=== PATIENT | male | born 1965 | race Caucasian/White ===

== ENCOUNTER 2017-02-14 10:23 | Emergency (ER) | payer BC ==
[2017-02-14 10:30] VITALS: BP 150/84
--- NOTE | 2017-02-14 11:03 | RAD ---
HISTORY: Left knee pain, trauma COMPARISONS: None VIEWS: 4, Frontal, lateral, axial, and oblique views of the left knee FINDINGS: BONE DENSITY: Normal. BONES: There is no displaced fracture. JOINTS: There is no arthropathy. There is a moderate suprapatellar joint effusion. There is no lipohemarthrosis. ALIGNMENT: There is no dislocation. SOFT TISSUES: Unremarkable. OTHER FINDINGS: None. IMPRESSION: NO ACUTE OSSEOUS INJURY. JOINT EFFUSION. IF SYMPTOMS PERSIST, RECOMMEND REPEAT IMAGING.
--- NOTE | 2017-02-14 11:29 | UC ---
Lower Extremity/Ankle HPI - HPI Summary HPI Summary: Patient presents to the with left knee pain s/p fall last evening. He feels the knee laterally twisted out as he fell. He fell directly onto the right knee while twisting the left, but denies injury or pain in the right knee. Thorough physical exam was performed, focusing on knee special tests. Pain on palpation over lateral aspect and superior aspect of knee with mild amount of effusion. Due to patient pain around injury, physical exam was limited. Valgus and varus force without pain. No posterior sag sign, -posterior drawer test, - anterior drawer test. Quadriceps active test negative. Mcmurrys test not performed d/t patients instability. Some laxity in the joint noted. No temperature change or pallor noted bilaterally. No ecchymosis noted over knee. No lesion or disruption of skin is seen. Unable to bear weight currently, although felt he could bear weight last evening. He has been taking ibuprofen at home with minimum relief. Pulses intact bilaterally. Cap refill <2 sec. - History of Current Complaint Chief Complaint: UCLowerExtremity Stated Complaint: KNEE INJURY Time Seen by Provider: 02/14/17 10:33 Hx Obtained From: Patient Onset/Duration: Sudden Onset Severity Initially: Mild Severity Currently: Mild Pain Intensity: 5 Pain Scale Used: 0-10 Numeric Aggravating Factor(s): Standing, Ambulation Alleviating Factor(s): Rest, Elevation Able to Bear Weight: No - Risk Factors Gout Risk Factors: Age Over 40, Male DVT Risk Factors: Negative Septic Arthritis Risk Factor: Negative - Allergies/Home Medications Allergies/Adverse Reactions: Allergies Allergy/AdvReac Type Severity Reaction Status Date / Time No Known Allergies Allergy Verified 02/14/17 10:30 PMH/Surg Hx/FS Hx/Imm Hx Previously Healthy: Yes - Surgical History Surgical History: Yes Surgery Procedure, Year, and Place: 2001 SUSPENSION MICROLARY[place]OSCOPY[place] [facility] [place] [facility] [place]/2006 RIGHT KNEE ARTHROSCOPY, REPAIR TORN MENISCUS, [place] [facility] [place] [facility] [place] [facility] [place] RIGHT GROIN [place]EURYSM [place]PAIR, [place] - Family History Known Family History: Positive: Other - cancer - Social History Occupation: Employed Full-time Lives: With Family Alcohol Use: Weekly Alcohol Amount: 6-8 BEERS 2-3X/WEEK Substance Use Type: None, Marijuana Smoking Status (MU): Current Every Day Smoker Type: Cigarettes Amount Used/How Often: 1ppd Length of Time of Smoking/Using Tobacco: 30 YEARS Have You Smoked in the Last Year: Yes - Immunization History Immunizations Comment: no flu shot Review of Systems Constitutional: Negative Skin: Negative ENT: Negative Respiratory: Negative Cardiovascular: Negative Motor: Decreased ROM Musculoskeletal: Arthralgia - left knee pain Neurological: Negative Psychological: Negative Is Patient Immunocompromised?: No All Other Systems Reviewed And Are Negative: Yes Physical Exam Triage Information Reviewed: Yes Appearance: Well-Appearing, Well-Nourished Vital Signs: Initial Vital Signs Temp 98.4 F 02/14/17 10:26 Pulse 88 02/14/17 10:26 Resp 18 02/14/17 10:26 BP 150/84 02/14/17 10:26 Pulse Ox 97 02/14/17 10:26 Vital Signs Reviewed: Yes Eye Exam: Normal Eyes: Positive: Conjunctiva Clear Neck exam: Normal Neck: Positive: Supple, No Lymphadenopathy Respiratory Exam: Normal Respiratory: Positive: Chest non-tender, Lungs clear Cardiovascular Exam: Normal Cardiovascular: Positive: RRR Musculoskeletal: Positive: ROM Limited @ - valgus and varus force with limitations d/t pain, Edema @ - medial knee Neurological Exam: Normal Neurological: Positive: Muscle Tone Normal Psychological: Positive: Normal Response To Family, Age Appropriate Behavior Skin Exam: Normal Lower Extremity Course/Dx - Course Course Of Treatment: Patient sent to imaging. Xray negative for fracture or other acute findings. Soft tissue swelling noted over the knee. Knee immobizer give to allow for immobilization for this period of time. Patient arrives with crutches. Patient given orthopedic follow up in 5-7 days. Encouraged Ibuprofen 600mg three times daily with meals for pain. Return precautions given. Educated patient regarding knee injuries and healing time and the possibility of further evaluation and imaging as orthopedist sees fit. D/t laxity of the joint, this is likely a ligamentous tear. This was explained to patient and should remain non-weight bearing until follow up with ortho. - Differential Dx/Diagnosis Differential Diagnosis/HQI/PQRI: Fracture (Closed), Sprain, Strain, Other - ligamentous tear, ACL, PCL, MCL Provider Diagnoses: Knee pain Discharge - Discharge Plan Condition: Stable Disposition: HOME Patient Education Materials: Swollen Knee Joint (ED), Knee Immobilizer (ED) Referrals: Matthew Bean MD [Medical Doctor] - Milton LAU,John Hernandes [Primary Care Provider] - Additional Instructions: Ibuprofen 600mg three times daily with meals for pain. Follow up with orthopedic physician in 5-7 days. If numbness, tingling, decreased sensation, increased pain, temperature changes or pallor noted in toes, come back to ER immediately. Protect the area. This may involve the need for immobilization or crutches for a period of time. Rest the involved area, but not too long. You may need to be off your injury for some time to allow for healing, however excessive immobilization of joints can lead to stiffness and delay healing time. Early mobilization is encouraged if it is pain-free. Ice. Not directly on the skin. Cover with a towel. Apply ice no more than 30 minutes at a time Elevate: Try to elevate the injured area above the heart whenever possible.
== END 2017-02-14 12:17 | disposition home or self-care (01) ==
LOC: UCEAST 10:23
DX: M25.562 Pain in left knee (principal); F17.210 Nicotine dependence, cigarettes, uncomplicated; W19.XXXA Unspecified fall, initial encounter
CPT/HCPCS: 99212; G0463

== ENCOUNTER 2017-06-06 11:41 | Emergency (ER) | payer BC ==
[2017-06-06] MEDS ORDERED: Morphine INJ* 4 MG/ML 1 ML CARPUJECT IV ONE (13:26)
[2017-06-06] MEDS ORDERED: Ondansetron INJ* 2 MG/ML VIAL IV ONE (13:26)
[2017-06-06] MEDS ORDERED: Ketorolac INJ* 30 MG/ML 1 ML VIAL IV PUSH ONE (13:26)
[2017-06-06] MEDS ORDERED: predniSONE TAB* 20 MG PO ONE (13:26)
[2017-06-06 14:09] LABS: ABS Basophils 0.1 10^3/ul (0-0.2); ABS Eosinophils 0.1 10^3/ul (0-0.6); ABS Lymphocytes 3.2 10^3/ul (1.0-4.8); ABS Monocytes 0.7 10^3/ul (0-0.8); ABS Neutrophils 6.1 10^3/ul (1.5-7.7); ABS Nucleated RBC 0 10^3/ul; Eosinophil % 0.7 % (0-6); Hematocrit 45 % (42-52); Lymphocyte % 31.5 % (25-47); Mean Corpuscular HGB Conc 36 g/dl (31-36); Mean Corpuscular Hemoglobin 33 pg (27-31); Mean Corpuscular Volume 93 fL (80-94); Mean Platelet Volume 8 um3 (7.4-10.4); Nucleated Red Blood Cells % 0; Platelet Count 319 10^3/ul (150-450); Red Blood Count 4.85 10^6/ul (4.0-5.4); Red Cell Distribution Width 13 % (10.5-15); White Blood Count 10.3 10^3/ul (3.5-10.8)
[2017-06-06 14:18] LABS: EGFR Non-African American 91.7 (>60)
[2017-06-06] MEDS ORDERED: Iohexol 350* (CONTRAST) 500 ML MDV IV ONE (14:25)
--- NOTE | 2017-06-06 15:14 | RAD ---
STUDY: CT angiography of the chest, abdomen and pelvis. INDICATION: Chest pain and groin aneurysm COMPARISON: CT abdomen pelvis dated September 29, 2009 TECHNIQUE: Multidetector CT angiography of the chest, abdomen and pelvis were obtained from the lung apices to the ischial tuberosities after the intravenous injection of 100 mL Omnipaque 350. Reformats were created in the coronal and sagittal planes. 3-D vascular imaging was created from the source images and reviewed as well. ANGIOGRAPHIC FINDINGS: There are no filling defects of the central or lobar pulmonary arteries to indicate centrilobular pulmonary embolism. The thoracic and abdominal aorta is normal in size and morphology. There is no aortic dissection or pathologic aneurysmal dilatation. The branch arteries at the arch of the aorta are adequately patent and appear to be patent in their proximal portions. The major branch arteries from the abdominal aorta including the celiac trunk, superior mesenteric artery, bilateral renal arteries and inferior mesenteric artery are adequately patent. There is mild mixed attenuation atherosclerosis at the infrarenal abdominal aorta extending into the patent bilateral common iliac arteries. In-line flow is seen as far as the bilateral external iliac arteries. The right common femoral artery exhibits mild aneurysmal dilatation measuring 1.2 cm in diameter. There is patent in-line flow into the proximal most portions of the femoral profundus and superficial femoral artery although there is relative high-grade stenosis of the right superficial femoral artery at its proximal most portion measuring 5 mm in diameter (axial image 261). On the left there is coarse calcification that appears to cause high-grade stenosis at the left common femoral artery but in-line flow appears to be maintained into the proximal most portions of the superficial femoral artery and femoral profundus. NON ANGIOGRAPHIC FINDINGS: Chest: The lungs exhibit diffuse centrilobular emphysematous changes. There are no focal masses or suspicious pulmonary nodules. There is no mediastinal or hilar lymphadenopathy. The heart is grossly normal in appearance. Abdomen & Pelvis: The liver, spleen, pancreas and adrenal glands are grossly normal in appearance. The gallbladder is normal. The kidneys are normal in appearance without focal mass, calcification or signs of hydronephrosis. The renal cortices enhance promptly and symmetrically on arterial phase imaging. The small and large bowel are not distended. The appendix is normal in appearance with gas partially filling the lumen measuring 5 mm in diameter (image 204). There is no gross retroperitoneal or mesenteric lymphadenopathy. The pelvic viscera is normal in appearance. Multilevel degenerative changes of the thoracic and lumbar spine includes mild loss of intervertebral disc height as well as anterior marginal osteophyte formation at the lower thoracic spine. IMPRESSION: 1. No CT evidence of acute aortic disease including dissection or pathologic aneurysmal dilatation. 2. No centrilobular pulmonary embolism. 3. There is mild aneurysmal dilatation at the right common femoral artery with wall thickening consistent with prior surgical intervention. 4. There is relative high-grade stenosis at the proximal most portion of the right superficial femoral artery. Please correlate to any signs or symptoms of right lower extremity arterial insufficiency. 5. Coarse atherosclerotic calcification appears to cause high-grade stenosis at the left common femoral artery. 6. Additional chronic and degenerative changes described in the body of the report.
[2017-06-06] MEDS ORDERED: HYDROcodone/ACETAMIN 5-325 MG* 1 TAB PO ONE (15:33)
[2017-06-06 15:44] VITALS: BP 135/98
--- NOTE | 2017-06-09 16:04 | ED ---
Jenniffer Piña Gabriel scribed for Cole Castro MD on 06/06/17 at 1330 . HPI Chest Pain - HPI Summary HPI Summary: This patient is a 51 year old M presenting to [facility] with a chief complaint of CP since 05/30/17. The patient rates the constant pain /10 in severity, he states that it radiates in to his neck, down his left side, into his left arm, and into his legs and he describes the pain as icy. Patient reports numbness in LE (began months ago). Patient was referred to a civil design specialist in [place] by his PCP. He went for 2 visits and felt like he was getting nowhere and was wasting his time so he did not continue to see the doctor. - History of Current Complaint Chief Complaint: EDChestPainROMI Time Seen by Provider: 06/06/17 13:02 Hx Obtained From: Patient Onset/Duration: Started Weeks Ago - 1 Timing: Constant Initial Severity: Severe Current Severity: Severe Pain Intensity: 8 Pain Scale Used: 0-10 Numeric Chest Pain Location: Left Anterior, Left Lateral Chest Pain Radiates: Yes Chest Pain Radiates To:: Arm, Jaw, Neck, Other - LE Character: Other: - "icy" Aggravating Factor(s): Nothing Alleviating Factor(s): Nothing Associated Signs and Symptoms: Positive: Chest Pain - Allergy/Home Medications Allergies/Adverse Reactions: Allergies Allergy/AdvReac Type Severity Reaction Status Date / Time Acetaminophen [From Percocet] Allergy Itching Verified 06/06/17 13:48 Codeine Allergy Itching Verified 06/06/17 13:48 Hydrocodone Allergy Itching Verified 06/06/17 13:48 Oxycodone [From Percocet] Allergy Itching Verified 06/06/17 13:48 Home Medications: Home Medications Atorvastatin* [Lipitor*] 80 mg PO DAILY 06/06/17 [History Confirmed 06/06/17] Lisinopril TAB* [Prinivil TAB*] 10 mg PO DAILY 06/06/17 [History Confirmed 06/06] PMH/Surg Hx/FS Hx/Imm Hx Endocrine/Hematology History: Denies: Hx Diabetes, Hx Thyroid Disease Cardiovascular History: Reports: Hx Hypertension - CONTROL WITH MEDS, Other Cardiovascular Problems/Disorders - HX OF ANEURYSM IN RIGHT GROIN AREA, - REPAIRED WITH SURGERY 2013 Respiratory History: Denies: Hx Asthma, Hx Chronic Obstructive Pulmonary Disease (COPD) GI History: Denies: Hx Ulcer Musculoskeletal History: Reports: Hx Arthritis, Hx Tendonitis - RIGHT ELBOW, Other Musculoskeletal History - BILATERAL CARPAL TUNNEL SYNDROME Sensory History: Denies: Hx Contacts or Glasses, Hx Hearing Aid Opthamlomology History: Denies: Hx Contacts or Glasses Neurological History: Reports: Hx Migraine - OCCASIONAL - Surgical History Surgery Procedure, Year, and Place: 2001 SUSPENSION MICROLARYNGOSCOPY, RIGID [place]GD , [facility] [place]. 2004 ARTHROSCOPIC SURGERY LEFT KNEE, [facility] [place]. 05/29/2006 RIGHT KNEE ARTHROSCOPY, REPAIR TORN MENISCUS, ACL DEBRIDEMENT, [facility] [place]. 06/08/2006 RIGHT KNEE ARTHROSCOPY, [facility] [place]. LEFT ELBOW SURGERY, [facility] [place]. 2013 RIGHT GROIN ANEURYSM REPAIR, [place] Hx Anesthesia Reactions: No Infectious Disease History: No Infectious Disease History: Reports: Hx of Known/Suspected MRSA Denies: Hx Clostridium Difficile, Hx Hepatitis, Hx Human Immunodeficiency Virus (HIV), Hx Shingles, Hx Tuberculosis, Hx Known/Suspected VRE, Hx Known/ Suspected VRSA, History Other Infectious Disease, Traveled Outside the in Last 30 Days - Family History Known Family History: Positive: Hypertension, Diabetes, Other - cancer Negative: Cardiac Disease, Renal Disease, Respiratory Disease, Seizure Disorder, Blood Disorder - Social History Occupation: Employed Full-time Lives: With Family Alcohol Use: Weekly Alcohol Amount: 6-8 BEERS 2-3X/WEEK Substance Use Type: Reports: None, Marijuana Smoking Status (MU): Current Every Day Smoker Type: Cigarettes Amount Used/How Often: 1ppd Length of Time of Smoking/Using Tobacco: 30 YEARS Have You Smoked in the Last Year: Yes Review of Systems Negative: Fever, Chills Negative: Erythema Negative: Sore Throat Positive: Chest Pain Negative: Shortness Of Breath, Cough Negative: Abdominal Pain, Vomiting, Nausea Negative: dysuria, hematuria Positive: Other - LE numbness and weakness . Negative: Myalgia, Edema Negative: Rash Neurological: Negative - dizziness , Other - nerve pain the left side of his body into LE All Other Systems Reviewed And Are Negative: Yes Physical Exam - Summary Physical Exam Summary: Constitutional: Well-developed, Well-nourished, Alert. (-) Distressed Skin: Warm, Dry HENT: Normocephalic; Atraumatic Eyes: Conjunctiva normal Neck: Musculoskeletal ROM normal neck. (-) JVD, (-) Stridor, (-) Tracheal deviation Cardio: Rhythm regular, rate normal, Heart sounds normal; Intact distal pulses; The pedal pulses are 2+ and symmetric. Radial pulses are 2+ and symmetric. (-) Murmur Pulmonary/Chest wall: Effort normal. 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 Lymph: (-) Cervical adenopathy Neuro: Alert, Oriented x3 Psych: Mood and affect Normal Triage Information Reviewed: Yes Vital Signs On Initial Exam: Initial Vitals Temp Pulse Resp BP Pulse Ox 98.3 F 86 18 164/97 97 06/06/17 13:18 06/06/17 13:18 06/06/17 13:18 06/06/17 13:18 06/06/17 13:18 Vital Signs Reviewed: Yes - Ronald Coma Scale Coma Scale Total: 15 Diagnostics - Vital Signs Vital Signs Temp Pulse Resp BP Pulse Ox 06/06/17 13:19 20 06/06/17 13:18 98.3 F 86 18 164/97 97 - Laboratory Result Diagrams: 06/06/17 13:43 06/06/17 13:43 Lab Statement: Any lab studies that have been ordered have been reviewed, and results considered in the medical decision making process. - CT CTA Chest/ABD/Pelvis CT Interpretation Completed By: Radiologist - 1. No CT evidence of acute aortic disease including dissection or pathologic aneurysmal dilatation. 2. No centrilobular pulmonary embolism. 3. There is mild aneurysmal dilatation at the right common femoral artery with wall thickening consistent with prior surgical intervention. 4. There is relative high-grade stenosis at the proximal most portion of the right superficial femoral artery. Please correlate to any signs or symptoms of right lower extremity arterial insufficiency. 5. Coarse atherosclerotic calcification appears to cause high-grade stenosis at the left common femoral artery. 6. Additional chronic and degenerative changes described in the body of the report. ED physician has reviewed this radiology report. - EKG 11:53 Cardiac Rate: NL EKG Rhythm: Sinus Rhythm - at 94 BPM EKG Interpretation: No STEMI Chest Pain Course/Dx - Course Assessment/Plan: This patient is a 51 year old M presenting to [facility] with a chief complaint of CP since 05/30/17. The patient rates the constant pain /10 in severity, he states that it radiates in to his neck, down his left side, into his left arm, and into his legs and he describes the pain as icy. Patient reports numbness in LE (began months ago). Patient was referred to a civil design specialist in [place] by his PCP. He went for 2 visits and felt like he was getting nowhere and wasting his time so he did not continue to see the doctor. An EKG reveals NSR. CTA chest/ABD/Pelvis reveals, per radiologist, 1. No CT evidence of acute aortic disease including dissection or pathologic aneurysmal. dilatation. 2. No centrilobular pulmonary embolism. 3. There is mild aneurysmal dilatation at the right common femoral artery with wall. thickening consistent with prior surgical intervention. 4. There is relative high-grade stenosis at the proximal most portion of the right. superficial femoral artery. Please correlate to any signs or symptoms of right lower. extremity arterial insufficiency. 5. Coarse atherosclerotic calcification appears to cause high-grade stenosis at the left. common femoral artery. 6. Additional chronic and degenerative changes described in the body of the report. The CTA showed no aneurysms, signs symptoms consistent with chronic pain and cervical radiculopathy. Despite his listed allergy he states he can tolerate [place] well. Test results with no significant abnormalities. In the ED course the patient was given morphine, Zofran, toradol, and [place]. Patient will be discharged with prescription for [place], Lidoderm, Naproxen, and prednisone and follow with physician referral in 2 days. The patient is agreeable with this plan. - Diagnoses Provider Diagnoses: Chronic back pain, Cervical radiculopathy Discharge - Discharge Plan Condition: Stable Disposition: HOME Prescriptions: HYDROcodone/ACETAMIN 5-325 MG* [[place] 5-325 TAB*] 1 - 2 tab PO Q6H PRN #20 tab MDD 8 PRN Reason: Pain - Severe Lidocaine PATCH 5%* [Lidoderm 5% Patch*] 1 patch TRANSDERM DAILY #20 patch Naproxen TAB* [Naprosyn 250 mg TAB*] 500 mg PO Q8H PRN #30 tab PRN Reason: Pain - Moderate To Severe predniSONE TAB* [Deltasone TAB*] 40 mg PO DAILY #8 tab Patient Education Materials: Hydrocodone/Acetaminophen (By mouth), Naproxen ( By mouth), Prednisone (By mouth), Lidocaine (On the skin), Chronic Back Pain (ED ) Referrals: [facility] [place] [facility]YSICIAN REFERRAL [Outside] - 2 Days John Pepper [Primary Care Provider] - Additional Instructions: RETURN TO THE EMERGENCY DEPARTMENT FOR CHANGING OR WORSENING SYMPTOMS. The documentation as recorded by the Jenniffer valladares Gabriel accurately reflects the service I personally performed and the decisions made by , Cole Castro MD.
== END 2017-06-06 16:05 | disposition home or self-care (01) ==
LOC: ED 11:41
DX: M54.9 Dorsalgia, unspecified (principal); M54.12 Radiculopathy, cervical region; R07.9 Chest pain, unspecified; F17.210 Nicotine dependence, cigarettes, uncomplicated; Z86.79 Personal history of other diseases of the circulatory system
CPT/HCPCS: 36415; 71275; 74174; 80053; 83605; 84484; 85025; 93005; 99283; J1885; J2270; J2405; J7512; Q9967

== ENCOUNTER 2017-06-20 12:36 | Emergency (ER) | payer BC ==
[2017-06-20] MEDS ORDERED: Ibuprofen TAB* 600 MG PO ONE (13:41)
[2017-06-20] MEDS ORDERED: HYDROcodone/ACETAMIN 5-325 MG* 1 TAB PO ONE (13:45)
[2017-06-20] MEDS ORDERED: HYDROcodone/ACETAMIN 5-325 MG* 1 TAB ONE (13:46)
--- NOTE | 2017-06-20 14:09 | RAD ---
INDICATION: Trauma, neck pain. COMPARISON: Correlation is made with a prior study from May 24, 2004. TECHNIQUE: Contiguous axial sections were obtained from the skull base through the T1 vertebra. Images were reconstructed in the sagittal and coronal planes. FINDINGS: There is straightening of the cervical spine with loss of the normal cervical lordosis. No prevertebral soft tissue swelling or fracture is seen. At the C5-C6 level there is mild posterior uncinate process spurring. No spinal canal narrowing is present. There is mild bilateral neural foraminal narrowing. At the C6-C7 level there is mild posterior uncinate process spurring. No spinal canal or neural foraminal narrowing is seen. The lung apices appear clear with bilateral emphysematous change. IMPRESSION: STRAIGHTENING OF THE CERVICAL SPINE, NO EVIDENCE FOR FRACTURE OR SUBLUXATION.
--- NOTE | 2017-06-20 14:10 | RAD ---
INDICATION: Left shoulder injury. TECHNIQUE: 4 views of the left shoulder were obtained. FINDINGS: The bones are in normal alignment. No fracture is seen. There is mild osteoarthritic change in the acromioclavicular joint. IMPRESSION: NO EVIDENCE OF FRACTURE.
[2017-06-20] MEDS ORDERED: Ketorolac INJ* 30 MG/ML 1 ML VIAL IV PUSH ONE (14:25)
[2017-06-20] MEDS ORDERED: Ketorolac INJ* 60 MG/2 ML VIAL ONE (15:05)
[2017-06-20] MEDS ORDERED: Ketorolac INJ* 60 MG/2 ML VIAL IM ONE (15:07)
[2017-06-20 15:27] VITALS: BP 142/89
--- NOTE | 2017-06-21 17:54 | ED ---
Jef Piña Angela, scribed for Arash Murray MD on 06/20/17 at 1357 . Upper Extremity Pain - HPI Summary HPI Summary: This pt is a 51 y/o male presenting [place] [facility] c/o worsening left shoulder pain and neck pain s/p fall last night. Pt reports he was in the shower when he slipped and fell last night. Denies head strike or LOC. He describes his pain as having a bag of ice on his neck. Pt states that he was in the ED 2 weeks ago on 06/06/17 for the same neck pain radiating down left shoulder and numbness. Pt had a CT chest/abdomen/pelvis done that resulted negative. He was told he had a pinched nerve. - History of Current Complaint Chief Complaint: EDExtremityUpper Stated Complaint: FALL, NECK AND SHOULDER INJURY Time Seen by Provider: 06/20/17 13:43 Hx Obtained From: Patient Mechanism Of Injury: Fall From Height Of: Onset/Duration: Started Weeks Ago, Still Present, Worse Since - last night Timing: Lasting Weeks Severity Currently: Moderate Pain Location: Shoulder - left, Other: - neck Aggravating Factor(s): Movement Alleviating Factor(s): Rest Associated Signs & Symptoms: Positive: Neck Pain, Other - left shoulder pain - Allergies/Home Medications Allergies/Adverse Reactions: Allergies Allergy/AdvReac Type Severity Reaction Status Date / Time MS Oxycodone [From Percocet] Allergy Itching Verified 06/06/17 13:48 PMH/Surg Hx/FS Hx/Imm Hx Endocrine/Hematology History: Denies: Hx Diabetes, Hx Thyroid Disease Cardiovascular History: Reports: Hx Hypertension - CONTROL WITH MEDS, Other Cardiovascular Problems/Disorders - HX OF ANEURYSM IN RIGHT GROIN AREA, - REPAIRED WITH SURGERY 2013 Respiratory History: Denies: Hx Asthma, Hx Chronic Obstructive Pulmonary Disease (COPD) GI History: Denies: Hx Ulcer Musculoskeletal History: Reports: Hx Arthritis, Hx Tendonitis - RIGHT ELBOW, Other Musculoskeletal History - BILATERAL CARPAL TUNNEL SYNDROME Sensory History: Denies: Hx Contacts or Glasses, Hx Hearing Aid Opthamlomology History: Denies: Hx Contacts or Glasses Neurological History: Reports: Hx Migraine - OCCASIONAL - Surgical History Surgery Procedure, Year, and Place: 2001 SUSPENSION MICROLARYNGOSCOPY, [place] , [facility] 2005 ARTHROSCOPIC SURGERY LEFT KNEE, [facility]. 05/29/2006 RIGHT KNEE ARTHROSCOPY, REPAIR TORN MENISCUS, ACL DEBRIDEMENT, [facility]. 06/08/2006 RIGHT KNEE [place]ROSCOPY, [facility] LEFT ELBOW SURGERY, [facility] 2013 RIGHT GROIN ANEURYSM REPAIR, [place] Hx Anesthesia Reactions: No Infectious Disease History: No Infectious Disease History: Reports: Hx of Known/Suspected MRSA Denies: Hx Clostridium Difficile, Hx Hepatitis, Hx Human Immunodeficiency Virus (HIV), Hx Shingles, Hx Tuberculosis, Hx Known/Suspected VRE, Hx Known/ Suspected VRSA, History Other Infectious Disease, Traveled Outside the [place] in Last 30 Days - Family History Known Family History: Positive: Hypertension, Diabetes, Other - cancer Negative: Cardiac Disease, Renal Disease, Respiratory Disease, Seizure Disorder, Blood Disorder - Social History Alcohol Use: Weekly Alcohol Amount: 6-8 BEERS 2-3X/WEEK Substance Use Type: Reports: None, Marijuana Smoking Status (MU): Heavy Every Day Tobacco Smoker Type: Cigarettes Amount Used/How Often: 1ppd Length of Time of Smoking/Using Tobacco: 30 YEARS Have You Smoked in the Last Year: Yes Review of Systems Negative: Fever, Chills Eyes: Negative ENT: Negative Cardiovascular: Negative Respiratory: Negative Musculoskeletal: Other - left shoulder pain Positive: Numbness All Other Systems Reviewed And Are Negative: Yes Physical Exam - Summary Physical Exam Summary: VITAL SIGNS: Reviewed. GENERAL: Patient is a well-developed and nourished male who is lying comfortable in the stretcher. Patient is not in any acute respiratory distress. HEAD AND FACE: No signs of trauma. No ecchymosis, hematomas or skull depressions. No sinus tenderness. EYES: PERRLA, EOMI x 2, No injected conjunctiva, no nystagmus. EARS: Hearing grossly intact. Ear canals and tympanic membranes are within normal limits. MOUTH: Oropharynx within normal limits. NECK: Supple, trachea is midline, no adenopathy, no JVD, no carotid bruit, no c- spine tenderness, neck with full ROM. CHEST: Symmetric, no tenderness at palpation LUNGS: Clear to auscultation bilaterally. No wheezing or crackles. CVS: Regular rate and rhythm, S1 and S2 present, no murmurs or gallops appreciated. ABDOMEN: Soft, non-tender. No signs of distention. No rebound no guarding, and no masses palpated. Bowel sounds are normal. EXTREMITIES: no edema, no cyanosis or clubbing. LUE: no ecchymosis, no deformity , and no hematomas. Pt has good pulses and good capillary refill. Pt has decreased ROM secondary to pain. Pt did not want me to do any passive movements. There is positive musculoskeletal tenderness on the sternocleidomastoid. Positive trapezius muscle tenderness on the left. NEURO: Alert and oriented x 3. No acute neurological deficits. Speech is normal and follows commands. SKIN: Dry and warm Triage Information Reviewed: Yes Vital Signs On Initial Exam: Initial Vitals Temp Pulse Resp BP Pulse Ox 97.8 F 95 20 149/90 97 06/20/17 12:56 06/20/17 12:56 06/20/17 12:56 06/20/17 12:56 06/20/17 12:56 Vital Signs Reviewed: Yes Diagnostics - Vital Signs Vital Signs Temp Pulse Resp BP Pulse Ox 06/20/17 12:56 97.8 F 95 20 149/90 97 - Laboratory Lab Statement: Any lab studies that have been ordered have been reviewed, and results considered in the medical decision making process. - Radiology Left shoulder XR Xray Interpretation: No Acute Changes - IMPRESSION: No evidence of fracture. Dr. Murray has reviewed this radiology report. Radiology Interpretation Completed By: Radiologist - CT Cervical spine CT CT Interpretation: Positive (See Comments) - IMPRESSION: Straightening of the cervical spine, no evidence for fracture or subluxation. Dr. Murray has reviewed this radiology report. CT Interpretation Completed By: Radiologist Re-Evaluation - Re-Evaluation First Eval Re-Evaluation Time: 14:38 Comment: I discussed XR and CT results with the pt. Course/Dx - Course Course Of Treatment: This pt is a 51 y/o male presenting to [facility] c/o worsening left shoulder pain and neck pain s/p fall last night. Pt reports he was in the shower when he slipped and fell last night. Denies head strike or LOC. He describes his pain as having a bag of ice on his neck. Pt states that he was in the ED 2 weeks ago on 06/06/17 for the same neck pain radiating down left shoulder and numbness. Pt had a CT chest/abdomen/pelvis done that resulted negative. He was told he had a pinched nerve. Left shoulder XR shows no evidence of fracture. Cervical spine CT shows Straightening of the cervical spine, no evidence for fracture or subluxation. In the ED course the pt was given Toradol for the pain and his symptoms improved. The pt was placed in shoulder immobilizer. At this point the pt will be discharged home with follow up from orthopedics since he continues to have pain. Pt is hemodynamically stable, alert and oriented x3. - Diagnoses Differential Diagnosis/HQI/PQRI: Positive: Bursitis, Contusion, Fracture (Closed ), Strain, Sprain Provider Diagnoses: Left shoulder pain, Neck pain Discharge - Discharge Plan Condition: Stable Disposition: HOME Prescriptions: Methylprednisolone [Medrol Dosepak 4 MG*] 0 mg PO .SEE MINDY INSTRUCTION #1 mindy traMADol TAB* [Ultram*] 50 mg PO Q6HR PRN #12 tab MDD 4 PRN Reason: Pain Patient Education Materials: Shoulder Pain (ED), Neck Pain (ED) Referrals: John Pepper [Primary Care Provider] - 3 Days Arie Durham MD [Medical Doctor] - 3 Days Additional Instructions: Please follow up Dr. Durham, orthopedist. RETURN TO THE ED FOR ANY WORSENING SYMPTOMS. The documentation as recorded by the Jef valladares Angela accurately reflects the service I personally performed and the decisions made by , Arash Murray MD.
== END 2017-06-20 15:25 | disposition home or self-care (01) ==
LOC: ED 12:36
DX: M25.512 Pain in left shoulder (principal); M54.2 Cervicalgia; Z86.79 Personal history of other diseases of the circulatory system; F17.210 Nicotine dependence, cigarettes, uncomplicated
CPT/HCPCS: 72125; 96372; 96374; 99282; J1885

== ENCOUNTER 2018-10-09 16:44 | Inpatient (IN) | payer BC ==
--- OUTSIDE RECORDS SUMMARY | 2018-10-09 17:11 | XMS REPORT | Continuity of Care Document ---
:1965 External Reference #:[id number] Author Name Palomo Roque M.D. Address [address] [place] [address] Care Team Providers Name Role Phone Palomo Roque M.D. Care Team Information [employer] Unavailable Payers Date Identification Numbers Payment Provider Subscriber Policy Number: [id number] [employer] Angelica Mason PayID: [id number] [address] [address] [place] [address] Advance Directives Description No Information Available Problems Active Problems Provider Date Essential hypertension Palomo Roque M.D. Onset: 07/19/2018 Pure hypercholesterolemia Palomo Roque M.D. Onset: 07/19/2018 Family History Date Family Member(s) Observation Comments General Hypertension General Diabetes Father due to Lung Cancer () Mother due to Alzheimer's Disease () Children 1 First Son due to Auto Accident () First Daughter 27 Second Daughter Scot's Siblings 2 First Brother 56 First Brother No Current Problems First Sister Hypertension First Sister 59 First Sister Diabetes Social History Type Date Description Comments Sex Unknown Lives With Spouse Lives With Daughter Work Status Full-Time Employment ETOH Use Consumes 3-4 beers per week Tobacco Use Start: Unknown Heavy tobacco smoker (more than 10 cigarettes/day) Recreational Drug Use Denies Drug Use Smoking Status Reviewed: 09/24/18 Heavy tobacco smoker (more than 10 cigarettes/day) Allergies, Adverse Reactions, Alerts Description No Known Drug Allergies Medications Active Medications SIG Qnty Indications Ordering Date Provider Cyclobenzaprine HCL 1 tab by mouth 90tabs M51.37 Palomo Roque, 2018 10mg three times a M.D. Tablets day as needed for muscle spasms M54.17 Miralax 1-2 caps by mouth 952gm Palomo RoqueDanna, 09/24/2018 3350NF Powder every day M.D. Hydrocodone-Acetaminoph 1/2-1 tab by mouth 90tabs M51.37 Palomo RoqueDanna, 07/19/2018 en three times a day M.D. 10-325mg Tablets as needed Albuterol Sulfate HFA J44.9 Unknown 108(90Base) mcg/Act Aerosol Lisinopril I10 Unknown 10mg Tablets R73.01 Mirtazapine 1 1/2 tab by mouth 135tabs F41.9 Palomo RoqueDanna, 45mg Tablets every night M.D. G47.00 Atorvastatin Calcium 80mg Tablets E78.2 Unknown History Medications Prednisone 3 tab by mouth 18tabs M51.37 Palomo RoqueDanna, 07/19/2018 - 20mg daily 3 days, M.D. 07/26/2018 Tablets then 2 tab daily x 3 d , then 1 tab daily 3d Immunizations Description No Information Available Vital Signs Date Vital Result Comment 09/25/2018 10:03am BP Systolic 146 mmHg BP Diastolic 80 mmHg Height 69 inches 5'9" Weight 209.00 lb BMI (Body Mass Index) 30.9 kg/m2 Heart Rate 91 /min Respiratory Rate 20 /min 09/06/2018 8:31am BP Systolic 138 mmHg BP Diastolic 78 mmHg Height 69 inches 5'9" Weight 212.00 lb BMI (Body Mass Index) 31.3 kg/m2 Heart Rate 75 /min Respiratory Rate 16 /min 08/07/2018 8:33am BP Systolic 150 mmHg BP Diastolic 74 mmHg Height 69 inches 5'9" Weight 211.00 lb BMI (Body Mass Index) 31.2 kg/m2 Heart Rate 88 /min Respiratory Rate 16 /min 07/19/2018 3:47pm BP Systolic 138 mmHg BP Diastolic 82 mmHg Height 69 inches 5'9" Weight 210.00 lb BMI (Body Mass Index) 31.0 kg/m2 Heart Rate 82 /min Respiratory Rate 18 /min Results Test Date Facility Test Result H/L Range Note CBC With Diff 08/07/2018 [facility] WBC 10.6 10*3/uL (4.1-11.0) [facility] (607)- - RBC 5.02 10*6/uL (4.60-6.10) HGB 16.4 g/dL (13.5-18.0) HCT 47.1 % (41.0-53.0) MCV 93.9 fL (80.0-95.0) MCH 32.6 pg High (27.0-32.0) MCHC 34.7 g/dL (32.0-36.0) RDW 14.3 % (10.5-14.5) PLT 299 10*3/uL (150-450) MPV 8.7 fL (7.1-10.7) Neut % 64.1 % (35.0-75.0) Lymph % 26.3 % (16.0-52.0) [place] % 6.8 % (0.0-8.0) Eos % 1.8 % (0.0-5.0) Baso % 1.0 % (0.0-4.0) Neut # 6.8 10*3/uL (1.8-7.7) Lymph # 2.8 10*3/uL (1.2-4.8) [place] # 0.7 10*3/uL (0.0-0.8) Eos # 0.2 10*3/uL (0.0-0.5) Baso # 0.1 10*3/uL (0.0-0.2) CMP 08/07/2018 [facility] Sodium 140 mmol/L (136-145) [facility] (607)- - Potassium 4.4 mmol/L (3.6-5.2) Chloride 108 mmol/L (100-108) Co2 26 mmol/L (22-31) Anion Gap 6 mmol/L Low (7-16) Urea Nitrogen 8 mg/dL (7-24) Creatinine 0.85 mg/dL (0.80-1.30) BUN/Creat Ratio 9.4 RATIO Low (10.0-20.0) Glucose 95 mg/dL (70-99) Calcium 8.7 mg/dL (8.4-10.2) Total Protein 7.2 g/dL (6.4-8.2) Albumin 3.9 g/dL (3.5-4.6) Globulin 3.3 g/dL (2.7-4.3) Alb/Glob Ratio 1.2 RATIO Alkaline Phosphatase 140 U/L High (45-117) Bilirubin,Total 0.3 mg/dL (0.0-1.0) Ast (Sgot) 29 U/L (11-39) Alt (SGPT) 43 U/L (12-78) GFR >60 ml/min/1.73m2 (>59) GFR ( Amer) >60 ml/min/1.73m2 (>59) GFR Interpretation <SEE NOTE> 1 Lipid 08/07/2018 [facility] Cholesterol @ 158 mg/dL (0-200) [address] [employer] [facility] (607)- - Triglyceride @ 324 mg/dL High (30-200) HDL Cholesterol @ 29 mg/dL Low (>40) 2 Chol/HDL Ratio 5.4 RATIO 3 LDL Chol (Calc) UNABLE TO CALCUL <SEE NOTE> mg/dL (<130) 4 Laboratory 08/07/2018 [facility] TSH,Ultrasensitive @ 0.913 (0.360- 4.170) test finding [address] [employer] [facility] mIU/L (607)- - Hemoglobin A1c 08/07/2018 [facility] Hemoglobin A1c @ 5.8 % (4.0-6.0) 5 [address] [facility] (607)- - Est Average Glucose 120 mg/dL Laboratory test 08/07/2018 [facility] 25 Hydroxy Vit 25 ng/mL Low (31- 100) 6 finding [address] [employer] [facility] D @ (607)- - Folate @ >20.0 ng/mL High (3.1-17.5) Vitamin B12 @ 390 pg/mL (193-986) Direct LDL @ 92 mg/dL (<130) 7 1 NORMAL KIDNEY FUNCTION OR MILD DISEASE - GFR >OR=60 CHRONIC KIDNEY DISEASE - GFR 15 - 59 RENAL FAILURE - GFR <15 Est. GFR calculation based on the MDRD study equation, which assumes a steady state for creatinine. Est. GFR should not be used for medication dosing. 2 PER NCEP ATP III GUIDELINES: RESULTS LOWER THAN 40 MG/DL ARE SUGGESTIVE OF INCREASED RISK FOR CORONARY ARTERY DISEASE. RESULTS > OR=TO 60 MG/DL ARE CONSIDERED A NEGATIVE RISK FACTOR. 3 INTERPRETATION OF CHOL-HDL RATIO CHD RISK FEMALE MALE VERY HIGH >8.3 >14.3 HIGH 5.6- 8.3 6.7- 14.3 AVERAGE 3.7- 5.6 4.0- 6.7 BELOW AVERAGE 2.5- 3.7 2.7- 4.0 PROTECTED <2.5 <2.7 4 UNABLE TO CALCULATE VALID LDL DUE TO INTERFERENCE FROM ELEVATED TRIGLYCERIDES (GREATER THAN 300 MG/DL). SEE RESULT FOR DIRECT LDL. 5 Performed using [employer] immunoassay. Care must be taken when interpreting HbA1c results in patients with a hemoglobin variant or decreased erythrocyte lifespan. Values 5.7 - 6.4% suggest prediabetes. Values >=6.5% are diagnostic for diabetes. REFERENCE: DIABETES CARE 2018: 41(S13-S27). 6 A REVIEW OF THE LITERATURE SUGGESTS THE FOLLOWING RANGES FOR THE CLASSIFICATION OF 25-OH VITAMIN D STATUS: VITAMIN D STATUS 25-OH VITAMIN D DEFICIENCY <20 NG/ML INSUFFICIENCY 20-30 NG/ML SUFFICIENCY 31 - 100 NG/ML TOXICITY > 100 NG/ML A PEDIATRIC REFERENCE RANGE HAS NOT BEEN ESTABLISHED USING THIS METHOD. 7 PER NCEP ATP III GUIDELINES: OPTIMAL < 100 NEAR OPTIMAL 100 - 129 BORDERLINE HIGH 130 - 159 HIGH 160 - 189 VERY HIGH > 189 Procedures Date Code Description Status 09/14/2018 03561984 Colonoscopy Completed 07/19/2018 68449 Visual Screening Test Completed 07/19/2018 13362 EKG Completed 07/19/2018 41491 Audiometry, [place], Screening Completed Encounters Type Date Location Provider Dx Diagnosis Office Visit 09/06/2018 [facility] Palomo Roque, I10 Essential ( primary) 8:30a M.D. hypertension E78.2 Mixed hyperlipidemia R73.01 Impaired fasting glucose M75.112 Incomplete rotatr-cuff tear/ruptr of l shoulder, not trauma M25.562 Pain in left knee M15.9 Polyosteoarthritis, unspecified R91.1 Solitary pulmonary nodule H53.30 Unspecified disorder of binocular vision E55.9 Vitamin D deficiency, unspecified G47.00 Insomnia, unspecified I72.4 Aneurysm of artery of lower extremity J44.9 Chronic obstructive pulmonary disease, unspecified F17.210 Nicotine dependence, cigarettes, uncomplicated F10.10 Alcohol abuse, uncomplicated H90.6 Mixed conductive and sensorineural hearing loss, 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, lumbosacral region M54.17 Radiculopathy, lumbosacral region Office Visit 08/07/2018 8:45a [facility] Palomo Roque I10 Essential ( primary) Ara Gregory hypertension E78.2 Mixed hyperlipidemia R73.01 Impaired fasting glucose M75.112 Incomplete rotatr-cuff tear/ruptr of l shoulder, not trauma M25.562 Pain in left knee M15.9 Polyosteoarthritis, unspecified R91.1 Solitary pulmonary nodule H53.30 Unspecified disorder of binocular vision E55.9 Vitamin D deficiency, unspecified G47.00 Insomnia, unspecified I72.4 Aneurysm of artery of lower extremity J44.9 Chronic obstructive pulmonary disease, unspecified F17.210 Nicotine dependence, cigarettes, uncomplicated F10.10 Alcohol abuse, uncomplicated H90.6 Mixed conductive and sensorineural hearing loss, 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, lumbosacral region M54.17 Radiculopathy, lumbosacral region Office Visit 07/19/2018 3:45p [facility] Palomo Roque Z00.01 Encounter for Ara Gregory general adult medical exam w abnormal findings I10 Essential (primary) hypertension E78.2 Mixed hyperlipidemia R73.01 Impaired fasting glucose M75.112 Incomplete rotatr-cuff tear/ruptr of l shoulder, not trauma M25.562 Pain in left knee M54.5 Low back pain M15.9 Polyosteoarthritis, unspecified R91.1 Solitary pulmonary nodule H53.30 Unspecified disorder of binocular vision E55.9 Vitamin D deficiency, unspecified G47.00 Insomnia, unspecified I72.4 Aneurysm of artery of lower extremity J44.9 Chronic obstructive pulmonary disease, unspecified F17.210 Nicotine dependence, cigarettes, uncomplicated F10.10 Alcohol abuse, uncomplicated H90.6 Mixed conductive and sensorineural hearing loss, bilateral Plan of Treatment 09/25/2018 - Palomo Roque M.D.I10 Essential (primary) hypertensionComments: CHECK BP TIW ( PRN)DIET AND FLUID COUNSELING LOW SODIUM DIETWT LOSSF/U LABE78.2 Mixed hyperlipidemiaComments:DIET REVIEWED CONTINUE DIETWT LOSSF/U LAB FBWR73.01 Impaired fasting glucoseComments:F/U HGAICFS QAC AN HS PRNLOW GLUCOSE DIETM75.112 Incomplete rotator cuff tear or rupture of left shoulder, noComments :EXERCISE/HEAT/MESSAGE TYLENOL OR MOTRIN PRNAVOID HEAVY LIFTING ELEVATE PRN DUR IINGHBAQ35.562 Pain in left kneeComments:EXERCISE/HEAT /MESSAGEAVOID HEAVY LIFTING WT LOSSTYLENOL OR MOTRIN PRN DUR AMIYOWCI65.9 Polyosteoarthritis, unspecifiedComments:EXERCISE/HEAT/MESSAGETYLENOL OR MOTRIN PRNAVOID HEAVY LIFTINGWT LOSSR91.1 Solitary pulmonary noduleComments:CXR 08/01/18 WNLH53.30 Unspecified disorder of binocular visionComments:USE GLASSES/CONTACTSF/U WITH [id number] Vitamin D deficiency, unspecifiedComments:INCREASE EXPOSURE TO SUNREVIEW OF DIETG47.00 Insomnia, unspecifiedComments:COUNCELLING AND REASSURANCE RELAXATION TECHNIQUESSTRESSORS IN LIFE AVOID ALL ENERGY/HIGH CAFFEINE VUUVUBP56.4 Aneurysm of artery of lower egmyheiolB31.9 Chronic obstructive pulmonary disease, unspecifiedComments:INCREASE PO FLUIDRESTSMOKING CESSATION COUNCELLING NEB OR MDI AND /OR YHLZRAN72.210 Nicotine dependence, cigarettes, uncomplicatedComments:SMOKING CESSATION CPIMBGUCPSPZ02.10 Alcohol abuse, uncomplicatedComments:ETOH ABSTINENCECOUNCELLING AND DWRQLSAHWCCD84.6 Mixed conductive and sensorineural hearing loss, bilateralComments:OBSERVE F/U WITH ENT PRN SMOKING DKJJPXAHSN19.37 Other intervertebral disc degeneration, lumbosacral regionNew Medication:Cyclobenzaprine HCL 10 mg - 1 tab by mouth three times a day as needed for muscle spasmsComments:EXERCISE/HEAT / MESSAGEAVOID HEAVY LIFTING WT LOSSTYLENOL OR MOTRIN PRN DUR VSENSOGH83.17 Radiculopathy, lumbosacral regionNew Medication:Cyclobenzaprine HCL 10 mg - 1 tab by mouth three times a day as needed for muscle spasmsComments:EXERCISE/ HEAT /MESSAGE AVOID HEAVY LIFTING WT LOSS TYLENOL OR MOTRIN PRN DUR APGRNBBM26.30 Diverticulosis of large intestine without perforation or abscess without bleedingComments:TYLENOL OR MOTRIN PRN INCREASE PO FLUID LAXATIVE PRN
--- NOTE | 2018-10-09 17:43 | ED ---
GI/ HPI - HPI Summary HPI Summary: This patient is a 52 year old male presenting to [facility] with a chief complaint of sodium level concerns. The patient states he was taking hydrocodone for back injury, became constipated, took miralax and had a coloscopy, had Na+ 120, and was admitted to [place] for low sodium, signed out AMA for a back appt, pt didn 't get seen at appt because he was late, was upset and went to lunch, and states he then started to feel "weird", describing it as a sort of lightheadedness and nausea. He came in today to get Na+ levels checks, states he is feeling better than earlier today. The patient is still experiencing back pain at 3/10 severity, and patient was anxious yesterday. - History of Current Complaint Chief Complaint: EDGeneral Time Seen by Provider: 10/09/18 17:29 Stated Complaint: SODIUM LEVEL LOW, CANT GO TO BATHROOM PER PT Pain Intensity: 3 - Allergy/Home Medications Allergies/Adverse Reactions: Allergies Allergy/AdvReac Type Severity Reaction Status Date / Time No Known Allergies Allergy Verified 10/09/18 17:02 Home Medications: Home Medications Albuterol HFA INHALER* [Ventolin HFA Inhaler*] 2 puff INH QID PRN 10/09/18 [ History Confirmed 10/09/18] Cyclobenzaprine TAB* [Flexeril 10 MG TAB*] 10 mg PO TID PRN 10/09/18 [History Confirmed 10/09/18] Hydrocodone/Acetamin 10/325(NF [[place] 10/325 (NF)] 0.5 - 1 tab PO TID PRN [History Confirmed 10/09/18] Mirtazapine 67.5 mg PO QPM 10/09/18 [History Confirmed 10/09/18] PMH/Surg Hx/FS Hx/Imm Hx Endocrine/Hematology History: Denies: Hx Diabetes, Hx Thyroid Disease Cardiovascular History: Reports: Hx Hypertension - CONTROL WITH MEDS, Other Cardiovascular Problems/Disorders - HX OF ANEURYSM IN RIGHT GROIN AREA, - REPAIRED WITH SURGERY 2013 Respiratory History: Denies: Hx Asthma, Hx Chronic Obstructive Pulmonary Disease (COPD) GI History: Denies: Hx Ulcer Musculoskeletal History: Reports: Hx Arthritis, Hx Tendonitis - RIGHT ELBOW, Other Musculoskeletal History - BILATERAL CARPAL TUNNEL SYNDROME Denies: Hx Osteoporosis Sensory History: Denies: Hx Contacts or Glasses, Hx Hearing Aid Opthamlomology History: Denies: Hx Contacts or Glasses Neurological History: Reports: Hx Migraine - OCCASIONAL - Surgical History Surgery Procedure, Year, and Place: 2002 SUSPENSION [place]CROLARY[place]OSCOPY[place] [facility] [place]THROSCOPIC SURG[place] LEFT KNEE, [facility]. 05/29/2006 RIGHT KNEE ARTHROSCOPY, REPAIR TORN MENISCUS, [place] [facility] [place]. 06/08/2006 [place] [facility] [place] [facility] [place] RIGHT GROIN ANEURYSM REPAIR, [place] Hx Anesthesia Reactions: No Infectious Disease History: No Infectious Disease History: Reports: Hx of Known/Suspected MRSA Denies: Hx Clostridium Difficile, Hx Hepatitis, Hx Human Immunodeficiency Virus (HIV), Hx Shingles, Hx Tuberculosis, Hx Known/Suspected VRE, Hx Known/ Suspected VRSA, History Other Infectious Disease, Traveled Outside the [place] in Last 30 Days - Family History Known Family History: Positive: Hypertension, Diabetes, Other - cancer Negative: Cardiac Disease, Renal Disease, Respiratory Disease, Seizure Disorder, Blood Disorder - Social History Alcohol Use: Weekly Alcohol Amount: 6-8 BEERS 2-3X/WEEK Substance Use Type: Reports: None, Marijuana Smoking Status (MU): Heavy Every Day Tobacco Smoker Type: Cigarettes Amount Used/How Often: 1ppd Length of Time of Smoking/Using Tobacco: 30 YEARS Have You Smoked in the Last Year: Yes Review of Systems Positive: Nausea, Other - Constipation Positive: see HPI - Potential Sodium issue, feeling "funny' Positive: Other - Back pain Neurological: Other - Lightheadedness Positive: Anxious All Other Systems Reviewed And Are Negative: Yes Physical Exam - Summary Physical Exam Summary: Appearance: The patient is well-nourished in no acute distress and in no acute pain. Skin: The skin is warm and dry and skin color reflects adequate perfusion. HEENT: The head is normocephalic and atraumatic. The pupils are equal and reactive. The conjunctivae are clear and without drainage. Nares are patent and without drainage. Mouth reveals moist mucous membranes and the throat is without erythema and exudate. The external ears are intact. The ear canals are patent and without drainage. The tympanic membranes are intact. Neck: The neck is supple with full range of motion and non-tender. There are no carotid bruits. There is no neck vein distension. Respiratory: Chest is non-tender. Lungs are clear to auscultation and breath sounds are symmetrical and equal. Cardiovascular: Heart is regular rate and rhythm. There is no murmur or rub auscultated. There is no peripheral edema and pulses are symmetrical and equal. Abdomen: The abdomen is soft and non-tender. There are normal bowel sounds heard in all four quadrants and there is no organomegaly palpated. Musculoskeletal: There is no back tenderness noted. Extremities are non-tender with full range of motion. There is good capillary refill. There is no peripheral edema or calf tenderness elicited. Neurological: Patient is alert and oriented to person, place and time. The patient has symmetrical motor strength in all four extremities. Cranial nerves are grossly intact. Deep tendon reflexes are symmetrical and equal in all four extremities. Psychiatric: The patient has an appropriate affect and does not exhibit any anxiety or depression. Triage Information Reviewed: Yes Vital Signs On Initial Exam: Initial Vitals Temp Pulse Resp BP Pulse Ox 98.1 F 84 18 166/97 99 10/09/18 16:56 10/09/18 16:56 10/09/18 16:56 10/09/18 16:56 10/09/18 16:56 Vital Signs Reviewed: Yes Diagnostics - Vital Signs Vital Signs Temp Pulse Resp BP Pulse Ox 10/09/18 16:56 98.1 F 84 18 166/97 99 - Laboratory Result Diagrams: 10/09/18 18:06 10/09/18 18:06 Lab Statement: Any lab studies that have been ordered have been reviewed, and results considered in the medical decision making process. GIGU Course/Dx - Course Course Of Treatment: Mr. Mason has a long history of back problems which she has basically ignored. He has finally made an appointment with a specialist in [place] for today. A few days ago and is feeling constipated and was using a lot of MiraLAX and somehow ended up in the emergency department and [place] where he was noted to be hyponatremic and admitted to the hospital. He signed himself out of the hospital today because he did not want to miss the appointment he has waited 6 months for. He reports that he was 20 minutes late for the appointment today and they would not see him. He went to have a bite to eat with family and was very upset and didn't feel well. He attributes this likely to blood pressure because he was so upset. He comes in now because he feels he was treated poorly when he wanted to sign out and [place] and is concerned about his hyponatremia. He was nontoxic in appearance with stable vital signs here. Labs were obtained and he was noted to be hyponatremic at 120. I spoke with the hospitalist to consult for admission. He was given normal saline in the ED department 1 L. - Diagnoses Provider Diagnoses: Hyponatremia Discharge - Sign-Out/Discharge Documenting (check all that apply): Patient Departure - Admission - Discharge Plan Condition: Stable Disposition: ADMITTED TO [facility] Referrals: Palomo Roque MD [Primary Care Provider] - - Billing Disposition and Condition Condition: STABLE Disposition: Admitted to [facility] - Attestation Statements Document Initiated by Anthony: Yes Documenting Scribe: Rylan Oh Provider For Whom Anthony is Documenting (Include Credential): Billy Jackson MD Scribe Attestation: Rylan Piña, scribed for Billy Jackson MD on 10/09/18 at 2113. Scribe Documentation Reviewed: Yes Provider Attestation: The documentation as recorded by the Rylan valladares accurately reflects the service I personally performed and the decisions made by Billy carrizales MD Status of Scribe Document: Viewed
[2018-10-09 18:13] LABS: ABS Basophils 0.1 10^3/ul (0-0.2); ABS Eosinophils 0.1 10^3/ul (0-0.6); ABS Lymphocytes 2.2 10^3/ul (1.0-4.8); ABS Monocytes 0.9 10^3/ul (0-0.8); ABS Neutrophils 6.9 10^3/ul (1.5-7.7); Eosinophil % 1.1 %; Hematocrit 39 % (42-52); Hemoglobin 13.9 g/dL (14.0-18.0); Lymphocyte % 21.3 %; Mean Corpuscular HGB Conc 35 g/dL (31-36); Mean Corpuscular Hemoglobin 32 pg (27-31); Mean Corpuscular Volume 90 fL (80-94); Mean Platelet Volume 6.6 fL (7.4-10.4); Platelet Count 414 10^3/uL (150-450); Red Blood Count 4.38 10^6 /uL (4.18-5.48); Red Cell Distribution Width 13 % (10.5-15); White Blood Count 10.1 10^3/uL (3.5-10.8)
[2018-10-09 18:36] LABS: Albumin 4.2 g/dL (3.2-5.2); Albumin/Globulin Ratio 1.8 (1-3); BUN/Creatinine Ratio 11.7 (8-20); EGFR African American 171.9 (>60); Globulin 2.4 g/dL (2-4); Potassium 4.4 mmol/L (3.5-5.0); Total Bilirubin 0.3 mg/dL (0.2-1.0); Total Protein 6.6 g/dL (6.4-8.9)
[2018-10-09] MEDS ORDERED: NS 0.9% 1000 ML** 1,000 ML IV ONE (18:42)
[2018-10-09] MEDS ORDERED: Aspirin TAB* 325 MG PO ONE (18:55)
[2018-10-09] MEDS ORDERED: Lisinopril TAB* 10 MG PO ONE (18:56)
[2018-10-09 19:47] LABS: TSH (Thyroid Stimulating Horm) 2.97 mcIU/mL (0.34-5.60)
[2018-10-09] MEDS ORDERED: Hydrocodone/Acetamin 10/325 1 TAB PO PRN (20:27)
[2018-10-09] MEDS ORDERED: Magnesium Hydroxide LIQ* 30 ML UDC PO PRN (20:28)
[2018-10-09] MEDS ORDERED: Polyethylene Glycol 3350* 17 GM PACKET PO PRN (20:28)
[2018-10-09] MEDS ORDERED: NS 0.9% 1000 ML** 1,000 ML IV SCH (20:30)
[2018-10-09] MEDS ORDERED: Ondansetron INJ* 2 MG/ML VIAL ONE (20:35)
[2018-10-09] MEDS ORDERED: Nicotine* 4MG (FRUIT FLAVOR) GUM PO PRN (20:36)
[2018-10-09] MEDS: Ondansetron INJ* 2 MG/ML VIAL IV PRN (20:40)
[2018-10-09] MEDS: oxyCODONE/Acetamin 5/325 MG* TAB PO PRN (22:23)
--- NOTE | 2018-10-09 22:41 | HP ---
CC: Dr. Roque * HISTORY AND PHYSICAL: DATE OF ADMISSION: 10/09/18 TIME OF EVALUATION: 1999. PRIMARY CARE PHYSICIAN: Dr. Roque. CHIEF COMPLAINT: Low sodium. HISTORY OF PRESENT ILLNESS: This is a 52-year-old male with a past medical history of worsening chronic low back pain who states last week, he is not able to give me the specific date, he had a screening colonoscopy where he was found to have a benign polyp. He has been having worsening low back pain and he has been waiting for 6 months to see the spine surgeon through [place], originally from [place] when he was started on narcotics and developed constipation. His GI doctor who he just had a colonoscopy with recommended MiraLAX, so he had been taking that twice a day for the past 3 to 4 days. He was concerned that he was nauseated and felt bloated and was not able to have a bowel movement. He went to [place] ER last week as well and they admitted him after they found he had a low sodium of around 120. He states he had to leave against medical advice because he needed to get to the back pain appointment with a specialist, he has been waiting for 6 months. He missed the appointment because he arrived too late and came to our emergency room for further evaluation of the low sodium and further workup. The patient states he still feels bloated and nauseated. He has had a lack of appetite for the past week, has not had a bowel movement since the 10/07/18. He is passing gas. He has been nauseated and has a small amount of emesis when he tries to take the MiraLAX. He states he drinks about 1 glass of water. He has not been eating or drinking very much. No fevers, no other changes in his medications other than the MiraLAX and the narcotics. He states he has not been drinking alcohol as much in the past 3 weeks. He is planning to quit smoking on his birthday in a few days and also has noticed some wheezing, but no shortness of breath or chest pain. Otherwise, review of systems is negative. In the emergency room, the patient had labs. He was given a liter of fluid and referred to the hospitalist service for further evaluation. PAST MEDICAL HISTORY: 1. Hypertension. 2. Acute on chronic low back pain, right-sided sciatica. 3. Degenerative disk disease. 4. Scoliosis. 5. Hyperlipidemia. 6. History of urinary incontinence, chronic. MEDICATIONS: 1. Aspirin 325 mg p.o. daily. 2. Albuterol inhaler 2 puffs 4 times a day as needed. 3. Lipitor 80 mg daily. 4. Mirtazapine 67.5 mg p.o. daily. 5. Lisinopril 10 mg daily. 6. Cyclobenzaprine 10 mg t.i.d. as needed. 7. [place] 10/325 1 tab t.i.d. as needed. ALLERGIES: No known drug allergies. FAMILY HISTORY: Mother from dementia. Father from lung cancer in his 50s. SOCIAL HISTORY: The patient lives at home with his and daughter. 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 His is his healthcare proxy. He smokes 1 pack per day for at least 30 years. He does drink alcohol. Prior to 3 weeks ago he was drinking every other day from anywhere from 3 to 6 drinks, but over the last 3 weeks since he has not been feeling well with his back pain, he has cut down dramatically. He does smoke marijuana monthly. Code status, full code. REVIEW OF SYSTEMS: A 14-point review of systems as mentioned in the HPI, otherwise negative. PHYSICAL EXAMINATION GENERAL: In no acute distress. Does have some discomfort in his right sciatic region and sitting up on the edge of the bed. VITAL SIGNS: Temp is 98.1, pulse rate 77, respiratory rate is 17, oxygen saturation 98% on room air, blood pressure 140/89. HEENT: Head: Normocephalic. Pupils are equal and reactive, anicteric. Oropharynx: Mucous membranes are moist. NECK: Supple. No lymphadenopathy. RESPIRATORY: Faint bilateral expiratory wheeze. Diminished breath sounds. No increased work of breathing. CARDIAC: Regular rate and rhythm. Soft systolic murmur heard throughout. ABDOMEN: Hypoactive bowel sounds, some mild distention, mildly firm, nontender. EXTREMITIES: No clubbing, cyanosis, or edema; +1 DPs. MUSCULOSKELETAL: Pain in the piriformis right sciatic region, limited range of motion. NEUROLOGICAL: Alert and oriented x3. No gross focal neurologic deficits. LABORATORY DATA: White count 10, hemoglobin 13.9, hematocrit 39, platelets 414 ,000. Sodium 120, potassium 4.4, chloride 92, bicarb 23, BUN 7, creatinine 0.6. ASSESSMENT AND PLAN: This is a 52-year-old male with past medical history of constipation and worsening back pain who presents to the emergency room after leaving [place] against medical advice for his low sodium, found to have a sodium of 120. 1. Hyponatremia. Assessment: I suspect this is hypoosmolar, hypovolemia from decreased p.o.; however, could also be SIADH. It is possible he did take too much MiraLAX, but I do not suspect taking MiraLAX twice a day for a few days contributed to his hyponatremia. Plan: We will continue to work, check a serum osmolality, urine sodium and urine osmolality. We will also check a TSH. Continue him on fluids for now, get an abdominal film and a chest x-ray to make sure there is no underlying lung pathology that could be contributing to this as well as abdominal film to rule out any significant constipation. We will follow up on his labs, repeat a BMP at midnight and fluid restrict him if there are additional findings for concern of SIADH. Chronic medical problems include: 1. Chronic low back pain. The patient will be continued on his [place] and Flexeril and is to be followed up with his spine surgeon. 2. Constipation. As mentioned, we will check an abdominal film, but in the setting of his narcotics, I would continue him on MiraLAX, milk of mag as needed and start him on scheduled Colace. 3. Hypertension. Continue him on his lisinopril. 4. Hyperlipidemia. Continue his atorvastatin. 5. Asthma. Continue him on his albuterol inhaler and follow up on his chest x - ray. No indication for steroids at this time or further additional management. 6. FEN: Regular diet with IV fluids. 7. DVT prophylaxis. The patient scores moderate risk. We will encourage ambulation. 8. Code status. Full code. PATIENT TIME: Greater than 40 minutes were spent doing the history and physical , more than half the time was in direct patient contact. [id number]/[facility] #: [id number] HENNY
[2018-10-09 22:44] LABS: Urine Appearance Clear; Urine Bilirubin Negative (Negative); Urine Blood Negative (Negative); Urine Color Yellow; Urine Glucose Negative (Negative); Urine Ketones Negative (Negative); Urine Nitrite Negative (Negative); Urine Protein Negative (Negative); Urine Specific Gravity 1.014 (1.010-1.030); Urine Urobilinogen Negative (Negative)
[2018-10-09] MEDS ORDERED: Mirtazapine TAB* 15 MG PO SCH (23:30)
[2018-10-10] MEDS ORDERED: Mirtazapine TAB* 15 MG PO SCH ×2 (00:05→21:00)
--- NOTE | 2018-10-10 00:06 | PN ---
Progress Note - Progress Note Date of Service: 10/10/18 Note: Patient urine and serum osmolarity, more consistent with SIADH. Could be due to his mirtazapine. Recommend gradual taper of mirtazapine - will start with 45 mg QD and fluid restriction.
[2018-10-10] MEDS: Cyclobenzaprine TAB* 10 MG PO PRN ×3 (00:15→20:14)
[2018-10-10] MEDS: Albuterol HFA INHALER* 8 gm MDI INH PRN ×2 (00:24→23:24)
[2018-10-10 00:34] LABS: BUN/Creatinine Ratio 9.7 (8-20); Calcium 9.2 mg/dL (8.6-10.3); EGFR African American 165.5 (>60); EGFR Non-African American 136.8 (>60)
[2018-10-10 05:30] LABS: BUN/Creatinine Ratio 10.3 (8-20); EGFR African American 148.8 (>60); EGFR Non-African American 122.9 (>60); Potassium 3.9 mmol/L (3.5-5.0)
[2018-10-10] MEDS ORDERED: Nicotine Patch Removal NOTE FOLLOW UP SCH (06:00)
[2018-10-10] MEDS: oxyCODONE/Acetamin 5/325 MG* TAB PO PRN ×3 (07:26→22:26)
[2018-10-10] MEDS: Nicotine PATCH 21 MG/24 HR* PATCH TRANSDERM SCH (07:44)
[2018-10-10] MEDS: Aspirin TAB* 325 MG PO SCH (07:44)
[2018-10-10] MEDS: Docusate CAP* 100 MG PO SCH (07:44)
[2018-10-10] MEDS: Atorvastatin* 80 MG TAB PO SCH (07:44)
[2018-10-10] MEDS: Ondansetron INJ* 2 MG/ML VIAL IV PRN ×2 (07:44→12:12)
[2018-10-10] MEDS: Lisinopril TAB* 10 MG PO SCH (07:44)
--- NOTE | 2018-10-10 10:30 | PN ---
Subjective Date of Service: 10/10/18 Interval History: Chronic pain in back x 1 month worse over last month Concerned he is receiving "opposite" therapy as [facility] delivered Came to [facility] after AMA from [facility] because he lives here Objective Active Medications: Albuterol (Ventolin Hfa Inhaler*) 2 puff INH QID PRN PRN Reason: SOB/WHEEZING Last Admin: 10/10/18 00:24 Dose: 2 puff Aspirin (Aspirin Tab*) 325 mg PO QAM [facility] Last Admin: 10/10/18 07:44 Dose: 325 mg Atorvastatin Calcium (Lipitor*) 80 mg PO DAILY [facility] Last Admin: 10/10/18 07:44 Dose: 80 mg Cyclobenzaprine HCl (Flexeril Tab*) 10 mg PO TID PRN PRN Reason: SPASMS - MUSCLE Last Admin: 10/10/18 10:07 Dose: 10 mg Docusate Sodium (Colace Cap*) 100 mg PO DAILY [facility] Last Admin: 10/10/18 07:44 Dose: 100 mg Lisinopril (Prinivil Tab*) 10 mg PO DAILY [facility] Last Admin: 10/10/18 07:44 Dose: 10 mg Magnesium Hydroxide (Milk Of Magnesia Liq*) 30 ml PO Q6H PRN PRN Reason: CONSTIPATION Mirtazapine (Remeron Tab*) 45 mg PO QPM [facility] Last Admin: 10/10/18 00:21 Dose: 45 mg Nicotine (Nicotine Patch 21 Mg/24 Hr*) 1 patch TRANSDERM DAILY@0800 [facility] Last Admin: 10/10/18 07:44 Dose: 1 patch Nicotine Polacrilex (Nicotine Gum*) 4 mg PO Q2H PRN PRN Reason: CRAVING Last Admin: 10/10/18 07:44 Dose: 4 mg Ondansetron HCl (Zofran Inj*) 4 mg IV Q4H PRN PRN Reason: NAUSEA/VOMITING Last Admin: 10/10/18 07:44 Dose: 4 mg Oxycodone/Acetaminophen (Percocet 5/325 Tab*) 2 tab PO Q6H PRN PRN Reason: PAIN Last Admin: 10/10/18 07:26 Dose: 2 tab Pharmacy Profile Note (Nicotine Patch Removal Note*) 1 note PATCH OFF 2100 [facility] Polyethylene Glycol/Electrolytes (Miralax*) 17 gm PO DAILY PRN PRN Reason: CONSTIPATION Vital Signs - 8 hr 10/10/18 10/10/18 10/10/18 03:47 07:26 10:07 Temperature 97.5 F Pulse Rate 77 Respiratory 16 16 16 Rate Blood Pressure 122/79 (mmHg) O2 Sat by Pulse 97 Oximetry Oxygen Devices in Use Now: None Appearance: NAD Eyes: No Scleral Icterus, PERRLA Ears/Nose/Mouth/Throat: NL Teeth, Lips, Gums, Clear Oropharnyx Neck: NL Appearance and Movements; NL JVP Respiratory: Symmetrical Chest Expansion and Respiratory Effort, Clear to Auscultation Cardiovascular: NL Sounds; No Murmurs; No JVD, RRR Abdominal: NL Sounds; No Tenderness; No Distention, No Hepatosplenomegaly Lymphatic: No Cervical Adenopathy Extremities: No Edema Skin: No Rash or Ulcers Neurological: Alert and Oriented x 3 Result Diagrams: 10/09/18 18:06 10/10/18 04:39 Microbiology and Other Data: Microbiology 10/09/18 22:42 Nasal Screen MRSA (PCR) - Final Nasal Mrsa Not Detected Assess/Plan/Problems-Billing Assessment: 52 yo M h/o tobacco use, HTN, cLB pain p/w hyponatremia after AMA from [place] - Patient Problems (1) Hyponatremia Comment: Obtain records from [facility] Agrre patient is euvolemic High urine osm and improvement evidence of SIADH Fluid restrict to 800cc/day and repeat BMP tomorrow Mirtazapine as possible cause as well as constipation, pain and possible findings on XRAY (2) Constipation Comment: Milk of mag and miralax (3) Hypertension Comment: lisinopril (4) Chronic pain Comment: percocet PRN flexaril (5) Abnormal chest xray Comment: infiltrate vs mass? check CT chest to further eval (6) DVT prophylaxis Comment: lovenox
[2018-10-10] MEDS: Enoxaparin(*) 40 MG/0.4 ML SYR SUBCUT SCH (12:19)
[2018-10-10] MEDS ORDERED: Nicotine Patch Removal NOTE PATCH OFF SCH (21:00)
[2018-10-11] MEDS: Cyclobenzaprine TAB* 10 MG PO PRN ×2 (05:01→11:18)
[2018-10-11] MEDS: oxyCODONE/Acetamin 5/325 MG* TAB PO PRN ×3 (05:02→11:17)
[2018-10-11 05:12] LABS: Potassium 4.4 mmol/L (3.5-5.0)
[2018-10-11 05:17] LABS: BUN/Creatinine Ratio 11.6 (8-20); EGFR African American 146.3 (>60); EGFR Non-African American 120.9 (>60)
[2018-10-11] MEDS: Lisinopril TAB* 10 MG PO SCH (08:31)
[2018-10-11] MEDS: Nicotine PATCH 21 MG/24 HR* PATCH TRANSDERM SCH (08:31)
[2018-10-11] MEDS: Aspirin TAB* 325 MG PO SCH (08:31)
[2018-10-11] MEDS: Docusate CAP* 100 MG PO SCH (08:31)
[2018-10-11] MEDS: Atorvastatin* 80 MG TAB PO SCH (08:31)
[2018-10-11] MEDS ORDERED: Pneumococcal *Vac Polyvalent 0.5 ML VIAL IM ONE (09:00)
[2018-10-11] MEDS: Enoxaparin(*) 40 MG/0.4 ML SYR SUBCUT SCH (11:18)
[2018-10-11 11:32] VITALS: BP 133/66
--- NOTE | 2018-10-11 20:31 | DS ---
CC: Dr. Palomo Roque * DISCHARGE SUMMARY: DATE OF ADMISSION: 10/09/18 DATE OF DISCHARGE: 10/11/18 PRIMARY CARE PROVIDER: Dr. Palomo Roque. ATTENDING PHYSICIAN: Dr. Rylan Mane * (dictated by Danette Clinton NP). PRIMARY DIAGNOSES: 1. 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 2. Constipation. 3. Abnormal chest CT. SECONDARY DIAGNOSES: 1. Hypertension. 2. Chronic low back pain. STUDIES WHILE IN THE HOSPITAL: 1. Abdomen x-ray on 10/09/18 reads as no free air or obstruction is noted. 2. Chest x-ray on 10/09/18 reads as prominent left jeremy. This may represent infiltrate, although underlying mass is not excluded. Clinical correlation is suggested. 3. Chest CT on 10/10/18 reads as there is a moderate degree of mediastinal adenopathy including right paratracheal, precarinal and subcarinal lymph nodes. Additional left hilar mass or adenopathy is noted. Differential diagnosis includes sarcoidosis versus left hilar primary lung mass. In the periphery of the left lower lobe just adjacent to the fissure, there is suggestion of a small nodular infiltrate measuring up to 1 cm. HISTORY OF PRESENT ILLNESS AND HOSPITAL COURSE: Mr. Mason is a 52-year-old male with past medical history of hypertension and chronic low back pain, who presented to the emergency room on 10/09/18 after being found to have a low sodium. Please see the history and physical by Dr. Paulson for a complete summary of the events leading up to this hospitalization. In short, the patient visited the [place] last week due to nausea and bloating and at that time was found to have a sodium of 120. He was admitted to the hospital there, though ultimately left against medical advice as he had an appointment with a pain specialist that he did not want to miss. Thereafter, he presented to our emergency room. He continued to report nausea and bloating as well as a poor appetite. In the emergency room, the patient was noted to have hyponatremia with a sodium of 120. He had imaging as noted above. Because of the concern for hyponatremia, he was admitted by the hospitalist service. The etiology of hyponatremia was unknown on admission. At that point, he was continued on IV fluids. He ultimately was noted to have a low serum osmolality of 254 and a urine osmolality of 562 as well as a urine sodium of 157. 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 IV fluids were stopped and the patient was placed on a fluid restriction. His mirtazapine dosing was decreased from 67.5 to 45 mg. He was placed on a fluid restriction of 800 mL per day and there was gradual improvement in his sodium. As of today, his sodium is 126. The patient denies any further nausea or bloating, but does continue to endorse poor appetite. He was noted to have some constipation while here in the hospital, which is likely secondary to chronic opioid use and he was started on a bowel regimen. The patient did have an abnormal chest CT, the results are noted above. I did discuss these results with the patient and did indicate to him that due to his smoking history and the fact that he is a current smoker, there was a concern for lung cancer. He does report wanting to quit smoking. He does express concern over the decrease in his mirtazapine dosing as he states he needs this to sleep. He has been on this for a number of years and has not ever tried any other medication such as melatonin. As of today, the patient reports feeling well. On exam, he has no focal neurological deficits and he denies any subjective neurological deficits. His heart has a regular rate and rhythm without murmurs, rubs, or gallops. Lung sounds are clear to auscultation without rhonchi, wheezes, or rales. There is no edema. Physical exam is otherwise benign. Mr. Mason is stable for discharge today. Vitals are as follows: Temp 98.0, heart rate 87, respiratory rate 20, oxygen saturation 97% on room air, blood pressure 133/66. DISCHARGE MEDICATIONS: New medications: 1. Docusate 100 mg p.o. daily. 2. Melatonin 3 mg p.o. at bedtime. 3. Nicotine gum 4 mg p.o. q.2 hours p.r.n. cravings. 4. MiraLAX 17 g p.o. daily p.r.n. constipation. Changed medication: Mirtazapine 45 mg p.o. daily (previously was 67.5 mg daily) . Continued medications: 1. Albuterol MDI 2 puffs q.i.d. p.r.n. shortness of breath, wheezing. 2. Aspirin 325 mg p.o. daily. 3. Atorvastatin 80 mg p.o. daily. 4. Cyclobenzaprine 10 mg p.o. t.i.d. p.r.n. muscle spasms. 5. Hydrocodone/acetaminophen 10/325 mg 0.5 to 1 tab p.o. t.i.d. p.r.n. pain. 6. Lisinopril 10 mg p.o. daily. DISCHARGE PLAN: Mr. Mason will be discharged home. Activity will be as tolerated. Diet will be regular as tolerated. The patient should continue an 800 mL per day fluid restriction at this point until otherwise instructed by his doctor. Medications are noted above. I have advised him that he should a bowel regimen due to his chronic narcotic use. I did send a prescription for nicotine gum as he reported that this helped with cravings while here in the hospital and he does have a desire to quit. Additionally, her mirtazapine dosing has been decreased. There is a high likelihood that this medication is the cause of SIADH and so it is recommended that the patient be slowly weaned off this medication. I also spoke with him about insomnia and have advised him that he should try some melatonin to help with sleep because he has never tried melatonin before and he is agreeable to this. He can continue his other usual medications as noted above and I have not made any further changes. The patient will need to have a repeat BMP on 10/13/18 to recheck his sodium. Results of that will go to his PCP. The patient will need to follow up with his PCP next week to ensure that his hyponatremia is improving and to follow up on medication changes. Again, I did speak with the patient about the results of his abnormal chest CT, though his PCP should review these results with him as well and make any further treatment recommendations at that point. The patient has been instructed to return to the emergency room or nearest hospital for any worsening of symptoms, shortness of breath, lightheadedness, dizziness, chest discomfort, high fever, chills, night sweats, loss of consciousness, or any other worrisome signs or symptoms. DISCHARGE CONDITION: Stable. DISCHARGE DISPOSITION: Home. This is a summarized report of a complex medical history and hospital stay. For further details, please see the entire medical record. TIME SPENT: Approximately 60 minutes was spent on this discharge. DANETTE CLINTON, JAVA ANALYST [id number]/[facility] #: [id number] [facility] CENTERMike
[2018-10-11] MEDS ORDERED: Melatonin 3 MG TAB PO SCH (21:00)
== END 2018-10-11 13:00 | disposition home or self-care (01) | DRG 424 ==
LOC: ED 16:44 → SSU 20:30 → OBSVTOIN 10-10 14:00 → MED 10-11 07:52
PROVIDERS: ADMIT Internal Medicine; ATTEND Internal Medicine
DX: E22.2 Syndrome of inappropriate secretion of antidiuretic hormone (principal); K59.00 Constipation, unspecified; I10 Essential (primary) hypertension; G89.29 Other chronic pain; R59.0 Localized enlarged lymph nodes; T43.025A Adverse effect of tetracyclic antidepressants, initial encounter; T40.2X5A Adverse effect of other opioids, initial encounter; J45.909 Unspecified asthma, uncomplicated; F17.210 Nicotine dependence, cigarettes, uncomplicated; R91.8 Other nonspecific abnormal finding of lung field; M19.91 Primary osteoarthritis, unspecified site; M54.31 Sciatica, right side; E78.5 Hyperlipidemia, unspecified; R32 Unspecified urinary incontinence; Z80.1 Family history of malignant neoplasm of trachea, bronchus and lung; Z81.8 Family history of other mental and behavioral disorders; Y92.9 Unspecified place or not applicable; Z79.82 Long term (current) use of aspirin; Z86.14 Personal history of Methicillin resistant Staphylococcus aureus infection; Z82.49 Family history of ischemic heart disease and other diseases of the circulatory system; Z83.3 Family history of diabetes mellitus; Z72.89 Other problems related to lifestyle
CPT/HCPCS: 36415; 71046; 71250; 74018; 80048; 80053; 81003; 83930; 83935; 84300; 84443; 85025; 87641; 90732; 99284; A9270-GY; J1650; J2405

== ENCOUNTER 2018-10-19 10:03 | Emergency (ER) | payer BC ==
[2018-10-19] MEDS ORDERED: NS 0.9% 1000 ML** 1,000 ML IV ONE (10:17)
--- OUTSIDE RECORDS SUMMARY | 2018-10-19 10:30 | XMS REPORT | Continuity of Care Document ---
:1965 External Reference #:[id number] Author Name Palomo Roque M.D. Address [address] [facility] [address] [place] [address] Care Team Providers Name Role Phone Palomo Roque M.D. Care Team Information [employer] Nurse Unavailable Payers Date Identification Numbers Payment Provider Subscriber Policy Number: [id number] [employer] Angelica Mason PayID: [id number] [address] [address] [place] [address] Problems Active Problems Provider Date Essential hypertension [...] Use Denies Drug Use Smoking Status Reviewed: 10/12/18 Heavy tobacco smoker (more than 10 cigarettes/day) Allergies, Adverse Reactions, Alerts Description No Known Drug Allergies Medications Active Medications SIG Qnty Indications Ordering Provider Date Mirtazapine 1/2 tab by 45tabs F41.9 Palomo Roque, 2018 45mg Tablets mouth every M.D. night G47.00 Amoxicillin 2 by mouth twice 40tabs J20.9 JudeKelyvictor hugo Gregory, 2018 500mg Tablets a day M.D. Cyclobenzaprine HCL 1 tab by mouth 90tabs M51.37 JudeKelyvictor hugo Gregory, 2018 10mg Tablets three times a day M.D. as needed for muscle spasms M54.17 Miralax 1-2 caps by mouth 952gm JudeValeriashawna Gregory, 09/24/2018 3350NF Powder every day M.D. Hydrocodone-Acetaminoph 1/2-1 tab by mouth 90tabs M51.37 JudeKelyvictor hugo Gregory, 07/19/2018 en three times a day M.D. 10-325mg Tablets as needed Albuterol Sulfate HFA J44.9 Unknown 108(90Base) mcg/Act Aerosol Lisinopril 1 by mouth every 90tabs I10 Unknown 10mg Tablets day R73.01 Atorvastatin Calcium 1 by mouth every day 90tabs E78.2 Unknown 80mg Tablets History Medications Prednisone 3 tab by mouth 18tabs M51.37 JudeValeriashawna 07/19/2018 - 20mg Tablets daily 3 days, M., M.D. 07/26/2018 then 2 tab daily x 3 d , then 1 tab daily 3d Mirtazapine 1 1/2 tab by 135tabs F41.9 Jude Valeriashawna - 45mg mouth every M., M.D. 2018 Tablets night G47.00 Vital Signs Date Vital Result Comment 2018 2:31pm BP Systolic 140 mmHg BP Diastolic 70 mmHg Height 69 inches 5'9" Weight 203.00 lb BMI (Body Mass Index) 30.0 kg/m2 Heart Rate 74 /min Respiratory Rate 16 /min 09/25/2018 10:03am BP Systolic 146 mmHg BP [...] Facility Test Result H/L Range Note CBC Auto Diff 10/09/2018 [facility] White Blood 10.1 10^3/uL N 3.5- 10.8 Count Red Blood Count 4.38 10^6/uL N 4.18-5.48 Hemoglobin 13.9 g/dL Low 14.0-18.0 Hematocrit 39 % Low 42-52 Mean Corpuscular Volume 90 fL N 80-94 Mean Corpuscular Hemoglobin 32 pg High 27-31 Mean Corpuscular HGB Conc 35 g/dL N 31-36 Red Cell Distribution Width 13 % N 10.5-15 Platelet Count 414 10^3/uL N 150-450 Mean Platelet Volume 6.6 fL Low 7.4-10.4 Abs Neutrophils 6.9 10^3/uL N 1.5-7.7 Abs Lymphocytes 2.2 10^3/uL N 1.0-4.8 Abs Monocytes 0.9 10^3/uL High 0-0.8 Abs Eosinophils 0.1 10^3/uL N 0-0.6 Abs Basophils 0.1 10^3/uL N 0-0.2 Abs Nucleated RBC 0.0 10^3/uL Granulocyte % 67.7 % Lymphocyte % 21.3 % Monocyte % 9.0 % Eosinophil % 1.1 % Basophil % 0.9 % Nucleated Red Blood Cells % 0.0 Comp Metabolic Panel 10/09/2018 [facility] Sodium 120 mmol/L Low 135- 145 Potassium 4.4 mmol/L N 3.5-5.0 Chloride 92 mmol/L Low 101-111 Co2 Carbon Dioxide 23 mmol/L N 22-32 Anion Gap 5 mmol/L N 2-11 Glucose 96 mg/dL N 70-100 Blood Urea Nitrogen 7 mg/dL N 6-24 Creatinine 0.60 mg/dL Low 0.67-1.17 BUN/Creatinine Ratio 11.7 N 8-20 Calcium 9.0 mg/dL N 8.6-10.3 Total Protein 6.6 g/dL N 6.4-8.9 Albumin 4.2 g/dL N 3.2-5.2 Globulin 2.4 g/dL N 2-4 Albumin/Globulin Ratio 1.8 N 1-3 Total Bilirubin 0.30 mg/dL N 0.2-1.0 Alkaline Phosphatase 116 U/L High 34-104 Alt 20 U/L N 7-52 Ast 15 U/L N 13-39 Egfr Non- 142.0 >60 Egfr 171.9 >60 1 Laboratory test 10/09/2018 [facility] TSH (Thyroid 2.97 mcIU/mL N 0.34-5.60 finding Stim Horm) Osmolality Serum 254 mOsm/kg Low 275-295 CBS W/Automated Diff 10/09/2018 [place] White Blood Count 7.2 K/uL N 3.4 -10.5 2 Red Blood Count 4.23 M/uL N 4.20-5.80 Hemoglobin 13.6 gm/dL N 12.8-17.0 Hematocrit 36.8 % Low 38.0-48.0 Mean Cell Volume 87.0 fl N 80.0-96.0 Mean Corpuscular HGB 32.2 pg N 27.0-33.0 Mean Corpuscular HGB Conc 37.0 g/dL High 31.7-36.0 Platelet Count 429 K/uL High 155-360 Red Cell Distri Width SD 37.9 fl N 36-51 Red Cell Distri Width %CV 11.9 % N 11.6-15.8 Mean Platelet Volume 9.0 fl N 6.6-10.6 Neut% 47.5 % N 33.0-73.0 Lymph % 36.3 % N 20.0-42.0 [place] % 12.4 % High 0.0-10.0 Eo% 2.2 % N 0.0-6.6 Bas% 1.0 % N 0.0-1.1 Immature Grans 0.6 % N 0.0-5.0 NRBC % 0.0 /100WBC < 10/ 100 WBC Neut# 3.42 K/uL N 1.8-7.0 Lymph # 2.61 K/uL N 1.0-4.0 [place] # 0.89 K/uL High 0.0-0.8 Eos # 0.16 K/uL N 0.0-0.5 Baso # 0.07 K/uL N 0.0-0.1 Immature Grans Absolute 0.04 K/uL NRBC # 0.00 K/uL Basic Metabolic Panel 10/09/2018 [place] Glucose 88 mg/dL N 74-106 BUN 9 mg/dL N 7-18 Creatinine 0.7 mg/dL N 0.6-1.3 Glom Filtration Rate, Estimate >60 mL/min >60 If >60 mL/min >60 3 BUN/Creat 12.8 ratio Sodium 121 mmol/L Low 136-145 Potassium 4.1 mmol/L N 3.5-5.1 Chloride 91 mmol/L Low 98-107 Carbon Dioxide 21 mmol/L N 21-32 Anion Gap 9 mEq/L N 8-16 Calcium 8.4 mg/dL Low 8.5-10.1 Basic Metabolic Panel 10/09/2018 [place] Glucose 140 mg/dL High 74-106 BUN 9 mg/dL N 7-18 Creatinine 0.7 mg/dL N 0.6-1.3 Glom Filtration Rate, Estimate >60 mL/min >60 If >60 mL/min >60 4 BUN/Creat 12.8 ratio Sodium 123 mmol/L Low 136-145 Potassium 3.7 mmol/L N 3.5-5.1 Chloride 90 mmol/L Low 98-107 Carbon Dioxide 22 mmol/L N 21-32 Anion Gap 11 mEq/L N 8-16 Calcium 7.8 mg/dL Low 8.5-10.1 Laboratory test 10/08/2018 [place] Osmolality,Serum 250 mOsm/kg Low 275- 295 5 finding Aot Request 10/08/2018 [place] Aot Request Test(s) added 6 Tests to be added: urine osmolality <SEE NOTE> 7 Ua RFX Micro & Culture II 10/08/2018 [place] Urine Color YELLOW Yellow Urine Clarity CLEAR Clear Urine Glucose - Dipstick NEGATIVE mg/dL Negative Urine Bilirubin - Dipstick NEGATIVE Negative Urine Ketone NEGATIVE mg/dL Negative Urine Specific [place] 1.025 N 1.010-1.030 Urine Blood TRACE Negative Urine PH 6.0 Low 6.5-7.5 Urine Protein - Dipstick TRACE mg/dL Negative Urine Urobilinogen - Dipstick 0.2 E.U./dL N 0.2-1.0 Urine Nitrite - Dipstick NEGATIVE Negative Urine Leuk Esterase NEGATIVE Negative Source: URINE, CLEAN CAT <SEE NOTE> 8 Aot Request 10/08/2018 [place] Aot Request Test(s) added 9 Tests to be added: magnesium Aot Request 10/08/2018 [place] Aot Request Already done 10 Tests to be added: serum osmolality 11 CBS W/Automated Diff 10/08/2018 [place] White Blood Count 7.9 K/uL N 3.4 -10.5 Red Blood Count 4.56 M/uL N 4.20-5.80 Hemoglobin 14.7 gm/dL N 12.8-17.0 Hematocrit 39.5 % N 38.0-48.0 Mean Cell Volume 86.6 fl N 80.0-96.0 Mean Corpuscular HGB 32.2 pg N 27.0-33.0 Mean Corpuscular HGB Conc 37.2 g/dL High 31.7-36.0 Platelet Count 429 K/uL High 155-360 Red Cell Distri Width SD 38.1 fl N 36-51 Red Cell Distri Width %CV 11.9 % N 11.6-15.8 Mean Platelet Volume 8.6 fl N 6.6-10.6 Neut% 60.3 % N 33.0-73.0 Lymph % 27.3 % N 20.0-42.0 [place] % 10.5 % High 0.0-10.0 Eo% 0.8 % N 0.0-6.6 Bas% 0.6 % N 0.0-1.1 Immature Grans 0.5 % N 0.0-5.0 NRBC % 0.0 /100WBC < 10/ 100 WBC Neut# 4.77 K/uL N 1.8-7.0 Lymph # 2.16 K/uL N 1.0-4.0 [place] # 0.83 K/uL High 0.0-0.8 Eos # 0.06 K/uL N 0.0-0.5 Baso # 0.05 K/uL N 0.0-0.1 Immature Grans Absolute 0.04 K/uL NRBC # 0.00 K/uL CBC With Diff 08/07/2018 [facility] WBC 10.6 10*3/uL (4.1-11.0) Genna HAMPTON (607)- - RBC 5.02 10*6/uL (4.60-6.10) HGB 16.4 g/dL (13.5-18.0) HCT 47.1 % (41.0-53.0) MCV 93.9 fL (80.0-95.0) MCH 32.6 pg High (27.0-32.0) MCHC 34.7 g/dL (32.0-36.0) RDW 14.3 % (10.5-14.5) PLT 299 10*3/uL (150-450) MPV 8.7 fL (7.1-10.7) Neut % 64.1 % (35.0-75.0) Lymph % 26.3 % (16.0-52.0) [place] % 6.8 % (0.0-8.0) Eos % 1.8 % (0.0-5.0) Baso % 1.0 % (0.0-4.0) Neut # 6.8 10*3/uL (1.8-7.7) Lymph # 2.8 10*3/uL (1.2-4.8) [place] # 0.7 10*3/uL (0.0-0.8) Eos # 0.2 10*3/uL (0.0-0.5) Baso # 0.1 10*3/uL (0.0-0.2) CMP 08/07/2018 [facility] Sodium 140 mmol/L (136-145) Genna HAMPTON (607)- [...] >60 ml/min/1.73m2 (>59) GFR Interpretation <SEE NOTE> 12 Lipid 08/07/2018 [facility] Cholesterol @ 158 mg/dL (0-200) [address] [place] BERTA (607)- - Triglyceride @ 324 mg/dL High (30-200) HDL Cholesterol @ 29 mg/dL Low (>40) 13 Chol/HDL Ratio 5.4 RATIO 14 LDL Chol (Calc) UNABLE TO CALCUL <SEE NOTE> mg/dL (<130) 15 Laboratory 08/07/2018 [facility] TSH,Ultrasensitive @ 0.913 (0.360- 4.170) test finding [address] [place] BERTA mIU/L (607)- - Hemoglobin 08/07/2018 [facility] Hemoglobin A1c @ 5.8 % (4.0-6.0) 16 A1c [address] [place] BERTA (607)- - Est Average Glucose 120 mg/dL Laboratory test 08/07/2018 [facility] [place] 25 Hydroxy Vit 25 ng/mL Low (31- 100) 17 finding [address] [place] BERTA D @ (607)- - Folate @ >20.0 ng/mL High (3.1-17.5) Vitamin B12 @ 390 pg/mL (193-986) Direct LDL @ 92 mg/dL (<130) 18 1 Because ethnic data is not always readily available, this report includes an eGFR for both -Americans and non- Americans. The National Kidney Disease Education Program (NKDEP) does not endorse the use of the MDRD equation for patients that are not between the ages of 18 and 70, are , have extremes of body size, muscle mass, or nutritional status, or are non- or non-. According to the National Kidney Foundation, irrespective of diagnosis, the stage of the disease is based on the level of kidney function: Stage Description GFR(mL/min/1.73 m(2)) 1 Kidney damage with normal or decreased GFR 90 2 Kidney damage with mild decrease in GFR 60-89 3 Moderate decrease in GFR 30-59 4 Severe decrease in GFR 15-29 5 Kidney failure <15 (or dialysis) 2 SEVERE HYPONATREMIA 3 Note: Persistent reduction for 3 months or more in an eGFR <60 mL/min/1.73 m2 defines CKD. Patients with eGFR values >/=60 mL/min/1.73 m2 may also have CKD if evidence of persistent proteinuria is present. The original MDRD equation for estimated GFR is not valid for patients less than 18 years of age. Additional information may be found at www.kdoqi.org. 4 Note: Persistent reduction for 3 months or more in an eGFR <60 mL/min/1.73 m2 defines CKD. Patients with eGFR values >/=60 mL/min/1.73 m2 may also have CKD if evidence of persistent proteinuria is present. The original MDRD equation for estimated GFR is not valid for patients less than 18 years of age. Additional information may be found at www.kdoqi.org. 5 HAD COLONOSCOPY,SICK,PAIN,CANT GO TO BATHROOM 6 Tests: urine osmolality and sodium, serum osmolality Instructions: 7 urine osmolality and sodium, serum osmolality 8 URINE, CLEAN CATCH 9 Tests: magnesium Instructions: 10 Tests: serum osmolality Instructions: 11 serum osmolality 12 NORMAL KIDNEY FUNCTION OR MILD DISEASE - GFR >OR=60 CHRONIC KIDNEY DISEASE - GFR 15 - 59 RENAL FAILURE - GFR <15 Est. GFR calculation based on the MDRD study equation, which assumes a steady state for creatinine. Est. GFR should not be used for medication dosing. 13 PER NCEP ATP III GUIDELINES: RESULTS LOWER THAN 40 MG/DL ARE SUGGESTIVE OF INCREASED RISK FOR CORONARY ARTERY DISEASE. RESULTS > OR=TO 60 MG/DL ARE CONSIDERED A NEGATIVE RISK FACTOR. 14 INTERPRETATION OF CHOL-HDL RATIO CHD RISK FEMALE MALE VERY HIGH >8.3 >14.3 HIGH 5.6- 8.3 6.7- 14.3 AVERAGE 3.7- 5.6 4.0- 6.7 BELOW AVERAGE 2.5- 3.7 2.7- 4.0 PROTECTED <2.5 <2.7 15 UNABLE TO CALCULATE VALID LDL DUE TO INTERFERENCE FROM ELEVATED TRIGLYCERIDES (GREATER THAN 300 MG/DL). SEE RESULT FOR DIRECT LDL. 16 Performed using Siemens SueEasy immunoassay. Care must be taken when interpreting HbA1c results in patients with a hemoglobin variant or decreased erythrocyte lifespan. Values 5.7 - 6.4% suggest prediabetes. Values >=6.5% are diagnostic for diabetes. REFERENCE: DIABETES CARE 2018: 41([id number]). 17 A REVIEW OF THE LITERATURE SUGGESTS THE FOLLOWING RANGES FOR THE CLASSIFICATION OF 25-OH VITAMIN D STATUS: VITAMIN D STATUS 25-OH VITAMIN D DEFICIENCY <20 NG/ML INSUFFICIENCY 20-30 NG/ML SUFFICIENCY 31 - 100 NG/ML TOXICITY > 100 NG/ML A PEDIATRIC REFERENCE RANGE HAS NOT BEEN ESTABLISHED USING THIS METHOD. 18 PER NCEP ATP III GUIDELINES: OPTIMAL < 100 NEAR OPTIMAL 100 - 129 BORDERLINE HIGH 130 - 159 HIGH 160 - 189 VERY HIGH > 189 Procedures Date Code Description Status 2018 49539 Spirometry Completed 09/14/2018 20644069 Colonoscopy Completed 07/19/2018 92847 Visual Screening Test Completed 07/19/2018 77606 EKG Completed 07/19/2018 16790 Audiometry, [place], Screening Completed Encounters Type Date Location Provider Dx Diagnosis Office Visit 2018 Palomo Warner, I10 Essential (primary) 2:30p M.D. hypertension E78.2 Mixed hyperlipidemia R73.01 Impaired [...] degeneration, lumbosacral region M54.17 Radiculopathy, lumbosacral region K57.30 Dvrtclos of lg int w/o perforation or abscess w/o bleeding E87.1 Hypo-osmolality and hyponatremia J20.9 Acute bronchitis, unspecified R06.02 Shortness of breath R05 Cough Office Visit 09/25/2018 10:00a [place] [facility] Palomo Roque I10 Essential ( primary) [...] degeneration, lumbosacral region M54.17 Radiculopathy, lumbosacral region K57.30 Dvrtclos of lg int w/o perforation or abscess w/o bleeding Office Visit 09/06/2018 8:30a [place] [facility] JudePalomo vazquez I10 Essential ( primary) Ara Gregory hypertension [...] Radiculopathy, lumbosacral region Office Visit 08/07/2018 8:45a [place] [facility] Palomo Roque I10 Essential ( primary) [...] Radiculopathy, lumbosacral region Office Visit 07/19/2018 3:45p [place] [facility] Paloom Roque Z00.01 Encounter for Ara Gregory general [...] sensorineural hearing loss, bilateral Plan of Treatment Future Appointment(s):10/30/2018 9:00 am - Palomo Roque M.D. at [place] Tehffm9610/25/2018 9:00 am - Palomo Roque M.D. at [facility]2018 - Palomo Roque M.D.I10 Essential (primary) hypertensionComments:CHECK BP TIW ( PRN)DIET AND FLUID COUNSELING LOW SODIUM DIETWT LOSSF/U LABE78.2 Mixed hyperlipidemiaComments:DIET REVIEWED CONTINUE DIETWT LOSSF/U LAB FBWR73.01 Impaired fasting glucoseComments:F/U HGAICFS QAC AN HS PRNLOW GLUCOSE DIETM75.112 Incomplete rotator cuff tear or rupture of left shoulder, noComments :EXERCISE/HEAT/MESSAGE TYLENOL OR MOTRIN PRNAVOID HEAVY LIFTING ELEVATE PRN DUR KBOUPMFF29.562 Pain in left kneeComments:EXERCISE/HEAT /MESSAGEAVOID HEAVY LIFTING WT LOSSTYLENOL OR MOTRIN PRN DUR BTEJSXKL57.9 Polyosteoarthritis, unspecifiedComments:EXERCISE/HEAT/MESSAGETYLENOL OR MOTRIN PRNAVOID HEAVY LIFTINGWT LOSSR91.1 Solitary pulmonary noduleComments:WILL REFER TO ONCOLOGYReferral:No Doctor QsixjazdP55.30 Unspecified disorder of binocular visionComments:USE GLASSES/CONTACTSF/U WITH BSBHUREZNOZDGR87.9 Vitamin D deficiency, unspecifiedComments:INCREASE EXPOSURE TO SUNREVIEW OF DIETG47.00 Insomnia, unspecifiedNew Medication:Mirtazapine 45 mg - 1/2 tab by mouth every nightComments:COUNCELLING AND REASSURANCE RELAXATION TECHNIQUESSTRESSORS IN LIFE AVOID ALL ENERGY/HIGH CAFFEINE VWJPFVR58.4 Aneurysm of artery of lower ilaoylcwrH14.9 Chronic obstructive pulmonary disease, unspecifiedComments: INCREASE PO FLUIDRESTSMOKING CESSATION COUNCELLING NEB OR MDI AND /OR QONQJOR10.210 Nicotine dependence, cigarettes, uncomplicatedComments:SMOKING CESSATION WADJELJEKIKW01.10 Alcohol abuse, uncomplicatedComments:ETOH ABSTINENCECOUNCELLING AND UPEMNILTKIBH54.6 Mixed conductive and sensorineural hearing loss, bilateralComments:OBSERVE F/U WITH ENT PRN SMOKING BTLCBUPCRI71.37 Other intervertebral disc degeneration, lumbosacral regionComments:EXERCISE/HEAT /MESSAGEAVOID HEAVY LIFTING WT LOSSTYLENOL OR MOTRIN PRN DUR CHECKEDReferral:Salma Doan, Pain/Clinic/CTRM54.17 Radiculopathy , lumbosacral regionComments:EXERCISE/HEAT /MESSAGE AVOID HEAVY LIFTING WT LOSS TYLENOL OR MOTRIN PRN DUR KZRDLMLI11.30 Diverticulosis of large intestine without perforation or absComments:TYLENOL OR MOTRIN PRN INCREASE PO FLUID LAXATIVE PRNE87.1 Hypo-osmolality and hyponatremiaComments:CONTINUE WITH RXF/U LAB FLUID RESTRICTION WILL TAPER OFF REMERONFollow up:2 weeks.J20.9 Acute bronchitis, unspecifiedNew Medication:Amoxicillin 500 mg - 2 by mouth twice a dayComments:INCREASE PO FLUIDRESTSMOKING CESSATION LIILWADYLZYU14.02 Shortness of breathComments:INCREASE PO FLUIDRESTSMOKING [id number] CoughComments: INCREASE CLEAR LIQUIDSSTEAMGARGLE WARM SALT H2O TID ROBITUSSIN DM PRN SMOKING CESSATION COUNCELLING
[2018-10-19 11:01] LABS: ABS Basophils 0.1 10^3/ul (0-0.2); ABS Eosinophils 0.1 10^3/ul (0-0.6); ABS Lymphocytes 2.5 10^3/ul (1.0-4.8); ABS Monocytes 0.8 10^3/ul (0-0.8); ABS Neutrophils 7.7 10^3/ul (1.5-7.7); Eosinophil % 0.9 %; Hematocrit 43 % (42-52); Hemoglobin 14.6 g/dL (14.0-18.0); Lymphocyte % 22.7 %; Mean Corpuscular HGB Conc 34 g/dL (31-36); Mean Corpuscular Hemoglobin 31 pg (27-31); Mean Corpuscular Volume 90 fL (80-94); Mean Platelet Volume 6.6 fL (7.4-10.4); Platelet Count 514 10^3/uL (150-450); Red Blood Count 4.74 10^6 /uL (4.18-5.48); Red Cell Distribution Width 13 % (10.5-15); White Blood Count 11.2 10^3/uL (3.5-10.8)
--- NOTE | 2018-10-19 11:02 | ED ---
GI/ HPI - HPI Summary HPI Summary: This patient is a 53 year old M presenting to ED with a chief complaint of extreme nausea since 1600 yesterday. Patient was admitted for hyponatremia last week and states he feels the same now. Patient was discharged from hospital days ago. He has not been drinking sufficient water since. The patient rates the pain 0/10 in severity. Symptoms aggravated by nothing. Symptoms alleviated by nothing. Patient reports lightheadedness. Patient denies CP, vomiting, falling over. Patient is able to walk but feels weak. PMHx of HTN but no renal issues. FHx of dementia and lung cancer. Patient smokes 1PPD for the past 30 years, has not drank alcohol for a month and a half but is a previous drinker, and smokes marijuana. - History of Current Complaint Chief Complaint: EDNauseaVomitDiarrh Time Seen by Provider: 10/19/18 10:36 Stated Complaint: SHORT OR BREATH Hx Obtained From: Patient Onset/Duration: Started Days Ago - Yesterday 1600, Still Present Timing: Constant Current Severity: None Pain Intensity: 0 Associated Signs and Symptoms: Positive: Weakness, Nausea, Lightheadedness. Negative: Vomiting Aggravating Factor(s): Nothing Alleviating Factor(s): Nothing - Additional Pertinent History Primary Care Physician: [id number] - Allergy/Home Medications Allergies/Adverse Reactions: Allergies Allergy/AdvReac Type Severity Reaction Status Date / Time No Known Allergies Allergy Verified 10/19/18 10:06 PMH/Surg Hx/FS Hx/Imm Hx Endocrine/Hematology History: Denies: Hx Anticoagulant Therapy, Hx Blood Transfusions, Hx Diabetes, Hx Thyroid Disease, Hx Anemia Cardiovascular History: Reports: Hx Aneurysm - right groin, surgical repair 2013 , Hx Hypercholesterolemia, Hx Hypertension - CONTROL WITH MEDS, Hx Peripheral Vascular Disease - Clogged artery LLE, Other Cardiovascular Problems/Disorders - HX OF ANEURYSM IN RIGHT GROIN AREA, - REPAIRED WITH SURGERY 2013 Denies: Hx Congenital Heart Disease, Hx Congestive Heart Failure, Hx Deep Vein Thrombosis, Hx Embolism, Hx Rheumatic Fever Respiratory History: Reports: Hx Seasonal Allergies Denies: Hx Asthma, Hx Chronic Obstructive Pulmonary Disease (COPD), Hx Sleep Apnea GI History: Reports: Hx Diverticulosis - Per Pt seen on colonoscopy Denies: Hx Gall Bladder Disease, Hx Gastroesophageal Reflux Disease, Hx Gastrointestinal Bleed, Hx Hiatal Hernia, Hx Irritable Bowel, Hx Obstructive Bowel, Hx Ulcer History: Denies: Hx Benign Prostatic Hyperplasia, Hx Dialysis, Hx Kidney Infection, Hx Kidney Stones Musculoskeletal History: Reports: Hx Arthritis, Hx Back Problems, Hx Tendonitis - RIGHT ELBOW, Other Musculoskeletal History - BILATERAL CARPAL TUNNEL SYNDROME , surgically repaired Denies: Hx Fibromyalgia, Hx Gout, Hx Orthopedic Injury, Hx Osteoporosis Sensory History: Reports: Hx Contacts or Glasses - glasses for reading Denies: Hx Hearing Aid Opthamlomology History: Reports: Hx Contacts or Glasses - glasses for reading Neurological History: Reports: Hx Migraine - OCCASIONAL, Other Neuro Impairments /Disorders - Radiating back pain and numbness/tingling to bilateral thighs Psychiatric History: Reports: Hx Substance Abuse Denies: Hx Post Traumatic Stress Disorder - Surgical History Surgery Procedure, Year, and Place: 2001 SUSPENSION MICROLARYNGOSCOPY, RIGID EGD , [facility] [place]. 2004 ARTHROSCOPIC SURGERY LEFT KNEE, [facility] [place]. 05/29/2006 RIGHT KNEE ARTHROSCOPY, REPAIR TORN MENISCUS, ACL DEBRIDEMENT, [facility] [place]. 06/08/2006 RIGHT KNEE ARTHROSCOPY, [facility] [place]. LEFT ELBOW SURGERY, [facility] [place]. 2013 RIGHT GROIN ANEURYSM REPAIR, [place] Hx Anesthesia Reactions: No Infectious Disease History: No Infectious Disease History: Reports: Hx of Known/Suspected MRSA Denies: Hx Clostridium Difficile, Hx Hepatitis, Hx Human Immunodeficiency Virus (HIV), Hx Shingles, Hx Tuberculosis, Hx Known/Suspected VRE, Hx Known/ Suspected VRSA, History Other Infectious Disease, Traveled Outside the in Last 30 Days - Family History Known Family History: Positive: Hypertension, Diabetes, Other - cancer Negative: Cardiac Disease, Renal Disease, Respiratory Disease, Seizure Disorder, Blood Disorder - Social History Alcohol Use: Weekly Alcohol Amount: 6-8 beers, 2-3 x/week Hx Substance Use: Yes Substance Use Type: Reports: Marijuana Hx Tobacco Use: Yes Smoking Status (MU): Heavy Every Day Tobacco Smoker Type: Cigarettes Amount Used/How Often: 1ppd Length of Time of Smoking/Using Tobacco: 30 YEARS Have You Smoked in the Last Year: Yes Review of Systems Negative: Chest Pain Positive: Nausea. Negative: Vomiting Neurological: Other - Lightheadedness Positive: Weakness All Other Systems Reviewed And Are Negative: Yes Physical Exam - Summary Physical Exam Summary: Appearance: well appearing, no pain distress Skin: warm, dry, reflects adequate perfusion Head/face:normal Eyes:EOMI, CARIDAD ENT: mucous membranes moist Neck: supple, non-tender Respiratory: occasional wheezing Cardiovascular:mild tachycardia Abdomen: non-tender, soft Bowel Sounds:present Musculoskeletal:normal, strength/ROM intact Neuro:normal, sensory motor intact, A&Ox3 Triage Information Reviewed: Yes Vital Signs On Initial Exam: Initial Vitals Temp Pulse Resp BP Pulse Ox 99.0 F 100 16 164/92 99 10/19/18 10:04 10/19/18 10:04 10/19/18 10:04 10/19/18 10:04 10/19/18 10:04 Vital Signs Reviewed: Yes Diagnostics - Vital Signs Vital Signs Temp Pulse Resp BP Pulse Ox 10/19/18 10:04 99.0 F 100 16 164/92 99 - Laboratory Result Diagrams: 10/19/18 10:35 10/19/18 10:36 Lab Statement: Any lab studies that have been ordered have been reviewed, and results considered in the medical decision making process. - Radiology CXR Radiology Interpretation Completed By: Radiologist Summary of Radiographic Findings: STABLE LEFT HILAR MASS. Dr. Singh has reviewed this radiology report. - EKG 1026 Cardiac Rate: NL - 96 BPM EKG Rhythm: Sinus Rhythm ST Segment: Normal Summary of EKG Findings: Normal EKG. NSR: 96. Normal [place]. Normal Interval. Normal ST Re-Evaluation - Re-Evaluation First Eval Re-Evaluation Time: 11:48 Comment: Informed patient of results of blood work, sodium has improved. Patient has not made an appointment with a bending roll operator. Advised patient to quit smoking and see bending roll operator. GIGU Course/Dx - Course Course Of Treatment: Patient with anxiety relating to recent CT scan of the chest which showed mediastinal adenopathy requiring outpatient workup for sarcoid/cancer. His hyponatremia has improved now with sodium 131. He was treated here with improvement and will follow up closely with the bending roll operator. He is discharged in good condition. - Diagnoses Differential Diagnoses - Male: Other - Paraneoplastic syndrome, medication reaction, COPD exacerbation, hyponatremia Provider Diagnoses: Malaise and fatigue, COPD (chronic obstructive pulmonary disease), Tobacco abuse Discharge - Sign-Out/Discharge Documenting (check all that apply): Patient Departure - Discharge Patient Received Moderate/Deep Sedation with Procedure: No - Discharge Plan Condition: Improved Disposition: HOME Prescriptions: Albuterol HFA INHALER* [Ventolin HFA Inhaler*] 2 puff INH Q6H PRN #1 mdi PRN Reason: Sob/Wheezing Ondansetron ODT TAB* [Zofran 4 MG Odt TAB*] 4 mg PO Q8H PRN #12 tab.odt PRN Reason: Nausea predniSONE TAB* [Deltasone TAB*] 50 mg PO DAILY #5 tab Patient Education Materials: COPD (Chronic Obstructive Pulmonary Disease) (ED) Referrals: Palomo Roque MD [Primary Care Provider] - Nikki Jenkins MD [Medical Doctor] - Additional Instructions: Call the bending roll operator today to schedule prompt follow-up. Your doctor should be able to assist with this. Call today to schedule follow-up with your doctor. Return if worse, new symptoms or other concerns. Stop smoking or at the very least cut back. - Billing Disposition and Condition Condition: IMPROVED Disposition: Home - Attestation Statements Document Initiated by Anthony: Yes Documenting Scribe: Rolly Pisano Provider For Whom Anthony is Documenting (Include Credential): Naseem Singh MD Scribe Attestation: Rolly Piña, scribed for Naseem Singh MD on 10/19/18 at 1834. Scribe Documentation Reviewed: Yes Provider Attestation: The documentation as recorded by the Rolly valladares accurately reflects the service I personally performed and the decisions made by Naseem carrizales MD Status of Scribe Document: Viewed
[2018-10-19 11:26] LABS: Anion Gap 8 mmol/L (2-11); BUN/Creatinine Ratio 10.4 (8-20); Blood Urea Nitrogen 8 mg/dL (6-24); CO2 Carbon Dioxide 22 mmol/L (22-32); Calcium 9.8 mg/dL (8.6-10.3); Chloride 101 mmol/L (101-111); EGFR African American 128.4 (>60); EGFR Non-African American 106.1 (>60); Glucose 99 mg/dL (70-100); Potassium 4.3 mmol/L (3.5-5.0); Sodium 131 mmol/L (135-145)
[2018-10-19 11:27] LABS: Alcohol < 10 mg/dL (<10)
[2018-10-19] MEDS ORDERED: Ondansetron INJ* 2 MG/ML VIAL IV ONE (11:55)
[2018-10-19 12:47] VITALS: BP 158/84
== END 2018-10-19 12:30 | disposition home or self-care (01) ==
LOC: ED 10:03
DX: R53.83 Other fatigue (principal); J44.9 Chronic obstructive pulmonary disease, unspecified; R53.1 Weakness; F17.210 Nicotine dependence, cigarettes, uncomplicated; R11.0 Nausea; R42 Dizziness and giddiness; I10 Essential (primary) hypertension; I73.9 Peripheral vascular disease, unspecified; Z86.14 Personal history of Methicillin resistant Staphylococcus aureus infection
CPT/HCPCS: 36415; 71046; 80048; 80320; 82977; 85025; 93005; 96361; 96374; 99283; G0480; J2405

== ENCOUNTER 2018-12-14 15:30 | Inpatient (IN) | payer BC ==
[2018-12-14] MEDS ORDERED: Ondansetron INJ* 2 MG/ML VIAL IV PRN (16:03)
--- OUTSIDE RECORDS SUMMARY | 2018-12-14 16:28 | XMS REPORT | Continuity of Care Document ---
:1965 External Reference #:[id number] Author Name Palomo Roque M.D. Address [address] [facility] [address] [place] [address] Care Team Providers Name Role Phone Palomo Roque M.D. 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5mg/3ML) 0.083% for cough/sob Nebulizer Nebulizer use as directed 1units J44.9 Palomo Roque, 11/20/2018 Device M.D. Nebulizer use with nebulizer 2units J44.9 Palomo Roque, 11/20/2018 Kit/Tubing/Mouthpiece every 4 hours as M.D. needed Kit Levofloxacin 1 by mouth every 14tabs J20.9 Palomo Roque, 11/20/2018 750mg day M.D. Tablets Trazodone HCL 1/2-1 tab by mouth 90tabs F41.9 Palomo Roque, 10/25/2018 100mg every night M.D. Tablets G47.00 Nicotine Transdermal 1 patch every day 30units Palomo Roque, 2018 System Step 2 M.D. 14mg/24HR Patches 24HR Cyclobenzaprine HCL 1 tab by mouth 90tabs M51.37 Palomo Roque, 2018 10mg Tablets three times a day M.D. as needed for muscle spasms M54.17 Miralax 1-2 caps by mouth 952gm Palomo Roque, 09/24/2018 3350NF Powder every day M.D. Hydrocodone-Acetaminoph 1/2-1 tab by mouth 90tabs M51.37 Palomo Roque, 07/19/2018 en three times a day M.D. 10-325mg Tablets as needed Albuterol Sulfate HFA J44.9 Unknown 108(90Base) mcg/Act Aerosol Lisinopril 1 by mouth every 90tabs I10 Unknown 10mg Tablets day R73.01 Atorvastatin Calcium Take 1 Tablet By 90tabs E78.2 Palomo Roque, 80mg Mouth Daily In The M.D. Tablets Evening History Medications Azithromycin 1 by mouth 7tabs J20.9 Palomo Roque, 10/25/2018 - 500mg every day M.D. 10/31/2018 Tablets Mirtazapine 1/2 tab by 45tabs F41.9 Palomo Roque., 2018 - 45mg Tablets mouth every M.D. 10/25/2018 night G47.00 Amoxicillin 2 by mouth 40tabs J20.9 [facility] 2018 - 500mg twice a day M., M.D. 10/19/2018 Tablets Prednisone 3 tab by mouth 18tabs M51.37 [facility] 07/19/2018 - 20mg Tablets daily 3 days, M., M.D. 07/26/2018 then 2 tab daily x 3 d , then 1 tab daily 3d Mirtazapine 1 05/23 tab by 135tabs F41.9 [facility] - 45mg mouth every M., M.D. 2018 Tablets night G47.00 Vital Signs Date Vital Result Comment 11/20/2018 9:00am BP Systolic 116 mmHg BP Diastolic 64 mmHg Height 69 inches 5'9" Weight 201.00 lb BMI (Body Mass Index) 29.7 kg/m2 Heart Rate 86 /min Respiratory Rate 16 /min 10/25/2018 8:59am BP Systolic 126 mmHg BP Diastolic 80 mmHg Height 69 inches 5'9" Weight 201.00 lb BMI (Body Mass Index) 29.7 kg/m2 Heart Rate 82 /min Respiratory Rate 20 /min 2018 2:31pm BP Systolic 140 mmHg BP [...] Date Facility Test Result H/L Range Note BMP W/ Calc Osmo 10/25/2018 [facility] Sodium 130 mmol/L Low (136-145) [address] [facility] [facility] (607)- - Potassium 4.6 mmol/L (3.6-5.2) Chloride 97 mmol/L Low (100-108) Co2 26 mmol/L (22-31) Anion Gap 7 mmol/L (7-16) Urea Nitrogen 7 mg/dL (7-24) Creatinine 0.63 mg/dL Low (0.80-1.30) BUN/Creat Ratio 11.1 RATIO (10.0-20.0) Glucose 93 mg/dL (70-99) Calcium 9.0 mg/dL (8.4-10.2) GFR >60 ml/min/1.73m2 (>59) GFR ( Amer) >60 ml/min/1.73m2 (>59) GFR Interpretation <SEE NOTE> 1 Calculated Osmo 259 mosm/kg Low (280-300) Laboratory test finding 10/19/2018 [facility] GGTP 190 U/L High 9- 64.0 Alcohol < 10 mg/dL N <10 Basic Metabolic Panel 10/19/2018 [facility] Sodium 131 mmol/L Low 135 -145 Potassium 4.3 mmol/L N 3.5-5.0 Chloride 101 mmol/L N 101-111 Co2 Carbon Dioxide 22 mmol/L N 22-32 Anion Gap 8 mmol/L N 2-11 Glucose 99 mg/dL N 70-100 Blood Urea Nitrogen 8 mg/dL N 6-24 Creatinine 0.77 mg/dL N 0.67-1.17 BUN/Creatinine Ratio 10.4 N 8-20 Calcium 9.8 mg/dL N 8.6-10.3 Egfr Non- 106.1 >60 Egfr 128.4 >60 2 CBC Auto Diff 10/19/2018 [facility] White Blood 11.2 10^3/uL High 3.5 -10.8 Count Red Blood Count 4.74 10^6/uL N 4.18-5.48 Hemoglobin 14.6 g/dL N 14.0-18.0 Hematocrit 43 % N 42-52 Mean Corpuscular Volume 90 fL N 80-94 Mean Corpuscular Hemoglobin 31 pg N 27-31 Mean Corpuscular HGB Conc 34 g/dL N 31-36 Red Cell Distribution Width 13 % N 10.5-15 Platelet Count 514 10^3/uL High 150-450 Mean Platelet Volume 6.6 fL Low 7.4-10.4 Abs Neutrophils 7.7 10^3/uL N 1.5-7.7 Abs Lymphocytes 2.5 10^3/uL N 1.0-4.8 Abs Monocytes 0.8 10^3/uL N 0-0.8 Abs Eosinophils 0.1 10^3/uL N 0-0.6 Abs Basophils 0.1 10^3/uL N 0-0.2 Abs Nucleated RBC 0.0 10^3/uL Granulocyte % 68.5 % Lymphocyte % 22.7 % Monocyte % 7.1 % Eosinophil % 0.9 % Basophil % 0.8 % Nucleated Red Blood Cells % 0.0 Basic Metabolic Panel 10/13/2018 [facility] Sodium 130 mmol/L Low 135 -145 Potassium 4.8 mmol/L N 3.5-5.0 Chloride 95 mmol/L Low 101-111 Co2 Carbon Dioxide 29 mmol/L N 22-32 Anion Gap 6 mmol/L N 2-11 Glucose 103 mg/dL High 70-100 Blood Urea Nitrogen 10 mg/dL N 6-24 Creatinine 0.77 mg/dL N 0.67-1.17 BUN/Creatinine Ratio 13.0 N 8-20 Calcium 10.0 mg/dL N 8.6-10.3 Egfr Non- 106.1 >60 Egfr 128.4 >60 3 BMP W/ Calc Osmo 2018 [facility] Sodium 128 mmol/L Low (136-145) [address] (607)- - Potassium 4.6 mmol/L (3.6-5.2) Chloride 93 mmol/L Low (100-108) Co2 28 mmol/L (22-31) Anion Gap 7 mmol/L (7-16) Urea Nitrogen 8 mg/dL (7-24) Creatinine 0.68 mg/dL Low (0.80-1.30) BUN/Creat Ratio 11.8 RATIO (10.0-20.0) Glucose 121 mg/dL High (70-99) Calcium 9.5 mg/dL (8.4-10.2) GFR >60 ml/min/1.73m2 (>59) GFR ( Amer) >60 ml/min/1.73m2 (>59) GFR Interpretation <SEE NOTE> 4 Calculated Osmo 257 mosm/kg Low (280-300) CBC Auto Diff 10/09/2018 [facility] White Blood Count 10.1 10^3/uL N 3.5-10.8 Red Blood Count 4.38 10^6/uL N 4.18-5.48 [...] Cells % 0.0 Comp Metabolic Panel 10/09/2018 [facility] Sodium 120 mmol/L Low 135- 145 Potassium [...] Egfr Non- 142.0 >60 Egfr 171.9 >60 5 Laboratory test 10/09/2018 [facility] TSH (Thyroid 2.97 mcIU/mL N 0.34-5.60 finding Stim Horm) Osmolality Serum 254 mOsm/kg Low 275-295 CBS W/Automated Diff 10/09/2018 [place] White Blood Count 7.2 K/uL N 3.4 -10.5 6 Red Blood Count 4.23 M/uL N 4.20-5.80 [...] 33.0-73.0 Lymph % 36.3 % N 20.0-42.0 [place] % 12.4 % High 0.0-10.0 Eo% 2.2 % N 0.0-6.6 Bas% 1.0 % N 0.0-1.1 Immature Grans 0.6 % N 0.0-5.0 NRBC % 0.0 /100WBC < 10/ 100 WBC Neut# 3.42 K/uL N 1.8-7.0 Lymph # 2.61 K/uL N 1.0-4.0 [place] # 0.89 K/uL High 0.0-0.8 Eos # 0.16 K/uL N 0.0-0.5 Baso # 0.07 K/uL N 0.0-0.1 Immature Grans Absolute 0.04 K/uL NRBC # 0.00 K/uL Basic Metabolic Panel 10/09/2018 [place] Glucose 88 mg/dL N 74-106 BUN 9 mg/dL N 7-18 Creatinine 0.7 mg/dL N 0.6-1.3 Glom Filtration Rate, Estimate >60 mL/min >60 If >60 mL/min >60 7 BUN/Creat 12.8 ratio Sodium 121 mmol/L Low 136-145 Potassium 4.1 mmol/L N 3.5-5.1 Chloride 91 mmol/L Low 98-107 Carbon Dioxide 21 mmol/L N 21-32 Anion Gap 9 mEq/L N 8-16 Calcium 8.4 mg/dL Low 8.5-10.1 Basic Metabolic Panel 10/09/2018 [place] Glucose 140 mg/dL High 74-106 BUN 9 mg/dL N 7-18 Creatinine 0.7 mg/dL N 0.6-1.3 Glom Filtration Rate, Estimate >60 mL/min >60 If >60 mL/min >60 8 BUN/Creat 12.8 ratio Sodium 123 mmol/L Low 136-145 Potassium 3.7 mmol/L N 3.5-5.1 Chloride 90 mmol/L Low 98-107 Carbon Dioxide 22 mmol/L N 21-32 Anion Gap 11 mEq/L N 8-16 Calcium 7.8 mg/dL Low 8.5-10.1 Laboratory test 10/08/2018 [place] Osmolality,Serum 250 mOsm/kg Low 275- 295 9 finding Aot Request 10/08/2018 [place] Aot Request Test(s) added 10 Tests to be added: urine osmolality <SEE NOTE> 11 Ua RFX Micro & Culture II 10/08/2018 [place] Urine Color YELLOW Yellow Urine Clarity CLEAR Clear Urine Glucose - Dipstick NEGATIVE mg/dL Negative Urine Bilirubin - Dipstick NEGATIVE Negative Urine Ketone NEGATIVE mg/dL Negative Urine Specific [place] 1.025 N 1.010-1.030 Urine Blood TRACE Negative Urine PH 6.0 Low 6.5-7.5 Urine Protein - Dipstick TRACE mg/dL Negative Urine Urobilinogen - Dipstick 0.2 E.U./dL N 0.2-1.0 Urine Nitrite - Dipstick NEGATIVE Negative Urine Leuk Esterase NEGATIVE Negative Source: URINE, CLEAN CAT <SEE NOTE> 12 Aot Request 10/08/2018 [place] Aot Request Test(s) added 13 Tests to be added: magnesium Aot Request 10/08/2018 [place] Aot Request Already done 14 Tests to be added: serum osmolality 15 CBS W/Automated Diff 10/08/2018 [place] White Blood Count 7.9 K/uL N 3.4 [...] 33.0-73.0 Lymph % 27.3 % N 20.0-42.0 [place] % 10.5 % High 0.0-10.0 Eo% 0.8 % N 0.0-6.6 Bas% 0.6 % N 0.0-1.1 Immature Grans 0.5 % N 0.0-5.0 NRBC % 0.0 /100WBC < 10/ 100 WBC Neut# 4.77 K/uL N 1.8-7.0 Lymph # 2.16 K/uL N 1.0-4.0 [place] # 0.83 K/uL High 0.0-0.8 Eos # 0.06 K/uL N 0.0-0.5 Baso # 0.05 K/uL N 0.0-0.1 Immature Grans Absolute 0.04 K/uL NRBC # 0.00 K/uL CBC With Diff 08/07/2018 [facility] WBC 10.6 10*3/uL (4.1-11.0) [address] (607)- - RBC 5.02 10*6/uL (4.60-6.10) HGB 16.4 g/dL (13.5-18.0) HCT 47.1 % (41.0-53.0) MCV 93.9 fL (80.0-95.0) MCH 32.6 pg High (27.0-32.0) MCHC 34.7 g/dL (32.0-36.0) RDW 14.3 % (10.5-14.5) PLT 299 10*3/uL (150-450) MPV 8.7 fL (7.1-10.7) Neut % 64.1 % (35.0-75.0) Lymph % 26.3 % (16.0-52.0) [place] % 6.8 % (0.0-8.0) Eos % 1.8 % (0.0-5.0) Baso % 1.0 % (0.0-4.0) Neut # 6.8 10*3/uL (1.8-7.7) Lymph # 2.8 10*3/uL (1.2-4.8) [place] # 0.7 10*3/uL (0.0-0.8) Eos # 0.2 10*3/uL (0.0-0.5) Baso # 0.1 10*3/uL (0.0-0.2) CMP 08/07/2018 [facility] Sodium 140 mmol/L (136-145) [address] (607)- - Potassium 4.4 mmol/L (3.6-5.2) Chloride [...] >60 ml/min/1.73m2 (>59) GFR Interpretation <SEE NOTE> 16 Lipid 08/07/2018 [facility] Cholesterol @ 158 mg/dL (0-200) [address] [facility] (607)- - Triglyceride @ 324 mg/dL High (30-200) HDL Cholesterol @ 29 mg/dL Low (>40) 17 Chol/HDL Ratio 5.4 RATIO 18 LDL Chol (Calc) UNABLE TO CALCUL <SEE NOTE> mg/dL (<130) 19 Laboratory 08/07/2018 [facility] TSH,Ultrasensitive @ 0.913 (0.360- 4.170) test finding [address] [facility] mIU/L (607)- - Hemoglobin 08/07/2018 [facility] Hemoglobin A1c @ 5.8 % (4.0-6.0) 20 A1c [address] [facility] (607)- - Est Average Glucose 120 mg/dL Laboratory test 08/07/2018 [facility] 25 Hydroxy Vit 25 ng/mL Low (31- 100) 21 finding [address] [facility] [address] [facility] D @ (607)- - Folate @ >20.0 ng/mL High (3.1-17.5) Vitamin B12 @ 390 pg/mL (193-986) Direct LDL @ 92 mg/dL (<130) 22 1 NORMAL KIDNEY FUNCTION OR MILD DISEASE - GFR >OR=60 CHRONIC KIDNEY DISEASE - GFR 15 - 59 RENAL FAILURE - GFR <15 Est. GFR calculation based on the MDRD study equation, which assumes a steady state for creatinine. Est. GFR should not be used for medication dosing. 2 Because ethnic data is not always readily [...] 15-29 5 Kidney failure <15 (or dialysis) 3 Because ethnic data is not always readily [...] 15-29 5 Kidney failure <15 (or dialysis) 4 NORMAL KIDNEY FUNCTION OR MILD DISEASE - GFR >OR=60 CHRONIC KIDNEY DISEASE - GFR 15 - 59 RENAL FAILURE - GFR <15 Est. GFR calculation based on the MDRD study equation, which assumes a steady state for creatinine. Est. GFR should not be used for medication dosing. 5 Because ethnic data is not always readily [...] 15-29 5 Kidney failure <15 (or dialysis) 6 SEVERE HYPONATREMIA 7 Note: Persistent reduction for 3 months or more in an eGFR <60 mL/min/1.73 m2 defines CKD. Patients with eGFR values >/=60 mL/min/1.73 m2 may also have CKD if evidence of persistent proteinuria is present. The original MDRD equation for estimated GFR is not valid for patients less than 18 years of age. Additional information may be found at www.kdoqi.org. 8 Note: Persistent reduction for 3 months or more in an eGFR <60 mL/min/1.73 m2 defines CKD. Patients with eGFR values >/=60 mL/min/1.73 m2 may also have CKD if evidence of persistent proteinuria is present. The original MDRD equation for estimated GFR is not valid for patients less than 18 years of age. Additional information may be found at www.[email or web address]. 9 HAD COLONOSCOPY,SICK,PAIN,CANT GO TO BATHROOM 10 Tests: urine osmolality and sodium, serum osmolality Instructions: 11 urine osmolality and sodium, serum osmolality 12 URINE, CLEAN CATCH 13 Tests: magnesium Instructions: 14 Tests: serum osmolality Instructions: 15 serum osmolality 16 NORMAL KIDNEY FUNCTION OR MILD DISEASE - GFR >OR=60 CHRONIC KIDNEY DISEASE - GFR 15 - 59 RENAL FAILURE - GFR <15 Est. GFR calculation based on the MDRD study equation, which assumes a steady state for creatinine. Est. GFR should not be used for medication dosing. 17 PER NCEP ATP III GUIDELINES: RESULTS LOWER THAN 40 MG/DL ARE SUGGESTIVE OF INCREASED RISK FOR CORONARY ARTERY DISEASE. RESULTS > OR=TO 60 MG/DL ARE CONSIDERED A NEGATIVE RISK FACTOR. 18 INTERPRETATION OF CHOL-HDL RATIO CHD RISK FEMALE MALE VERY HIGH >8.3 >14.3 HIGH 5.6- 8.3 6.7- 14.3 AVERAGE 3.7- 5.6 4.0- 6.7 BELOW AVERAGE 2.5- 3.7 2.7- 4.0 PROTECTED <2.5 <2.7 19 UNABLE TO CALCULATE VALID LDL DUE TO INTERFERENCE FROM ELEVATED TRIGLYCERIDES (GREATER THAN 300 MG/DL). SEE RESULT FOR DIRECT LDL. 20 Performed using [employer] immunoassay. Care must be taken when interpreting HbA1c results in patients with a hemoglobin variant or decreased erythrocyte lifespan. Values 5.7 - 6.4% suggest prediabetes. Values >=6.5% are diagnostic for diabetes. REFERENCE: DIABETES CARE 2018: 41(S13-S27). 21 A REVIEW OF THE LITERATURE SUGGESTS THE FOLLOWING RANGES FOR THE CLASSIFICATION OF 25-OH VITAMIN D STATUS: VITAMIN D STATUS 25-OH VITAMIN D DEFICIENCY <20 NG/ML INSUFFICIENCY 20-30 NG/ML SUFFICIENCY 31 - 100 NG/ML TOXICITY > 100 NG/ML A PEDIATRIC REFERENCE RANGE HAS NOT BEEN ESTABLISHED USING THIS METHOD. 22 PER NCEP ATP III GUIDELINES: OPTIMAL < 100 NEAR OPTIMAL 100 - 129 BORDERLINE HIGH 130 - 159 HIGH 160 - 189 VERY HIGH > 189 Procedures Date Code Description Status 11/20/2018 31119 Spirometry Completed 10/25/2018 36636 Spirometry Completed 10/25/2018 95248 EKG Completed 10/25/2018 79833 Tympanometry Completed 2018 72276 Spirometry Completed 09/14/2018 17416402 Colonoscopy Completed 07/19/2018 36343 Visual Screening Test Completed 07/19/2018 10587 EKG Completed 07/19/2018 84488 Audiometry, Bekesy, Screening Completed Encounters Type Date Location Provider Dx Diagnosis Office Visit 11/20/2018 [facility] Palomo Roque I10 Essential ( primary) 9:00a M.DDanna hypertension E78.2 Mixed hyperlipidemia R73.01 Impaired fasting [...] abscess w/o bleeding E87.1 Hypo-osmolality and hyponatremia M54.2 Cervicalgia R07.89 Other chest pain C34.92 Malignant neoplasm of unsp part of left 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 J20.9 Acute bronchitis, unspecified R06.02 Shortness of breath R05 Cough H92.03 Otalgia, bilateral J01.40 Acute pansinusitis, unspecified Office Visit 10/25/2018 9:00a [facility] Palomo Roque I10 Essential ( primary) Ara [...] unspecified R06.02 Shortness of breath R05 Cough R07.9 Chest pain, unspecified H92.03 Otalgia, bilateral M54.2 Cervicalgia Office Visit 2018 2:30p [place] Palomo Roque, I10 Essential ( primary) M.Salma hypertension E78.2 Mixed hyperlipidemia R73.01 Impaired fasting [...] breath R05 Cough Office Visit 09/25/2018 10:00a [facility] Palomo Roque I10 Essential ( primary) [...] abscess w/o bleeding Office Visit 09/06/2018 8:30a [facility]victor hugo I10 Essential ( primary) Ara Gregory hypertension [...] Radiculopathy, lumbosacral region Office Visit 08/07/2018 8:45a [facility] Ara Gregory hypertension [...] Radiculopathy, lumbosacral region Office Visit 07/19/2018 3:45p [facility] Palomo Roque Z00.01 Encounter for Ara [...] hearing loss, bilateral Plan of Treatment Future Appointment(s):12/25/2018 9:00 am - Palomo Roque M.D. at [facility]11/20/2018 - Palomo Roque M.D.I10 Essential (primary) hypertensionComments:CHECK BP TIW ( PRN)DIET AND FLUID COUNSELING LOW SODIUM DIETWT LOSSF/U LABE78.2 Mixed hyperlipidemiaComments:DIET REVIEWED CONTINUE DIETWT LOSSF/U LAB FBWR73.01 Impaired fasting glucoseComments:F/U HGAICFS QAC AN HS PRNLOW GLUCOSE DIETM75.112 Incomplete rotator cuff tear or rupture of left shoulder, noComments:EXERCISE/HEAT/MESSAGE TYLENOL OR MOTRIN PRNAVOID HEAVY LIFTING ELEVATE PRN DUR OOKPGSWW98.562 Pain in left kneeComments:EXERCISE /HEAT /MESSAGEAVOID HEAVY LIFTING WT LOSSTYLENOL OR MOTRIN PRN DUR BSBHKNZP77.9 Polyosteoarthritis, unspecifiedComments:EXERCISE/HEAT/MESSAGETYLENOL OR MOTRIN PRNAVOID HEAVY LIFTINGWT LOSSR91.1 Solitary pulmonary nufuqjX97.30 Unspecified disorder of binocular visionComments:USE GLASSES/CONTACTSF/U WITH IZHZZCDEFWMXBB87.9 Vitamin D deficiency, unspecifiedComments:INCREASE EXPOSURE TO SUNREVIEW OF DIETG47.00 Insomnia, unspecifiedComments:COUNCELLING AND REASSURANCE RELAXATION TECHNIQUESSTRESSORS IN LIFE AVOID ALL ENERGY/HIGH CAFFEINE XVLPRMQ38.4 Aneurysm of artery of lower cdxhyxvmqJ02.9 Chronic obstructive pulmonary disease, unspecifiedNew Medication:Albuterol Sulfate (2.5 mg/3ML) 0.083% - use with nebulizer q4 hours as needed for cough/sobNebulizer - use as directedNebulizer Kit/Tubing/Mouthpiece - use with nebulizer every 4 hours as neededComments:INCREASE PO FLUIDRESTSMOKING CESSATION COUNCELLING NEB OR MDI AND /OR JNRYYUB52.210 Nicotine dependence, cigarettes, uncomplicatedComments:SMOKING CESSATION RMAERHFLDYAK96.10 Alcohol abuse, uncomplicatedComments:ETOH ABSTINENCECOUNCELLING AND ESMOVLKOHAUA01.6 Mixed conductive and sensorineural hearing loss, bilateralComments:OBSERVE F/U WITH ENT PRN SMOKING XBMAEYJZYP92.37 Other intervertebral disc degeneration, lumbosacral regionComments:EXERCISE/HEAT /MESSAGEAVOID HEAVY LIFTING WT LOSSTYLENOL OR MOTRIN PRN DUR BKNOWKUI55.17 Radiculopathy, lumbosacral regionComments:EXERCISE/HEAT /MESSAGE AVOID HEAVY LIFTING WT LOSS TYLENOL OR MOTRIN PRN DUR OTHVTMMV62.30 Diverticulosis of large intestine without perforation or absComments:TYLENOL OR MOTRIN PRN INCREASE PO FLUID LAXATIVE PRNE87.1 Hypo-osmolality and hyponatremiaComments:CONTINUE WITH RXF/U LAB FLUID RESTRICTION WILL TAPER OFF LNIAROMI34.2 CervicalgiaComments:EXERCISE/HEAT / MESSAGEAVOID HEAVY LIFTING WT LOSSTYLENOL OR MOTRIN PRN DUR FLCDRNRA60.89 Other chest painComments:TYLENOL OR MOTRIN PRN EXERCISE/HEAT/MESSAGECOUNCELLING AND VIWZAFAYZEPD47.92 Malignant neoplasm of unspecified part of left bronchus or lComments:F/U WITH TKDTEAUHE60.2 Syndrome of inappropriate secretion of antidiuretic hormoneComments:F/U WITH DLGJONTET66.9 Acute bronchitis, unspecifiedNew Medication:Levofloxacin 750 mg - 1 by mouth every dayComments: INCREASE PO FLUIDRESTSMOKING CESSATION QWLNCDICSIPG22.02 Shortness of breathComments:INCREASE PO FLUIDRESTSMOKING [id number] CoughComments:INCREASE CLEAR LIQUIDSSTEAMGARGLE WARM SALT H2O TID ROBITUSSIN DM PRN SMOKING CESSATION SHJHWJDIDICX92.03 Otalgia, bilateralComments:INCREASE PO FLUIDTYLENOL OR MOTRIN PRNANTIHISTAMINE PRNRESTSMOKING CESSATION LMIVULTFAIZT87.40 Acute pansinusitis, unspecifiedComments:INCREASE PO FLUIDTYLENOL OR MOTRIN PRN ANTIHISTAMINE PRNSMOKING CESSATION COUNCELLING
[2018-12-14] MEDS ORDERED: fentaNYL PATCH 12 MCG/HR TRANSDERM SCH (17:00)
[2018-12-14 17:21] LABS: BUN/Creatinine Ratio 19.3 (8-20); Calcium 8.5 mg/dL (8.6-10.3); EGFR African American 181.6 (>60); EGFR Non-African American 150.1 (>60); Potassium 4.4 mmol/L (3.5-5.0)
[2018-12-14] MEDS: Prochlorperazine TAB* 10 MG PO SCH ×2 (17:48→22:41)
[2018-12-14] MEDS: Enoxaparin(*) 40 MG/0.4 ML SYR SUBCUT SCH (17:52)
[2018-12-14] MEDS: Hydrocodone/Acetamin 10/325 1 TAB PO PRN ×2 (17:53→22:41)
[2018-12-14] MEDS ORDERED: Sodium Chloride 3% HYPERTONIC* 500 ML IV ONE (17:56)
[2018-12-14] MEDS: Albuterol HFA INHALER* 8 gm MDI INH PRN (20:08)
[2018-12-14] MEDS ORDERED: Nicotine PATCH 14 MG/24 HR* PATCH TRANSDERM SCH ×2 (23:00→23:15)
[2018-12-14] MEDS ORDERED: traZODone TAB* 100 MG PO SCH (23:00)
[2018-12-14 23:03] LABS: Calcium 8.1 mg/dL (8.6-10.3); EGFR African American 211.3 (>60); EGFR Non-African American 174.6 (>60)
[2018-12-15] MEDS: Hydrocodone/Acetamin 10/325 1 TAB PO PRN ×6 (02:45→23:32)
[2018-12-15] MEDS: Albuterol HFA INHALER* 8 gm MDI INH PRN ×3 (02:55→19:47)
[2018-12-15 02:56] LABS: EGFR African American 211.3 (>60); EGFR Non-African American 174.6 (>60)
[2018-12-15] MEDS: Prochlorperazine TAB* 10 MG PO SCH ×4 (04:56→23:32)
[2018-12-15 07:03] LABS: ABS Eosinophils 0.1 10^3/ul (0-0.6); ABS Lymphocytes 2.8 10^3/ul (1.0-4.8); ABS Monocytes 0.1 10^3/ul (0-0.8); Eosinophil % 0.9 %; Hematocrit 34 % (42-52); Hemoglobin 12.4 g/dL (14.0-18.0); Lymphocyte % 40.1 %; Mean Corpuscular HGB Conc 37 g/dL (31-36); Mean Corpuscular Hemoglobin 31 pg (27-31); Mean Corpuscular Volume 85 fL (80-94); Mean Platelet Volume 6.9 fL (7.4-10.4); Nucleated Red Blood Cells % 0.1; Platelet Count 372 10^3/uL (150-450); Red Blood Count 3.97 10^6 /uL (4.18-5.48); Red Cell Distribution Width 14 % (10-15); White Blood Count 6.9 10^3/uL (3.5-10.8)
[2018-12-15 07:19] LABS: Albumin 3.6 g/dL (3.2-5.2); Albumin/Globulin Ratio 1.6 (1-3); BUN/Creatinine Ratio 19.2 (8-20); Calcium 8.2 mg/dL (8.6-10.3); EGFR African American 201.9 (>60); EGFR Non-African American 166.9 (>60); Globulin 2.3 g/dL (2-4); Potassium 4.3 mmol/L (3.5-5.0); Total Bilirubin 0.4 mg/dL (0.2-1.0); Total Protein 5.9 g/dL (6.4-8.9)
[2018-12-15] MEDS: Sodium Chloride 3% HYPERTONIC* 500 ML IV ONE ×2 (08:24→19:42)
[2018-12-15] MEDS: Docusate CAP* 100 MG PO SCH (08:46)
[2018-12-15] MEDS: Aspirin TAB* 325 MG PO SCH (08:46)
[2018-12-15] MEDS: Nicotine PATCH 14 MG/24 HR* PATCH TRANSDERM SCH (08:47)
[2018-12-15] MEDS ORDERED: Glycerin ADULT SUPP PR PRN (10:01)
[2018-12-15] MEDS: Cetirizine* 10 MG TAB PO SCH (10:42)
[2018-12-15 15:24] LABS: BUN/Creatinine Ratio 18.8 (8-20); Calcium 8.3 mg/dL (8.6-10.3); EGFR African American 158.9 (>60); EGFR Non-African American 131.3 (>60); Potassium 4.2 mmol/L (3.5-5.0)
[2018-12-15] MEDS: Enoxaparin(*) 40 MG/0.4 ML SYR SUBCUT SCH (17:35)
[2018-12-15] MEDS ORDERED: Nicotine Patch Removal NOTE PATCH OFF SCH (21:00)
[2018-12-15] MEDS ORDERED: traZODone TAB* 50 MG TAB PO SCH (21:00)
[2018-12-15] MEDS ORDERED: fentaNYL Patch Check Q Shift 1 NOTE FOLLOW UP SCH (22:00)
[2018-12-15 22:09] LABS: BUN/Creatinine Ratio 21.1 (8-20); Calcium 8.4 mg/dL (8.6-10.3); EGFR African American 181.6 (>60); EGFR Non-African American 150.1 (>60); Potassium 4.4 mmol/L (3.5-5.0)
[2018-12-16] MEDS: Albuterol HFA INHALER* 8 gm MDI INH PRN ×2 (03:42→08:49)
[2018-12-16] MEDS: Hydrocodone/Acetamin 10/325 1 TAB PO PRN ×3 (03:42→13:05)
[2018-12-16] MEDS: Prochlorperazine TAB* 10 MG PO SCH ×2 (05:11→11:43)
[2018-12-16 06:50] LABS: BUN/Creatinine Ratio 16.7 (8-20); Calcium 8.9 mg/dL (8.6-10.3); EGFR African American 138.7 (>60); EGFR Non-African American 114.6 (>60); Potassium 4.1 mmol/L (3.5-5.0)
[2018-12-16] MEDS: Nicotine PATCH 14 MG/24 HR* PATCH TRANSDERM SCH (08:44)
[2018-12-16] MEDS: Docusate CAP* 100 MG PO SCH (08:51)
[2018-12-16] MEDS: Cetirizine* 10 MG TAB PO SCH (08:52)
[2018-12-16] MEDS: Aspirin TAB* 325 MG PO SCH (08:52)
[2018-12-16 14:38] VITALS: BP 123/76
== END 2018-12-16 15:30 | disposition home or self-care (01) | DRG 424 ==
LOC: ICU 16:24
PROVIDERS: ADMIT Internal Medicine Hematology & Oncology; ATTEND Internal Medicine Hematology & Oncology
DX: E22.2 Syndrome of inappropriate secretion of antidiuretic hormone (principal); C34.90 Malignant neoplasm of unspecified part of unspecified bronchus or lung; C79.51 Secondary malignant neoplasm of bone; J44.9 Chronic obstructive pulmonary disease, unspecified; G89.3 Neoplasm related pain (acute) (chronic); M89.8X0 Other specified disorders of bone, multiple sites; J30.9 Allergic rhinitis, unspecified; E78.5 Hyperlipidemia, unspecified; I10 Essential (primary) hypertension; G47.00 Insomnia, unspecified; Z79.82 Long term (current) use of aspirin; Z79.891 Long term (current) use of opiate analgesic; Z79.899 Other long term (current) drug therapy; Z79.1 Long term (current) use of non-steroidal anti-inflammatories (NSAID); Z87.891 Personal history of nicotine dependence
CPT/HCPCS: 36415; 80048; 80053; 85025; 94640; A9270-GY; J1650; Q0164

== ENCOUNTER 2018-12-23 15:08 | Emergency (ER) | payer BC ==
--- NOTE | 2018-12-23 16:02 | ED ---
Abdominal Pain/Male - HPI Summary HPI Summary: Pt is a 53 y/o M presenting to the ED with a chief complaint of nausea onset this afternoon at 1500. He reports anxiety, feeling out of it, scared, and very nauseous. This is related to his recent diagnosis of lung CA, and he thinks it could be related to the chemotherapy or the medication he is taking. He currently goes through chemotherapy q3wks, and he goes back next week for his next treatment. He has a port, and has not had surgery yet. NKDA. - History of Current Complaint Chief Complaint: EDGeneral Stated Complaint: "NOT FEELING WELL PER PT" Time Seen by Provider: 12/23/18 15:50 Hx Obtained From: Patient Onset/Duration: Sudden Onset, Lasting Hours, Still Present Timing: Constant, Lasting Hours Severity Initially: Mild Severity Currently: None Pain Intensity: 0 Pain Scale Used: 0-10 Numeric Location: Diffuse Radiates: No Aggravating Factor(s): Nothing Alleviating Factor(s): Nothing Associated Signs And Symptoms: Positive: Nausea - Allergies/Home Medications Allergies/Adverse Reactions: Allergies Allergy/AdvReac Type Severity Reaction Status Date / Time No Known Allergies Allergy Verified 12/05/18 12:06 PMH/Surg Hx/FS Hx/Imm Hx Previously Healthy: Yes Endocrine/Hematology History: Denies: Hx Anticoagulant Therapy, Hx Blood Transfusions, Hx Diabetes, Hx Thyroid Disease, Hx Anemia Cardiovascular History: Reports: Hx Aneurysm - repaired with graft, Hx Hypercholesterolemia, Hx Hypertension - meds, Hx Peripheral Vascular Disease - Clogged artery LLE, Other Cardiovascular Problems/Disorders - clogged artery right groin, Denies: Hx Congenital Heart Disease, Hx Congestive Heart Failure, Hx Deep Vein Thrombosis, Hx Embolism, Hx Rheumatic Fever Respiratory History: Reports: Hx Chronic Obstructive Pulmonary Disease (COPD), Hx Lung Cancer, Hx Seasonal Allergies Denies: Hx Asthma, Hx Sleep Apnea GI History: Reports: Hx Diverticulosis - Per Pt seen on colonoscopy Denies: Hx Gall Bladder Disease, Hx Gastroesophageal Reflux Disease, Hx Gastrointestinal Bleed, Hx Hiatal Hernia, Hx Irritable Bowel, Hx Obstructive Bowel, Hx Ulcer History: Denies: Hx Benign Prostatic Hyperplasia, Hx Dialysis, Hx Kidney Infection, Hx Kidney Stones Musculoskeletal History: Reports: Hx Arthritis, Hx Back Problems, Hx Tendonitis - RIGHT ELBOW, Other Musculoskeletal History - BILATERAL CARPAL TUNNEL SYNDROME , surgically repaired Denies: Hx Fibromyalgia, Hx Gout, Hx Orthopedic Injury, Hx Osteoporosis Sensory History: Reports: 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 2004 ARTHROSCOPIC SURGERY LEFT KNEE, [facility] [place]. 05/29/2006 RIGHT KNEE ARTHROSCOPY, REPAIR TORN MENISCUS, ACL DEBRIDEMENT, [facility] [place]. 06/08/2006 RIGHT KNEE ARTHROSCOPY, [facility] [place]. LEFT ELBOW SURGERY, [facility] [place]. 2013 RIGHT GROIN ANEURYSM REPAIR, [place] Hx Anesthesia Reactions: No Infectious Disease History: No Infectious Disease History: Reports: Hx of Known/Suspected MRSA Denies: Hx Clostridium Difficile, Hx Hepatitis, Hx Human Immunodeficiency Virus (HIV), Hx Shingles, Hx Tuberculosis, Hx Known/Suspected VRE, Hx Known/ Suspected VRSA, History Other Infectious Disease, Traveled Outside the in Last 30 Days - Family History Known Family History: Positive: Hypertension, Diabetes, Other - cancer Negative: Cardiac Disease, Renal Disease, Respiratory Disease, Seizure Disorder, Blood Disorder - Social History Alcohol Use: None Alcohol Amount: 6-8 beers, 2-3 x/week Hx Substance Use: Yes Substance Use Type: Reports: None Hx Tobacco Use: Yes Smoking Status (MU): Current Some Day Smoker Type: Cigarettes Amount Used/How Often: 1ppd Length of Time of Smoking/Using Tobacco: 30 YEARS Have You Smoked in the Last Year: Yes Review of Systems Positive: Nausea Positive: Anxious All Other Systems Reviewed And Are Negative: Yes Physical Exam - Summary Physical Exam Summary: Appearance: The patient is well-nourished in no acute distress and in no acute pain. Skin: The skin is warm and dry and skin color reflects adequate perfusion. HEENT: The head is normocephalic and atraumatic. The pupils are equal and reactive. The conjunctivae are clear and without drainage. Nares are patent and without drainage. Mouth reveals moist mucous membranes and the throat is without erythema and exudate. The external ears are intact. The ear canals are patent and without drainage. The tympanic membranes are intact. Neck: The neck is supple with full range of motion and non-tender. There are no carotid bruits. There is no neck vein distension. Respiratory: Chest is non-tender. Lungs are clear to auscultation and breath sounds are symmetrical and equal. Cardiovascular: Heart is regular rate and rhythm. There is no murmur or rub auscultated. There is no peripheral edema and pulses are symmetrical and equal. Abdomen: The abdomen is soft and non-tender. There are normal bowel sounds heard in all four quadrants and there is no organomegaly palpated. Musculoskeletal: There is no back tenderness noted. Extremities are non-tender with full range of motion. There is good capillary refill. There is no peripheral edema or calf tenderness elicited. Neurological: Patient is alert and oriented to person, place and time. The patient has symmetrical motor strength in all four extremities. Cranial nerves are grossly intact. Deep tendon reflexes are symmetrical and equal in all four extremities. Psychiatric: The patient is emotionally labile. Triage Information Reviewed: Yes Vital Signs On Initial Exam: Initial Vitals Temp Pulse Resp BP Pulse Ox 99.1 F 111 18 144/83 95 12/23/18 15:15 12/23/18 15:15 12/23/18 15:15 12/23/18 15:15 12/23/18 15:15 Vital Signs Reviewed: Yes Diagnostics - Vital Signs Vital Signs Temp Pulse Resp BP Pulse Ox 12/23/18 15:15 99.1 F 111 18 144/83 95 - Laboratory Result Diagrams: 12/23/18 16:19 12/23/18 16:19 Lab Statement: Any lab studies that have been ordered have been reviewed, and results considered in the medical decision making process. - Radiology CXR Radiology Interpretation Completed By: Radiologist Summary of Radiographic Findings: 1. No new focal airspace opacification. 2. The left perihilar mass appears slightly less conspicuous. 3. The known pulmonary nodules are better characterized by comparison chest CT. ED physician has reviewed this report. Abdominal Pain Male Course/Dx - Course Course Of Treatment: Mr. Mason presented quite upset. He has recently started chemotherapy and radiation for lung cancer. He was nontoxic in appearance with stable vitals and given Ativan as well as Zofran for some nausea here in the emergency department. He felt much improved and reassures me that he has follow-up with Dr. Palomino this week. I recommended that he do that and that I give him a prescription for short course of when necessary Ativan. - Diagnoses Provider Diagnoses: Anxiety Discharge - Sign-Out/Discharge Documenting (check all that apply): Patient Departure Patient Received Moderate/Deep Sedation with Procedure: No - Discharge Plan Condition: Stable Disposition: HOME Prescriptions: LORazepam TAB(*) [Ativan TAB(*)] 1 mg PO Q6H PRN #20 tab MDD 4 PRN Reason: Pain Patient Education Materials: Anxiety (ED) Referrals: Palomo Roque MD [Primary Care Provider] - Additional Instructions: Please follow up with Dr. Palomino this week. Return to the emergency department with any new or worsening symptoms. - Billing Disposition and Condition Condition: STABLE Disposition: Home - Attestation Statements Document Initiated by Joseibe: Yes Documenting Scribe: Elham Serrano Provider For Whom Anthony is Documenting (Include Credential): Billy Jackson MD. Scribe Attestation: I, Elham Serrano, scribed for Billy Jackson MD. on 12/23/18 at 1837. Scribe Documentation Reviewed: Yes Provider Attestation: The documentation as recorded by the [email or web address] accurately reflects the service I personally performed and the decisions made by me, Billy Jackson MD. Status of Scribe Document: Viewed
[2018-12-23] MEDS ORDERED: LORazepam TAB(*) 1 MG PO ONE (16:04)
[2018-12-23] MEDS ORDERED: Ondansetron ODT TAB* 4 MG PO ONE (16:04)
[2018-12-23 16:30] LABS: ABS Lymphocytes 0.3 10^3/ul (1.0-4.8); ABS Monocytes 0.1 10^3/ul (0-0.8); ABS Neutrophils 1.6 10^3/ul (1.5-7.7); Eosinophil % 0.1 %; Hematocrit 31 % (42-52); Hemoglobin 10.9 g/dL (14.0-18.0); Lymphocyte % 15.5 %; Mean Corpuscular HGB Conc 35 g/dL (31-36); Mean Corpuscular Hemoglobin 30 pg (27-31); Mean Corpuscular Volume 86 fL (80-94); Nucleated Red Blood Cells % 0.1; Platelet Count 264 10^3/uL (150-450); Red Blood Count 3.59 10^6 /uL (4.18-5.48); Red Cell Distribution Width 14 % (10-15); White Blood Count 2.1 10^3/uL (3.5-10.8)
[2018-12-23 16:43] LABS: Albumin 4.2 g/dL (3.2-5.2); Albumin/Globulin Ratio 1.4 (1-3); BUN/Creatinine Ratio 14.7 (8-20); Calcium 9.2 mg/dL (8.6-10.3); EGFR African American 132.3 (>60); EGFR Non-African American 109.4 (>60); Globulin 2.9 g/dL (2-4); Potassium 4.2 mmol/L (3.5-5.0); Total Bilirubin 0.4 mg/dL (0.2-1.0); Total Protein 7.1 g/dL (6.4-8.9)
--- OUTSIDE RECORDS SUMMARY | 2018-12-23 16:50 | XMS REPORT | Continuity of Care Document ---
:1965 External Reference #:[id number] Author Name Palomo Roque M.D. Address [address] [place] [address] Care Team Providers Name Role Phone Palomo Roque M.D. 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 Onset: 07/19/2018 Pure hypercholesterolemia Palomo Roque M.D. 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 Tablets Prednisone 2 tab by mouth 8tabs J20.9 Palomo Roque, 12/20/2018 20mg Tablets daily 4 days M.D. Albuterol Sulfate use with nebulizer 180ml J44.9 Palomo Roque, 2018 q4 hours as needed M.D. (2.5mg/3ML) 0.083% for cough/sob Nebulizer Nebulizer use as directed 1units J44.9 Palomo Roque, 11/20/2018 Device M.D. Nebulizer use with nebulizer 2units J44.9 Palomo Roque, 11/20/2018 Kit/Tubing/Mouthpiece every 4 hours as M.D. needed Kit Trazodone HCL 1/2-1 tab by mouth 90tabs [...] Roque, 09/24/2018 3350NF Powder every day M.D. Hydrocodone-Acetaminop 1/2-1 tab by mouth 90tabs M51.37 Palomo Roque, 07/19/2018 hen three times a day as M.D. 10-325mg Tablets needed Albuterol Sulfate HFA inhale 1-2 puffs by 17gm J44.9 Palomo Roque, 00 mouth every 4 to 6 M.D. 108(90Base) mcg/Act hours as needed for Aerosol shortness of breath Lisinopril 1 by mouth every day 90tabs I10 Unknown 10mg Tablets R73.01 Atorvastatin Calcium Take 1 Tablet By 90tabs E78.2 [facility], 80mg Mouth Daily In The M.D. Tablets Evening History Medications Levofloxacin 1 by mouth 14tabs J20.9 [facility], 11/20/2018 - 750mg every day M.D. 12/02/2018 Tablets Azithromycin 1 by mouth 7tabs J20.9 [facility] - 500mg every day M.D. 10/31/2018 Tablets Mirtazapine 1/2 tab by 45tabs F41.9 [facility], 2018 - 45mg Tablets mouth every M.D. 10/25/2018 night G47.00 Amoxicillin 2 by mouth 40tabs J20.9 [facility] 2018 - 500mg twice a day M., M.D. 10/19/2018 Tablets Prednisone 3 tab by mouth 18tabs M51.37 [facility] 07/19/2018 - 20mg Tablets daily 3 days, M., M.D. 07/26/2018 then 2 tab daily x 3 d , then 1 tab daily 3d Mirtazapine 1 1/2 tab by 135tabs F41.9 [facility] - 45mg mouth every M., M.D. 2018 Tablets night G47.00 Vital Signs Date Vital Result Comment 12/20/2018 11:14am BP Systolic 132 mmHg BP Diastolic 70 mmHg Height 69 inches 5'9" Weight 181.00 lb BMI (Body Mass Index) 26.7 kg/m2 Heart Rate 85 /min Body Temperature 99.3 F Respiratory Rate 18 /min 11/20/2018 9:00am BP Systolic 116 mmHg BP [...] Date Facility Test Result H/L Range Note Comp Metabolic Panel 12/18/2018 [facility] Sodium 133 mmol/L Low 135- 145 Potassium 4.3 mmol/L Normal 3.5-5.0 Chloride 99 mmol/L Low 101-111 Co2 Carbon Dioxide 26 mmol/L Normal 22-32 Anion Gap 8 mmol/L Normal 2-11 Glucose 121 mg/dL High 70-100 Blood Urea Nitrogen 10 mg/dL Normal 6-24 Creatinine 0.87 mg/dL Normal 0.67-1.17 BUN/Creatinine Ratio 11.5 Normal 8-20 Calcium 9.3 mg/dL Normal 8.6-10.3 Total Protein 6.5 g/dL Normal 6.4-8.9 Albumin 3.9 g/dL Normal 3.2-5.2 Globulin 2.6 g/dL Normal 2-4 Albumin/Globulin Ratio 1.5 Normal 1-3 Total Bilirubin 0.40 mg/dL Normal 0.2-1.0 Alkaline Phosphatase 168 U/L High 34-104 Alt 127 U/L High 7-52 Ast 58 U/L High 13-39 Egfr Non- 92.1 >60 Egfr 111.5 >60 1 Laboratory test 12/18/2018 [facility] Magnesium 1.9 mg/dL Normal 1.9- 2.7 finding CBC Auto Diff 12/18/2018 [facility] White Blood 5.3 10^3/uL Normal 3.5-10.8 Count Red Blood Count 3.50 10^6/uL Low 4.18-5.48 Hemoglobin 10.9 g/dL Low 14.0-18.0 Hematocrit 31 % Low 42-52 Mean Corpuscular Volume 88 fL Normal 80-94 Mean Corpuscular Hemoglobin 31 pg Normal 27-31 Mean Corpuscular HGB Conc 36 g/dL Normal 31-36 Red Cell Distribution Width 14 % Normal 10-15 Platelet Count 347 10^3/uL Normal 150-450 Mean Platelet Volume 6.6 fL Low 7.4-10.4 Abs Neutrophils 3.6 10^3/uL Normal 1.5-7.7 Abs Lymphocytes 1.4 10^3/uL Normal 1.0-4.8 Abs Monocytes 0.1 10^3/uL Normal 0-0.8 Abs Eosinophils 0.1 10^3/uL Normal 0-0.6 Abs Basophils 0.1 10^3/uL Normal 0-0.2 Abs Nucleated RBC 0.0 10^3/uL Granulocyte % 68.4 % Lymphocyte % 26.1 % Monocyte % 2.8 % Eosinophil % 1.2 % Basophil % 1.5 % Nucleated Red Blood Cells % 0.1 CBC Auto Diff 12/14/2018 [facility] White Blood 7.7 10^3/uL Normal 3.5-10.8 Count Red Blood Count 4.11 10^6/uL Low 4.18-5.48 Hemoglobin 12.7 g/dL Low 14.0-18.0 Hematocrit 35 % Low 42-52 Mean Corpuscular Volume 85 fL Normal 80-94 Mean Corpuscular Hemoglobin 31 pg Normal 27-31 Mean Corpuscular HGB Conc 36 g/dL Normal 31-36 Red Cell Distribution Width 13 % Normal 10-15 Platelet Count 419 10^3/uL Normal 150-450 Mean Platelet Volume 6.6 fL Low 7.4-10.4 Abs Neutrophils 5.4 10^3/uL Normal 1.5-7.7 Abs Lymphocytes 1.9 10^3/uL Normal 1.0-4.8 Abs Monocytes 0.2 10^3/uL Normal 0-0.8 Abs Eosinophils 0.1 10^3/uL Normal 0-0.6 Abs Basophils 0.0 10^3/uL Normal 0-0.2 Abs Nucleated RBC 0.0 10^3/uL Granulocyte % 71.0 % Lymphocyte % 25.3 % Monocyte % 2.7 % Eosinophil % 0.8 % Basophil % 0.2 % Nucleated Red Blood Cells % 0.0 Comp Metabolic Panel 12/14/2018 [facility] Potassium 4.0 mmol/L Normal 3.5-5.0 Chloride 84 mmol/L Low 101-111 Co2 Carbon Dioxide 21 mmol/L Low 22-32 Glucose 144 mg/dL High 70-100 Blood Urea Nitrogen 12 mg/dL Normal 6-24 Creatinine 0.58 mg/dL Low 0.67-1.17 BUN/Creatinine Ratio 20.7 High 8-20 Calcium 8.7 mg/dL Normal 8.6-10.3 Total Protein 6.7 g/dL Normal 6.4-8.9 Albumin 4.0 g/dL Normal 3.2-5.2 Globulin 2.7 g/dL Normal 2-4 Albumin/Globulin Ratio 1.5 Normal 1-3 Total Bilirubin 0.50 mg/dL Normal 0.2-1.0 Alkaline Phosphatase 119 U/L High 34-104 Alt 25 U/L Normal 7-52 Ast 18 U/L Normal 13-39 Egfr Non- 147.1 >60 Egfr 178.0 >60 2 Sodium 115 mmol/L Critical low 135-145 3 Anion Gap 10 mmol/L Normal 2-11 Laboratory test 12/14/2018 [facility] Magnesium 1.8 mg/dL Low 1.9- 2.7 finding Platelet Count 12/10/2018 [facility] Platelet Count 400 10^3/uL Normal 150-450 Mean Platelet Volume 6.7 fL Low 7.4-10.4 Inr/Protime 12/10/2018 [facility] Inr 1.19 High 0.82-1.09 4 Laboratory test 12/10/2018 [facility] Partial 38.1 seconds High 26.0- 38.0 finding Thrombo Time PTT CBC Auto Diff 12/05/2018 [facility] White Blood 8.2 10^3/uL Normal 3.5-10.8 Count Red Blood Count 3.99 10^6/uL Low 4.18-5.48 Hemoglobin 12.3 g/dL Low 14.0-18.0 Hematocrit 35 % Low 42-52 Mean Corpuscular Volume 87 fL Normal 80-94 Mean Corpuscular Hemoglobin 31 pg Normal 27-31 Mean Corpuscular HGB Conc 35 g/dL Normal 31-36 Red Cell Distribution Width 14 % Normal 10-15 Platelet Count 419 10^3/uL Normal 150-450 Mean Platelet Volume 7.6 fL Normal 7.4-10.4 Abs Neutrophils 5.6 10^3/uL Normal 1.5-7.7 Abs Lymphocytes 1.8 10^3/uL Normal 1.0-4.8 Abs Monocytes 0.8 10^3/uL Normal 0-0.8 Abs Eosinophils 0.1 10^3/uL Normal 0-0.6 Abs Basophils 0.1 10^3/uL Normal 0-0.2 Abs Nucleated RBC 0.0 10^3/uL Granulocyte % 67.7 % Lymphocyte % 21.4 % Monocyte % 9.5 % Eosinophil % 0.6 % Basophil % 0.8 % Nucleated Red Blood Cells % 0.1 Comp Metabolic Panel 12/05/2018 [facility] Sodium 128 mmol/L Low 135- 145 Potassium 4.2 mmol/L Normal 3.5-5.0 Chloride 95 mmol/L Low 101-111 Co2 Carbon Dioxide 24 mmol/L Normal 22-32 Anion Gap 9 mmol/L Normal 2-11 Calcium 9.3 mg/dL Normal 8.6-10.3 Albumin 4.1 g/dL Normal 3.2-5.2 Total Bilirubin 0.30 mg/dL Normal 0.2-1.0 Glucose 113 mg/dL High 70-100 Blood Urea Nitrogen 9 mg/dL Normal 6-24 Creatinine 0.70 mg/dL Normal 0.67-1.17 BUN/Creatinine Ratio 12.9 Normal 8-20 Total Protein 6.6 g/dL Normal 6.4-8.9 Globulin 2.5 g/dL Normal 2-4 Albumin/Globulin Ratio 1.6 Normal 1-3 Alkaline Phosphatase 139 U/L High 34-104 Alt 13 U/L Normal 7-52 Ast 18 U/L Normal 13-39 Egfr Non- 118.4 >60 Egfr 143.3 >60 5 Laboratory test 12/05/2018 [facility] TSH (Thyroid 0.70 mcIU/mL Normal 0.34-5.60 finding Stim Horm) Basic Metabolic 11/20/2018 [facility] Sodium 129 mmol/L Low (136-145) Panel [facility] (607)- - Potassium 4.7 mmol/L (3.6-5.2) Chloride 95 mmol/L Low (100-108) Co2 26 mmol/L (22-31) Anion Gap 8 mmol/L (7-16) Urea Nitrogen 8 mg/dL (7-24) Creatinine 0.67 mg/dL Low (0.80-1.30) BUN/Creat Ratio 11.9 RATIO (10.0-20.0) Glucose 90 mg/dL (70-99) Calcium 9.5 mg/dL (8.4-10.2) GFR >60 ml/min/1.73m2 (>59) GFR ( Amer) >60 ml/min/1.73m2 (>59) GFR Interpretation <SEE NOTE> 6 BMP W/ Calc Osmo 10/25/2018 [facility] Sodium 130 mmol/L Low (136-145) [facility] [...] >60 ml/min/1.73m2 (>59) GFR Interpretation <SEE NOTE> 7 Calculated Osmo 259 mosm/kg Low (280-300) CBC Auto Diff 10/19/2018 [facility] White Blood 11.2 10^3/uL High 3.5 -10.8 Count Red Blood Count 4.74 10^6/uL Normal 4.18-5.48 Hemoglobin 14.6 g/dL Normal 14.0-18.0 Hematocrit 43 % Normal 42-52 Mean Corpuscular Volume 90 fL Normal 80-94 Mean Corpuscular Hemoglobin 31 pg Normal 27-31 Mean Corpuscular HGB Conc 34 g/dL Normal 31-36 Red Cell Distribution Width 13 % Normal 10.5-15 Platelet Count 514 10^3/uL High 150-450 Mean Platelet Volume 6.6 fL Low 7.4-10.4 Abs Neutrophils 7.7 10^3/uL Normal 1.5-7.7 Abs Lymphocytes 2.5 10^3/uL Normal 1.0-4.8 Abs Monocytes 0.8 10^3/uL Normal 0-0.8 Abs Eosinophils 0.1 10^3/uL Normal 0-0.6 Abs Basophils 0.1 10^3/uL Normal 0-0.2 Abs Nucleated RBC 0.0 10^3/uL Granulocyte % 68.5 % Lymphocyte % 22.7 % Monocyte % 7.1 % Eosinophil % 0.9 % Basophil % 0.8 % Nucleated Red Blood Cells % 0.0 Basic Metabolic Panel 10/19/2018 [facility] Sodium 131 mmol/L Low 135 -145 Potassium 4.3 mmol/L Normal 3.5-5.0 Chloride 101 mmol/L Normal 101-111 Co2 Carbon Dioxide 22 mmol/L Normal 22-32 Anion Gap 8 mmol/L Normal 2-11 Glucose 99 mg/dL Normal 70-100 Blood Urea Nitrogen 8 mg/dL Normal 6-24 Creatinine 0.77 mg/dL Normal 0.67-1.17 BUN/Creatinine Ratio 10.4 Normal 8-20 Calcium 9.8 mg/dL Normal 8.6-10.3 Egfr Non- 106.1 >60 Egfr 128.4 >60 8 Laboratory test finding 10/19/2018 [facility] GGTP 190 U/L High 9- 64.0 Alcohol < 10 mg/dL Normal <10 Basic Metabolic Panel 10/13/2018 [facility] Sodium 130 mmol/L Low 135 -145 Potassium 4.8 mmol/L Normal 3.5-5.0 Chloride 95 mmol/L Low 101-111 Co2 Carbon Dioxide 29 mmol/L Normal 22-32 Anion Gap 6 mmol/L Normal 2-11 Glucose 103 mg/dL High 70-100 Blood Urea Nitrogen 10 mg/dL Normal 6-24 Creatinine 0.77 mg/dL Normal 0.67-1.17 BUN/Creatinine Ratio 13.0 Normal 8-20 Calcium 10.0 mg/dL Normal 8.6-10.3 Egfr Non- 106.1 >60 Egfr 128.4 >60 9 BMP W/ Calc Osmo 2018 [facility] Sodium 128 mmol/L Low (136-145) [facility] [...] >60 ml/min/1.73m2 (>59) GFR Interpretation <SEE NOTE> 10 Calculated Osmo 257 mosm/kg Low (280-300) Basic Metabolic Panel 10/09/2018 [facility] Glucose 140 mg/dL High 74-106 11 BUN 9 mg/dL Normal 7-18 Creatinine 0.7 mg/dL Normal 0.6-1.3 Glom Filtration Rate, Estimate >60 mL/min >60 If >60 mL/min >60 12 BUN/Creat 12.8 ratio Sodium 123 mmol/L Low 136-145 Potassium 3.7 mmol/L Normal 3.5-5.1 Chloride 90 mmol/L Low 98-107 Carbon Dioxide 22 mmol/L Normal 21-32 Anion Gap 11 mEq/L Normal 8-16 Calcium 7.8 mg/dL Low 8.5-10.1 CBC Auto Diff 10/09/2018 [facility] White Blood 10.1 10^3/uL Normal 3.5-10.8 Count Red Blood Count 4.38 10^6/uL Normal 4.18-5.48 Hemoglobin 13.9 g/dL Low 14.0-18.0 Hematocrit 39 % Low 42-52 Mean Corpuscular Volume 90 fL Normal 80-94 Mean Corpuscular Hemoglobin 32 pg High 27-31 Mean Corpuscular HGB Conc 35 g/dL Normal 31-36 Red Cell Distribution Width 13 % Normal 10.5-15 Platelet Count 414 10^3/uL Normal 150-450 Mean Platelet Volume 6.6 fL Low 7.4-10.4 Abs Neutrophils 6.9 10^3/uL Normal 1.5-7.7 Abs Lymphocytes 2.2 10^3/uL Normal 1.0-4.8 Abs Monocytes 0.9 10^3/uL High 0-0.8 Abs Eosinophils 0.1 10^3/uL Normal 0-0.6 Abs Basophils 0.1 10^3/uL Normal 0-0.2 Abs Nucleated RBC 0.0 10^3/uL Granulocyte % 67.7 % Lymphocyte % 21.3 % Monocyte % 9.0 % Eosinophil % 1.1 % Basophil % 0.9 % Nucleated Red Blood Cells % 0.0 Comp Metabolic Panel 10/09/2018 [facility] Sodium 120 mmol/L Low 135- 145 Potassium 4.4 mmol/L Normal 3.5-5.0 Chloride 92 mmol/L Low 101-111 Co2 Carbon Dioxide 23 mmol/L Normal 22-32 Anion Gap 5 mmol/L Normal 2-11 Glucose 96 mg/dL Normal 70-100 Blood Urea Nitrogen 7 mg/dL Normal 6-24 Creatinine 0.60 mg/dL Low 0.67-1.17 BUN/Creatinine Ratio 11.7 Normal 8-20 Calcium 9.0 mg/dL Normal 8.6-10.3 Total Protein 6.6 g/dL Normal 6.4-8.9 Albumin 4.2 g/dL Normal 3.2-5.2 Globulin 2.4 g/dL Normal 2-4 Albumin/Globulin Ratio 1.8 Normal 1-3 Total Bilirubin 0.30 mg/dL Normal 0.2-1.0 Alkaline Phosphatase 116 U/L High 34-104 Alt 20 U/L Normal 7-52 Ast 15 U/L Normal 13-39 Egfr Non- 142.0 >60 Egfr 171.9 >60 13 Laboratory test 10/09/2018 [facility] TSH (Thyroid 2.97 mcIU/mL Normal 0.34-5.60 finding Stim Horm) Osmolality Serum 254 mOsm/kg Low 275-295 CBS W/Automated Diff 10/09/2018 [facility] White Blood Count 7.2 K/uL Normal 3.4-10.5 Red Blood Count 4.23 M/uL Normal 4.20-5.80 Hemoglobin 13.6 gm/dL Normal 12.8-17.0 Hematocrit 36.8 % Low 38.0-48.0 Mean Cell Volume 87.0 fl Normal 80.0-96.0 Mean Corpuscular HGB 32.2 pg Normal 27.0-33.0 Mean Corpuscular HGB Conc 37.0 g/dL High 31.7-36.0 Platelet Count 429 K/uL High 155-360 Red Cell Distri Width SD 37.9 fl Normal 36-51 Red Cell Distri Width %CV 11.9 % Normal 11.6-15.8 Mean Platelet Volume 9.0 fl Normal 6.6-10.6 Neut% 47.5 % Normal 33.0-73.0 Lymph % 36.3 % Normal 20.0-42.0 [place] % 12.4 % High 0.0-10.0 Eo% 2.2 % Normal 0.0-6.6 Bas% 1.0 % Normal 0.0-1.1 Immature Grans 0.6 % Normal 0.0-5.0 NRBC % 0.0 /100WBC < 10/ 100 WBC Neut# 3.42 K/uL Normal 1.8-7.0 Lymph # 2.61 K/uL Normal 1.0-4.0 [place] # 0.89 K/uL High 0.0-0.8 Eos # 0.16 K/uL Normal 0.0-0.5 Baso # 0.07 K/uL Normal 0.0-0.1 Immature Grans Absolute 0.04 K/uL NRBC # 0.00 K/uL Basic Metabolic Panel 10/09/2018 [facility] Glucose 88 mg/dL Normal 74-106 BUN 9 mg/dL Normal 7-18 Creatinine 0.7 mg/dL Normal 0.6-1.3 Glom Filtration Rate, Estimate >60 mL/min >60 If >60 mL/min >60 14 BUN/Creat 12.8 ratio Sodium 121 mmol/L Low 136-145 Potassium 4.1 mmol/L Normal 3.5-5.1 Chloride 91 mmol/L Low 98-107 Carbon Dioxide 21 mmol/L Normal 21-32 Anion Gap 9 mEq/L Normal 8-16 Calcium 8.4 mg/dL Low 8.5-10.1 CBS W/Automated Diff 10/08/2018 [facility] White Blood 7.9 K/uL Normal 3.4- 10.5 15 Count Red Blood Count 4.56 M/uL Normal 4.20-5.80 Hemoglobin 14.7 gm/dL Normal 12.8-17.0 Hematocrit 39.5 % Normal 38.0-48.0 Mean Cell Volume 86.6 fl Normal 80.0-96.0 Mean Corpuscular HGB 32.2 pg Normal 27.0-33.0 Mean Corpuscular HGB Conc 37.2 g/dL High 31.7-36.0 Platelet Count 429 K/uL High 155-360 Red Cell Distri Width SD 38.1 fl Normal 36-51 Red Cell Distri Width %CV 11.9 % Normal 11.6-15.8 Mean Platelet Volume 8.6 fl Normal 6.6-10.6 Neut% 60.3 % Normal 33.0-73.0 Lymph % 27.3 % Normal 20.0-42.0 [place] % 10.5 % High 0.0-10.0 Eo% 0.8 % Normal 0.0-6.6 Bas% 0.6 % Normal 0.0-1.1 Immature Grans 0.5 % Normal 0.0-5.0 NRBC % 0.0 /100WBC < 10/ 100 WBC Neut# 4.77 K/uL Normal 1.8-7.0 Lymph # 2.16 K/uL Normal 1.0-4.0 [place] # 0.83 K/uL High 0.0-0.8 Eos # 0.06 K/uL Normal 0.0-0.5 Baso # 0.05 K/uL Normal 0.0-0.1 Immature Grans Absolute 0.04 K/uL NRBC # 0.00 K/uL Aot Request 10/08/2018 [facility] Aot Request Already done 16 Tests to be added: serum osmolality 17 Aot Request 10/08/2018 [facility] Aot Request Test(s) added 18 Tests to be added: magnesium Ua RFX Micro & Culture II 10/08/2018 [facility] Urine Color YELLOW Yellow Urine Clarity CLEAR Clear Urine Glucose - Dipstick NEGATIVE mg/dL Negative Urine Bilirubin - Dipstick NEGATIVE Negative Urine Ketone NEGATIVE mg/dL Negative Urine Specific [place] 1.025 Normal 1.010-1.030 Urine Blood TRACE Negative Urine PH 6.0 Low 6.5-7.5 Urine Protein - Dipstick TRACE mg/dL Negative Urine Urobilinogen - Dipstick 0.2 E.U./dL Normal 0.2-1.0 Urine Nitrite - Dipstick NEGATIVE Negative Urine Leuk Esterase NEGATIVE Negative Source: URINE, CLEAN CAT <SEE NOTE> 19 Aot Request 10/08/2018 [facility] Aot Request Test(s) added 20 Tests to be added: urine osmolality <SEE NOTE> 21 Laboratory 10/08/2018 [facility] Osmolality,Serum 250 mOsm/kg Low 275-295 test finding Laboratory 08/07/2018 [facility] 25 Hydroxy Vit D @ 25 ng/mL Low (31- 100) 22 test finding [facility] (607)- - Folate @ >20.0 ng/mL High (3.1-17.5) Vitamin B12 @ 390 pg/mL (193-986) Direct LDL @ 92 mg/dL (<130) 23 Hemoglobin A1c 08/07/2018 [facility] Hemoglobin A1c @ 5.8 % (4.0-6.0) 24 [facility] (607)- - Est Average Glucose 120 mg/dL Laboratory 08/07/2018 [facility] TSH,Ultrasensitive @ 0.913 (0.360- 4.170) test finding [facility] mIU/L (607)- - Lipid 08/07/2018 [facility] Cholesterol @ 158 (0-200) [facility] mg/dL (607)- - Triglyceride @ 324 mg/dL High (30-200) HDL Cholesterol @ 29 mg/dL Low (>40) 25 Chol/HDL Ratio 5.4 RATIO 26 LDL Chol (Calc) UNABLE TO CALCUL <SEE NOTE> mg/dL (<130) 27 CMP 08/07/2018 [facility] Sodium 140 mmol/L (136-145) [facility] (607)- - Potassium 4.4 mmol/L (3.6-5.2) Chloride [...] >60 ml/min/1.73m2 (>59) GFR Interpretation <SEE NOTE> 28 CBC With Diff 08/07/2018 [facility] WBC 10.6 10*3/uL (4.1-11.0) [facility] (607)- - RBC 5.02 10*6/uL (4.60-6.10) HGB 16.4 g/dL (13.5-18.0) HCT 47.1 % (41.0-53.0) MCV 93.9 fL (80.0-95.0) MCH 32.6 pg High (27.0-32.0) MCHC 34.7 g/dL (32.0-36.0) RDW 14.3 % (10.5-14.5) PLT 299 10*3/uL (150-450) MPV 8.7 fL (7.1-10.7) Neut % 64.1 % (35.0-75.0) Lymph % 26.3 % (16.0-52.0) [place] % 6.8 % (0.0-8.0) Eos % 1.8 % (0.0-5.0) Baso % 1.0 % (0.0-4.0) Neut # 6.8 10*3/uL (1.8-7.7) Lymph # 2.8 10*3/uL (1.2-4.8) [place] # 0.7 10*3/uL (0.0-0.8) Eos # 0.2 10*3/uL (0.0-0.5) Baso # 0.1 10*3/uL (0.0-0.2) 1 Because ethnic data is not always [...] 5 Kidney failure <15 (or dialysis) 2 Because ethnic data is not always [...] 5 Kidney failure <15 (or dialysis) 3 Critical Result NA:115 Called to TAMIKA at: 13:32:33 by:[id number] Read back by:[email or web address] 4 Standard intensity warfarin therapeutic range: 2.0-3.0 High intensity warfarin therapeutic range: 2.5-3.5 5 Because ethnic data is not always [...] 5 Kidney failure <15 (or dialysis) 6 NORMAL KIDNEY FUNCTION OR MILD DISEASE - GFR >OR=60 CHRONIC KIDNEY DISEASE - GFR 15 - 59 RENAL FAILURE - GFR <15 Est. GFR calculation based on the MDRD study equation, which assumes a steady state for creatinine. Est. GFR should not be used for medication dosing. 7 NORMAL KIDNEY FUNCTION OR MILD DISEASE - GFR >OR=60 CHRONIC KIDNEY DISEASE - GFR 15 - 59 RENAL FAILURE - GFR <15 Est. GFR calculation based on the MDRD study equation, which assumes a steady state for creatinine. Est. GFR should not be used for medication dosing. 8 Because ethnic data is not always readily [...] 15-29 5 Kidney failure <15 (or dialysis) 9 Because ethnic data is not always readily [...] 15-29 5 Kidney failure <15 (or dialysis) 10 NORMAL KIDNEY FUNCTION OR MILD DISEASE - GFR >OR=60 CHRONIC KIDNEY DISEASE - GFR 15 - 59 RENAL FAILURE - GFR <15 Est. GFR calculation based on the MDRD study equation, which assumes a steady state for creatinine. Est. GFR should not be used for medication dosing. 11 SEVERE HYPONATREMIA 12 Note: Persistent reduction for 3 months or more in an eGFR <60 mL/min/1.73 m2 defines CKD. Patients with eGFR values >/=60 mL/min/1.73 m2 may also have CKD if evidence of persistent proteinuria is present. The original MDRD equation for estimated GFR is not valid for patients less than 18 years of age. Additional information may be found at [email or web address]. 13 Because ethnic data is not always readily [...] 15-29 5 Kidney failure <15 (or dialysis) 14 Note: Persistent reduction for 3 months or more in an eGFR <60 mL/min/1.73 m2 defines CKD. Patients with eGFR values >/=60 mL/min/1.73 m2 may also have CKD if evidence of persistent proteinuria is present. The original MDRD equation for estimated GFR is not valid for patients less than 18 years of age. Additional information may be found at [email or web address]. 15 HAD COLONOSCOPY,SICK,PAIN,CANT GO TO BATHROOM 16 Tests: serum osmolality Instructions: 17 serum osmolality 18 Tests: magnesium Instructions: 19 URINE, CLEAN CATCH 20 Tests: urine osmolality and sodium, serum osmolality Instructions: 21 urine osmolality and sodium, serum osmolality 22 A REVIEW OF THE LITERATURE SUGGESTS THE FOLLOWING RANGES FOR THE CLASSIFICATION OF 25-OH VITAMIN D STATUS: VITAMIN D STATUS 25-OH VITAMIN D DEFICIENCY <20 NG/ML INSUFFICIENCY 20-30 NG/ML SUFFICIENCY 31 - 100 NG/ML TOXICITY > 100 NG/ML A PEDIATRIC REFERENCE RANGE HAS NOT BEEN ESTABLISHED USING THIS METHOD. 23 PER NCEP ATP III GUIDELINES: OPTIMAL < 100 NEAR OPTIMAL 100 - 129 BORDERLINE HIGH 130 - 159 HIGH 160 - 189 VERY HIGH > 189 24 Performed using Siemens Ayr immunoassay. Care must be taken when interpreting HbA1c results in patients with a hemoglobin variant or decreased erythrocyte lifespan. Values 5.7 - 6.4% suggest prediabetes. Values >=6.5% are diagnostic for diabetes. REFERENCE: DIABETES CARE 2018: 41(S13-S27). 25 PER NCEP ATP III GUIDELINES: RESULTS LOWER THAN 40 MG/DL ARE SUGGESTIVE OF INCREASED RISK FOR CORONARY ARTERY DISEASE. RESULTS > OR=TO 60 MG/DL ARE CONSIDERED A NEGATIVE RISK FACTOR. 26 INTERPRETATION OF CHOL-HDL RATIO CHD RISK FEMALE MALE VERY HIGH >8.3 >14.3 HIGH 5.6- 8.3 6.7- 14.3 AVERAGE 3.7- 5.6 4.0- 6.7 BELOW AVERAGE 2.5- 3.7 2.7- 4.0 PROTECTED <2.5 <2.7 27 UNABLE TO CALCULATE VALID LDL DUE TO INTERFERENCE FROM ELEVATED TRIGLYCERIDES (GREATER THAN 300 MG/DL). SEE RESULT FOR DIRECT LDL. 28 NORMAL KIDNEY FUNCTION OR MILD DISEASE - GFR >OR=60 CHRONIC KIDNEY DISEASE - GFR 15 - 59 RENAL FAILURE - GFR <15 Est. GFR calculation based on the MDRD study equation, which assumes a steady state for creatinine. Est. GFR should not be used for medication dosing. Procedures Date Code Description Status 11/20/2018 71594 Spirometry Completed 10/25/2018 92851 Spirometry Completed 10/25/2018 98832 EKG Completed 10/25/2018 36579 Tympanometry Completed 2018 11466 Spirometry Completed 09/14/2018 [id number] Colonoscopy Completed 07/19/2018 97476 Visual Screening Test Completed 07/19/2018 89396 EKG Completed 07/19/2018 11425 Audiometry, Bekesy, Screening Completed Encounters Type Date Location Provider Dx Diagnosis Office Visit 12/20/2018 [facility] Palomo Roque, I10 Essential ( primary) 11:30a M.D. hypertension E78.2 Mixed hyperlipidemia R73.01 Impaired [...] bilateral J01.40 Acute pansinusitis, unspecified Office Visit 11/20/2018 9:00a [facility] Palomo Roque I10 Barbara ( primary) Alex Gregory. hypertension E78.2 Mixed hyperlipidemia R73.01 Impaired fasting [...] Acute pansinusitis, unspecified Office Visit 10/25/2018 9:00a [facility] Palomo Roque I10 Essential ( primary) [...] bilateral M54.2 Cervicalgia Office Visit 2018 2:30p [facility] Palomo Roque, I10 Essential ( primary) Ara hypertension E78.2 Mixed hyperlipidemia R73.01 Impaired fasting [...] breath R05 Cough Office Visit 09/25/2018 10:00a [facility] JudePalomo vazquez I10 Essential ( primary) Alex Gregory. hypertension E78.2 Mixed hyperlipidemia R73.01 Impaired fasting [...] abscess w/o bleeding Office Visit 09/06/2018 8:30a [facility] JudePalomo galvez I10 Essential ( primary) Ara Gregory hypertension [...] Radiculopathy, lumbosacral region Office Visit 08/07/2018 8:45a [facility] Palomo Roque I10 Essential ( primary) [...] Radiculopathy, lumbosacral region Office Visit 07/19/2018 3:45p [facility] Palomo Roque Z00.01 Encounter for Ara [...] 9:00 am - Palomo Roque M.D. at [facility] Ptypdm1312/20/2018 - Palomo Roque M.D.I10 Essential (primary) hypertensionComments:CHECK BP TIW ( PRN)DIET AND FLUID COUNSELING LOW SODIUM DIETWT LOSSF/U LABE78.2 Mixed hyperlipidemiaComments:DIET REVIEWED CONTINUE DIETWT LOSSF/U LAB FBWR73.01 Impaired fasting glucoseComments:F/U HGAICFS QAC AN HS PRNLOW GLUCOSE DIETM75.112 Incomplete rotator cuff tear or rupture of left shoulder, noComments:EXERCISE/HEAT/MESSAGE TYLENOL OR MOTRIN PRNAVOID HEAVY LIFTING ELEVATE PRN DUR GFLLFAGV35.562 Pain in left kneeComments:EXERCISE /HEAT /MESSAGEAVOID HEAVY LIFTING WT LOSSTYLENOL OR MOTRIN PRN DUR HHENFQDS04.9 Polyosteoarthritis, unspecifiedComments:EXERCISE/HEAT/MESSAGETYLENOL OR MOTRIN PRNAVOID HEAVY LIFTINGWT LOSSR91.1 Solitary pulmonary zftfbyN80.30 Unspecified disorder of binocular visionComments:USE GLASSES/CONTACTSF/U WITH YFHOXSPZMXOWLO07.9 Vitamin D deficiency, unspecifiedComments:INCREASE EXPOSURE TO SUNREVIEW OF DIETG47.00 Insomnia, unspecifiedComments:COUNCELLING AND REASSURANCE RELAXATION TECHNIQUESSTRESSORS IN LIFE AVOID ALL ENERGY/HIGH CAFFEINE NSNYKWR33.4 Aneurysm of artery of lower tawcnuxfpU66.9 Chronic obstructive pulmonary disease, unspecifiedComments:INCREASE PO FLUIDRESTSMOKING CESSATION COUNCELLING NEB OR MDI AND /OR VXMLDCP68.210 Nicotine dependence, cigarettes, uncomplicatedComments:SMOKING CESSATION JZHROLXIZSJD66.10 Alcohol abuse, uncomplicatedComments:ETOH ABSTINENCECOUNCELLING AND DSJMJIJBBZAM38.6 Mixed conductive and sensorineural hearing loss, bilateralComments:OBSERVE F/U WITH ENT PRN SMOKING YOJBGKUTRH08.37 Other intervertebral disc degeneration, lumbosacral regionComments:EXERCISE/HEAT /MESSAGEAVOID HEAVY LIFTING WT LOSSTYLENOL OR MOTRIN PRN DUR RPULLSWT52.17 Radiculopathy, lumbosacral regionComments:EXERCISE/HEAT /MESSAGE AVOID HEAVY LIFTING WT LOSS TYLENOL OR MOTRIN PRN DUR NVHLMHIX69.30 Diverticulosis of large intestine without perforation or absComments:TYLENOL OR MOTRIN PRN INCREASE PO FLUID LAXATIVE PRNE87.1 Hypo-osmolality and hyponatremiaComments:CONTINUE WITH RXF/U LAB FLUID RESTRICTION WILL TAPER OFF ZTPLXXTX25.2 CervicalgiaComments:EXERCISE/HEAT / MESSAGEAVOID HEAVY LIFTING WT LOSSTYLENOL OR MOTRIN PRN DUR UXRUNNIC30.89 Other chest painComments:TYLENOL OR MOTRIN PRN EXERCISE/HEAT/MESSAGECOUNCELLING AND MDDEYLUHWSGY53.92 Malignant neoplasm of unspecified part of left bronchus or lComments:F/U WITH JXMQFUZLT46.2 Syndrome of inappropriate secretion of antidiuretic hormoneComments:F/U WITH TXNYBTGTK91.9 Acute bronchitis, unspecifiedNew Medication:Levofloxacin 750 mg - 1 by mouth every dayPrednisone 20 mg - 2 tab by mouth daily 4 daysComments:INCREASE PO FLUIDRESTSMOKING CESSATION UBDCQSTZRCVC65.02 Shortness of breathComments:INCREASE PO FLUIDRESTSMOKING DSUJPWHBVK79 CoughComments:INCREASE CLEAR LIQUIDSSTEAMGARGLE WARM SALT H2O TID ROBITUSSIN DM PRN SMOKING CESSATION ABGVOOQIODQS66.03 Otalgia, bilateralComments:YBFXOTEEY28.40 Acute pansinusitis, unspecified
[2018-12-23 18:40] VITALS: BP 117/67
== END 2018-12-23 18:38 | disposition home or self-care (01) ==
LOC: ED 15:08
DX: F41.9 Anxiety disorder, unspecified (principal); C34.90 Malignant neoplasm of unspecified part of unspecified bronchus or lung; E78.00 Pure hypercholesterolemia, unspecified; I10 Essential (primary) hypertension; J44.9 Chronic obstructive pulmonary disease, unspecified; F17.210 Nicotine dependence, cigarettes, uncomplicated; Z79.899 Other long term (current) drug therapy
CPT/HCPCS: 36415; 71045; 80053; 85025; 99283; A9270-GY

== ENCOUNTER 2018-12-23 23:03 | Observation (INO) | payer BC ==
[2018-12-23] MEDS ORDERED: Albuterol 2.5 MG/3 ML NEB.SOL* (0.083%) INH ONE (23:28)
[2018-12-23 23:41] LABS: ABS Monocytes 0.5 10^3/ul (0-0.8); ABS Neutrophils 1.9 10^3/ul (1.5-7.7); Eosinophil % 0.1 %; Hematocrit 31 % (42-52); Hemoglobin 10.8 g/dL (14.0-18.0); Mean Corpuscular HGB Conc 35 g/dL (31-36); Mean Corpuscular Hemoglobin 30 pg (27-31); Mean Corpuscular Volume 87 fL (80-94); Mean Platelet Volume 5.8 fL (7.4-10.4); Platelet Count 247 10^3/uL (150-450); Red Blood Count 3.56 10^6 /uL (4.18-5.48); Red Cell Distribution Width 14 % (10-15); White Blood Count 3.4 10^3/uL (3.5-10.8)
[2018-12-23] MEDS ORDERED: Ondansetron ODT TAB* 4 MG SL ONE (23:55)
[2018-12-23 23:57] LABS: ALT 31 U/L (7-52); AST 14 U/L (13-39); Albumin 4.1 g/dL (3.2-5.2); Albumin/Globulin Ratio 1.5 (1-3); Alkaline Phosphatase 196 U/L (34-104); Anion Gap 9 mmol/L (2-11); BUN/Creatinine Ratio 14.7 (8-20); Blood Urea Nitrogen 11 mg/dL (6-24); CO2 Carbon Dioxide 22 mmol/L (22-32); Chloride 96 mmol/L (101-111); EGFR African American 132.3 (>60); EGFR Non-African American 109.4 (>60); Globulin 2.8 g/dL (2-4); Glucose 104 mg/dL (70-100); Potassium 3.4 mmol/L (3.5-5.0); Sodium 127 mmol/L (135-145); Total Protein 6.9 g/dL (6.4-8.9)
--- NOTE | 2018-12-23 23:57 | ED ---
Psychiatric Complaint - HPI Summary HPI Summary: 53 year old M patient brought to [facility] by police with a chief complaint of suicidal ideation. Patient reports he ate metal- cigarette plug in- without a plan of what it would do as well as paper towel, tissues, and plastic, per triage. Patient reports the metal got stuck but then went down his throat. Patient reports ideation of self-harm was due to feeling like he could not handle things or rationalize. Patient reports his called the police after telling her how he was feeling. Patient denies any other forms of self-harm. Patient takes hydrocodone for his chemotherapy for small cell lung cancer but does not abuse his pills. Patient reports he has not had surgery yet and is not experiencing any trouble with the chemotherapy. Patient denies any other medical history or use of any other pain medication. Patient reports he has been having terrible breathing and wheezing that has gotten worse over the past 2 months for which he takes albuterol for. Symptoms aggravated by nothing. Symptoms alleviated by nothing. - History Of Current Complaint Chief Complaint: EDMentalHealth Time Seen by Provider: 12/23/18 23:20 Hx Obtained From: Patient Onset/Duration: Still Present Aggravating Factor(s): Nothing Alleviating Factor(s): Nothing Has Suicidal: Reports: Thoughts. Denies: With A Plan - Allergies/Home Medications Allergies/Adverse Reactions: Allergies Allergy/AdvReac Type Severity Reaction Status Date / Time No Known Allergies Allergy Verified 12/23/18 23:09 Home Medications: Home Medications Aspirin TAB* [Aspirin 325 MG TAB*] 325 mg PO DAILY 12/25/18 [History Confirmed 12/25/18] PMH/Surg Hx/FS Hx/Imm Hx Endocrine/Hematology History: Denies: Hx Anticoagulant Therapy, Hx Blood Transfusions, Hx Diabetes, Hx Thyroid Disease, Hx Anemia Cardiovascular History: Reports: Hx Aneurysm - repaired with graft, Hx Hypercholesterolemia, Hx Hypertension - meds, Hx Peripheral Vascular Disease - Clogged artery LLE, Other Cardiovascular Problems/Disorders - clogged artery right groin, Denies: Hx Congenital Heart Disease, Hx Congestive Heart Failure, Hx Deep Vein Thrombosis, Hx Embolism, Hx Rheumatic Fever Respiratory History: Reports: Hx Chronic Obstructive Pulmonary Disease (COPD), Hx Lung Cancer, Hx Seasonal Allergies Denies: Hx Asthma, Hx Sleep Apnea GI History: Reports: Hx Diverticulosis - Per Pt seen on colonoscopy Denies: Hx Gall Bladder Disease, Hx Gastroesophageal Reflux Disease, Hx Gastrointestinal Bleed, Hx Hiatal Hernia, Hx Irritable Bowel, Hx Obstructive Bowel, Hx Ulcer History: Denies: Hx Benign Prostatic Hyperplasia, Hx Dialysis, Hx Kidney Infection, Hx Kidney Stones Musculoskeletal History: Reports: Hx Arthritis, Hx Back Problems, Hx Tendonitis - RIGHT ELBOW, Other Musculoskeletal History - BILATERAL CARPAL TUNNEL SYNDROME , surgically repaired Denies: Hx Fibromyalgia, Hx Gout, Hx Orthopedic Injury, Hx Osteoporosis Sensory History: Reports: 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 Denies: Hx Hearing Aid Opthamlomology History: Reports: 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 Neurological History: Reports: Hx Migraine - OCCASIONAL Psychiatric History: Reports: Hx Substance Abuse Denies: Hx Post Traumatic Stress Disorder - Cancer History Cancer Type, Location and Year: small cell lung, diagnosed one month ago Hx Chemotherapy: Yes Hx Radiation Therapy: No - Surgical History Surgery Procedure, Year, and Place: 2001 SUSPENSION MICROLARYNGOSCOPY, RIGID EGD , [facility] [place]. 2004 ARTHROSCOPIC SURGERY LEFT KNEE, [facility] [place]. 05/29/2006 RIGHT KNEE ARTHROSCOPY, REPAIR TORN MENISCUS, ACL DEBRIDEMENT, [facility] [place]. 06/08/2006 RIGHT KNEE ARTHROSCOPY, [facility] [place]. LEFT ELBOW SURGERY, [facility]. 2013 RIGHT GROIN ANEURYSM REPAIR, [place] Hx Anesthesia Reactions: No Infectious Disease History: No Infectious Disease History: Reports: Hx of Known/Suspected MRSA Denies: Hx Clostridium Difficile, Hx Hepatitis, Hx Human Immunodeficiency Virus (HIV), Hx Shingles, Hx Tuberculosis, Hx Known/Suspected VRE, Hx Known/ Suspected VRSA, History Other Infectious Disease, Traveled Outside the [place] in Last 30 Days - Family History Known Family History: Positive: Hypertension, Diabetes, Other - cancer Negative: Cardiac Disease, Renal Disease, Respiratory Disease, Seizure Disorder, Blood Disorder - Social History Alcohol Use: None Alcohol Amount: 6-8 beers, 2-3 x/week Hx Substance Use: Yes Substance Use Type: Reports: None Hx Tobacco Use: Yes Smoking Status (MU): Current Some Day Smoker Type: Cigarettes Amount Used/How Often: 1ppd Length of Time of Smoking/Using Tobacco: 30 YEARS Have You Smoked in the Last Year: Yes Review of Systems Negative: Fever Positive: Other - wheezing Positive: Other - SI All Other Systems Reviewed And Are Negative: Yes Physical Exam - Summary Physical Exam Summary: Appearance: Well-appearing, Well-nourished, lying in bed comfortably Skin: Warm, dry, no obvious rash Eyes: sclera anicteric, no conjunctival pallor ENT: mucous membranes moist, pharynx appears normal Neck: Supple, nontender Respiratory: bilateral expiratory wheezing with good aeration Cardiovascular: Normal S1, S2. No murmurs. Normal distal pulses in tibial and radial bilaterally. Abdomen: Soft, nontender, normal active bowel sounds present Musculoskeletal: Normal, Strength/ROM Intact Neurological: A&Ox3, awake and alert, mentation is normal, speech is fluent and appropriate Psychiatric: affect is normal, does not appear anxious or depressed Triage Information Reviewed: Yes Vital Signs On Initial Exam: Initial Vitals Temp Pulse Resp BP Pulse Ox 99.7 F 113 16 126/84 98 12/23/18 23:07 12/23/18 23:07 12/23/18 23:07 12/23/18 23:07 12/23/18 23:07 Vital Signs Reviewed: Yes Diagnostics - Vital Signs Vital Signs Temp Pulse Resp BP Pulse Ox 12/23/18 23:07 99.7 F 113 16 126/84 98 - Laboratory Lab Results: Lab Results 12/23/18 Range/Units 23:34 WBC 3.4 L (3.5-10.8) 10^3/uL RBC 3.56 L (4.18-5.48) 10^6 /uL Hgb 10.8 L (14.0-18.0) g/dL Hct 31 L (42-52) % MCV 87 (80-94) fL MCH 30 (27-31) pg MCHC 35 (31-36) g/dL RDW 14 (10-15) % Plt Count 247 (150-450) 10^3/uL MPV 5.8 L (7.4-10.4) fL Neut % (Auto) 55.4 % Lymph % (Auto) 29.0 % Mclean % (Auto) 14.8 % Eos % (Auto) 0.1 % Baso % (Auto) 0.7 % Absolute Neuts (auto) 1.9 (1.5-7.7) 10^3/ul Absolute Lymphs (auto) 1.0 (1.0-4.8) 10^3/ul Absolute Monos (auto) 0.5 (0-0.8) 10^3/ul Absolute Eos (auto) 0.0 (0-0.6) 10^3/ul Absolute Basos (auto) 0.0 (0-0.2) 10^3/ul Absolute Nucleated RBC 0.0 10^3/ul Nucleated RBC % 0.0 Result Diagrams: 12/25/18 06:19 12/25/18 06:19 Lab Statement: Any lab studies that have been ordered have been reviewed, and results considered in the medical decision making process. - Radiology Abdomen X-Ray Radiology Interpretation Completed By: ED Physician Summary of Radiographic Findings: Per ED Physician,. Small metallic foreign body on the right side of abdomen measuring 2 cm. Pending official report. Re-Evaluation - Re-Evaluation First Eval Re-Evaluation Time: 23:49 Comment: Physician checked up on patient because patient started vomitting. Course/Dx - Course Course Of Treatment: 53 y/o man in chemo treatment for small cell lung cancer, now depressed and having feelings of self harm. He did swallow paper towels and a small piece of metal, and perhaps some plastic, but these are inconsequential in terms of being truly harmful. When asked what he thought this would accomplish he was fairly vague. Screening labs notable for mild anemia and mild chronic hyponatremia, likely due to his cancer. This does not require any specific treatment at present. It is not clear to me if he is truly suicidal but in any case is medically cleared for mental health evaluation. - Differential Dx/Clinical Impression Provider Diagnosis: Foreign body ingestion, Suicidal ideation Discharge - Sign-Out/Discharge Documenting (check all that apply): Patient Departure Patient Received Moderate/Deep Sedation with Procedure: No - Discharge Plan Condition: Stable Disposition: ADMITTED TO [facility] - Billing Disposition and Condition Condition: STABLE Disposition: Admitted to [facility] - Attestation Statements Document Initiated by Joseibe: Yes Documenting Scribe: Kasia Cash Provider For Whom Anthony is Documenting (Include Credential): Dr. Billy Rowland MD Scribe Attestation: Kasia Piña scribed for Dr. Billy Rowland MD on 12/25/18 at 1814. Scribe Documentation Reviewed: Yes Provider Attestation: The documentation as recorded by the Kasia valladares accurately reflects the service I personally performed and the decisions made by me, Dr. Billy Rowland MD Status of Scribe Document: Viewed
[2018-12-24 00:03] LABS: Acetaminophen < 15 mcg/mL; Alcohol < 10 mg/dL (<10); Salicylate < 2.50 mg/dL (<30)
[2018-12-24 00:19] LABS: TSH (Thyroid Stimulating Horm) 0.41 mcIU/mL (0.34-5.60)
[2018-12-24] MEDS ORDERED: Iohexol 300* (CONTRAST) 10 ML SDV IV ONE (01:45)
[2018-12-24 01:46] LABS: Urine Appearance Clear; Urine Bilirubin Negative (Negative); Urine Blood Negative (Negative); Urine Color Yellow; Urine Glucose Negative (Negative); Urine Ketones Negative (Negative); Urine Nitrite Negative (Negative); Urine Protein Negative (Negative); Urine Specific Gravity 1.023 (1.010-1.030); Urine Urobilinogen Negative (Negative)
[2018-12-24 02:13] LABS: Urine Benzodiazepine Screen None Detected (None Detect); Urine Opiates Screen Presumptive Positive (None Detect)
[2018-12-24] MEDS ORDERED: Potassium Chlor TAB* 20 MEQ TAB.ER PO ONE (03:39)
[2018-12-24] MEDS ORDERED: Ondansetron INJ* 2 MG/ML VIAL IV ONE (03:58)
[2018-12-24] MEDS ORDERED: Lorazepam PYXIS KEY PRN (08:02)
[2018-12-24] MEDS ORDERED: LORazepam INJ* 2 MG/ML 1 ML VIAL IV PUSH ONE (08:02)
[2018-12-24] MEDS ORDERED: Lorazepam PYXIS KEY ONE (08:05)
--- NOTE | 2018-12-24 09:42 | ED ---
Progress - Progress Note Progress Note: At 0830, Taras Ruggiero from mental health services reports that Dr. Salinas, psychiatry, is not comfortable with admitting the patient with hyponatremia and recent ingestion. He would prefer 24 hour medical clearance prior to psychiatric admission. I spoke with Dr. Palomino, oncology, concerning the care of the patient, and he accepts the patient for admission at 0930. His dx is ingested foreign body and suicidality. - Consult/PCP Time Called: 02:08 Re-Evaluation - Re-Evaluation First Eval Re-Evaluation Time: 23:49 Comment: Physician checked up on patient because patient started vomitting. Course/Dx - Course Course Of Treatment: Patient was previously accepted for psychiatric admission, but Dr. Salinas, psycologist, is uncomfortable with admission at this time secondary to recent ingestion and hyponatremia. He prefers 24 hour medical clearance prior to psychiatric admission. Dr. Palomino from oncology accepts the patient for admission. Dx: ingested foreign body, suicidality. At time of admission, foreign bodies are passing through the GI tract as expected. Patient agrees with change in admission. - Diagnoses Provider Diagnoses: Foreign body ingestion, Suicidal ideation - Provider Notifications Discussed Care Of Patient With: Danial Salinas - psychiatry Time Discussed With Above Provider: 08:30 Instructed by Provider To: Other - Dr. Salinas is not comfortable with pyschiatric admission with patient's recent ingestion and hyponatremia. He prefers [address] Palomino, oncology, accepts the patient for admission at 0930. Discharge ED - Sign-Out/Discharge Documenting (check all that apply): Patient Departure - Patient is admitted by Dr. Palomino for medical clearance. Patient Received Moderate/Deep Sedation with Procedure: No - Discharge Plan Condition: Stable Disposition: ADMITTED TO [facility] - Billing Disposition and Condition Condition: STABLE Disposition: Admitted to [facility] - Attestation Statements Document Initiated by Scribe: Yes Documenting Scribe: Lalita Frank Provider For Whom Anthony is Documenting (Include Credential): Dr. Cole Castro MD Scribe Attestation: Lalita Piña scribed for Dr. Cole Castro MD on 01/08/19 at 1417. Scribe Documentation Reviewed: Yes Provider Attestation: The documentation as recorded by the Lalita valladares accurately reflects the service I personally performed and the decisions made by me, Dr. Cole Castro MD Status of Scribe Document: Viewed
[2018-12-24 09:52] LABS: BUN/Creatinine Ratio 12.5 (8-20); Calcium 8.8 mg/dL (8.6-10.3); EGFR African American 138.7 (>60); EGFR Non-African American 114.6 (>60); Potassium 3.9 mmol/L (3.5-5.0)
[2018-12-24] MEDS ORDERED: Lidocaine 2.5%/Prilocain 2.5%* 5 GM TUBE TOPICAL PRN (10:51)
[2018-12-24] MEDS ORDERED: Ondansetron TAB* 4 MG PO PRN (10:51)
[2018-12-24] MEDS ORDERED: LORazepam TAB(*) 1 MG PO PRN (10:51)
[2018-12-24] MEDS ORDERED: fentaNYL PATCH 12 MCG/HR TRANSDERM SCH (11:00)
[2018-12-24] MEDS: Prochlorperazine TAB* 10 MG PO SCH ×3 (11:56→23:23)
[2018-12-24] MEDS: Enoxaparin(*) 40 MG/0.4 ML SYR SUBCUT SCH (11:56)
[2018-12-24] MEDS: Cetirizine* 10 MG TAB PO SCH (11:56)
[2018-12-24] MEDS: Nicotine PATCH 14 MG/24 HR* PATCH TRANSDERM SCH (14:12)
[2018-12-24] MEDS: Hydrocodone/Acetamin 10/325 1 TAB PO PRN (14:12)
[2018-12-24] MEDS: Albuterol HFA INHALER* 8 gm MDI INH PRN (17:32)
[2018-12-24] MEDS: fentaNYL Patch Check Q Shift 1 NOTE FOLLOW UP SCH (19:09)
[2018-12-24] MEDS ORDERED: Atorvastatin* 80 MG TAB PO SCH (21:00)
[2018-12-24] MEDS ORDERED: traZODone TAB* 100 MG PO SCH (21:00)
[2018-12-24] MEDS ORDERED: Nicotine Patch Removal NOTE PATCH OFF SCH (21:00)
[2018-12-24] MEDS ORDERED: Docusate CAP* 100 MG PO SCH (21:00)
[2018-12-25] MEDS: Albuterol HFA INHALER* 8 gm MDI INH PRN ×2 (01:48→08:45)
[2018-12-25] MEDS: Hydrocodone/Acetamin 10/325 1 TAB PO PRN ×3 (01:51→13:05)
--- NOTE | 2018-12-25 02:19 | HP ---
ADMISSION HISTORY AND PHYSICAL: DATE OF ADMISSION: 12/24/18 REASONS FOR ADMISSION: Suicidal gesture. Underlying small cell lung cancer. HISTORY OF PRESENT ILLNESS: Mr. Mason is a 53-year-old male who was recently admitted to [facility] [place] in September 2018. At that time, his sodium was 120. CT scan was performed due to the shortness of breath, which revealed mediastinal adenopathy and left hilar mass. Following correction of the hyponatremia, he was seen in followup at [facility]. 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 MRI scan was negative for metastatic disease. He was seen in our office several days later after having had a PET scan, results of which were available just after the office visit. This revealed multiple hypermetabolic lung nodules along with bone lesions in multiple locations including the spine and pelvis, large right supraclavicular lymph node, which was easily palpable along with mediastinal adenopathy and SUVs of up to 12. Decision was made to treat with chemotherapy. He received a a cycle of carboplatin and etoposide chemotherapy on 12/11/18 through 12/13/18. The following day on 12/14/18, he reported that his chest pain and back pain had improved, but he started feeling dizzy and lightheaded along with significant fatigue. He was brought into the office and found to have a sodium of 115. He was admitted to the hospital and had a hospital stay of 3 days initially in the ICU where he received 3% hypertonic saline along with fluid restriction. Sodium quickly improved with this treatment so that by 12/15/18 he was at 126; later in the day he was able to be discharged to home with a sodium of 127. He was brought back into the office and had a repeat sodium level checked on 12/18/18 when its level was 133. At that point, his fluid restriction was slightly relaxed from 1 L fluid restriction down to 1-1/2 L fluid restriction. He presented back to the emergency room on 12/23/18. He was seen in the afternoon and then released to home. Complaint at that time was of feeling anxiety, mild nausea, and "feeling out of it." Laboratory studies were obtained and did not reveal any significant worsening of hyponatremia or other laboratory findings. No significant changes on physical exam were noted. Vital signs were unremarkable including not febrile and no major changes in blood pressure or pulse. O2 saturations were fine. Chest x- ray was obtained and the perihilar mass was less conspicuous. The patient was felt safe to be sent home and was given Ativan for anxiety and Zofran for nausea in the emergency department. He was given a script to take home of Ativan and asked to follow up in our office. Several hours later, the patient was at home and had some thoughts of suicidal ideation, but did not have a well thought out plan. He ate a metal cigarette plug- in and ingested both metal and plastic. He also ingested a fair amount of paper towel. His became aware of this and called the cable tool operator's department who brought him into the emergency room. He denies that he has ever had feelings of self-harm before and reports that he no longer wishes to hurt himself at this time. Psychiatry had been notified while in the emergency room and feel he needs be medically cleared and stable with his mild hyponatremia before they would accept him on the psychiatry unit. Since ingestion of the above, he has brought back up some mild nausea and some of the paper towel and has been passing some of the other materials from below. He denies having any major shortness of breath; however, he is a little bit wheezy and that generally when he has this symptom, he does take albuterol. PAST MEDICAL HISTORY: Otherwise significant for: 1. Hypercholesterolemia. 2. Hypertension. 3. Peripheral vascular disease, status post aneurysmal graft. 4. Underlying COPD. 5. History of diverticulosis. 6. BPH. 7. Status post repair of bilateral carpal tunnel syndrome. 8. 2001 suspension microlaryngoscopy. 9. Arthroscopic surgery, left knee 2004. 10. Arthroscopic surgery, right knee 2006. 11. Left elbow surgery, 2006. 12. Right groin aneurysmal repair, 2013. MEDICATIONS: 1. Lorazepam 1 mg q.6 hours p.r.n. 2. Zofran 4 mg q.6 hours p.r.n. nausea. 3. Cetirizine 10 mg daily. 4. Fentanyl patch 12 mcg every 3 days. 5. Compazine 10 mg q.6 hours p.r.n. 6. Atorvastatin 80 mg daily. 7. Docusate 100 mg at bedtime. 8. Trazodone 150 mg at bedtime. 9. Dulcolax suppositories daily p.r.n. 10. Hydrocodone with APAP 10/325 one q.4 hours p.r.n. 11. Albuterol 2 puffs q.6 hours p.r.n. ALLERGIES: None. FAMILY HISTORY: No family history of malignancy. SOCIAL HISTORY: The patient lives with his , drinks 6 to 8 beers 2 to 3 times per week and had binge drinking after his original diagnosis of cancer. Cigarette smoker. Alcohol extremely heavy in the past, but none currently. REVIEW OF SYSTEMS: Energy level has actually been slightly better since starting on the chemotherapy and mild nausea after chemo, not a significant vomiting. Feels much better since correction of the hyponatremia in terms of energy level and activity. Mild constipation with hydrocodone, well controlled with bowel medications. Chronic back pain unchanged. Chest pain is significantly better since starting on chemotherapy with presumed improvement in the mediastinal adenopathy. Mild difficulties with sleep improved with trazodone. PHYSICAL EXAMINATION GENERAL: A 53-year-old male in no acute distress. VITAL SIGNS: Stable. Afebrile. O2 saturation on room air within normal limits. HEENT: PERRL. EOMI. No erythema or exudates. No palpable axillary or cervical adenopathy. Right supraclavicular lymph node is significantly decreasing in size, previously having been 3 to 4 cm, and now down to approximately 2 cm. LUNGS: Occasional wheezing. HEART: Regular rate and rhythm, without murmurs, rubs, or gallops. ABDOMEN: Soft, nontender, without masses or organomegaly. EXTREMITIES: No clubbing, cyanosis, or edema. BACK: No CVA or spinal tenderness. NEUROLOGIC EXAM: Without focal deficits. LABORATORY STUDIES: CBC: On day 15 status post cycle 1 of carboplatin and etoposide chemotherapy, white count 3400 with an ANC of 1900, H and H 31/10.8, platelet count 247,000. Chemistry studies: Sodium 129, potassium 3.9, chloride 99, bicarb 23, BUN 9, creatinine 0.72, glucose 103. LFTs with a normal bilirubin at 0.4, AST and ALT are 14 and 31 with a mildly elevated alk phos of 196 likely secondary to bone metastasis. Urine tox screen: Opiates presumptively positive, otherwise negative. IMPRESSION: 1. A 53-year-old male who has had 2 recent episodes of hyponatremia, the first prior to diagnosis and the second within 1 week of his first cycle of chemotherapy for small cell lung cancer. Sodium level has much improved. He is currently on fluid restriction. He has not required use of demeclocycline or salt tablets. He was doing reasonably well following his first cycle of chemotherapy and showing a response already with a decreased right cervical and supraclavicular adenopathy when he presented to the emergency room a day prior to admission with anxiety and mild nausea, given medications in the ER, felt better and sent home with ion Zapata, presenting hours later after a suicidal gesture swallowing a small metal/plastic object and lots of paper towel. He currently has no significant major GI complaints from this, seems to be passing these substances as well. Sodium level is near his baseline. He will be kept him on his usual medications and followed in the hospital over the next 24 hours. Assuming sodium levels stay stable, he has no significant complications from congestion, Psychiatry will follow up with him tomorrow and likely have an admission to the behavioral sciences unit. 2. Small cell lung cancer, status post first cycle of chemotherapy. Counts are adequate, currently in his second week status post first cycle and due for second cycle on day 22. 3. Nicotine addiction. Nicotine patch. 4. Chronic pain, to be maintained on his usual dose of narcotics. 5. History of alcohol abuse, reports not using alcohol recently. 6. DVT prophylaxis. Lovenox 40 mg daily. [id number] #: [id number] [facility]
[2018-12-25] MEDS: Prochlorperazine TAB* 10 MG PO SCH ×2 (05:28→11:08)
[2018-12-25] MEDS: fentaNYL Patch Check Q Shift 1 NOTE FOLLOW UP SCH (06:57)
[2018-12-25 07:05] LABS: ABS Basophils 0.1 10^3/ul (0-0.2); ABS Lymphocytes 1.9 10^3/ul (1.0-4.8); ABS Monocytes 0.3 10^3/ul (0-0.8); ABS Neutrophils 1.1 10^3/ul (1.5-7.7); Eosinophil % 0.4 %; Hematocrit 29 % (42-52); Hemoglobin 10.8 g/dL (14.0-18.0); Lymphocyte % 56.6 %; Mean Corpuscular HGB Conc 37 g/dL (31-36); Mean Corpuscular Hemoglobin 31 pg (27-31); Mean Corpuscular Volume 85 fL (80-94); Mean Platelet Volume 6.2 fL (7.4-10.4); Nucleated Red Blood Cells % 0.1; Platelet Count 239 10^3/uL (150-450); Red Blood Count 3.42 10^6 /uL (4.18-5.48); Red Cell Distribution Width 14 % (10-15); White Blood Count 3.4 10^3/uL (3.5-10.8)
[2018-12-25 07:23] LABS: BUN/Creatinine Ratio 15.5 (8-20); Calcium 8.5 mg/dL (8.6-10.3); EGFR Non-African American 116.5 (>60); Potassium 3.4 mmol/L (3.5-5.0)
[2018-12-25] MEDS: Cetirizine* 10 MG TAB PO SCH (08:01)
[2018-12-25] MEDS: Nicotine PATCH 14 MG/24 HR* PATCH TRANSDERM SCH (08:22)
[2018-12-25] MEDS ORDERED: Bisacodyl SUPP* 10 MG SUPP PR SCH (09:00)
--- NOTE | 2018-12-25 10:32 | PN ---
Progress Note - Progress Note Date of Service: 12/25/18 SOAP: Subjective: [Angelica reports feeling well this morning. No abd pain, n/v. Two BMs this am. He appreciated having someone to talk to. He really doesn't know what happened yesterday, "I just had a nervous breakdown". He feels silly about his actions. He's hoping his sister can spend more time with him at the house. ] Objective: [ Vital Signs: Temp Pulse Resp BP Pulse Ox 98.6 F 72 16 98/47 94 12/25/18 07:15 12/25/18 07:15 12/25/18 08:46 12/25/18 07:15 12/25/18 07:15 Hydrocodone Bitart/Acetaminophen (Jet 10/325 (Nf)) 1 tab PO Q4HR PRN PRN Reason: PAIN Last Admin: 12/25/18 08:46 Dose: 1 tab Albuterol (Ventolin Hfa Inhaler*) 2 puff INH Q6H PRN PRN Reason: SOB/WHEEZING Last Admin: 12/25/18 08:45 Dose: 2 puff Atorvastatin Calcium (Lipitor*) 80 mg PO 2100 [facility] Last Admin: 12/24/18 21:36 Dose: 80 mg Bisacodyl (Dulcolax Supp*) 10 mg CO DAILY [facility] Last Admin: 12/25/18 08:01 Dose: 10 mg Cetirizine HCl (Zyrtec*) 10 mg PO DAILY [facility] Last Admin: 12/25/18 08:01 Dose: 10 mg Docusate Sodium (Colace Cap*) 100 mg PO BEDTIME JONAS Last Admin: 12/24/18 21:35 Dose: 100 mg Enoxaparin Sodium (Lovenox(*)) 40 mg SUBCUT Q24H [facility] Last Admin: 12/24/18 11:56 Dose: 40 mg Fentanyl (Duragesic Patch 12 Mcg/Hr *) 12 mcg TRANSDERM Q72H [facility] Last Admin: 12/24/18 14:10 Dose: 12 mcg Lidocaine/Prilocaine (Emla 5 Gm*) 1 applic TOPICAL DAILY PRN PRN Reason: PAIN Lorazepam (Ativan Tab(*)) 1 mg PO Q6H PRN PRN Reason: PAIN Last Admin: 12/24/18 17:54 Dose: 1 mg Miscellaneous (Ativan Pyxis Carmona) 1 ea N/A .ATIVAN IV CARMONA PRN PRN Reason: PYXIS CARMONA Nicotine (Nicotine Patch 14 Mg/24 Hr*) 1 patch TRANSDERM DAILY [facility] Last Admin: 12/25/18 08:22 Dose: Not Given Ondansetron HCl (Zofran Tab*) 4 mg PO Q6H PRN PRN Reason: NAUSEA Last Admin: 12/25/18 08:46 Dose: 4 mg Pharmacy Profile Note (Nicotine Patch Removal Note*) 1 note PATCH OFF 2100 [facility] Last Admin: 12/24/18 21:38 Dose: 1 note Pharmacy Profile Note (Fentanyl Patch Check Q Shift) 1 note FOLLOW UP 0700, 1900 [facility] Last Admin: 12/25/18 06:57 Dose: 1 note Prochlorperazine (Compazine Tab*) 10 mg PO Q6H [facility] Last Admin: 12/25/18 05:28 Dose: 10 mg Trazodone HCl (Desyrel Tab*) 150 mg PO BEDTIME [facility] Last Admin: 12/24/18 21:36 Dose: 150 mg Laboratory Results - last 24 hr 12/25/18 12/25/18 06:19 06:19 WBC 3.4 L RBC 3.42 L Hgb 10.8 L Hct 29 L MCV 85 MCH 31 MCHC 37 H RDW 14 Plt Count 239 MPV 6.2 L Neut % (Auto) 33.4 Lymph % (Auto) 56.6 [place] % (Auto) 7.9 Eos % (Auto) 0.4 Baso % (Auto) 1.7 Absolute Neuts (auto) 1.1 L Absolute Lymphs (auto) 1.9 Absolute Monos (auto) 0.3 Absolute Eos (auto) 0.0 Absolute Basos (auto) 0.1 Absolute Nucleated RBC 0.0 Nucleated RBC % 0.1 Sodium 129 L Potassium 3.4 L Chloride 97 L Carbon Dioxide 22 Anion Gap 10 BUN 11 Creatinine 0.71 Est GFR ( Amer) 141.0 Est GFR (Non-Af Amer) 116.5 BUN/Creatinine Ratio 15.5 Glucose 170 H Calcium 8.5 L Exam: Gen: Well appearing 53 yo male in NAD HEENT: MMM CV: RRR, no m/r/g Resp: CTA, no w/c/r Abd: soft, nonTTP Ext: no edema Psych: appropriate in conversation, affect is good] Assessment: [53 yo male with metastatic small cell lung cancer complicated by hyponatremia secondary to SIADH who attempted suicide by ingestion yesterday. ] Plan: [1. Suicide attempt - repeat KUB this am shows object is moving through the bowel appropriately without signs of obstruction and he remains asymptomatic - he appears quite appropriate this am and is motivated to continue treatment and get home - awaiting psychiatric evaluation - discussed treatment for depression - he would like to trial wellbutrin due to possible benefit in helping with smoking cessation, this seems appropriate from a medical perspective but would like psychiatry's input as well 2. Metastatic small cell lung CA - cont chemotherapy treatment under the direction of Dr Palomino, s/p C1 carbo/ etoposide/atelozuzmab 3. Hyponatremia secondary to SIADH - stable - cont 1.5L fluid restriction Dispo: possible dc home later today pending psychiatric evaluation, will receive close followup with oncology RESEARCH AIDE for additional counseling support]
[2018-12-25] MEDS: Enoxaparin(*) 40 MG/0.4 ML SYR SUBCUT SCH (11:07)
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
[2018-12-25 11:42] VITALS: BP 108/75
[2018-12-25] MEDS ORDERED: BuPROPion XL* 150 MG TAB.XL PO SCH (13:00)
--- NOTE | 2018-12-26 13:26 | DS ---
CC: Dr. Roque * DISCHARGE SUMMARY: DATE OF ADMISSION: 12/24/18 DATE OF DISCHARGE: 12/25/18 PRIMARY CARE PROVIDER: Dr. Roque. PRIMARY ONCOLOGIST AND ATTENDING PHYSICIAN: Dr. Sundar Palomino.* (DICTATED BY LUIS SHARIF) DISCHARGING PROVIDER: LUIS Sharif CONSULTING PSYCHIATRIST: Dr. Blue. PRIMARY DISCHARGE DIAGNOSES: 1. Suicide attempt by foreign body ingestion. 2. Hyponatremia secondary to syndrome of inappropriate antidiuretic hormone secretion. 3. Metastatic small cell lung cancer. DISCHARGE MEDICATIONS: 1. Aspirin 325 mg p.o. daily. 2. Atorvastatin 80 mg p.o. daily. 3. Fentanyl patch 12 mcg transdermal every 72 hours. 4. Hydrocodone/acetaminophen 5/325 one tablet p.o. q.4 hours as needed for pain. 5. Loratadine 10 mg p.o. daily. 6. Zofran 10 mg p.o. q.6 hours as needed for nausea and vomiting. 7. Compazine 10 mg p.o. q.6 hours as needed for nausea and vomiting. 8. Trazodone 150 mg p.o. at bedtime. 9. Albuterol inhaler 2 puffs inhaled q.6 hours as needed for shortness of breath. 10. Wellbutrin 150 mg p.o. daily. 11. Docusate 100 mg p.o. daily. 12. Lorazepam 1 mg p.o. q.6 hours as needed for anxiety. 13. Nicotine patch 14 mg apply transdermally every 24 hours. HOSPITAL IMAGIN. Abdominal x-ray 12/23/18, shows a radiopaque foreign body overlying the right upper quadrant consistent with foreign body in the antrum of the stomach. 2. CT brain 12/24/18, shows no intracranial abnormality or abnormal enhancement. 3. Abdominal x-ray 12/24/18, shows a nondistended small bowel in the colon, a metallic foreign object measuring 2.9 x 0.5 cm which projects to the left of the midline likely within the small bowel or colon. HOSPITAL COURSE: This is a 53-year-old gentleman with metastatic small cell lung cancer, under the care of Dr. Palomino, recently initiated chemotherapy whose treatment course has been complicated by recurrent hyponatremia; who presented to the emergency department with complaints of generalized malaise earlier in the day on 12/23/18. The labs were unremarkable and he was discharged to home. Shortly after returning home, he experienced what he described as a "mental breakdown" and became quite desperate consuming multiple objects with the intent of harming himself including both metal and plastic objects as well as multiple paper towels. His later found him and brought him to the emergency department for evaluation. Abdominal x-ray was completed which showed a radiopaque object in the stomach, no evidence of obstruction, and he was having no complaints of pain or nausea. Labs showed stable sodium of 127 and otherwise asymptomatic. Psychiatry recommended medical admission due to his mild hyponatremia and oncologic diagnosis and he was subsequently admitted. The patient was subsequently observed to repeat abdominal x-ray to have appropriate movements of the foreign body without obstruction and he remained asymptomatic. He was evaluated by Psychiatry who felt that he was appropriate for discharge to home and did not require admission to [facility]. The patient was remorseful and felt sorry about the episode. He would like additional mental health support. DISPOSITION AND FOLLOWUP PLAN: The patient is being discharged to home in stable medical condition. He will be started on Wellbutrin as listed above and will have close followup with clinical social work therapist through the oncology group , [facility]. We will plan on continuing chemotherapy treatment as scheduled with the next cycle to start 01/01/19. LUIS SHARIF [id number]/[facility] #: [id number] HENNY
== END 2018-12-25 14:59 | disposition home or self-care (01) ==
LOC: ED 23:03 → MEDTELE 12-24 10:46
PROVIDERS: ADMIT Internal Medicine Hematology & Oncology; ATTEND Internal Medicine Hematology & Oncology
DX: T14.91XA Suicide attempt, initial encounter (principal); X83.8XXA Intentional self-harm by other specified means, initial encounter; Y92.9 Unspecified place or not applicable; Z79.82 Long term (current) use of aspirin; J44.9 Chronic obstructive pulmonary disease, unspecified; C34.90 Malignant neoplasm of unspecified part of unspecified bronchus or lung; Z72.0 Tobacco use; E87.1 Hypo-osmolality and hyponatremia; Z79.899 Other long term (current) drug therapy; I10 Essential (primary) hypertension; I73.9 Peripheral vascular disease, unspecified; N40.0 Benign prostatic hyperplasia without lower urinary tract symptoms; K57.90 Diverticulosis of intestine, part unspecified, without perforation or abscess without bleeding
CPT/HCPCS: 36415; 70460; 70470; 74018; 80048; 80053; 80307; 80320; 80329; 81003; 83735; 84443; 85025; 96372; 99217; 99285; A9270-GY; G0378; G0480; J1642; J1650; J2060; J2405; Q0164

== ENCOUNTER 2019-03-31 12:07 | Emergency (ER) | payer BC ==
--- OUTSIDE RECORDS SUMMARY | 2019-03-31 12:24 | XMS REPORT | Continuity of Care Document ---
:1965 External Reference #:[id number] Author Name Palomo Roque M.D. Address [address] [place] [address] Problems Active Problems Provider Date Essential hypertension Palomo Roque M.D. Onset: 07/19/2018 Pure hypercholesterolemia Palomo Roque M.D. 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 (2.5mg/3ML) 0.083% for cough/sob Nebulizer Nebulizer use as directed 1units J44.9 Palomo Roque, 11/20/2018 Device M.D. Nebulizer use with nebulizer 2units J44.9 Palomo Roque, 11/20/2018 Kit/Tubing/Mouthpiec every 4 hours as M.D. e needed Kit Trazodone HCL 1/2-1 tab by mouth 90tabs F41.9 [facility]2018 100mg every night M.D. Tablets G47.00 Cyclobenzaprine HCL 1 tab by mouth 90tabs M51.37 [facility] 2018 10mg Tablets three times a day M.D. as needed for muscle spasms M54.17 Miralax 1-2 caps by mouth 952gm [facility] 09/24/2018 3350NF Powder every day M.D. Hydrocodone-Acetaminoph 1/2-1 tab by mouth 90tabs M51.37 [facility], 07/19/2018 en three times a day as M.D. 10-325mg Tablets needed Atorvastatin Calcium take 1 tablet by 90tabs E78.2 [facility], 80mg mouth daily in the M.D. Tablets evening Albuterol Sulfate HFA inhale 1-2 puffs by 17gm J44.9 [facility], mouth every 4 to 6 M.D. 108(90Base) mcg/Act hours as needed for Aerosol shortness of breath History Medications Alprazolam 1 tab by mouth 2tabs [facility] 12/21/2018 - 0.5mg Tablets before mri and M., M.D. 12/22/2018 may repeat x1 Levofloxacin 1 by mouth 14tabs J20.9 [facility] 12/20/2018 - 750mg every day M., M.D. 12/29/2018 Tablets Prednisone 2 tab by mouth 8tabs J20.9 [facility] - 20mg Tablets daily 4 days M., M.D. 12/23/2018 Levofloxacin 1 by mouth 14tabs J20.9 [facility] 11/20/2018 - 750mg every day M., M.D. 12/02/2018 Tablets Azithromycin 1 by mouth 7tabs J20.9 [facility] 10/25/2018 - 500mg every day M., M.D. 10/31/2018 Tablets Nicotine Transdermal [address] [facility] 10/23/2018 - System Step 2 day MAra Clay 01/23/2019 14mg/24HR Patches 24HR Mirtazapine 1/2 tab by 45tabs F41.9 [facility] 2018 - 45mg Tablets mouth every M., Ara 10/25/2018 night G47.00 Amoxicillin 2 by mouth 40tabs J20.9 [facility], 2018 - 500mg twice a day M.D. 10/19/2018 Tablets Immunizations Description No Information Available Vital Signs Date Vital Result Comment 03/05/2019 3:39pm BP Systolic 122 mmHg BP Diastolic 64 mmHg Height 69 inches 5'9" Weight 187.00 lb BMI (Body Mass Index) 27.6 kg/m2 Heart Rate 68 /min Respiratory Rate 16 /min 12/20/2018 11:14am BP Systolic 132 mmHg BP Diastolic 70 mmHg Height 69 inches 5'9" Weight 181.00 lb BMI (Body Mass Index) 26.7 kg/m2 Heart Rate 85 /min Body Temperature 99.3 F Respiratory Rate 18 /min Results Test Acquired Date Facility Test Result H/L Range Note Comp Metabolic 03/04/2019 [facility] Sodium 138 mmol/L Normal 135- 145 1 Panel Potassium 4.2 mmol/L Normal 3.5-5.0 Chloride 107 mmol/L Normal 101-111 Co2 Carbon Dioxide 25 mmol/L Normal 22-32 Anion Gap 6 mmol/L Normal 2-11 Calcium 9.4 mg/dL Normal 8.6-10.3 Albumin 4.1 g/dL Normal 3.2-5.2 Total Bilirubin 0.20 mg/dL Normal 0.2-1.0 Glucose 117 mg/dL High 70-100 Blood Urea Nitrogen 7 mg/dL Normal 6-24 Creatinine 0.78 mg/dL Normal 0.67-1.17 BUN/Creatinine Ratio 9.0 Normal 8-20 Total Protein 6.3 g/dL Low 6.4-8.9 Globulin 2.2 g/dL Normal 2-4 Albumin/Globulin Ratio 1.9 Normal 1-3 Alkaline Phosphatase 174 U/L High 34-104 Alt 14 U/L Normal 7-52 Ast 12 U/L Low 13-39 Egfr Non- 104.5 >60 Egfr 126.5 >60 2 Laboratory test 03/04/2019 [facility] Magnesium 1.9 mg/dL Normal 1.9- 2.7 3 finding TSH (Thyroid Stim Horm) 1.37 mcIU/mL Normal 0.34-5.60 4 CBC Auto Diff 03/04/2019 [facility] White Blood 4.4 10^3/uL Normal 3.5-10.8 Count Red Blood Count 3.77 10^6/uL Low 4.18-5.48 Hemoglobin 12.6 g/dL Low 14.0-18.0 Hematocrit 36 % Low 42-52 Mean Corpuscular Volume 96 fL High 80-94 Mean Corpuscular Hemoglobin 33 pg High 27-31 Mean Corpuscular HGB Conc 35 g/dL Normal 31-36 Red Cell Distribution Width 20 % High 10-15 Platelet Count 378 10^3/uL Normal 150-450 Mean Platelet Volume 7.8 fL Normal 7.4-10.4 Abs Neutrophils 1.7 10^3/uL Normal 1.5-7.7 Abs Lymphocytes 2.1 10^3/uL Normal 1.0-4.8 Abs Monocytes 0.6 10^3/uL Normal 0-0.8 Abs Eosinophils 0.0 10^3/uL Normal 0-0.6 Abs Basophils 0.0 10^3/uL Normal 0-0.2 Abs Nucleated RBC 0.0 10^3/uL Granulocyte % 37.6 % Lymphocyte % 48.3 % Monocyte % 13.6 % Eosinophil % 0.1 % Basophil % 0.4 % Nucleated Red Blood Cells % 0.0 Laboratory test 03/04/2019 [facility] PSA Screening 0.291 ng/mL Normal 0-4.000 5 finding CBC Auto Diff 02/12/2019 [facility] White Blood 4.7 10^3/uL Normal 3.5-10.8 Count Red Blood Count 3.79 10^6/uL Low 4.18-5.48 Hemoglobin 12.4 g/dL Low 14.0-18.0 Hematocrit 36 % Low 42-52 Mean Corpuscular Volume 95 fL High 80-94 Mean Corpuscular Hemoglobin 33 pg High 27-31 Mean Corpuscular HGB Conc 35 g/dL Normal 31-36 Red Cell Distribution Width 20 % High 10-15 Platelet Count 390 10^3/uL Normal 150-450 Mean Platelet Volume 6.8 fL Low 7.4-10.4 Abs Neutrophils 1.9 10^3/uL Normal 1.5-7.7 Abs Lymphocytes 2.1 10^3/uL Normal 1.0-4.8 Abs Monocytes 0.6 10^3/uL Normal 0-0.8 Abs Eosinophils 0.0 10^3/uL Normal 0-0.6 Abs Basophils 0.0 10^3/uL Normal 0-0.2 Abs Nucleated RBC 0.0 10^3/uL Granulocyte % 41.3 % Lymphocyte % 45.6 % Monocyte % 12.3 % Eosinophil % 0.0 % Basophil % 0.8 % Nucleated Red Blood Cells % 0.1 CBC Auto Diff 02/11/2019 [facility] White Blood 4.2 10^3/uL Normal 3.5-10.8 Count Red Blood Count 3.38 10^6/uL Low 4.18-5.48 Hemoglobin 11.3 g/dL Low 14.0-18.0 Hematocrit 32 % Low 42-52 Mean Corpuscular Volume 94 fL Normal 80-94 Mean Corpuscular Hemoglobin 34 pg High 27-31 Mean Corpuscular HGB Conc 36 g/dL Normal 31-36 Red Cell Distribution Width 19 % High 10-15 Platelet Count 351 10^3/uL Normal 150-450 Mean Platelet Volume 7.1 fL Low 7.4-10.4 Abs Neutrophils 0.9 10^3/uL Critical low 1.5-7.7 6 Abs Lymphocytes 2.7 10^3/uL Normal 1.0-4.8 Abs Monocytes 0.5 10^3/uL Normal 0-0.8 Abs Eosinophils 0.0 10^3/uL Normal 0-0.6 Abs Basophils 0.0 10^3/uL Normal 0-0.2 Abs Nucleated RBC 0.0 10^3/uL Nucleated Red Blood Cells % 0.0 Granulocyte % 22.3 % Lymphocyte % 64.7 % Monocyte % 12.5 % Eosinophil % 0.1 % Basophil % 0.4 % Comp Metabolic Panel 02/11/2019 [facility] Sodium 141 mmol/L Normal 135-145 Potassium 4.2 mmol/L Normal 3.5-5.0 Chloride 108 mmol/L Normal 101-111 Co2 Carbon Dioxide 26 mmol/L Normal 22-32 Anion Gap 7 mmol/L Normal 2-11 Calcium 8.8 mg/dL Normal 8.6-10.3 Albumin 4.0 g/dL Normal 3.2-5.2 Total Bilirubin 0.20 mg/dL Normal 0.2-1.0 Glucose 120 mg/dL High 70-100 Blood Urea Nitrogen 9 mg/dL Normal 6-24 Creatinine 0.77 mg/dL Normal 0.67-1.17 BUN/Creatinine Ratio 11.7 Normal 8-20 Total Protein 5.9 g/dL Low 6.4-8.9 Globulin 1.9 g/dL Low 2-4 Albumin/Globulin Ratio 2.1 Normal 1-3 Alkaline Phosphatase 226 U/L High 34-104 Alt 13 U/L Normal 7-52 Ast 12 U/L Low 13-39 Egfr Non- 106.1 >60 Egfr 128.4 >60 7 Laboratory test 02/11/2019 [facility] Magnesium 1.9 mg/dL Normal 1.9- 2.7 finding Comp Metabolic Panel 01/22/2019 [facility] Sodium 132 mmol/L Low 135- 145 Potassium 4.3 mmol/L Normal 3.5-5.0 Chloride 101 mmol/L Normal 101-111 Co2 Carbon Dioxide 25 mmol/L Normal 22-32 Anion Gap 6 mmol/L Normal 2-11 Glucose 118 mg/dL High 70-100 Blood Urea Nitrogen 5 mg/dL Low 6-24 Creatinine 0.61 mg/dL Low 0.67-1.17 BUN/Creatinine Ratio 8.2 Normal 8-20 Calcium 9.1 mg/dL Normal 8.6-10.3 Total Protein 5.8 g/dL Low 6.4-8.9 Albumin 3.8 g/dL Normal 3.2-5.2 Globulin 2.0 g/dL Normal 2-4 Albumin/Globulin Ratio 1.9 Normal 1-3 Total Bilirubin 0.30 mg/dL Normal 0.2-1.0 Alkaline Phosphatase 271 U/L High 34-104 Alt 11 U/L Normal 7-52 Ast 12 U/L Low 13-39 Egfr Non- 138.8 >60 Egfr 168.0 >60 8 CBC Auto Diff 01/18/2019 [facility] White Blood Count 3.4 10^3/uL Low 3.5-10.8 Red Blood Count 3.52 10^6/uL Low 4.18-5.48 Hemoglobin 11.6 g/dL Low 14.0-18.0 Hematocrit 32 % Low 42-52 Mean Corpuscular Volume 91 fL Normal 80-94 Mean Corpuscular Hemoglobin 33 pg High 27-31 Mean Corpuscular HGB Conc 36 g/dL Normal 31-36 Red Cell Distribution Width 17 % High 10-15 Platelet Count 278 10^3/uL Normal 150-450 Mean Platelet Volume 6.7 fL Low 7.4-10.4 Abs Neutrophils 1.7 10^3/uL Normal 1.5-7.7 Abs Lymphocytes 1.2 10^3/uL Normal 1.0-4.8 Abs Monocytes 0.4 10^3/uL Normal 0-0.8 Abs Eosinophils 0.0 10^3/uL Normal 0-0.6 Abs Basophils 0.0 10^3/uL Normal 0-0.2 Abs Nucleated RBC 0.0 10^3/uL Granulocyte % 51.2 % Lymphocyte % 36.1 % Monocyte % 12.0 % Eosinophil % 0.0 % Basophil % 0.7 % Nucleated Red Blood Cells % 0.1 Comp Metabolic Panel 01/18/2019 [facility] Sodium 133 mmol/L Low 135- 145 Potassium 4.4 mmol/L Normal 3.5-5.0 Chloride 107 mmol/L Normal 101-111 Co2 Carbon Dioxide 25 mmol/L Normal 22-32 Anion Gap 1 mmol/L Low 2-11 Calcium 8.6 mg/dL Normal 8.6-10.3 Albumin 4.0 g/dL Normal 3.2-5.2 Total Bilirubin 0.40 mg/dL Normal 0.2-1.0 Glucose 95 mg/dL Normal 70-100 Blood Urea Nitrogen 6 mg/dL Normal 6-24 Creatinine 0.64 mg/dL Low 0.67-1.17 BUN/Creatinine Ratio 9.4 Normal 8-20 Total Protein 5.9 g/dL Low 6.4-8.9 Globulin 1.9 g/dL Low 2-4 Albumin/Globulin Ratio 2.1 Normal 1-3 Alkaline Phosphatase 279 U/L High 34-104 Alt 13 U/L Normal 7-52 Ast 14 U/L Normal 13-39 Egfr Non- 131.3 >60 Egfr 158.9 >60 9 Laboratory test 01/18/2019 [facility] Magnesium 1.9 mg/dL Normal 1.9- 2.7 finding Basic Metabolic Panel 12/24/2018 [facility] Sodium 129 mmol/L Low 135 -145 Potassium 3.9 mmol/L Normal 3.5-5.0 Chloride 99 mmol/L Low 101-111 Co2 Carbon Dioxide 23 mmol/L Normal 22-32 Anion Gap 7 mmol/L Normal 2-11 Glucose 103 mg/dL High 70-100 Blood Urea Nitrogen 9 mg/dL Normal 6-24 Creatinine 0.72 mg/dL Normal 0.67-1.17 BUN/Creatinine Ratio 12.5 Normal 8-20 Calcium 8.8 mg/dL Normal 8.6-10.3 Egfr Non- 114.6 >60 Egfr 138.7 >60 10 Laboratory test 12/24/2018 [facility] Magnesium 2.0 mg/dL Normal 1.9- 2.7 finding Comp Metabolic Panel 12/23/2018 [facility] Sodium 131 mmol/L Low 135- 145 Potassium 4.2 mmol/L Normal 3.5-5.0 Chloride 99 mmol/L Low 101-111 Co2 Carbon Dioxide 23 mmol/L Normal 22-32 Anion Gap 9 mmol/L Normal 2-11 Glucose 124 mg/dL High 70-100 Blood Urea Nitrogen 11 mg/dL Normal 6-24 Creatinine 0.75 mg/dL Normal 0.67-1.17 BUN/Creatinine Ratio 14.7 Normal 8-20 Calcium 9.2 mg/dL Normal 8.6-10.3 Total Protein 7.1 g/dL Normal 6.4-8.9 Albumin 4.2 g/dL Normal 3.2-5.2 Globulin 2.9 g/dL Normal 2-4 Albumin/Globulin Ratio 1.4 Normal 1-3 Total Bilirubin 0.40 mg/dL Normal 0.2-1.0 Alkaline Phosphatase 202 U/L High 34-104 Alt 34 U/L Normal 7-52 Ast 14 U/L Normal 13-39 Egfr Non- 109.4 >60 Egfr 132.3 >60 11 CBC Auto Diff 12/23/2018 [facility] White Blood Count 2.1 10^3/uL Low 3.5-10.8 Red Blood Count 3.59 10^6/uL Low 4.18-5.48 Hemoglobin 10.9 g/dL Low 14.0-18.0 Hematocrit 31 % Low 42-52 Mean Corpuscular Volume 86 fL Normal 80-94 Mean Corpuscular Hemoglobin 30 pg Normal 27-31 Mean Corpuscular HGB Conc 35 g/dL Normal 31-36 Red Cell Distribution Width 14 % Normal 10-15 Platelet Count 264 10^3/uL Normal 150-450 Mean Platelet Volume 6.0 fL Low 7.4-10.4 Abs Neutrophils 1.6 10^3/uL Normal 1.5-7.7 Abs Lymphocytes 0.3 10^3/uL Low 1.0-4.8 Abs Monocytes 0.1 10^3/uL Normal 0-0.8 Abs Eosinophils 0.0 10^3/uL Normal 0-0.6 Abs Basophils 0.0 10^3/uL Normal 0-0.2 Abs Nucleated RBC 0.0 10^3/uL Granulocyte % 77.4 % Lymphocyte % 15.5 % Monocyte % 6.3 % Eosinophil % 0.1 % Basophil % 0.7 % Nucleated Red Blood Cells % 0.1 Urine Drug 12/23/2018 [facility] Urine Amphetamine None Detected None Detect [facility] Screen [facility] Urine Barbiturates Screen None Detected None Detect Urine Benzodiazepine Screen None Detected None Detect Urine Cannabinoids Screen None Detected None Detect Urine Cocaine Screen None Detected None Detect Urine Opiates Screen Presumptive Posi <SEE NOTE> Abnormal None Detect 12 Urine Phencyclidine Screen None Detected None Detect 13 Urinalysis Profile 12/23/2018 [facility] Urine Color Yellow Urine Appearance Clear Urine Specific [place] 1.023 Normal 1.010-1.030 Urine pH 5.0 Normal 5-9 Urine Urobilinogen Negative Negative Urine Ketones Negative Negative Urine Protein Negative Negative Urine Leukocytes Negative Negative Urine Blood Negative Negative Urine Nitrite Negative Negative Urine Bilirubin Negative Negative Urine Glucose Negative Negative Laboratory test finding 12/23/2018 [facility] Acetaminophen < 15 g/ mL 14 Alcohol < 10 mg/dL Normal <10 Salicylate < 2.50 mg/dL <30 TSH (Thyroid Stim Horm) 0.41 mcIU/mL Normal 0.34-5.60 Comp Metabolic Panel 12/23/2018 [facility] Sodium 127 mmol/L Low 135- 145 Potassium 3.4 mmol/L Low 3.5-5.0 Chloride 96 mmol/L Low 101-111 Co2 Carbon Dioxide 22 mmol/L Normal 22-32 Anion Gap 9 mmol/L Normal 2-11 Glucose 104 mg/dL High 70-100 Blood Urea Nitrogen 11 mg/dL Normal 6-24 Creatinine 0.75 mg/dL Normal 0.67-1.17 BUN/Creatinine Ratio 14.7 Normal 8-20 Calcium 9.0 mg/dL Normal 8.6-10.3 Total Protein 6.9 g/dL Normal 6.4-8.9 Albumin 4.1 g/dL Normal 3.2-5.2 Globulin 2.8 g/dL Normal 2-4 Albumin/Globulin Ratio 1.5 Normal 1-3 Total Bilirubin 0.40 mg/dL Normal 0.2-1.0 Alkaline Phosphatase 196 U/L High 34-104 Alt 31 U/L Normal 7-52 Ast 14 U/L Normal 13-39 Egfr Non- 109.4 >60 Egfr 132.3 >60 15 CBC Auto Diff 12/23/2018 [facility] White Blood Count 3.4 10^3/uL Low 3.5-10.8 Red Blood Count 3.56 10^6/uL Low 4.18-5.48 Hemoglobin 10.8 g/dL Low 14.0-18.0 Hematocrit 31 % Low 42-52 Mean Corpuscular Volume 87 fL Normal 80-94 Mean Corpuscular Hemoglobin 30 pg Normal 27-31 Mean Corpuscular HGB Conc 35 g/dL Normal 31-36 Red Cell Distribution Width 14 % Normal 10-15 Platelet Count 247 10^3/uL Normal 150-450 Mean Platelet Volume 5.8 fL Low 7.4-10.4 Abs Neutrophils 1.9 10^3/uL Normal 1.5-7.7 Abs Lymphocytes 1.0 10^3/uL Normal 1.0-4.8 Abs Monocytes 0.5 10^3/uL Normal 0-0.8 Abs Eosinophils 0.0 10^3/uL Normal 0-0.6 Abs Basophils 0.0 10^3/uL Normal 0-0.2 Abs Nucleated RBC 0.0 10^3/uL Granulocyte % 55.4 % Lymphocyte % 29.0 % Monocyte % 14.8 % Eosinophil % 0.1 % Basophil % 0.7 % Nucleated Red Blood Cells % 0.0 Comp Metabolic Panel 12/18/2018 [facility] Sodium 133 mmol/L Low 135- 145 Potassium [...] Egfr Non- 92.1 >60 Egfr 111.5 >60 16 Laboratory test 12/18/2018 [facility] Magnesium 1.9 mg/dL Normal 1.9- 2.7 finding CBC Auto Diff 12/18/2018 [facility] White Blood 5.3 10^3/uL Normal 3.5-10.8 Count [...] Cells % 0.1 CBC Auto Diff 12/14/2018 [facility] White Blood 7.7 10^3/uL Normal 3.5-10.8 Count [...] Cells % 0.0 Comp Metabolic Panel 12/14/2018 [facility] Potassium 4.0 mmol/L Normal 3.5-5.0 Chloride 84 [...] Egfr Non- 147.1 >60 Egfr 178.0 >60 17 Sodium 115 mmol/L Critical low 135-145 18 Anion Gap 10 mmol/L Normal 2-11 Laboratory test 12/14/2018 [facility] Magnesium 1.8 mg/dL Low 1.9- 2.7 finding Laboratory test 12/10/2018 [facility] Partial 38.1 seconds High 26.0- 38.0 finding Thrombo Time PTT Inr/Protime 12/10/2018 [facility] Inr 1.19 High 0.82-1.09 19 Platelet Count 12/10/2018 [facility] Platelet Count 400 10^3/uL Normal 150-450 Mean Platelet Volume 6.7 fL Low 7.4-10.4 CBC Auto Diff 12/05/2018 [facility] White Blood 8.2 10^3/uL Normal 3.5-10.8 Count [...] Cells % 0.1 Comp Metabolic Panel 12/05/2018 [facility] Sodium 128 mmol/L Low 135- 145 Potassium [...] Egfr Non- 118.4 >60 Egfr 143.3 >60 20 Laboratory test 12/05/2018 [facility] TSH (Thyroid 0.70 mcIU/mL Normal 0.34-5.60 finding Stim Horm) Basic Metabolic 11/20/2018 [facility] Sodium 129 mmol/L Low (136-145) Panel 113 BORIS BERTA (607)- - Potassium 4.7 mmol/L (3.6-5.2) Chloride 95 mmol/L Low (100-108) Co2 26 mmol/L (22-31) Anion Gap 8 mmol/L (7-16) Urea Nitrogen 8 mg/dL (7-24) Creatinine 0.67 mg/dL Low (0.80-1.30) BUN/Creat Ratio 11.9 RATIO (10.0-20.0) Glucose 90 mg/dL (70-99) Calcium 9.5 mg/dL (8.4-10.2) GFR >60 ml/min/1.73m2 (>59) GFR ( Amer) >60 ml/min/1.73m2 (>59) GFR Interpretation <SEE NOTE> 21 BMP W/ Calc Osmo 10/25/2018 [facility] Sodium 130 mmol/L Low (136-145) 113 [employer] [...] >60 ml/min/1.73m2 (>59) GFR Interpretation <SEE NOTE> 22 Calculated Osmo 259 mosm/kg Low (280-300) CBC Auto Diff 10/19/2018 [facility] White Blood 11.2 10^3/uL High 3.5 -10.8 [...] Cells % 0.0 Basic Metabolic Panel 10/19/2018 [facility] Sodium 131 mmol/L Low 135 -145 Potassium 4.3 mmol/L Normal 3.5-5.0 Chloride 101 mmol/L Normal 101-111 Co2 Carbon Dioxide 22 mmol/L Normal 22-32 Anion Gap 8 mmol/L Normal 2-11 Glucose 99 mg/dL Normal 70-100 Blood Urea Nitrogen 8 mg/dL Normal 6-24 Creatinine 0.77 mg/dL Normal 0.67-1.17 BUN/Creatinine Ratio 10.4 Normal 8-20 Calcium 9.8 mg/dL Normal 8.6-10.3 Egfr Non- 106.1 >60 Egfr 128.4 >60 23 Laboratory test finding 10/19/2018 [facility] GGTP 190 U/L High 9- 64.0 Alcohol < 10 mg/dL Normal <10 Basic Metabolic Panel 10/13/2018 [facility] Sodium 130 mmol/L Low 135 -145 Potassium 4.8 mmol/L Normal 3.5-5.0 Chloride 95 mmol/L Low 101-111 Co2 Carbon Dioxide 29 mmol/L Normal 22-32 Anion Gap 6 mmol/L Normal 2-11 Glucose 103 mg/dL High 70-100 Blood Urea Nitrogen 10 mg/dL Normal 6-24 Creatinine 0.77 mg/dL Normal 0.67-1.17 BUN/Creatinine Ratio 13.0 Normal 8-20 Calcium 10.0 mg/dL Normal 8.6-10.3 Egfr Non- 106.1 >60 Egfr 128.4 >60 24 BMP W/ Calc Osmo 2018 [facility] Sodium 128 mmol/L Low (136-145) 113 [place] [...] >60 ml/min/1.73m2 (>59) GFR Interpretation <SEE NOTE> 25 Calculated Osmo 257 mosm/kg Low (280-300) Laboratory test 10/09/2018 [facility] TSH (Thyroid 2.97 mcIU/mL Normal 0.34-5.60 finding Stim Horm) Osmolality Serum 254 mOsm/kg Low 275-295 CBS W/Automated Diff 10/09/2018 [place] White Blood 7.2 K/uL Normal 3.4- 10.5 26 Count Red Blood Count 4.23 M/uL Normal 4.20-5.80 [...] 33.0-73.0 Lymph % 36.3 % Normal 20.0-42.0 [place] % 12.4 % High 0.0-10.0 Eo% 2.2 % Normal 0.0-6.6 Bas% 1.0 % Normal 0.0-1.1 Immature Grans 0.6 % Normal 0.0-5.0 NRBC % 0.0 /100WBC < 10/ 100 WBC Neut# 3.42 K/uL Normal 1.8-7.0 Lymph # 2.61 K/uL Normal 1.0-4.0 [place] # 0.89 K/uL High 0.0-0.8 Eos # 0.16 K/uL Normal 0.0-0.5 Baso # 0.07 K/uL Normal 0.0-0.1 Immature Grans Absolute 0.04 K/uL NRBC # 0.00 K/uL Basic Metabolic Panel 10/09/2018 [facility] Glucose 88 mg/dL Normal 74-106 BUN 9 mg/dL Normal 7-18 Creatinine 0.7 mg/dL Normal 0.6-1.3 Glom Filtration Rate, Estimate >60 mL/min >60 If >60 mL/min >60 27 BUN/Creat 12.8 ratio Sodium 121 mmol/L Low 136-145 Potassium 4.1 mmol/L Normal 3.5-5.1 Chloride 91 mmol/L Low 98-107 Carbon Dioxide 21 mmol/L Normal 21-32 Anion Gap 9 mEq/L Normal 8-16 Calcium 8.4 mg/dL Low 8.5-10.1 Basic Metabolic Panel 10/09/2018 [facility] Glucose 140 mg/dL High 74-106 BUN 9 mg/dL Normal 7-18 Creatinine 0.7 mg/dL Normal 0.6-1.3 Glom Filtration Rate, Estimate >60 mL/min >60 If >60 mL/min >60 28 BUN/Creat 12.8 ratio Sodium 123 mmol/L Low 136-145 Potassium 3.7 mmol/L Normal 3.5-5.1 Chloride 90 mmol/L Low 98-107 Carbon Dioxide 22 mmol/L Normal 21-32 Anion Gap 11 mEq/L Normal 8-16 Calcium 7.8 mg/dL Low 8.5-10.1 Comp Metabolic Panel 10/09/2018 [facility] Sodium 120 mmol/L Low 135- 145 Potassium [...] Egfr Non- 142.0 >60 Egfr 171.9 >60 29 CBC Auto Diff 10/09/2018 [facility] White Blood 10.1 10^3/uL Normal 3.5-10.8 Count [...] % Nucleated Red Blood Cells % 0.0 CBS W/Automated Diff 10/08/2018 [facility] White Blood 7.9 K/uL Normal 3.4- 10.5 30 Count Red Blood Count 4.56 M/uL Normal [...] 33.0-73.0 Lymph % 27.3 % Normal 20.0-42.0 [place] % 10.5 % High 0.0-10.0 Eo% 0.8 % Normal 0.0-6.6 Bas% 0.6 % Normal 0.0-1.1 Immature Grans 0.5 % Normal 0.0-5.0 NRBC % 0.0 /100WBC < 10/ 100 WBC Neut# 4.77 K/uL Normal 1.8-7.0 Lymph # 2.16 K/uL Normal 1.0-4.0 [place] # 0.83 K/uL High 0.0-0.8 Eos # 0.06 K/uL Normal 0.0-0.5 Baso # 0.05 K/uL Normal 0.0-0.1 Immature Grans Absolute 0.04 K/uL NRBC # 0.00 K/uL Aot Request 10/08/2018 [facility] Aot Request Already done 31 Tests to be added: serum osmolality 32 Aot Request 10/08/2018 [facility]ot Request Test(s) added 33 Tests to be added: magnesium Ua RFX Micro & Culture II 10/08/2018 [facility] Urine Color YELLOW Yellow Urine Clarity CLEAR Clear Urine Glucose - Dipstick NEGATIVE mg/dL Negative Urine Bilirubin - Dipstick NEGATIVE Negative Urine Ketone NEGATIVE mg/dL Negative Urine Specific [place] 1.025 Normal 1.010-1.030 Urine Blood TRACE Negative Urine PH 6.0 Low 6.5-7.5 Urine Protein - Dipstick TRACE mg/dL Negative Urine Urobilinogen - Dipstick 0.2 E.U./dL Normal 0.2-1.0 Urine Nitrite - Dipstick NEGATIVE Negative Urine Leuk Esterase NEGATIVE Negative Source: URINE, CLEAN CAT <SEE NOTE> 34 Aot Request 10/08/2018 [facility] Aot Request Test(s) added 35 Tests to be added: urine osmolality <SEE NOTE> 36 Laboratory test 10/08/2018 [facility] Osmolality,Serum 250 mOsm/kg Low 275- 295 finding 1 [id number] 2 Because ethnic data is not always [...] 5 Kidney failure <15 (or dialysis) 3 [id number] 4 [id number] 5 Serum levels of PSA measured using the [employer] DXI Hybritech immunoassay should not be interpreted as absolute evidence of the presence or absence of disease. The PSA value should be used in conjunction with other pertinent clinical diagnostic procedures. A PSA value in the range of 0.1 to 0.6 ng/ml is indeterminate if being used as an indicator of recurrent or residual disease. The values obtained with different assay methods or kits cannot be used interchangeably. [address] Roque by [id number] at 1931 on 02/11/19. Results read back accurately. 7 Because ethnic data is not always readily [...] 15-29 5 Kidney failure <15 (or dialysis) 8 Because ethnic data is not always [...] 5 Kidney failure <15 (or dialysis) 10 Because ethnic data is not always readily [...] 15-29 5 Kidney failure <15 (or dialysis) 11 Because ethnic data is not always readily [...] 15-29 5 Kidney failure <15 (or dialysis) 12 Presumptive Positive Presumptive positive results are unconfirmed. 13 The urine specimen was tested at the listed cutoffs: Drug class test level (ng/mL) Amphetamines 500 Barbiturates 200 Benzodiazepine metabolites 200 Cocaine metabolites 150 Cannabinoids 50 Opiates 300 Pcp 25 Specimen was received without chain of custody. Results should be used for medical purposes only. 14 Therapeutic concentration: <50 ug/mL Toxic concentration: >120 ug/mL 15 Because ethnic data is not always readily [...] 15-29 5 Kidney failure <15 (or dialysis) 16 Because ethnic data is not always readily [...] 15-29 5 Kidney failure <15 (or dialysis) 17 Because ethnic data is not always readily [...] 15-29 5 Kidney failure <15 (or dialysis) 18 Critical Result NA:115 Called to TAMIKA at: 13:32:33 by:[email or web address] Read back by:[email or web address] 19 Standard intensity warfarin therapeutic range: 2.0-3.0 High intensity warfarin therapeutic range: 2.5-3.5 20 Because ethnic data is not always readily [...] 15-29 5 Kidney failure <15 (or dialysis) 21 NORMAL KIDNEY FUNCTION OR MILD DISEASE - GFR >OR= 60 CHRONIC KIDNEY DISEASE - GFR 15 - 59 RENAL FAILURE - GFR <15 Est. GFR calculation based on the MDRD study equation, which assumes a steady state for creatinine. Est. GFR should not be used for medication dosing. 22 NORMAL KIDNEY FUNCTION OR MILD DISEASE - GFR >OR= 60 CHRONIC KIDNEY DISEASE - GFR 15 - 59 RENAL FAILURE - GFR <15 Est. GFR calculation based on the MDRD study equation, which assumes a steady state for creatinine. Est. GFR should not be used for medication dosing. 23 Because ethnic data is not always readily [...] 15-29 5 Kidney failure <15 (or dialysis) 24 Because ethnic data is not always readily [...] 15-29 5 Kidney failure <15 (or dialysis) 25 NORMAL KIDNEY FUNCTION OR MILD DISEASE - GFR >OR= 60 CHRONIC KIDNEY DISEASE - GFR 15 - 59 RENAL FAILURE - GFR <15 Est. GFR calculation based on the MDRD study equation, which assumes a steady state for creatinine. Est. GFR should not be used for medication dosing. 26 SEVERE HYPONATREMIA 27 Note: Persistent reduction for 3 months or more in an eGFR <60 mL/min/1.73 m2 defines CKD. Patients with eGFR values >/=60 mL/min/1.73 m2 may also have CKD if evidence of persistent proteinuria is present. The original MDRD equation for estimated GFR is not valid for patients less than 18 years of age. Additional information may be found at www.[facility].org. 28 Note: Persistent reduction for 3 months or more in an eGFR <60 mL/min/1.73 m2 defines CKD. Patients with eGFR values >/=60 mL/min/1.73 m2 may also have CKD if evidence of persistent proteinuria is present. The original MDRD equation for estimated GFR is not valid for patients less than 18 years of age. Additional information may be found at www.[email or web address]. 29 Because ethnic data is not always readily [...] 15-29 5 Kidney failure <15 (or dialysis) 30 HAD COLONOSCOPY,SICK,PAIN,CANT GO TO BATHROOM 31 Tests: serum osmolality Instructions: 32 serum osmolality 33 Tests: magnesium Instructions: 34 URINE, CLEAN CATCH 35 Tests: urine osmolality and sodium, serum osmolality Instructions: 36 urine osmolality and sodium, serum osmolality Procedures Date Code Description Status 11/20/2018 16916 Spirometry Completed 10/25/2018 01323 Spirometry Completed 10/25/2018 07490 EKG Completed 10/25/2018 81094 Tympanometry Completed 2018 07288 Spirometry Completed 09/14/2018 [id number] Colonoscopy Completed Medical Devices Description No Information Available Encounters Type Date Location Provider Dx Diagnosis Office Visit 03/05/2019 [facility] Palomo Roque, I10 Essential ( primary) 3:45p M.D. hypertension E78.2 Mixed hyperlipidemia R73.01 Impaired [...] bilateral J01.40 Acute pansinusitis, unspecified Office Visit 12/20/2018 11:30a [place] [facility] Palomo Roque I10 Essential ( primary) [...] Acute pansinusitis, unspecified Office Visit 11/20/2018 9:00a [place] [facility] Palomo Roque I10 Essential ( primary) [...] Acute pansinusitis, unspecified Office Visit 10/25/2018 9:00a [place] [facility] Palomo Roque I10 Essential ( primary) [...] bilateral M54.2 Cervicalgia Office Visit 2018 2:30p [place] [place], I10 Essential ( primary) Ara hypertension E78.2 [...] breath R05 Cough Office Visit 09/25/2018 10:00a [place] [facility] Palomo Roque I10 Essential ( primary) [...] abscess w/o bleeding Office Visit 09/06/2018 8:30a [place] [facility] Palomo Roque I10 Essential ( primary) [...] degeneration, lumbosacral region M54.17 Radiculopathy, lumbosacral region Assessments Date Code Description Provider 03/05/2019 I10 Essential (primary) hypertension Palomo Roque M.D. 03/05/2019 E78.2 Mixed hyperlipidemia Palomo Roque M.D. 03/05/2019 R73.01 Impaired fasting glucose Palomo Roque M.D. 03/05/2019 M75.112 Incomplete rotator cuff tear or rupture of Palomo Roque M.D. left shoulder, not specified as traumatic 03/05/2019 M25.562 Pain in left knee Palomo Roque M.D. 03/05/2019 M15.9 Polyosteoarthritis, unspecified Palomo Roque M.D. 03/05/2019 R91.1 Solitary pulmonary nodule Palomo Roque M.D. 03/05/2019 H53.30 Unspecified disorder of binocular vision Palomo Roque M.D. 03/05/2019 E55.9 Vitamin D deficiency, unspecified Palomo Roque M.D. 03/05/2019 G47.00 Insomnia, unspecified Palomo Roque M.D. 03/05/2019 I72.4 Aneurysm of artery of lower extremity Palomo Roque M.D. 03/05/2019 J44.9 Chronic obstructive pulmonary disease, Palomo Roque M.D. unspecified 03/05/2019 F17.210 Nicotine dependence, cigarettes, Palomo Roque M.D. uncomplicated 03/05/2019 F10.10 Alcohol abuse, uncomplicated Palomo Roque M.D. 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 lumbosacral region 03/05/2019 M54.17 Radiculopathy, lumbosacral region Palomo Roque M.D. 03/05/2019 K57.30 Diverticulosis of large intestine without Palomo Roque M.D. perforation or abscess without bleeding 03/05/2019 E87.1 Hypo-osmolality and hyponatremia Palomo Roque M.D. 03/05/2019 M54.2 Cervicalgia Palomo Roque M.D. 03/05/2019 R07.89 Other chest pain Palomo Roque M.D. 03/05/2019 C34.92 Malignant neoplasm of unspecified part of Palomo Roque M.D. 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 03/05/2019 R06.02 Shortness of breath Palomo Roque M.D. 03/05/2019 R05 Cough Palomo Roque M.D. 03/05/2019 H92.03 Otalgia, bilateral Palomo Roque M.D. 03/05/2019 J01.40 Acute pansinusitis, unspecified Palomo Roque M.D. 02/28/2019 I10 Essential (primary) hypertension Palomo Roque M.D. 02/28/2019 E78.2 Mixed hyperlipidemia Palomo Roque M.D. 02/28/2019 R73.01 Impaired fasting glucose Palomo Roque M.D. 02/28/2019 M75.112 Incomplete rotator cuff tear or rupture of Palomo Roque M.D. left shoulder, not specified as traumatic 02/28/2019 M25.562 Pain in left knee Palomo Roque M.D. 02/28/2019 M15.9 Polyosteoarthritis, unspecified Palomo Roque M.D. 02/28/2019 R91.1 Solitary pulmonary nodule Palomo Roque M.D. 02/28/2019 H53.30 Unspecified disorder of binocular vision Palomo Roque M.D. 02/28/2019 E55.9 Vitamin D deficiency, unspecified Palomo Roque M.D. 02/28/2019 G47.00 Insomnia, unspecified Palomo Roque M.D. 02/28/2019 I72.4 Aneurysm of artery of lower extremity Palomo Roque M.D. 02/28/2019 J44.9 Chronic obstructive pulmonary disease, Palomo Roque M.D. unspecified 02/28/2019 F17.210 Nicotine dependence, cigarettes, Palomo Roque M.D. uncomplicated 02/28/2019 F10.10 Alcohol abuse, uncomplicated Palomo Roque M.D. 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 lumbosacral region 02/28/2019 M54.17 Radiculopathy, lumbosacral region Palomo Roque M.D. 02/28/2019 K57.30 Diverticulosis of large intestine without Palomo Roque M.D. perforation or abscess without bleeding 02/28/2019 E87.1 Hypo-osmolality and hyponatremia Palomo Roque M.D. 02/28/2019 M54.2 Cervicalgia Palomo Roque M.D. 02/28/2019 R07.89 Other chest pain Palomo Roque M.D. 02/28/2019 C34.92 Malignant neoplasm of unspecified part of Palomo Roque M.D. left bronchus or lung 02/28/2019 E22.2 Syndrome of inappropriate secretion of Palomo Roque M.D. antidiuretic hormone 02/28/2019 J20.9 Acute bronchitis, unspecified Palomo Roque M.D. 02/28/2019 R06.02 Shortness of breath Palomo Roque M.D. 02/28/2019 R05 Cough Palomo Roque M.D. 02/28/2019 H92.03 Otalgia, bilateral Palomo Roque M.D. 02/28/2019 J01.40 Acute pansinusitis, unspecified Palomo Roque M.D. 02/26/2019 I10 Essential (primary) hypertension Palomo Roque M.D. 02/26/2019 E78.2 Mixed hyperlipidemia Palomo Roque M.D. 02/26/2019 R73.01 Impaired fasting glucose Palomo Roque M.D. 02/26/2019 M75.112 Incomplete rotator cuff tear or rupture of Palomo Roque M.D. left shoulder, not specified as traumatic 02/26/2019 M25.562 Pain in left knee Palomo Roque M.D. 02/26/2019 M15.9 Polyosteoarthritis, unspecified Palomo Roque M.D. 02/26/2019 R91.1 Solitary pulmonary nodule Palomo Roque M.D. 02/26/2019 H53.30 Unspecified disorder of binocular vision Palomo Roque M.D. 02/26/2019 E55.9 Vitamin D deficiency, unspecified Palomo Roque M.D. 02/26/2019 G47.00 Insomnia, unspecified Palomo Roque M.D. 02/26/2019 I72.4 Aneurysm of artery of lower extremity Palomo Roque M.D. 02/26/2019 J44.9 Chronic obstructive pulmonary disease, Palomo Roque M.D. unspecified 02/26/2019 F17.210 Nicotine dependence, cigarettes, Palomo Roque M.D. uncomplicated 02/26/2019 F10.10 Alcohol abuse, uncomplicated Palomo Roque M.D. 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 lumbosacral region 02/26/2019 M54.17 Radiculopathy, lumbosacral region Palomo Roque M.D. 02/26/2019 K57.30 Diverticulosis of large intestine without Palomo Roque M.D. perforation or abscess without bleeding 02/26/2019 E87.1 Hypo-osmolality and hyponatremia Palomo Roque M.D. 02/26/2019 M54.2 Cervicalgia Palomo Roque M.D. 02/26/2019 R07.89 Other chest pain Palomo Roque M.D. 02/26/2019 C34.92 Malignant neoplasm of unspecified part of Palomo Roque M.D. left bronchus or lung 02/26/2019 E22.2 Syndrome of inappropriate secretion of Palomo Roque M.D. antidiuretic hormone 02/26/2019 J20.9 Acute bronchitis, unspecified Palomo Roque M.D. 02/26/2019 R06.02 Shortness of breath Palomo Roque M.D. 02/26/2019 R05 Cough Palomo Roque M.D. 02/26/2019 H92.03 Otalgia, bilateral Palomo Roque M.D. 02/26/2019 J01.40 Acute pansinusitis, unspecified Palomo Roque M.D. 12/20/2018 I10 Essential (primary) hypertension Palomo Roque M.D. 12/20/2018 E78.2 Mixed hyperlipidemia Palomo Roque M.D. 12/20/2018 R73.01 Impaired fasting glucose Palomo Roque M.D. 12/20/2018 M75.112 Incomplete rotator cuff tear or rupture of Palomo Roque M.D. left shoulder, no 12/20/2018 M25.562 Pain in left knee Palomo Roque M.D. 12/20/2018 M15.9 Polyosteoarthritis, unspecified Palomo Roque M.D. 12/20/2018 R91.1 Solitary pulmonary nodule Palomo Roque M.D. 12/20/2018 H53.30 Unspecified disorder of binocular vision Palomo Roque M.D. 12/20/2018 E55.9 Vitamin D deficiency, unspecified Palomo Roque M.D. 12/20/2018 G47.00 Insomnia, unspecified Palomo Roque M.D. 12/20/2018 I72.4 Aneurysm of artery of lower extremity Palomo Roque M.D. 12/20/2018 J44.9 Chronic obstructive pulmonary disease, Palomo Roque M.D. unspecified 12/20/2018 F17.210 Nicotine dependence, cigarettes, Palomo Roque M.D. uncomplicated 12/20/2018 F10.10 Alcohol abuse, uncomplicated Palomo Roque M.D. 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 lumbosacral region 12/20/2018 M54.17 Radiculopathy, lumbosacral region Palomo Roque M.D. 12/20/2018 K57.30 Diverticulosis of large intestine without Palomo Roque M.D. perforation or abs 12/20/2018 E87.1 Hypo-osmolality and hyponatremia Palomo Roque M.D. 12/20/2018 M54.2 Cervicalgia Palomo Roque M.D. 12/20/2018 R07.89 Other chest pain Palomo Roque M.D. 12/20/2018 C34.92 Malignant neoplasm of unspecified part of Palomo Roque M.D. left bronchus or l 12/20/2018 E22.2 Syndrome of inappropriate secretion of Palomo Roque M.D. antidiuretic hormone 12/20/2018 J20.9 Acute bronchitis, unspecified Palomo Roque M.D. 12/20/2018 R06.02 Shortness of breath Palomo Roque M.D. 12/20/2018 R05 Cough Palomo Roque M.D. 12/20/2018 H92.03 Otalgia, bilateral Palomo Roque M.D. 12/20/2018 J01.40 Acute pansinusitis, unspecified Palomo Roque M.D. 12/13/2018 I10 Essential (primary) hypertension Palomo Roque M.D. 12/13/2018 E78.2 Mixed hyperlipidemia Palomo Roque M.D. 12/13/2018 R73.01 Impaired fasting glucose Palomo Roque M.D. 12/13/2018 M75.112 Incomplete rotator cuff tear or rupture of Palomo Roque M.D. left shoulder, no 12/13/2018 M25.562 Pain in left knee Palomo Roque M.D. 12/13/2018 M15.9 Polyosteoarthritis, unspecified Jude, Ahmad M., M.D. 12/13/2018 R91.1 Solitary pulmonary nodule Palomo Roque M.D. 12/13/2018 H53.30 Unspecified disorder of binocular vision Palomo Roque M.D. 12/13/2018 E55.9 Vitamin D deficiency, unspecified Palomo Roque M.D. 12/13/2018 G47.00 Insomnia, unspecified Palomo Roque M.D. 12/13/2018 I72.4 Aneurysm of artery of lower extremity Palomo Roque M.D. 12/13/2018 J44.9 Chronic obstructive pulmonary disease, Palomo Roque M.D. unspecified 12/13/2018 F17.210 Nicotine dependence, cigarettes, Palomo Roque M.D. uncomplicated 12/13/2018 F10.10 Alcohol abuse, uncomplicated Palomo Roque M.D. 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 lumbosacral region 12/13/2018 M54.17 Radiculopathy, lumbosacral region Palomo Roque M.D. 12/13/2018 K57.30 Diverticulosis of large intestine without Palomo Roque M.D. perforation or abs 12/13/2018 E87.1 Hypo-osmolality and hyponatremia Palomo Roque M.D. 12/13/2018 M54.2 Cervicalgia Palomo Roque M.D. 12/13/2018 R07.89 Other chest pain Palomo Roque M.D. 12/13/2018 C34.92 Malignant neoplasm of unspecified part of Palomo Roque M.D. left bronchus or l 12/13/2018 E22.2 Syndrome of inappropriate secretion of Palomo Roque M.D. antidiuretic hormone 12/13/2018 J20.9 Acute bronchitis, unspecified Palomo Roque M.D. 12/13/2018 R06.02 Shortness of breath Palomo Roque M.D. 12/13/2018 R05 Cough Palomo Roque M.D. 12/13/2018 H92.03 Otalgia, bilateral Palomo Roque M.D. 12/13/2018 J01.40 Acute pansinusitis, unspecified Palomo Roque M.D. 11/20/2018 I10 Essential (primary) hypertension Palomo Roque M.D. 11/20/2018 E78.2 Mixed hyperlipidemia Palomo Roque M.D. 11/20/2018 R73.01 Impaired fasting glucose Palomo Roque M.D. 11/20/2018 M75.112 Incomplete rotator cuff tear or rupture of Palomo Roque M.D. left shoulder, no 11/20/2018 M25.562 Pain in left knee Palomo Roque M.D. 11/20/2018 M15.9 Polyosteoarthritis, unspecified Palomo Roque M.D. 11/20/2018 R91.1 Solitary pulmonary nodule Palomo Roque M.D. 11/20/2018 H53.30 Unspecified disorder of binocular vision Palomo Roque M.D. 11/20/2018 E55.9 Vitamin D deficiency, unspecified Palomo Roque M.D. 11/20/2018 G47.00 Insomnia, unspecified Palomo Roque M.D. 11/20/2018 I72.4 Aneurysm of artery of lower extremity Palomo Roque M.D. 11/20/2018 J44.9 Chronic obstructive pulmonary disease, Palomo Roque M.D. unspecified 11/20/2018 F17.210 Nicotine dependence, cigarettes, Palomo Roque M.D. uncomplicated 11/20/2018 F10.10 Alcohol abuse, uncomplicated Palomo Roque M.D. 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 lumbosacral region 11/20/2018 M54.17 Radiculopathy, lumbosacral region Palomo Roque M.D. 11/20/2018 K57.30 Diverticulosis of large intestine without Palomo Roque M.D. perforation or abs 11/20/2018 E87.1 Hypo-osmolality and hyponatremia Palomo Roque M.D. 11/20/2018 M54.2 Cervicalgia Palomo Roque M.D. 11/20/2018 R07.89 Other chest pain Palomo Roque M.D. 11/20/2018 C34.92 Malignant neoplasm of unspecified part of Palomo Roque M.D. left bronchus or l 11/20/2018 E22.2 Syndrome of inappropriate secretion of Palomo Roque M.D. antidiuretic hormone 11/20/2018 J20.9 Acute bronchitis, unspecified Palomo Roque M.D. 11/20/2018 R06.02 Shortness of breath Palomo Rouqe M.D. 11/20/2018 R05 Cough Palomo Roque M.D. 11/20/2018 H92.03 Otalgia, bilateral Palomo Roque M.D. 11/20/2018 J01.40 Acute pansinusitis, unspecified Palomo Roque M.D. 10/25/2018 I10 Essential (primary) hypertension Palomo Roque M.D. 10/25/2018 E78.2 Mixed hyperlipidemia Palomo Roque M.D. 10/25/2018 R73.01 Impaired fasting glucose Palomo Roque M.D. 10/25/2018 M75.112 Incomplete rotator cuff tear or rupture of Palomo Roque M.D. left shoulder, no 10/25/2018 M25.562 Pain in left knee Palomo Roque M.D. 10/25/2018 M15.9 Polyosteoarthritis, unspecified Palomo Roque M.D. 10/25/2018 R91.1 Solitary pulmonary nodule Palomo Roque M.D. 10/25/2018 H53.30 Unspecified disorder of binocular vision Palomo Roque M.D. 10/25/2018 E55.9 Vitamin D deficiency, unspecified Palomo Roque M.D. 10/25/2018 G47.00 Insomnia, unspecified Palomo Roque M.D. 10/25/2018 I72.4 Aneurysm of artery of lower extremity Palomo Roque M.D. 10/25/2018 J44.9 Chronic obstructive pulmonary disease, Palomo Roque M.D. unspecified 10/25/2018 F17.210 Nicotine dependence, cigarettes, Palomo Roque M.D. uncomplicated 10/25/2018 F10.10 Alcohol abuse, uncomplicated Palomo Roque M.D. 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 lumbosacral region 10/25/2018 M54.17 Radiculopathy, lumbosacral region Palomo Roque M.D. 10/25/2018 K57.30 Diverticulosis of large intestine without Palomo Roque M.D. perforation or abs 10/25/2018 E87.1 Hypo-osmolality and hyponatremia Palomo Roque M.D. 10/25/2018 J20.9 Acute bronchitis, unspecified Palomo Roque M.D. 10/25/2018 R06.02 Shortness of breath Palomo Roque M.D. 10/25/2018 R05 Cough Palomo Roque M.D. 10/25/2018 R07.9 Chest pain, unspecified Palomo Roque M.D. 10/25/2018 H92.03 Otalgia, bilateral Palomo Roque M.D. 10/25/2018 M54.2 Cervicalgia Palomo Roque M.D. 2018 I10 Essential (primary) hypertension Palomo Roque M.D. 2018 E78.2 Mixed hyperlipidemia Palomo Roque M.D. 2018 R73.01 Impaired fasting glucose Palomo Roque M.D. 2018 M75.112 Incomplete rotator cuff tear or rupture of Palomo Roque M.D. left shoulder, no 2018 M25.562 Pain in left knee Palomo Roque M.D. 2018 M15.9 Polyosteoarthritis, unspecified Palomo Roque M.D. 2018 R91.1 Solitary pulmonary nodule Palomo Roque M.D. 2018 H53.30 Unspecified disorder of binocular vision Palomo Roque M.D. 2018 E55.9 Vitamin D deficiency, unspecified Palomo Roque M.D. 2018 G47.00 Insomnia, unspecified Palomo Roque M.D. 2018 I72.4 Aneurysm of artery of lower extremity Palomo Roque M.D. 2018 J44.9 Chronic obstructive pulmonary disease, Palomo Roque M.D. unspecified 2018 F17.210 Nicotine dependence, cigarettes, Palomo Roque M.D. uncomplicated 2018 F10.10 Alcohol abuse, uncomplicated Palomo Roque M.D. 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 loss, bilateral 2018 M51.37 Other intervertebral disc degeneration, Palomo Roque M.D. lumbosacral region 2018 M54.17 Radiculopathy, lumbosacral region Palomo Roque M.D. 2018 K57.30 Diverticulosis of large intestine without Palomo Roque M.D. perforation or abs 2018 E87.1 Hypo-osmolality and hyponatremia Palomo Roque M.D. 2018 J20.9 Acute bronchitis, unspecified Palomo Roque M.D. 2018 R06.02 Shortness of breath Palomo Roque M.D. 2018 R05 Cough Palomo Roque M.D. 09/25/2018 I10 Essential (primary) hypertension Palomo Roque M.D. 09/25/2018 E78.2 Mixed hyperlipidemia Palomo Roque M.D. 09/25/2018 R73.01 Impaired fasting glucose Palomo Roque M.D. 09/25/2018 M75.112 Incomplete rotator cuff tear or rupture of Palomo Roque M.D. left shoulder, no 09/25/2018 M25.562 Pain in left knee Palomo Roque M.D. 09/25/2018 M15.9 Polyosteoarthritis, unspecified Palomo Roque M.D. 09/25/2018 R91.1 Solitary pulmonary nodule Palomo Roque M.D. 09/25/2018 H53.30 Unspecified disorder of binocular vision Palomo Roque M.D. 09/25/2018 E55.9 Vitamin D deficiency, unspecified Palomo Roque M.D. 09/25/2018 G47.00 Insomnia, unspecified Palomo Roque M.D. 09/25/2018 I72.4 Aneurysm of artery of lower extremity Palomo Roque M.D. 09/25/2018 J44.9 Chronic obstructive pulmonary disease, Palomo Roque M.D. unspecified 09/25/2018 F17.210 Nicotine dependence, cigarettes, Palomo Roque M.D. uncomplicated 09/25/2018 F10.10 Alcohol abuse, uncomplicated Palomo Roque M.D. 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 lumbosacral region 09/25/2018 M54.17 Radiculopathy, lumbosacral region Palomo Roque M.D. 09/25/2018 K57.30 Diverticulosis of large intestine without Palomo Roque M.D. perforation or abs 09/06/2018 I10 Essential (primary) hypertension Palomo Roque M.D. 09/06/2018 E78.2 Mixed hyperlipidemia Palomo Roque M.D. 09/06/2018 R73.01 Impaired fasting glucose Palomo Roque M.D. 09/06/2018 M75.112 Incomplete rotator cuff tear or rupture of Palomo Roque M.D. left shoulder, no 09/06/2018 M25.562 Pain in left knee Palomo Roque M.D. 09/06/2018 M15.9 Polyosteoarthritis, unspecified JudePalomo vazquez M.D. 09/06/2018 R91.1 Solitary pulmonary nodule aPlomo Roque M.D. 09/06/2018 H53.30 Unspecified disorder of binocular vision Palomo Roque M.D. 09/06/2018 E55.9 Vitamin D deficiency, unspecified Palomo Roque M.D. 09/06/2018 G47.00 Insomnia, unspecified Palomo Roque M.D. 09/06/2018 I72.4 Aneurysm of artery of lower extremity Palomo Roque M.D. 09/06/2018 J44.9 Chronic obstructive pulmonary disease, Palomo Roque M.D. unspecified 09/06/2018 F17.210 Nicotine dependence, cigarettes, Palomo Roque M.D. uncomplicated 09/06/2018 F10.10 Alcohol abuse, uncomplicated Palomo Roque M.D. 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 lumbosacral region 09/06/2018 M54.17 Radiculopathy, lumbosacral region Palomo Roque M.D. Plan of Treatment Future Appointment(s):05/02/2019 9:30 am - Palomo Roque M.D. at [facility]03/05/2019 - Palomo Roque M.D.I10 Essential (primary) hypertensionComments:CHECK BP TIW ( PRN)DIET AND FLUID COUNSELING LOW SODIUM DIETWT LOSSF/U LABE78.2 Mixed hyperlipidemiaComments:DIET REVIEWED CONTINUE DIETWT LOSSF/U LAB FBWR73.01 Impaired fasting glucoseComments:F/U HGAICFS QAC AN HS PRNLOW GLUCOSE DIETM75.112 Incomplete rotator cuff tear or rupture of left shoulder, not specified as traumaticComments:EXERCISE/HEAT/MESSAGE TYLENOL OR MOTRIN PRNAVOID HEAVY LIFTING ELEVATE PRN DUR QLKYRCKK76.562 Pain in left kneeComments:EXERCISE/HEAT /MESSAGEAVOID HEAVY LIFTING WT LOSSTYLENOL OR MOTRIN PRN DUR HCEQQVDG18.9 Polyosteoarthritis, unspecifiedComments:EXERCISE/HEAT/ MESSAGETYLENOL OR MOTRIN PRNAVOID HEAVY LIFTINGWT LOSSR91.1 Solitary pulmonary jvcdbnD89.30 Unspecified disorder of binocular visionComments:USE GLASSES/ CONTACTSF/U WITH ZMXLUQMGUGDBSQ15.9 Vitamin D deficiency, unspecifiedComments: INCREASE EXPOSURE TO SUNREVIEW OF DIETG47.00 Insomnia, unspecifiedComments: COUNCELLING AND REASSURANCE RELAXATION TECHNIQUESSTRESSORS IN LIFE AVOID ALL ENERGY/HIGH CAFFEINE AHDEGSN97.4 Aneurysm of artery of lower umarwcwcgD93.9 Chronic obstructive pulmonary disease, unspecifiedComments:INCREASE PO FLUIDRESTSMOKING CESSATION COUNCELLING NEB OR MDI AND /OR IVMLZPT40.210 Nicotine dependence, cigarettes, uncomplicatedComments:SMOKING CESSATION OTPHIKSQAFYM75.10 Alcohol abuse, uncomplicatedComments:ETOH ABSTINENCECOUNCELLING AND COWDNBCZHMYT25.6 Mixed conductive and sensorineural hearing loss, bilateralComments:OBSERVE F/U WITH ENT PRN SMOKING TVQAHIMNVC54.37 Other intervertebral disc degeneration, lumbosacral regionComments:EXERCISE/HEAT /MESSAGEAVOID HEAVY LIFTING WT LOSSTYLENOL OR MOTRIN PRN DUR GKVYTLDH14.17 Radiculopathy, lumbosacral regionComments: EXERCISE/HEAT /MESSAGE AVOID HEAVY LIFTING WT LOSS TYLENOL OR MOTRIN PRN DUR TYGDAAGA78.30 Diverticulosis of large intestine without perforation or abscess without bleedingComments:TYLENOL OR MOTRIN PRN INCREASE PO FLUID LAXATIVE PRNE87.1 Hypo-osmolality and hyponatremiaComments:CONTINUE WITH RXF/U LAB FLUID RESTRICTION WILL TAPER OFF QLRNUEBU75.2 CervicalgiaComments:EXERCISE/HEAT / MESSAGEAVOID HEAVY LIFTING WT LOSSTYLENOL OR MOTRIN PRN DUR AAMPNESX60.89 Other chest painComments:TYLENOL OR MOTRIN PRN EXERCISE/HEAT/MESSAGECOUNCELLING AND PQXSWPUMVQRV21.92 Malignant neoplasm of unspecified part of left bronchus or lungComments:F/U WITH CAFKBGQEP21.2 Syndrome of inappropriate secretion of antidiuretic hormoneComments:F/U WITH YIDUAYBDM19.9 Acute bronchitis, unspecifiedComments:WSNFUSZYN44.02 Shortness of breathComments:XHBKPNSNR53 CoughComments:[id number] Otalgia, bilateralComments:[id number] Acute pansinusitis, unspecifiedComments:RESOLVED Functional Status Description No Information Available Mental Status Description No Information Available Referrals Refer to Reason for Referral Status Appt Date Nikki Jenkins LUNG MASS, PLEASE OFFER PT SOONEST APPT POSSIBLE. Closed THANK YOU [address] [facility] [address] [place] [address] [phone] Salma Doan Closed [address] [place] [address] [phone] Dimopoulos, Vassilios DISC DEGENERATION Closed [address], [place] [address] [phone]
--- NOTE | 2019-03-31 13:02 | ED ---
Headache - HPI Summary HPI Summary: Patient is a 53 y/o M w/ Hx of lung and bone CA (followed by Dr. Palomino) and hyponatremia (03/29/19 measurement was sodium of 124 in office visit) who presents to [facility] with complaints of diffuse SIBLEY, N/V and light-headedness. SIBLEY has been present since 03/29. Patient was advised to reduce his fluid intake with regards to his hyponatermia. N/V onset this morning 03/31. Patient is on chemotherapy. On triage, pain is rated 10/10. Home medications and allergies are reviewed. Two family members are present in the room. - History Of Current Complaint Chief Complaint: EDGeneral Stated Complaint: HEADACH/CANT EAT PER PT Time Seen by Provider: 03/31/19 12:52 Hx Obtained From: Patient Onset/Duration: Started hours ago, Started days ago, Still Present Currently Pain Is: Current Pain Scale(0-10)= - 10/10, Severe Timing: Days Location of Headache: Diffuse Associated Signs And Symptoms: Dizziness - light-headed, Nausea, Vomiting - Allergies/Home Medications Allergies/Adverse Reactions: Allergies Allergy/AdvReac Type Severity Reaction Status Date / Time No Known Allergies Allergy Verified 03/31/19 12:16 PMH/Surg Hx/FS Hx/Imm Hx Endocrine/Hematology History: Denies: Hx Anticoagulant Therapy, Hx Blood Transfusions, Hx Diabetes, Hx Thyroid Disease, Hx Anemia Cardiovascular History: Reports: Hx Aneurysm - repaired with graft, Hx Hypercholesterolemia, Hx Peripheral Vascular Disease - Clogged artery LLE, Other Cardiovascular Problems/Disorders - clogged artery right groin, Denies: Hx Congenital Heart Disease, Hx Congestive Heart Failure, Hx Deep Vein Thrombosis, Hx Embolism, Hx Hypertension, Hx Rheumatic Fever Respiratory History: Reports: Hx Chronic Obstructive Pulmonary Disease (COPD), Hx Lung Cancer, Hx Seasonal Allergies Denies: Hx Asthma, Hx Sleep Apnea GI History: Reports: Hx Diverticulosis - Per Pt seen on colonoscopy Denies: Hx Gall Bladder Disease, Hx Gastroesophageal Reflux Disease, Hx Gastrointestinal Bleed, Hx Hiatal Hernia, Hx Irritable Bowel, Hx Obstructive Bowel, Hx Ulcer History: Denies: Hx Benign Prostatic Hyperplasia, Hx Dialysis, Hx Kidney Infection, Hx Kidney Stones, Hx Renal Disease Musculoskeletal History: Reports: Hx Arthritis, Hx Back Problems, Hx Tendonitis - RIGHT ELBOW, Other Musculoskeletal History - BILATERAL CARPAL TUNNEL SYNDROME , surgically repaired Denies: Hx Fibromyalgia, Hx Gout, Hx Orthopedic Injury, Hx Osteoporosis Sensory History: Reports: 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 Denies: Hx Hearing Aid, Other Sensory Impairments Opthamlomology History: Reports: 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 Denies: Other Sensory Impairments Neurological History: Reports: Hx Migraine - OCCASIONAL Psychiatric History: Reports: Hx Substance Abuse Denies: Hx Eating Disorder, Hx Post Traumatic Stress Disorder, Hx of Violent Episodes Against Others - Cancer History Cancer Type, Location and Year: small cell lung Hx Chemotherapy: Yes Hx Radiation Therapy: No - Surgical History Surgery Procedure, Year, and Place: 2001 SUSPENSION [place]CROLARYNGOSCOPY[place] [facility] [place] [facility] [place] KNEE [place]THROSCOPY, REPAIR TORN MENISCUS[place] [facility] [place] [facility] [place] [facility] [place] GROIN [place]UR[place]M [place]PAIR, [place] Hx Anesthesia Reactions: No Infectious Disease History: No Infectious Disease History: Reports: Hx of Known/Suspected MRSA Denies: Hx Clostridium Difficile, Hx Hepatitis, Hx Human Immunodeficiency Virus (HIV), Hx Shingles, Hx Tuberculosis, Hx Known/Suspected VRE, Hx Known/ Suspected VRSA, History Other Infectious Disease, Traveled Outside the [place] in Last 30 Days - Family History Known Family History: Positive: Hypertension, Diabetes, Other - cancer Negative: Cardiac Disease, Renal Disease, Respiratory Disease, Seizure Disorder, Blood Disorder - Social History Alcohol Use: None Alcohol Amount: 6-8 beers, 2-3 x/week Hx Substance Use: Yes Substance Use Type: Reports: None Hx Tobacco Use: Yes Smoking Status (MU): Current Some Day Smoker Type: Cigarettes Amount Used/How Often: 1ppd Length of Time of Smoking/Using Tobacco: 30 YEARS Have You Smoked in the Last Year: Yes Review of Systems Positive: Vomiting, Nausea Neurological: Other - positive - light-headedness Positive: Headache All Other Systems Reviewed And Are Negative: Yes Physical Exam - Summary Physical Exam Summary: Appearance: The patient is well-nourished in no acute distress and in no acute pain. Skin: The skin is warm and dry, and skin color reflects adequate perfusion. HEENT: The head is normocephalic and atraumatic. The pupils are equal and reactive. The conjunctivae are clear and without drainage. Nares are patent and without drainage. Mouth reveals moist mucous membranes, and the throat is without erythema and exudate. The external ears are intact. The ear canals are patent and without drainage. The tympanic membranes are intact. Neck: The neck is supple with full range of motion and non-tender. There are no carotid bruits. There is no neck vein distension. Respiratory: Chest is non-tender. Lungs are clear to auscultation and breath sounds are symmetrical and equal. Cardiovascular: Heart is regular rate and rhythm. There is no murmur or rub auscultated. There is no peripheral edema and pulses are symmetrical and equal. Abdomen: The abdomen is soft and non-tender. There are normal bowel sounds heard in all four quadrants and there is no organomegaly palpated. Musculoskeletal: There is no back tenderness noted. Extremities are non-tender with full range of motion. There is good capillary refill. There is no peripheral edema or calf tenderness elicited. Neurological: Patient is alert and oriented to person, place and time. The patient has symmetrical motor strength in all four extremities. Cranial nerves are grossly intact. Deep tendon reflexes are symmetrical and equal in all four extremities. Psychiatric: The patient has an appropriate affect and does not exhibit any anxiety or depression. Triage Information Reviewed: Yes Vital Signs On Initial Exam: Initial Vitals Temp Pulse Resp BP Pulse Ox 98 F 83 16 142/75 96 03/31/19 12:12 03/31/19 12:12 03/31/19 12:12 03/31/19 12:12 03/31/19 12:12 Vital Signs Reviewed: Yes Procedures - Sedation Patient Received Moderate/Deep Sedation with Procedure: No Diagnostics - Vital Signs Vital Signs Temp Pulse Resp BP Pulse Ox 03/31/19 12:12 98 F 83 16 142/75 96 - Laboratory Result Diagrams: 03/31/19 13:15 03/31/19 13:15 Lab Statement: Any lab studies that have been ordered have been reviewed, and results considered in the medical decision making process. Re-Evaluation - Re-Evaluation First Eval Re-Evaluation Time: 15:07 Change: Improved Comment: Patient reports improvement of pain at this time, but does note some back pain after having been lying in a stretcher. Patient has a tumor in his back. Headache Course/Dx - Course Course Of Treatment: Mr. Mason presented with a concern that his hyponatremia was worsening. He comes in with a headache and nausea and malaise which she says is how he feels when he gets hyponatremic. His sodium was [address] Palomino's office. He was recommended to restrict fluids which she has been trying to do. He was nontoxic in appearance with stable vitals. Sodium here was 126. He got a liter of saline and did feel much improved. I recommended follow-up by calling Dr. Palomino's office tomorrow. - Diagnoses Provider Diagnoses: Hyponatremia, Dehydration Discharge ED - Sign-Out/Discharge Documenting (check all that apply): Patient Departure - discharge - Discharge Plan Condition: Stable Disposition: HOME Patient Education Materials: Dehydration (ED), Hyponatremia (ED) Referrals: Palomo Roque MD [Primary Care Provider] - Sundar Palomino MD [Medical Doctor] - Additional Instructions: PLEASE RETURN TO ED FOR ANY NEW OR CONCERNING SYMPTOMS. PLEASE FOLLOW UP WITH YOUR PRIMARY CARE PHYSICIAN AND YOUR ONCOLOGIST WITHIN THREE DAYS. - Billing Disposition and Condition Condition: STABLE Disposition: Home - Attestation Statements Document Initiated by Anthony: Yes Documenting Scribe: GILDA MCKEON Provider For Whom Anthony is Documenting (Include Credential): ELIF DAVID MD Scribe Attestation: I, GILDA MCKEON, scribed for ELIF DAVID MD on 03/31/19 at 1812. Scribe Documentation Reviewed: Yes Provider Attestation: The documentation as recorded by the GILDA valladares accurately reflects the service I personally performed and the decisions made by me, ELIF DAVID MD Status of Scribe Document: Viewed
[2019-03-31 13:26] LABS: ABS Basophils 0.1 10^3/ul (0-0.2); ABS Eosinophils 0.2 10^3/ul (0-0.6); ABS Lymphocytes 1.9 10^3/ul (1.0-4.8); ABS Monocytes 0.9 10^3/ul (0-0.8); ABS Neutrophils 6.4 10^3/ul (1.5-7.7); Eosinophil % 2.2 %; Hematocrit 35 % (42-52); Hemoglobin 12.3 g/dL (14.0-18.0); Lymphocyte % 19.7 %; Mean Corpuscular HGB Conc 35 g/dL (31-36); Mean Corpuscular Hemoglobin 33 pg (27-31); Mean Corpuscular Volume 94 fL (80-94); Mean Platelet Volume 5.8 fL (7.4-10.4); Platelet Count 427 10^3/uL (150-450); Red Blood Count 3.72 10^6 /uL (4.18-5.48); Red Cell Distribution Width 16 % (10-15); White Blood Count 9.4 10^3/uL (3.5-10.8)
[2019-03-31 13:43] LABS: Albumin 4.2 g/dL (3.2-5.2); Albumin/Globulin Ratio 1.6 (1-3); BUN/Creatinine Ratio 11.5 (8-20); Calcium 9.4 mg/dL (8.6-10.3); EGFR Non-African American 138.8 (>60); Globulin 2.7 g/dL (2-4); Potassium 4.2 mmol/L (3.5-5.0); Total Bilirubin 0.3 mg/dL (0.2-1.0); Total Protein 6.9 g/dL (6.4-8.9)
[2019-03-31] MEDS ORDERED: NS 0.9% 1000 ML** 1,000 ML IV ONE (14:12)
[2019-03-31 15:59] VITALS: BP 139/83
== END 2019-03-31 16:13 | disposition home or self-care (01) ==
LOC: ED 12:07
DX: E87.1 Hypo-osmolality and hyponatremia (principal); E86.0 Dehydration; R51 Headache; C34.90 Malignant neoplasm of unspecified part of unspecified bronchus or lung; C79.51 Secondary malignant neoplasm of bone; Z72.0 Tobacco use
CPT/HCPCS: 36415; 80053; 85025; 96361; 96374; 99283; J1642

== ENCOUNTER 2019-04-15 17:36 | Emergency (ER) | payer BC ==
[2019-04-15 19:58] VITALS: BP 131/84
[2019-04-15 19:58] LABS: ABS Basophils 0.1 10^3/ul (0-0.2); ABS Eosinophils 0.2 10^3/ul (0-0.6); ABS Lymphocytes 1.6 10^3/ul (1.0-4.8); ABS Monocytes 1.1 10^3/ul (0-0.8); ABS Neutrophils 8.2 10^3/ul (1.5-7.7); Eosinophil % 1.7 %; Hematocrit 35 % (42-52); Hemoglobin 12.1 g/dL (14.0-18.0); Mean Corpuscular HGB Conc 35 g/dL (31-36); Mean Corpuscular Hemoglobin 33 pg (27-31); Mean Corpuscular Volume 94 fL (80-94); Mean Platelet Volume 6.1 fL (7.4-10.4); Platelet Count 521 10^3/uL (150-450); Red Blood Count 3.69 10^6 /uL (4.18-5.48); Red Cell Distribution Width 15 % (10-15); White Blood Count 11.1 10^3/uL (3.5-10.8)
[2019-04-15 20:12] LABS: Albumin 4.3 g/dL (3.2-5.2); Albumin/Globulin Ratio 1.3 (1-3); BUN/Creatinine Ratio 14.5 (8-20); Calcium 9.5 mg/dL (8.6-10.3); EGFR African American 164.8 (>60); EGFR Non-African American 136.2 (>60); Globulin 3.2 g/dL (2-4); Potassium 3.8 mmol/L (3.5-5.0); Total Bilirubin 0.3 mg/dL (0.2-1.0); Total Protein 7.5 g/dL (6.4-8.9)
== END 2019-04-15 21:09 | disposition left against medical advice (07) ==
LOC: ED 17:36
DX: R10.9 Unspecified abdominal pain (principal); Z53.21 Procedure and treatment not carried out due to patient leaving prior to being seen by health care provider
CPT/HCPCS: 36415; 80053; 83690; 85025; 99282

== ENCOUNTER 2019-04-26 16:55 | Observation (INO) | payer BC ==
[2019-04-26] MEDS ORDERED: Acetaminophen TAB* 325 MG PO PRN (17:23)
[2019-04-26] MEDS ORDERED: Albuterol HFA INHALER* 8 gm MDI INH PRN (17:27)
[2019-04-26] MEDS: Hydrocodone/Acetamin 10/325 1 TAB PO PRN ×2 (17:54→22:10)
[2019-04-26] MEDS ORDERED: Prochlorperazine TAB* 10 MG PO SCH (18:00)
[2019-04-26] MEDS: Enoxaparin(*) 40 MG/0.4 ML SYR SUBCUT SCH (20:34)
[2019-04-26] MEDS: Ondansetron TAB* 4 MG PO PRN (20:35)
[2019-04-26] MEDS: Demeclocycline TAB* 150 MG PO SCH (20:36)
[2019-04-26] MEDS: Sodium Chloride TAB* 1 GM PO SCH (20:38)
[2019-04-26] MEDS: Prochlorperazine TAB* 10 MG PO SCH (20:39)
[2019-04-26] MEDS ORDERED: Nicotine PATCH 21 MG/24 HR* PATCH TRANSDERM SCH (22:00)
[2019-04-26] MEDS: traZODone TAB* 100 MG PO SCH (22:08)
[2019-04-26] MEDS: Docusate CAP* 100 MG PO SCH (22:10)
[2019-04-26] MEDS: Magnesium Hydroxide LIQ* 30 ML UDC PO PRN (22:11)
[2019-04-27] MEDS: Prochlorperazine TAB* 10 MG PO SCH ×6 (02:05→20:51)
[2019-04-27] MEDS: Hydrocodone/Acetamin 10/325 1 TAB PO PRN ×5 (02:11→19:24)
[2019-04-27] MEDS: Nicotine PATCH 21 MG/24 HR* PATCH TRANSDERM SCH (05:23)
[2019-04-27] MEDS: Magnesium Hydroxide LIQ* 30 ML UDC PO PRN ×2 (05:23→21:01)
[2019-04-27] MEDS: Ondansetron TAB* 4 MG PO PRN ×2 (06:01→10:04)
[2019-04-27 06:04] LABS: ABS Eosinophils 0.1 10^3/ul (0-0.6); ABS Lymphocytes 2.6 10^3/ul (1.0-4.8); ABS Monocytes 0.3 10^3/ul (0-0.8); ABS Neutrophils 4.2 10^3/ul (1.5-7.7); Eosinophil % 1.1 %; Hematocrit 32 % (42-52); Hemoglobin 11.4 g/dL (14.0-18.0); Lymphocyte % 36.2 %; Mean Corpuscular HGB Conc 36 g/dL (31-36); Mean Corpuscular Hemoglobin 32 pg (27-31); Mean Corpuscular Volume 90 fL (80-94); Mean Platelet Volume 6.5 fL (7.4-10.4); Platelet Count 411 10^3/uL (150-450); Red Blood Count 3.54 10^6 /uL (4.18-5.48); Red Cell Distribution Width 14 % (10-15); White Blood Count 7.3 10^3/uL (3.5-10.8)
[2019-04-27 06:26] LABS: Albumin 3.5 g/dL (3.2-5.2); Albumin/Globulin Ratio 1.3 (1-3); BUN/Creatinine Ratio 11.1 (8-20); Calcium 9.1 mg/dL (8.6-10.3); EGFR African American 193.3 (>60); EGFR Non-African American 159.8 (>60); Globulin 2.6 g/dL (2-4); Potassium 4.1 mmol/L (3.5-5.0); Total Bilirubin 0.4 mg/dL (0.2-1.0); Total Protein 6.1 g/dL (6.4-8.9)
[2019-04-27] MEDS: Cetirizine* 10 MG TAB PO SCH (07:20)
[2019-04-27] MEDS: Demeclocycline TAB* 150 MG PO SCH ×2 (07:20→20:51)
[2019-04-27] MEDS: Atorvastatin* 80 MG TAB PO SCH (07:21)
[2019-04-27] MEDS: Aspirin TAB* 325 MG PO SCH (07:21)
[2019-04-27] MEDS: Famotidine TAB* 20 MG PO SCH (07:21)
[2019-04-27] MEDS: Sodium Chloride TAB* 1 GM PO SCH ×3 (07:21→20:51)
[2019-04-27] MEDS: Polyethylene Glycol 3350* 17 GM PACKET PO SCH (07:22)
[2019-04-27] MEDS ORDERED: Albuterol HFA INHALER* 8 gm MDI INH SCH (10:00)
[2019-04-27] MEDS ORDERED: Iohexol 300* (CONTRAST) 10 ML SDV IV ONE (10:39)
[2019-04-27 15:39] LABS: BUN/Creatinine Ratio 12.1 (8-20); Calcium 8.7 mg/dL (8.6-10.3); EGFR Non-African American 147.1 (>60); Potassium 4.3 mmol/L (3.5-5.0)
[2019-04-27] MEDS: Enoxaparin(*) 40 MG/0.4 ML SYR SUBCUT SCH (16:50)
[2019-04-27] MEDS: Albuterol HFA INHALER* 8 gm MDI INH SCH (20:03)
[2019-04-27] MEDS: Docusate CAP* 100 MG PO SCH (20:51)
[2019-04-27] MEDS: traZODone TAB* 100 MG PO SCH (20:54)
[2019-04-28] MEDS: Prochlorperazine TAB* 10 MG PO SCH ×2 (03:08→07:41)
[2019-04-28] MEDS: Hydrocodone/Acetamin 10/325 1 TAB PO PRN ×3 (03:15→09:48)
[2019-04-28] MEDS: Nicotine PATCH 21 MG/24 HR* PATCH TRANSDERM SCH (06:05)
[2019-04-28 06:40] LABS: BUN/Creatinine Ratio 13.8 (8-20); Calcium 8.9 mg/dL (8.6-10.3); EGFR Non-African American 147.1 (>60)
[2019-04-28] MEDS: Cetirizine* 10 MG TAB PO SCH (07:41)
[2019-04-28] MEDS: Sodium Chloride TAB* 1 GM PO SCH (07:41)
[2019-04-28] MEDS: Aspirin TAB* 325 MG PO SCH (07:41)
[2019-04-28] MEDS: Demeclocycline TAB* 150 MG PO SCH (07:42)
[2019-04-28] MEDS: Atorvastatin* 80 MG TAB PO SCH (07:42)
[2019-04-28] MEDS: Famotidine TAB* 20 MG PO SCH (07:42)
[2019-04-28] MEDS: Polyethylene Glycol 3350* 17 GM PACKET PO SCH (07:43)
[2019-04-28] MEDS: Albuterol HFA INHALER* 8 gm MDI INH SCH (08:55)
[2019-04-28 13:02] VITALS: BP 115/62
--- NOTE | 2019-04-28 16:02 | CONS ---
PULMONARY CONSULTATION REPORT: DATE OF CONSULT: 04/28/19 CONSULTATION REQUESTED BY: Dr. Palomino. REASON FOR CONSULT: Evaluation of abnormal CT chest. HISTORY OF PRESENT ILLNESS: The patient is a 53-year-old male with history of extensive stage small cell lung cancer diagnosed in October of 2018 after EBUS done in October of 2018 at [facility]. The patient was hospitalized in November for hyponatremia requiring hypertonic saline. He was subsequently initiated on chemo with carbo, etoposide, and temozolomide in November. He received 6 cycles, completed on 03/26/19. He had been hospitalized for evaluation of hyponatremia. His sodium was 121 on admission. It improved slightly to 125. He is up for discharge today. He is not symptomatic. The patient had CT scan of the chest, abdomen and pelvis on 04/27/19. I have personally reviewed CT scan and with the patient today at bedside. The patient noted to have cavitary lesion in the left upper lobe with thickening of the emanuel, size approximately around 3.6 cm. The patient with surrounding ground-glass opacification and small cystic structures surrounding the cavity. The patient appears to have a density in the cavitary lesion. The patient also with paraseptal emphysematous changes predominantly in the apices. The patient also with bulky mediastinal adenopathy, which is increased compared to the prior scan from March of 2019. PAST MEDICAL HISTORY: 1. Small cell lung cancer. No prior diagnosis of COPD as per the patient. 2. Allergic rhinitis. 3. Colon polyps. 4. Dyslipidemia. 5. Hypertension. 6. Insomnia. 7. Prior tobacco abuse. PAST SURGICAL HISTORY: 1. Aneurysm of the right iliac artery. 2. Colonoscopy for polyps. 3. Elbow and knee surgery. MEDICATIONS AT HOME: 1. Trazodone. 2. Salt tablets. 3. Compazine. 4. MiraLAX. 5. Ondansetron. 6. Omeprazole. 7. Loratadine. 8. Hydrocodone/acetaminophen. 9. Famotidine. 10. Docusate. 11. Demeclocycline. 12. Atorvastatin. 13. Aspirin. 14. Albuterol inhaler. ALLERGIES: No known drug allergies. FAMILY HISTORY: Hypertension and diabetes in the family. SOCIAL HISTORY: He is , lives with family. He is a former smoker. REVIEW OF SYSTEMS: All 12 systems reviewed and as per HPI. PHYSICAL EXAM: The patient is sitting up in bed, in no apparent distress. Vital Signs: Temperature 98, pulse 80 beats per minute, respiratory rate 16 per minute, O2 sat 98% on room air, blood pressure 115/62. HEENT: Pupils equal , reactive to light. Mucous membranes moist. Lungs: Diminished air entry bilaterally, scattered wheeze. Cardiovascular: S1, S2 present, regular. Abdomen: Soft, nontender, nondistended. Bowel sounds present. Extremities: Normal range of motion. Skin: No rash. Neuro: Alert, awake, oriented x3. No focal deficits. DIAGNOSTIC STUDIES/LAB DATA: WBC count 7.3, hemoglobin 11.4, hematocrit 32, platelet count 411. Sodium 120 on admission and 125 today, potassium 4, chloride 95, bicarb 24, BUN 8, creatinine 0.58. CT of the chest, abdomen, and pelvis as described above in HPI. IMPRESSION AND RECOMMENDATIONS: 53-year-old male with extensive stage small cell lung cancer diagnosed in October of 2018, status post chemo, with evidence of dense adenopathy with slight progression in the mediastinum from prior scan. The patient also with cavitary lesion in the left upper lobe that also has progressed from before. Reason for cavitary lesion includes infectious and inflammatory versus neoplastic causes. Also suspect possible fungal ball in the cavitary lesion. The patient with prior history of pneumonia and effusion. The patient's pneumonia has improved; however, the cavitary lesion has increased in size. We will need to evaluate whether this could be representing progression of his cancer. He would need a biopsy of that lesion. Discussed options with the patient, which included bronchoscopy with biopsy versus CT-guided biopsy. The patient does not want to go through anesthesia for the procedure. He would be willing to do CT-guided biopsy. Pathophysiology of chronic obstructive pulmonary disease was also reviewed with the patient today. Help with inhalers was also discussed. The patient is currently only on rescue inhaler. Discussed with Dr. Palomino regarding starting the patient on LABA/LAMA combination. Above recommendations were discussed in detail with Dr. Palomino. He will be helping to arrange CT-guided biopsy for the patient. Thank you for allowing me to participate in the care of your patient. Will follow up as needed. [id number]/[facility] #: [id number] [facility]ITAL[facility]
== END 2019-04-28 13:15 | disposition home or self-care (01) ==
LOC: MED 17:41
PROVIDERS: ADMIT Physician Assistant; ATTEND Internal Medicine Hematology & Oncology
DX: C34.90 Malignant neoplasm of unspecified part of unspecified bronchus or lung (principal); J30.9 Allergic rhinitis, unspecified; K63.5 Polyp of colon; E78.5 Hyperlipidemia, unspecified; I10 Essential (primary) hypertension; G47.00 Insomnia, unspecified; Z87.891 Personal history of nicotine dependence; Z92.21 Personal history of antineoplastic chemotherapy; Z79.899 Other long term (current) drug therapy; Z79.82 Long term (current) use of aspirin; J90 Pleural effusion, not elsewhere classified; J43.9 Emphysema, unspecified
CPT/HCPCS: 36415; 71260; 74177; 80048; 80053; 85025; 94640; 96372; 99220; A9270-GY; G0378; J1642; J1650; Q0164; Q9967

== ENCOUNTER 2019-05-17 14:36 | Emergency (ER) | payer BC ==
--- NOTE | 2019-05-17 15:55 | ED ---
Complex/Multi-Sys Presentation - HPI Summary HPI Summary: This pt is a 53 y/o male, with hx of small cell lung CA completed chemo on 2018, presenting to [facility] for feeling ill. Pt reports he is followed up by Dr. Palomino, oncologist. Pt had lung biopsy on the left on 05/14/[address] Whelan. Pt states it was found he had an abscess on left lung. Pt states ever since his biopsy he has been feeling sick with fevers, nausea, dizziness, fatigue, cough and dizziness. Additionally notes left sided chest pain. Pt also sees a consumer affairs specialist. PMHx: COPD, chronic hyponatremia. - History Of Current Complaint Chief Complaint: EDGeneral Time Seen by Provider: 05/17/19 15:41 Hx Obtained From: Patient Onset/Duration: Lasting Days, Still Present Timing: Days Severity Currently: Moderate Location: Negative Aggravating Factor(s): nothing Alleviating Factor(s): nothing Associated Signs And Symptoms: Positive: Dizziness, Cough, Chest Pain, Nausea, Fever, Other - POSITIVE: fatigue - Allergies/Home Medications Allergies/Adverse Reactions: Allergies Allergy/AdvReac Type Severity Reaction Status Date / Time No Known Allergies Allergy Verified 05/17/19 14:45 Home Medications: Home Medications Albuterol HFA INHALER* [Ventolin HFA Inhaler*] 2 puff INH Q4HR PRN 05/17/19 [ History Confirmed 05/17/19] Amoxicillin/Clavulanate TAB* [Augmentin TAB 875*] 875 mg PO BID 05/17/19 [ History Confirmed 05/17/19] D-Methorphan/PE/Acetaminophen [Cold Multi-Symptom Daytim] 2 tab PO DAILY [History Confirmed 05/17/19] Docusate Sodium [Stool Softener] 200 mg PO DAILY 05/17/19 [History Confirmed ] LoraTADine TAB(NF) [Claritin 10 MG TAB(NF)] 10 mg PO DAILY PRN 05/17/19 [ History Confirmed 05/17/19] Omeprazole (Nf) [Prilosec (NF)] 40 mg PO BID 05/17/19 [History Confirmed ] Polyethylene Glycol 3350* [Miralax*] 17 gm PO DAILY 05/17/19 [History Confirmed 05/17/19] Prochlorperazine TAB* [Compazine Tab*] 10 mg PO QAM PRN 05/17/19 [History Confirmed 05/17/19] predniSONE TAB* [Deltasone 20 MG TAB*] 40 mg PO DAILY 05/17/19 [History Confirmed 05/17/19] PMH/Surg Hx/FS Hx/Imm Hx Endocrine/Hematology History: Denies: Hx Anticoagulant Therapy, Hx Blood Transfusions, Hx Diabetes, Hx Thyroid Disease, Hx Anemia Cardiovascular History: Reports: Hx Aneurysm - repaired with graft, Hx Hypercholesterolemia, Hx Peripheral Vascular Disease - Clogged artery LLE, Other Cardiovascular Problems/Disorders - clogged artery right groin, Denies: Hx Congenital Heart Disease, Hx Congestive Heart Failure, Hx Deep Vein Thrombosis, Hx Embolism, Hx Hypertension, Hx Rheumatic Fever Respiratory History: Reports: Hx Chronic Obstructive Pulmonary Disease (COPD), Hx Lung Cancer, Hx Seasonal Allergies Denies: Hx Asthma, Hx Sleep Apnea GI History: Reports: Hx Diverticulosis - Per Pt seen on colonoscopy Denies: Hx Gall Bladder Disease, Hx Gastroesophageal Reflux Disease, Hx Gastrointestinal Bleed, Hx Hiatal Hernia, Hx Irritable Bowel, Hx Obstructive Bowel, Hx Ulcer History: Denies: Hx Benign Prostatic Hyperplasia, Hx Dialysis, Hx Kidney Infection, Hx Kidney Stones, Hx Renal Disease Musculoskeletal History: Reports: Hx Arthritis, Hx Back Problems, Hx Tendonitis - RIGHT ELBOW, Other Musculoskeletal History - BILATERAL CARPAL TUNNEL SYNDROME , surgically repaired Denies: Hx Fibromyalgia, Hx Gout, Hx Orthopedic Injury, Hx Osteoporosis Sensory History: Denies: Hx Contacts or Glasses, Hx Hearing Aid, Other Sensory Impairments Opthamlomology History: Denies: Hx Contacts or Glasses, Other Sensory Impairments Neurological History: Reports: Hx Migraine - OCCASIONAL Psychiatric History: Reports: Hx Substance Abuse Denies: Hx Eating Disorder, Hx Post Traumatic Stress Disorder, Hx of Violent Episodes Against Others - Cancer History Cancer Type, Location and Year: small cell lung Hx Chemotherapy: Yes Hx Radiation Therapy: No - Surgical History Surgery Procedure, Year, and Place: 2001 SUSPENSION MICROL[place]OSCOPY[place] [facility] [place]THROSCOPIC SURG[place] LEFT KNEE, [facility]. 05/29/2006 RIGHT KNEE ARTHROSCOPY, REPAIR TORN MENISCUS, ACL DEBRIDEMENT, [facility]. 06/08/2006 RIGHT KNEE ARTHROSCOPY, [facility]. LEFT ELBOW SURGERY, [facility]. 2014 RIGHT GROIN ANEURYSM REPAIR, [place] Hx Anesthesia Reactions: No Infectious Disease History: Yes Infectious Disease History: Reports: Hx of Known/Suspected MRSA Denies: Hx Clostridium Difficile, Hx Hepatitis, Hx Human Immunodeficiency Virus (HIV), Hx Shingles, Hx Tuberculosis, Hx Known/Suspected VRE, Hx Known/ Suspected VRSA, History Other Infectious Disease, Traveled Outside the [place] in Last 30 Days - Family History Known Family History: Positive: Hypertension, Diabetes, Other - cancer Negative: Cardiac Disease, Renal Disease, Respiratory Disease, Seizure Disorder, Blood Disorder - Social History Alcohol Use: None Alcohol Amount: 6-8 beers, 2-3 x/week Hx Substance Use: Yes Substance Use Type: Reports: None Hx Tobacco Use: Yes Smoking Status (MU): Current Some Day Smoker Type: Cigarettes Amount Used/How Often: 1ppd Length of Time of Smoking/Using Tobacco: 30 YEARS Have You Smoked in the Last Year: Yes Review of Systems Positive: Fever, Fatigue Positive: Cough Positive: Nausea Neurological: Other - POSITIVE: dizziness All Other Systems Reviewed And Are Negative: Yes Physical Exam - Summary Physical Exam Summary: Constitutional: Well-developed, Well-nourished, Alert. (-) Distressed Skin: Warm, Dry HENT: Normocephalic; Atraumatic Eyes: Conjunctiva normal Neck: Musculoskeletal ROM normal neck. (-) JVD, (-) Stridor Cardio: Rhythm regular, rate normal, Heart sounds normal; Intact distal pulses; Radial pulses are 2+ and symmetric. (-) Murmur Pulmonary/Chest wall: Effort normal. (-) Respiratory distress, Wheezing bilaterally. Port on left chest wall. Lung biopsy to anterior left chest wall with mild tenderness, no erythema or fluctuance. Abd: Soft, (-) tenderness, (-) Distension, (-) Guarding, (-) Rebound Musculoskeletal: (-) Edema Lymph: (-) Cervical adenopathy Neuro: Alert, Oriented x3 Psych: Mood and affect Normal Triage Information Reviewed: Yes Vital Signs On Initial Exam: Initial Vitals Temp Pulse Resp BP Pulse Ox 99.7 F 104 15 133/62 96 05/17/19 14:43 05/17/19 14:43 05/17/19 14:43 05/17/19 14:43 05/17/19 14:43 Vital Signs Reviewed: Yes Procedures - Sedation Patient Received Moderate/Deep Sedation with Procedure: No Diagnostics - Vital Signs Vital Signs Temp Pulse Resp BP Pulse Ox 12/27/19 14:43 99.7 F 104 15 133/62 96 - Laboratory Result Diagrams: 05/17/19 15:55 05/17/19 15:55 Lab Statement: Any lab studies that have been ordered have been reviewed, and results considered in the medical decision making process. - Radiology Chest XR Radiology Interpretation Completed By: Radiologist Summary of Radiographic Findings: IMPRESSION: Persistent left midlung zone abscess unchanged from previous exam. There is likely adjacent infiltrate noted. Dr. White has reviewed this report. - EKG 1550 Cardiac Rate: NL - at 97 bpm EKG Rhythm: Sinus Rhythm Summary of EKG Findings: EKG at 1550 shows normal sinus rhythm at a rate of 97 bpm. Otherwise unremarkable. Re-Evaluation - Re-Evaluation First Eval Re-Evaluation Time: 18:16 Comment: Flu is still pending. Second Eval Re-Evaluation Time: 18:33 Comment: Flu is negative. Pt will be discharged home. Complex Multi-Symp Course/Dx Course Of Treatment: 53 y/o male w hx small cell lung cancer followed by Dr. Palomino, recent left lung abscess diagnosed via biopsy on Levaquin presents with fatigue and feeling unwell. -X-ray with similar. To prior, labs notable for hyponatremia to 125 which is chronic. Mild tachycardia resolved with fluids. Afebrile. Leukocytosis similar to prior. Patient given 1 dose of IV Levaquin discuss with on-call oncology who agrees with discharge and patient is feeling better. Flu negative - Diagnoses Provider Diagnoses: Lung abscess - Physician Notifications Discussed Care Of Patient With: Chikis Aguilar Time Discussed With Above Provider: 16:36 Instructed by Provider To: Other - Discussed case with Dr. Aguilar, oncologist, who reports pt was called from the office today and was told biopsy was growing pseudomonas and will be treating with Levaquin. She recommends one dose of Levaquin and 1L of fluids. Discharge ED - Sign-Out/Discharge Documenting (check all that apply): Patient Departure - Discharge home - Discharge Plan Condition: Stable Disposition: HOME Patient Education Materials: Lung Abscess (DC) Referrals: Palomo Roque MD [Primary Care Provider] - Additional Instructions: You were seen in the emergency department for a lung abscess. We gave you IV fluids and antibiotics. Please follow up with your oncologist. Please follow up with your primary care doctor in next 2-3 days and return to emergency department for worsening pain,, shortness of breath, fevers or concerning symptoms. It was a pleasure taking care of you today. - Billing Disposition and Condition Condition: STABLE Disposition: Home - Attestation Statements Document Initiated by Anthony: Yes Documenting Scribe: Helen Fuchs Provider For Whom Scribe is Documenting (Include Credential): Jet White MD Scribe Attestation: IHelen, scribed for Jet White MD on 05/17/19 at 1838. Scribe Documentation Reviewed: Yes Provider Attestation: The documentation as recorded by the Helen valladares accurately reflects the service I personally performed and the decisions made by , Jet White MD Status of Scribe Document: Viewed
[2019-05-17] MEDS ORDERED: NS 0.9% 1000 ML** 1,000 ML IV ONE (16:07)
[2019-05-17] MEDS ORDERED: Albuterol/Ipratropium NEB.SOL* Albuterol 2.5 MG/Ipratropium 0.5 MG 3 ML INH ONE (16:07)
[2019-05-17 16:09] LABS: ABS Basophils 0.1 10^3/ul (0-0.2); ABS Lymphocytes 0.8 10^3/ul (1.0-4.8); ABS Monocytes 0.5 10^3/ul (0-0.8); ABS Neutrophils 9.8 10^3/ul (1.5-7.7); Eosinophil % 0.1 %; Hematocrit 30 % (42-52); Hemoglobin 10.3 g/dL (14.0-18.0); Lymphocyte % 7.3 %; Mean Corpuscular HGB Conc 35 g/dL (31-36); Mean Corpuscular Hemoglobin 31 pg (27-31); Mean Corpuscular Volume 88 fL (80-94); Mean Platelet Volume 5.9 fL (7.4-10.4); Platelet Count 538 10^3/uL (150-450); Red Blood Count 3.35 10^6 /uL (4.18-5.48); Red Cell Distribution Width 16 % (10-15); White Blood Count 11.2 10^3/uL (3.5-10.8)
[2019-05-17] MEDS ORDERED: Levofloxacin 750 MG IVPREMIX(* 750 MG/150 ML BAG IVPB ONE (16:38)
[2019-05-17 16:46] LABS: ALT 19 U/L (7-52); AST 16 U/L (13-39); Albumin 3.8 g/dL (3.2-5.2); Albumin/Globulin Ratio 1.3 (1-3); Alkaline Phosphatase 276 U/L (34-104); Anion Gap 8 mmol/L (2-11); BUN/Creatinine Ratio 14.5 (8-20); Blood Urea Nitrogen 8 mg/dL (6-24); CO2 Carbon Dioxide 23 mmol/L (22-32); Calcium 8.9 mg/dL (8.6-10.3); Chloride 94 mmol/L (101-111); EGFR African American 189.3 (>60); EGFR Non-African American 156.4 (>60); Glucose 110 mg/dL (70-100); Potassium 4.3 mmol/L (3.5-5.0); Sodium 125 mmol/L (135-145); Total Protein 6.8 g/dL (6.4-8.9)
[2019-05-17 17:25] LABS: Troponin I 0.01 ng/mL (<0.03)
[2019-05-17] MEDS ORDERED: HYDROcodone/ACETAMIN 5-325 MG* 1 TAB PO ONE (18:15)
[2019-05-17 18:32] LABS: Influenza A Molecular NEGATIVE (Negative); Influenza B Molecular NEGATIVE (Negative)
[2019-05-17 19:27] VITALS: BP 114/57
== END 2019-05-17 19:26 | disposition home or self-care (01) ==
LOC: ED 14:36
DX: J85.2 Abscess of lung without pneumonia (principal); C34.90 Malignant neoplasm of unspecified part of unspecified bronchus or lung; J44.9 Chronic obstructive pulmonary disease, unspecified; E87.1 Hypo-osmolality and hyponatremia; E78.00 Pure hypercholesterolemia, unspecified; I73.9 Peripheral vascular disease, unspecified; F17.210 Nicotine dependence, cigarettes, uncomplicated; Z79.899 Other long term (current) drug therapy
CPT/HCPCS: 36415; 71046; 80053; 84484; 85025; 93005; 96361; 96365; 96375; 99283; A9270-GY; J1642

== ENCOUNTER 2019-07-12 11:38 | Emergency (ER) | payer SELFPAY ==
--- OUTSIDE RECORDS SUMMARY | 2019-07-12 12:18 | XMS REPORT | Continuity of Care Document ---
:1965 External Reference #:[id number] Author Name Ana Garcia NP (transmitted by agent of provider Lashawn Whitehead) Address [address] [place] [address] Care Team Providers Name Role Phone Arash Sanchez III, MD - Internal Care Team Information Feeder Associate Medicine Problems Active Problems Provider Date Essential hypertension Ritu Harvey M.D. Onset: 04/02/2018 Social History Type Date Description Comments Sex Unknown ETOH Use Currently consumes 6-12 drinks/week alcohol Tobacco Use Start: Unknown Patient is a current 3/4ppd as of 11/02/17. smoker, smokes every day Max 2ppd; began age 22 Smoking Status Reviewed: 06/05/19 Patient is a current 3/4ppd as of 11/02/17. smoker, smokes every day Max 2ppd; began age 22 Exercise Does not exercise Type/Frequency Allergies, Adverse Reactions, Alerts Description No Known Drug Allergies Medications Active Medications SIG Qnty Indications Ordering Date Provider Albuterol Sulfate Inhale 2 Puffs By 8.5units R05 Arash Walker 08/30/2018 HFA Mouth Four Times A Ara Sanchez 108(90Base) Day as Needed mcg/Act Aerosol Lipitor Take 1 Tablet By 30tabs Ritu 10/13/2017 80mg Mouth AT Bedtime Ara Harvey Tablets Lisinopril 1 by mouth every 30tabs rAash Walker 10mg day- further Ara Sanchez Tablets refills after appointment Aspirin Ec take 1 tab by Unknown 325mg mouth every day Tablets DR Fish Oil Burp-Less 1 by mouth every Unknown day 1200mg Capsules Hydrocodone-Acetami Jossy Vigil, nophen ACID CONDENSER 10-325mg Tablets Levaquin 1 tab daily Unknown 500mg Tablets Trazodone HCL Palomo Roque, 100mg MD Tablets Immunizations Description No Information Available Vital Signs Date Vital Result Comment 06/05/2019 2:11pm Height 69 inches 5'9" Weight 167.00 lb Heart Rate 94 /min BP Systolic Sitting 126 mmHg BP Diastolic Sitting 80 mmHg Respiratory Rate 14 /min Body Temperature 97.1 F O2 % BldC Oximetry 97 % BMI (Body Mass Index) 24.7 kg/m2 04/02/2018 1:27pm Height 68.2 inches 5'8.20" Weight 206.00 lb Heart Rate 79 /min BP Systolic Sitting 152 mmHg BP Diastolic Sitting 89 mmHg Body Temperature 97.1 F O2 % BldC Oximetry 97 % BMI (Body Mass Index) 31.1 kg/m2 Results Test Acquired Date Facility Test Result H/L Range Note Inr/Protime 05/14/2019 [facility] Inr 1.29 High 0.82-1.[address] [place] [address] [phone] Platelet Count 05/14/2019 [facility] Platelet 601 10^3/uL High 150-[address] [place] [address] [phone] Mean Platelet Volume 5.6 fL Low 7.4-10.4 1 Standard intensity warfarin therapeutic range: 2.0-3.0 High intensity warfarin therapeutic range: 2.5-3.5 Procedures Date Code Description Status 12/10/2018 69101 Moderate Sedation Services; Same Phys Intl 15 Mins; PT >= Completed 5 Years 12/10/2018 27807 Fluoroscopic Guidance For Cent Completed 12/10/2018 37372 Ultrasound Guidance For Vascular Access Completed 12/10/2018 42315 Insertion Tunneled Cent Venous Cathr W Subcut Port 5 Yrs Completed Or Oldr Medical Devices Description No Information Available Encounters Type Date Location Provider Dx Diagnosis Office Visit 04/28/2019 Pulmonology And Nikki Jenkins, C34.90 Malignant 1:21p [facility] Of neoplasm of unsp Mobility 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
[2019-07-12] MEDS ORDERED: NS 0.9% 1000 ML** 1,000 ML IV ONE (12:43)
--- NOTE | 2019-07-12 12:52 | ED ---
Complex/Multi-Sys Presentation - HPI Summary HPI Summary: Patient is a 53 y/o M presenting to [facility] with complaints of dizziness, decreased PO intake, weight loss, fatigue, N/V and cough. Patient has Hx of small cell lung cancer and is followed by Dr. Palomino. He states that he was on chemotherapy until last March 2019. He was noted to have a lung abscess in April 2019, patient later placed on chemotherapy once more when it was noted that his tumor was growing. He notes that he is currently receiving chemotherapy once weekly on Tuesdays. Patient states that he has a steroid inhaler for asthma, patient reports that he has gone "downhill" since being prescribed the inhaler. Patient characterizes his dizziness as a room-spinning sensation and that is aggravated when standing up/lying down. No fevers noted. Patient also states that he had bloodwork done a few days ago which revealed he has dysfunction of his adrenal glands. Home medications and allergies are reviewed. Home Medications Medication Instructions Recorded Confirmed Type Ondansetron TAB* [Zofran 4 MG Tab*] 4 mg PO Q4HR PRN 12/14/18 07/12/19 History Aspirin TAB* [Aspirin 325 MG TAB*] 325 mg PO DAILY 12/25/18 07/12/19 History Omeprazole (Nf) [Prilosec (NF)] 40 mg PO BID 05/17/19 07/12/19 History Prochlorperazine 10 mg TAB 10 mg PO Q6H PRN 05/17/19 07/12/19 History [Compazine 10 mg TAB] Demeclocycline TAB* [Declomycin 300 mg PO TID 07/12/19 07/12/19 History TAB*] Dexamethasone [Decadron] 4 mg PO BID #60 tablet 07/12/19 Rx Famotidine TAB* [Pepcid 20 MG TAB*] 20 mg PO DAILY 07/12/19 07/12/19 History Fludrocortisone Acetate TAB* 0.1 mg PO DAILY 07/12/19 07/12/19 History [Florinef TAB*] Sodium Chloride TAB* 1 gm PO TID 07/12/19 07/12/19 History - History Of Current Complaint Chief Complaint: EDGeneral Time Seen by Provider: 07/12/19 12:19 Hx Obtained From: Patient Onset/Duration: Still Present Timing: Constant Aggravating Factor(s): standing up/lying down Associated Signs And Symptoms: Positive: Dizziness, Cough, Nausea, Vomiting, Decreased Oral Intake, Other - positive - weight loss - Allergies/Home Medications Allergies/Adverse Reactions: Allergies Allergy/AdvReac Type Severity Reaction Status Date / Time No Known Allergies Allergy Verified 07/12/19 11:48 Home Medications: Home Medications Ondansetron TAB* [Zofran 4 MG Tab*] 4 mg PO Q4HR PRN 12/14/18 [History Confirmed 07/12/19] Aspirin TAB* [Aspirin 325 MG TAB*] 325 mg PO DAILY 12/25/18 [History Confirmed 07/12/19] Omeprazole (Nf) [Prilosec (NF)] 40 mg PO BID 05/17/19 [History Confirmed ] Prochlorperazine 10 mg TAB [Compazine 10 mg TAB] 10 mg PO Q6H PRN 05/17/19 [ History Confirmed 07/12/19] Demeclocycline TAB* [Declomycin TAB*] 300 mg PO TID 07/12/19 [History Confirmed 07/12/19] Dexamethasone [Decadron] 4 mg PO BID #60 tablet 07/12/19 [Rx] Famotidine TAB* [Pepcid 20 MG TAB*] 20 mg PO DAILY 07/12/19 [History Confirmed 07/12/19] Fludrocortisone Acetate TAB* [Florinef TAB*] 0.1 mg PO DAILY 07/12/19 [History Confirmed 07/12/19] Sodium Chloride TAB* 1 gm PO TID 07/12/19 [History Confirmed 07/12/19] PMH/Surg Hx/FS Hx/Imm Hx Endocrine/Hematology History: Denies: Hx Anticoagulant Therapy, Hx Blood Transfusions, Hx Diabetes, Hx Thyroid Disease, Hx Anemia Cardiovascular History: Reports: Hx Aneurysm - repaired with graft, Hx Hypercholesterolemia, Hx Peripheral Vascular Disease - Clogged artery LLE, Other Cardiovascular Problems/Disorders - clogged artery right groin, Denies: Hx Congenital Heart Disease, Hx Congestive Heart Failure, Hx Deep Vein Thrombosis, Hx Embolism, Hx Hypertension, Hx Rheumatic Fever Respiratory History: Reports: Hx Chronic Obstructive Pulmonary Disease (COPD), Hx Lung Cancer, Hx Seasonal Allergies Denies: Hx Asthma, Hx Sleep Apnea GI History: Reports: Hx Diverticulosis - Per Pt seen on colonoscopy Denies: Hx Gall Bladder Disease, Hx Gastroesophageal Reflux Disease, Hx Gastrointestinal Bleed, Hx Hiatal Hernia, Hx Irritable Bowel, Hx Obstructive Bowel, Hx Ulcer History: Denies: Hx Benign Prostatic Hyperplasia, Hx Dialysis, Hx Kidney Infection, Hx Kidney Stones, Hx Renal Disease Musculoskeletal History: Reports: Hx Arthritis, Hx Back Problems, Hx Tendonitis - RIGHT ELBOW, Other Musculoskeletal History - BILATERAL CARPAL TUNNEL SYNDROME , surgically repaired Denies: Hx Fibromyalgia, Hx Gout, Hx Orthopedic Injury, Hx Osteoporosis Sensory History: Denies: Hx Contacts or Glasses, Hx Hearing Aid, Other Sensory Impairments Opthamlomology History: Denies: Hx Contacts or Glasses, Other Sensory Impairments Neurological History: Reports: Hx Migraine - OCCASIONAL Psychiatric History: Reports: Hx Substance Abuse Denies: Hx Eating Disorder, Hx Post Traumatic Stress Disorder, Hx of Violent Episodes Against Others - Cancer History Cancer Type, Location and Year: small cell lung Hx Chemotherapy: Yes Hx Radiation Therapy: No - Surgical History Surgery Procedure, Year, and Place: 2001 SUSPENSION MICROLARYNGOSCOPY, R[place]ID [place] , [facility] [place] 2004 ARTHROSCOPIC SURGERY LEFT KNEE, [facility] [place]. 05/29/2006 RIGHT KNEE ARTHROSCOPY, REPAIR TORN MENISCUS, ACL DEBRIDEMENT, [facility] [place]. 06/08/2006 RIGHT KNEE ARTHROSCOPY, [facility] [place]. LEFT ELBOW SURGERY, [facility] [place]. 2014 RIGHT GROIN ANEURYSM REPAIR, [place] Hx Anesthesia Reactions: No Infectious Disease History: No Infectious Disease History: Reports: Hx of Known/Suspected MRSA Denies: Hx Clostridium Difficile, Hx Hepatitis, Hx Human Immunodeficiency Virus (HIV), Hx Shingles, Hx Tuberculosis, Hx Known/Suspected VRE, Hx Known/ Suspected VRSA, History Other Infectious Disease, Traveled Outside the [place] in Last 30 Days - Family History Known Family History: Positive: Hypertension, Diabetes, Other - cancer Negative: Cardiac Disease, Renal Disease, Respiratory Disease, Seizure Disorder, Blood Disorder - Social History Alcohol Use: None Alcohol Amount: 6-8 beers, 2-3 x/week Hx Substance Use: Yes Substance Use Type: Reports: Marijuana Hx Tobacco Use: Yes Smoking Status (MU): Heavy Every Day Tobacco Smoker Type: Cigarettes Amount Used/How Often: 1ppd Length of Time of Smoking/Using Tobacco: 30 YEARS Have You Smoked in the Last Year: Yes Review of Systems Constitutional: Other - positive - weight loss Positive: Fatigue Positive: Cough Gastrointestinal: Other - positive - decreased PO intake Positive: Vomiting, Nausea Neurological/Mental Status: Other - positive - dizziness All Other Systems Reviewed And Are Negative: Yes Physical Exam - Summary Physical Exam Summary: Constitutional: Well-developed, Well-nourished, Alert. (-) Distressed Skin: Warm, Dry; Left Chest Wall Port HENT: Normocephalic; Atraumatic; Dry MM Eyes: Conjunctiva normal Neck: Musculoskeletal ROM normal neck. (-) JVD, (-) Stridor, (-) Nuchal rigidity Cardio: Rhythm regular, rate normal, Heart sounds normal; Intact distal pulses; Radial pulses are 2+ and symmetric. (-) Murmur Pulmonary/Chest wall: Effort normal. Bilateral Rhonchi of Lower Lungs, (-) Respiratory distress, (-) Wheezes, Abd: Soft, (-) tenderness, (-) Distension, (-) Guarding, (-) Rebound Musculoskeletal: (-) Edema Lymph: (-) Cervical adenopathy Neuro: Alert, Oriented x3, GCS 15. Psych: Mood and affect Normal Triage Information Reviewed: Yes Vital Signs On Initial Exam: Initial Vitals Temp Pulse Resp BP Pulse Ox 98.0 F 98 16 119/72 98 07/12/19 11:44 07/12/19 11:44 07/12/19 11:44 07/12/19 11:44 07/12/19 11:44 Vital Signs Reviewed: Yes - Ronald Coma Scale Best Eye Response: 4 - Spontaneous Best Motor Response: 6 - Obeys Commands Best Verbal Response: 5 - Oriented Coma Scale Total: 15 Procedures - Sedation Patient Received Moderate/Deep Sedation with Procedure: No Diagnostics - Vital Signs Vital Signs Temp Pulse Resp BP Pulse Ox 07/12/19 11:44 98.0 F 98 16 119/72 98 - Laboratory Result Diagrams: 07/12/19 13:53 07/12/19 13:53 Lab Statement: Any lab studies that have been ordered have been reviewed, and results considered in the medical decision making process. - Radiology CXR Radiology Interpretation Completed By: Radiologist Summary of Radiographic Findings: CXR IMPRESSION: NO ACTIVE CARDIOPULMONARY DISEASE. THIS REPORT WAS REVIEWED BY ED PHYSICIAN. - CT BRAIN CT CT Interpretation Completed By: Radiologist Summary of CT Findings: BRAIN CT. IMPRESSION: MULTIPLE LESIONS OF THE CEREBRAL HEMISPHERES BILATERALLY MOST CONSISTENT WITH METASTATIC. DISEASE GIVEN THE HISTORY OF SMALL CELL LUNG CANCER. THERE IS NO SHIFT. THIS REPORT WAS REVIEWED BY ED PHYSICIAN. - EKG 1333 Cardiac Rate: NL - rate of 83 BPM EKG Rhythm: Sinus Rhythm Summary of EKG Findings: EKG showed NSR with rate of 83 BPM, T-wave flattening in aVL. ED physician has reviewed and interpreted this EKG. Re-Evaluation - Re-Evaluation First Eval Re-Evaluation Time: 14:40 Comment: Slightly improved, but still with vertigo; brain CT to be obtained. Second Eval Re-Evaluation Time: 16:30 Comment: Results of brain CT discussed, oncology to evaluate Complex Multi-Symp Course/Dx Course Of Treatment: 53 y/o male w hx SCLC p/w feeling fatigued, nausea and vertigo. - Physical exam with a well-appearing male, neuro exam notable for no dysmetria or nystagmus. Patient having difficulty to ambulate and secondary to feeling dizzy. Concern for neurolgic process given history of cancer, CT brain shows multiple metastases. Patient was given 10 of IV Decadron requests oncology. Regarding further workup, labs notable for normal sodium (patient has a history of hyponatremia). Patient was given a liter of fluids, he feels improved. After discussion w oncology and patient, he would like to go home. - Diagnoses Provider Diagnoses: Fatigue, Vertigo, Lung cancer, Brain metastases - Physician Notifications Discussed Care Of Patient With: Sundar Palomino Time Discussed With Above Provider: 12:44 Instructed by Provider To: Other - 1244 - Patient's case was discussed with Dr. Palomino, he states that the patient was noted to have a low AM cortisol level and was placed on a steroid. 1623 - Brain CT was discussed, patient to be evaluated for admission to oncology services. 1755 - After evaluation, it was determined that the patient can be discharged to home. Patient to receive dexamethasone and will be discharged Discharge ED - Sign-Out/Discharge Documenting (check all that apply): Patient Departure - discharge - Discharge Plan Condition: Stable Disposition: HOME Prescriptions: Dexamethasone [Decadron] 4 mg PO BID #60 tablet Patient Education Materials: Brain Metastasis (DC) Referrals: Palomo Roque MD [Primary Care Provider] - 3 Days Sundar Palomino MD [Medical Doctor] - 3 Days Additional Instructions: You were seen in the emergency department for dizziness and feeling unwell. Your head CT showed concerns for brain metastases. We did discussed this with oncology, please take your Decadron as prescribed. Please follow up with your primary care doctor in next 2-3 days and return to emergency department for worsening pain, vomiting, inability to walk, confusion , or concerning symptoms. It was a pleasure taking care of you today. - Billing Disposition and Condition Condition: STABLE Disposition: Home - Attestation Statements Document Initiated by Anthony: Yes Documenting Scribe: GILDA MCKEON Provider For Whom Anthony is Documenting (Include Credential): MARCO OLEA MD Scribe Attestation: IGILDA, scribed for MARCO OLEA MD on 07/12/19 at 2145. Scribe Documentation Reviewed: Yes Provider Attestation: The documentation as recorded by the GILDA valladares accurately reflects the service I personally performed and the decisions made by me, MARCO OLEA MD Status of Scribe Document: Viewed
[2019-07-12] MEDS ORDERED: Lidocaine 2.5%/Prilocain 2.5%* 5 GM TUBE ONE (13:10)
[2019-07-12 14:22] LABS: ABS Eosinophils 0.1 10^3/ul (0-0.6); ABS Lymphocytes 1.5 10^3/ul (1.0-4.8); ABS Monocytes 0.2 10^3/ul (0-0.8); ABS Neutrophils 4.5 10^3/ul (1.5-7.7); Eosinophil % 1.2 %; Hematocrit 32 % (42-52); Hemoglobin 10.9 g/dL (14.0-18.0); Mean Corpuscular HGB Conc 35 g/dL (31-36); Mean Corpuscular Hemoglobin 30 pg (27-31); Mean Corpuscular Volume 88 fL (80-94); Mean Platelet Volume 7.2 fL (7.4-10.4); Platelet Count 368 10^3/uL (150-450); Red Blood Count 3.59 10^6 /uL (4.18-5.48); Red Cell Distribution Width 20 % (10-15); White Blood Count 6.3 10^3/uL (3.5-10.8)
[2019-07-12 14:37] LABS: Albumin 3.8 g/dL (3.2-5.2); Albumin/Globulin Ratio 1.5 (1-3); BUN/Creatinine Ratio 15.2 (8-20); Calcium 8.9 mg/dL (8.6-10.3); EGFR African American 153.4 (>60); EGFR Non-African American 126.7 (>60); Globulin 2.6 g/dL (2-4); Potassium 3.7 mmol/L (3.5-5.0); Total Bilirubin 0.4 mg/dL (0.2-1.0); Total Protein 6.4 g/dL (6.4-8.9)
[2019-07-12] MEDS ORDERED: Dexamethasone IV* 10 MG in NS 0.9% 50 ML* 50 ML IVPB ONE (17:55)
--- NOTE | 2019-07-12 18:08 | PN ---
Progress Note - Progress Note Date of Service: 07/12/19 SOAP: Subjective: [Angelica is well known to the oncology service for treatment of extensive stage small cell lung carcinoma. Currently receiving weekly taxol c/b pulmonary abscess, treated with a prolonged course of antibiotics. He reports severe malaise and nausea over the last 3 days which brought him to the ER. Labs were unremarkable but CT of the brain was completed and demonstrated evidence of multifocal brain metastases without severe edema. Oncology was asked to eval for possible admission. Patient would like to return home if possible.] Objective: [ Vital Signs: Temp Pulse Resp BP Pulse Ox 98.0 F 85 16 131/86 95 07/12/19 11:44 07/12/19 15:56 07/12/19 11:44 07/12/19 15:56 07/12/19 15:56 Home Medications Medication Instructions Recorded Confirmed Type Ondansetron TAB* [Zofran 4 MG Tab*] 4 mg PO Q4HR PRN 12/14/18 07/12/19 History Aspirin TAB* [Aspirin 325 MG TAB*] 325 mg PO DAILY 12/25/18 07/12/19 History Omeprazole (Nf) [Prilosec (NF)] 40 mg PO BID 05/17/19 07/12/19 History Prochlorperazine 10 mg TAB 10 mg PO Q6H PRN 05/17/19 07/12/19 History [Compazine 10 mg TAB] Demeclocycline TAB* [Declomycin 300 mg PO TID 07/12/19 07/12/19 History TAB*] Dexamethasone [Decadron] 4 mg PO BID #60 tablet 07/12/19 Rx Famotidine TAB* [Pepcid 20 MG TAB*] 20 mg PO DAILY 07/12/19 07/12/19 History Fludrocortisone Acetate TAB* 0.1 mg PO DAILY 07/12/19 07/12/19 History [Florinef TAB*] Sodium Chloride TAB* 1 gm PO TID 07/12/19 07/12/19 History Laboratory Results - last 24 hr 07/12/19 07/12/19 13:53 13:53 WBC 6.3 RBC 3.59 L Hgb 10.9 L Hct 32 L MCV 88 MCH 30 MCHC 35 RDW 20 H Plt Count 368 MPV 7.2 L Neut % (Auto) 71.7 Lymph % (Auto) 24.0 [place] % (Auto) 2.5 Eos % (Auto) 1.2 Baso % (Auto) 0.6 Absolute Neuts (auto) 4.5 Absolute Lymphs (auto) 1.5 Absolute Monos (auto) 0.2 Absolute Eos (auto) 0.1 Absolute Basos (auto) 0.0 Absolute Nucleated RBC 0.0 Nucleated RBC % 0.0 Sodium 136 Potassium 3.7 Chloride 105 Carbon Dioxide 25 Anion Gap 6 BUN 10 Creatinine 0.66 L Est GFR ( Amer) 153.4 Est GFR (Non-Af Amer) 126.7 BUN/Creatinine Ratio 15.2 Glucose 118 H Calcium 8.9 Magnesium 2.0 Total Bilirubin 0.40 AST 15 ALT 9 Alkaline Phosphatase 167 H Total Protein 6.4 Albumin 3.8 Globulin 2.6 Albumin/Globulin Ratio 1.5 Exam: Gen: chronically ill appearing, but in NAD HEENT: MMM CV: RRR, no m/r/g Resp: no w/c/r Abd: soft Neuro: nonfocal Assessment: [This is a 53 yo male under the care of Dr Palomino for extensive stage small cell lung carcinoma with recent complication of a lung abscess, s/p 6 weeks of abx. He presented with intractable nausea found to have new brain mets by CT. Nausea has improved since reaching the ER and he would like to return home this evening if possible. There is no absolute indication for hospitalization at this time, outpatient management is very reasonable.] Plan: [1. Give 10 mg IV dex x 1 now 2. Discharge with 4 mg dex po bid 3. MRI with and without contrast outpatient to further characterize likely brain mets 4. Referral for WBRT to Dr Hunt ]
[2019-07-12 19:28] VITALS: BP 114/84
== END 2019-07-12 19:24 | disposition home or self-care (01) ==
LOC: ED 11:38
DX: R42 Dizziness and giddiness (principal); R53.83 Other fatigue; C34.90 Malignant neoplasm of unspecified part of unspecified bronchus or lung; C79.31 Secondary malignant neoplasm of brain; E78.00 Pure hypercholesterolemia, unspecified; I73.9 Peripheral vascular disease, unspecified; J44.9 Chronic obstructive pulmonary disease, unspecified; F17.210 Nicotine dependence, cigarettes, uncomplicated; Z79.82 Long term (current) use of aspirin; Z79.899 Other long term (current) drug therapy
CPT/HCPCS: 36415; 70450; 71046; 80053; 83735; 85025; 93005; 96361; 96374; 96375; 99282; 99284; A9270-GY; J1100; J1642

== ENCOUNTER 2019-08-05 12:11 | Emergency (ER) | payer SELFPAY ==
[2019-08-05] MEDS ORDERED: Albuterol/Ipratropium NEB.SOL* Albuterol 2.5 MG/Ipratropium 0.5 MG 3 ML INH ONE (12:24)
--- NOTE | 2019-08-05 12:29 | ED ---
Shortness of Breath - HPI Summary HPI Summary: 53-year-old male with significant past medical history of COPD, brain cancer and small cell lung cancer which is being treated by Dr. Palomino presents the emergency department today with a chief complaint of shortness of breath. Patient states he has had shortness of breath chronically but this has become acutely worse today. Patient has a nonproductive cough with no associated chest pain. Patient denies fevers, abdominal pain, exposure to Covid, recent travel. Patient states he received radiation therapy for his cancer one week ago. Patient otherwise feels well and denies fever, abdominal pain, nausea, vomiting, diarrhea, rash. Patient states he is not taking his COPD medication in a few days as he ran out. - History of Current Complaint Chief Complaint: EDShortnessOfBreath Hx Obtained From: Patient Onset/Duration: Gradual Onset Timing: Constant Current Severity: Moderate Dyspnea At: Rest Alleviating Factors: Oxygen Associated Signs & Symptoms: Cough (Nonproductive) - Allergy/Home Medications Allergies/Adverse Reactions: Allergies Allergy/AdvReac Type Severity Reaction Status Date / Time No Known Allergies Allergy Verified 07/12/19 11:48 Home Medications: Home Medications Ondansetron TAB* [Zofran 4 MG Tab*] 4 mg PO .8X/DAY PRN 12/14/18 [History Confirmed 08/05/19] Aspirin TAB* [Aspirin 325 MG TAB*] 325 mg PO DAILY 12/25/18 [History Confirmed 08/05/19] Omeprazole (Nf) [Prilosec (NF)] 40 mg PO BID 05/17/19 [History Confirmed ] Prochlorperazine 10 mg TAB [Compazine 10 mg TAB] 10 mg PO QAM PRN 05/17/19 [ History Confirmed 08/05/19] Demeclocycline TAB* [Declomycin TAB*] 300 mg PO TID 07/12/19 [History Confirmed 08/05/19] Famotidine TAB* [Pepcid 20 MG TAB*] 20 mg PO DAILY 07/12/19 [History Confirmed 08/05/19] Sodium Chloride TAB* 1 gm PO TID 07/12/19 [History Confirmed 08/05/19] Albuterol HFA INHALER* [Ventolin HFA Inhaler*] 2 puff INH Q4H PRN 08/05/19 [ History Confirmed 08/05/19] Atorvastatin* [Lipitor*] 80 mg PO DAILY 08/05/19 [History Confirmed 08/05/19] Cyclobenzaprine TAB* [Flexeril 10 MG TAB*] 10 mg PO TID PRN 08/05/19 [History Confirmed 08/05/19] Docusate Sodium [Stool Softener] 300 mg PO DAILY 08/05/19 [History Confirmed ] HydroCODONE/Acetamin 10/325 NF [[place] 10/325 (NF)] 1 tab PO Q4H PRN 08/05/19 [ History Confirmed 08/05/19] predniSONE 20 mg TAB [Deltasone 20 MG TAB*] 40 mg PO DAILY #8 tab 08/05/19 [Rx] traZODone TAB* [Desyrel TAB*] 150 mg PO BEDTIME PRN 08/05/19 [History Confirmed 08/05/19] PMH/Surg Hx/FS Hx/Imm Hx Endocrine/Hematology History: Denies: Hx Anticoagulant Therapy, Hx Blood Transfusions, Hx Diabetes, Hx Thyroid Disease, Hx Anemia Cardiovascular History: Reports: Hx Aneurysm - repaired with graft, Hx Hypercholesterolemia, Hx Peripheral Vascular Disease - Clogged artery LLE, Other Cardiovascular Problems/Disorders - clogged artery right groin, Denies: Hx Congenital Heart Disease, Hx Congestive Heart Failure, Hx Deep Vein Thrombosis, Hx Embolism, Hx Hypertension, Hx Rheumatic Fever Respiratory History: Reports: Hx Chronic Obstructive Pulmonary Disease (COPD), Hx Lung Cancer, Hx Seasonal Allergies Denies: Hx Asthma, Hx Sleep Apnea GI History: Reports: Hx Diverticulosis - Per Pt seen on colonoscopy Denies: Hx Gall Bladder Disease, Hx Gastroesophageal Reflux Disease, Hx Gastrointestinal Bleed, Hx Hiatal Hernia, Hx Irritable Bowel, Hx Obstructive Bowel, Hx Ulcer History: Denies: Hx Benign Prostatic Hyperplasia, Hx Dialysis, Hx Kidney Infection, Hx Kidney Stones, Hx Renal Disease Musculoskeletal History: Reports: Hx Arthritis, Hx Back Problems, Hx Tendonitis - RIGHT ELBOW, Other Musculoskeletal History - BILATERAL CARPAL TUNNEL SYNDROME , surgically repaired Denies: Hx Fibromyalgia, Hx Gout, Hx Orthopedic Injury, Hx Osteoporosis Sensory History: Denies: Hx Contacts or Glasses, Hx Hearing Aid, Other Sensory Impairments Opthamlomology History: Denies: Hx Contacts or Glasses, Other Sensory Impairments Neurological History: Reports: Hx Migraine - OCCASIONAL Psychiatric History: Reports: Hx Substance Abuse Denies: Hx Eating Disorder, Hx Post Traumatic Stress Disorder, Hx of Violent Episodes Against Others - Cancer History Cancer Type, Location and Year: small cell lung Hx Chemotherapy: Yes Hx Radiation Therapy: No - Surgical History Surgery Procedure, Year, and Place: 2001 SUSPENSION MICROLARYNGOSCOPY[place] [facility] [place] LEFT KNEE, [facility]. 05/29/2006 RIGHT KNEE ARTHROSCOPY, REPAIR TORN MENISCUS, [place] [facility] [place]2006 [place] [facility] [place] [facility] [place] RIGHT GROIN ANEURYSM REPAIR, [place] Hx Anesthesia Reactions: No Infectious Disease History: No Infectious Disease History: Reports: Hx of Known/Suspected MRSA Denies: Hx Clostridium Difficile, Hx Hepatitis, Hx Human Immunodeficiency Virus (HIV), Hx Shingles, Hx Tuberculosis, Hx Known/Suspected VRE, Hx Known/ Suspected VRSA, History Other Infectious Disease, Traveled Outside the in Last 30 Days - Family History Known Family History: Positive: Hypertension, Diabetes, Other - cancer Negative: Cardiac Disease, Renal Disease, Respiratory Disease, Seizure Disorder, Blood Disorder - Social History Alcohol Use: None Alcohol Amount: 6-8 beers, 2-3 x/week Hx Substance Use: Yes Substance Use Type: Reports: Marijuana Hx Tobacco Use: Yes Smoking Status (MU): Heavy Every Day Tobacco Smoker Type: Cigarettes Amount Used/How Often: 1ppd Length of Time of Smoking/Using Tobacco: 30 YEARS Have You Smoked in the Last Year: Yes Review of Systems Positive: Fatigue. Negative: Fever Eyes: Negative ENT: Negative Cardiovascular: Negative Positive: Shortness Of Breath, Cough Gastrointestinal: Negative Genitourinary: Negative Musculoskeletal: Negative Skin: Negative Neurological/Mental Status: Negative Psychological: Normal All Other Systems Reviewed And Are Negative: Yes Physical Exam - Summary Physical Exam Summary: Patient is in no acute distress. Patient has evidence of fatigue and mild labored breathing. Patient is able to speak in full 5 word broken sentences. Triage Information Reviewed: Yes Vital Signs On Initial Exam: Initial Vitals Temp Pulse Resp BP Pulse Ox 98.8 F 90 17 129/87 100 08/05/19 12:19 08/05/19 12:19 08/05/19 12:19 08/05/19 12:19 08/05/19 12:19 Vital Signs Reviewed: Yes Appearance: Positive: Well-Appearing, No Pain Distress, Well-Nourished Skin: Positive: Warm, Skin Color Reflects Adequate Perfusion Eyes: Positive: EOMI, CARIDAD ENT: Positive: Hearing grossly normal Respiratory/Lung Sounds: Positive: Clear to Auscultation, Breath Sounds Present Cardiovascular: Positive: RRR, S1, S2 Abdomen Description: Positive: Nontender, Soft Bowel Sounds: Positive: Present Musculoskeletal: Positive: Strength/ROM Intact Neurological: Positive: Sensory/Motor Intact, Alert, Oriented to Person Place, Time, Normal Gait, Facial Symmetry, Speech Normal Psychiatric: Positive: Normal, Affect/Mood Appropriate AVPU Assessment: Alert Procedures - Sedation Patient Received Moderate/Deep Sedation with Procedure: No Diagnostics - Vital Signs Vital Signs Temp Pulse Resp BP Pulse Ox 08/05/19 12:19 98.8 F 90 17 129/87 100 - Laboratory Result Diagrams: 08/05/19 13:03 08/05/19 13:03 Lab Statement: Any lab studies that have been ordered have been reviewed, and results considered in the medical decision making process. Course/Dx - Course Course Of Treatment: Patient was evaluated in the emergency department today for shortness of breath. Vitals noted and stable. EKG was done promptly which showed no evidence of STEMI. Sinus tachycardia at a rate of 89 bpm. Normal NH and QT interval. There are noted atrial premature complexes but no evidence of ischemia. Atrial premature complexes are new compared to prior EKG done on 07/12.Laboratory studies returned showing no leukocytosis with white blood cell count of 10.7. There is mild anemia noted however this is his baseline. Patient is mildly dehydrated. Troponin negative at 0.01. C-reactive protein mildly elevated at 19.15. Patient was mildly hypoxic on room air desaturating to 88%. Patient was given 125 mg Solu-Medrol which allowed him to maintain oxygen saturation above 90% on room air. Patient felt well after steroids and desired to go home. CTA of the chest shows no evidence of pulmonary embolus or other pathology Oncology was consulted and the care of this patient including Dr. Robles and Davian Mendoza, who agreed with this plan and will follow up with him in the outpatient setting. Patient was experiencing COPD exacerbation but had no other significant pathology at this time. - Diagnoses Provider Diagnoses: Dyspnea, COPD exacerbation - Physician Notifications Discussed Care of Patient With: Kemal Robles - leave the patient was fit for outpatient management with course of steroids. Discharge ED - Sign-Out/Discharge Documenting (check all that apply): Patient Departure - Discharge Plan Condition: Stable Disposition: HOME Prescriptions: predniSONE 20 mg TAB [Deltasone 20 MG TAB*] 40 mg PO DAILY #8 tab Patient Education Materials: Dyspnea (ED) Referrals: Sundar Palomino MD [Primary Care Provider] - 3 Days Additional Instructions: Please take prednisone 40 mg daily for 4 days. Please follow up with oncology for further evaluation and management. Please return to this emergency Department immediately if you develop any new or worsening symptoms. - Billing Disposition and Condition Condition: STABLE Disposition: Home
[2019-08-05 13:21] LABS: Hematocrit 39 % (42-52); Hemoglobin 13.3 g/dL (14.0-18.0); Mean Corpuscular HGB Conc 34 g/dL (31-36); Mean Corpuscular Hemoglobin 31 pg (27-31); Mean Corpuscular Volume 89 fL (80-94); Mean Platelet Volume 6.4 fL (7.4-10.4); Platelet Count 300 10^3/uL (150-450); Red Blood Count 4.34 10^6 /uL (4.18-5.48); Red Cell Distribution Width 20 % (10-15); White Blood Count 10.7 10^3/uL (3.5-10.8)
[2019-08-05 13:39] LABS: Troponin I 0.01 ng/mL (<0.03)
[2019-08-05 13:40] LABS: Albumin 3.5 g/dL (3.2-5.2); Albumin/Globulin Ratio 1.4 (1-3); BUN/Creatinine Ratio 45.2 (8-20); C Reactive Protein 19.15 mg/L (<8.01); Calcium 8.8 mg/dL (8.6-10.3); EGFR African American 164.8 (>60); EGFR Non-African American 136.2 (>60); Globulin 2.5 g/dL (2-4); Potassium 4.1 mmol/L (3.5-5.0); Total Bilirubin 0.3 mg/dL (0.2-1.0)
[2019-08-05] MEDS ORDERED: NS 0.9% 1000 ML** 1,000 ML IV ONE (13:45)
[2019-08-05] MEDS ORDERED: methylPREDNISolone 125 MG* 2 ML VIAL IV ONE (14:17)
[2019-08-05 14:19] LABS: ABS Lymphocytes 0.3 10^3/ul (1.0-4.8); ABS Monocytes 0.4 10^3/ul (0-0.8); Eosinophil % 0.1 %
--- NOTE | 2019-08-05 14:24 | PN ---
Progress Note - Progress Note Date of Service: 08/05/19 SOAP: Subjective: [This is a 53 yo male well known to the oncology service who presented to the ER with c/o SOB. Reports that symptoms started ~2d ago. No associated cough or fever. Feels very weak. Completed WBRT last week. He has unfortunately experienced a lapse in insurance and ran out his combivent and spiriva inhalers ~3d ago. ] Objective: [ Vital Signs: Temp Pulse Resp BP Pulse Ox 98.8 F 84 17 129/87 97 08/05/19 12:19 08/05/19 12:50 08/05/19 12:50 08/05/19 12:19 08/05/19 12:50 Laboratory Results - last 24 hr 08/05/19 08/05/19 08/05/19 13:03 13:03 13:03 WBC 10.7 RBC 4.34 Hgb 13.3 L Hct 39 L MCV 89 MCH 31 MCHC 34 RDW 20 H Plt Count 300 MPV 6.4 L Neut % (Auto) 93.0 Lymph % (Auto) 3.0 [place] % (Auto) 3.8 Eos % (Auto) 0.1 Baso % (Auto) 0.1 Absolute Neuts (auto) 10.0 H Absolute Lymphs (auto) 0.3 L Absolute Monos (auto) 0.4 Absolute Eos (auto) 0.0 Absolute Basos (auto) 0.0 Absolute Nucleated RBC 0.0 Immature Gran % 1.0 Neutrophils % 94.0 Lymphocytes % 3.0 Monocytes % 2.0 Metamyelocytes % 1.0 Nucleated RBC % 0.0 Normal RBC Morphology Normal Sodium 135 Potassium 4.1 Chloride 100 L Carbon Dioxide 28 Anion Gap 7 BUN 28 H Creatinine 0.62 L Est GFR ( Amer) 164.8 Est GFR (Non-Af Amer) 136.2 BUN/Creatinine Ratio 45.2 H Glucose 90 Lactic Acid 0.8 Calcium 8.8 Total Bilirubin 0.30 AST 37 ALT 54 H Alkaline Phosphatase 167 H Troponin I 0.01 C-Reactive Protein 19.15 H B-Natriuretic Peptide Total Protein 6.0 L Albumin 3.5 Globulin 2.5 Albumin/Globulin Ratio 1.4 08/05/19 13:03 WBC RBC Hgb Hct MCV MCH MCHC RDW Plt Count MPV Neut % (Auto) Lymph % (Auto) [place] % (Auto) Eos % (Auto) Baso % (Auto) Absolute Neuts (auto) Absolute Lymphs (auto) Absolute Monos (auto) Absolute Eos (auto) Absolute Basos (auto) Absolute Nucleated RBC Immature Gran % Neutrophils % Lymphocytes % Monocytes % Metamyelocytes % Nucleated RBC % Normal RBC Morphology Sodium Potassium Chloride Carbon Dioxide Anion Gap BUN Creatinine Est GFR ( Amer) Est GFR (Non-Af Amer) BUN/Creatinine Ratio Glucose Lactic Acid Calcium Total Bilirubin AST ALT Alkaline Phosphatase Troponin I C-Reactive Protein B-Natriuretic Peptide 30 Total Protein Albumin Globulin Albumin/Globulin Ratio Home Medications Medication Instructions Recorded Confirmed Type Ondansetron TAB* [Zofran 4 MG Tab*] 4 mg PO Q4HR PRN 12/14/18 07/12/19 History Aspirin TAB* [Aspirin 325 MG TAB*] 325 mg PO DAILY 12/25/18 07/12/19 History Omeprazole (Nf) [Prilosec (NF)] 40 mg PO BID 05/17/19 07/12/19 History Prochlorperazine 10 mg TAB 10 mg PO Q6H PRN 05/17/19 07/12/19 History [Compazine 10 mg TAB] Demeclocycline TAB* [Declomycin 300 mg PO TID 07/12/19 07/12/19 History TAB*] Dexamethasone [Decadron] 4 mg PO BID #60 tablet 07/12/19 Rx Famotidine TAB* [Pepcid 20 MG TAB*] 20 mg PO DAILY 07/12/19 07/12/19 History Fludrocortisone Acetate TAB* 0.1 mg PO DAILY 07/12/19 07/12/19 History [Florinef TAB*] Sodium Chloride TAB* 1 gm PO TID 07/12/19 07/12/19 History Exam: Gen: ill appearing 53 yo male in NAD HEENT: MMM, CV: RRR, no m/r/g Resp: diffuse rhonchi and wheezing Ext: no edema ] Assessment: [This is a 53 yo male with metastatic small cell lung cancer who just completed whole brain radiation and plans to start next line systemic therapy with topotecan pending medicaid coverage which should be active any day now. He is now in the ER with c/o SOB. CXR and labs are unremarkable. COPD exacerbation seems like the most likely cause for his current symptoms, but recommend CTA of the chest to r/o possible PE. He is hypoxic, dropping to 88% on RA. Plan: [1. Hypoxia - recommend CTA of the chest to r/o PE and eval for occult PNA not appreciated on CXR - influenza testing pending - consider COVID19 testing if negative - recommend solumedrol for presumed COPD exacerbation Dispo: may require hospitalization if no identifiable reversible cause for his hypoxia is identified.
[2019-08-05] MEDS ORDERED: Iohexol 350* (CONTRAST) 500 ML MDV IV ONE (14:29)
[2019-08-05 17:34] VITALS: BP 133/80
== END 2019-08-05 17:33 | disposition home or self-care (01) ==
LOC: ED 12:11
DX: J44.1 Chronic obstructive pulmonary disease with (acute) exacerbation (principal); R53.83 Other fatigue; F17.210 Nicotine dependence, cigarettes, uncomplicated; R06.00 Dyspnea, unspecified; Z79.52 Long term (current) use of systemic steroids; Z79.82 Long term (current) use of aspirin; Z79.899 Other long term (current) drug therapy; Z86.79 Personal history of other diseases of the circulatory system; Z85.841 Personal history of malignant neoplasm of brain
CPT/HCPCS: 36415; 71046; 71275; 80053; 83605; 83880; 84484; 85025; 86140; 87040; 93005; 96361; 96374; 99282; 99284; A9270-GY; J2930; Q9967

== ENCOUNTER 2019-08-06 11:26 | Observation (INO) | payer SELFPAY ==
--- NOTE | 2019-08-06 11:59 | ED ---
Shortness of Breath - HPI Summary HPI Summary: Patient is a 53 y/o M presenting to [facility] with a chief complaint of SOB for the last few days. Patient states generalized weakness, chest congestion, and unproductive cough. He was seen here yesterday for similar symptoms with worsening since then. Patient denies any fevers/chills. Symptoms rated 6/10 in severity. Patient d/c yesterday with Rx for Prednisone. Solu-Medrol in the ED with improvement. No recent travel or sick contact. Past medical history includes COPD, small cell lung cancer, brain cancer, HLD, PVD, diverticulosis. Current smoker, weekly EtOH, marijuana use. Medications reviewed. Allergies noted. - History of Current Complaint Chief Complaint: EDShortnessOfBreath Time Seen by Provider: 08/06/19 11:34 Hx Obtained From: Patient Onset/Duration: Gradual Onset, Lasting Days, Still Present Current Severity: Moderate Dyspnea At: Rest Aggravating Factors: Nothing Alleviating Factors: Other - Solu-Medrol yesterday Associated Signs & Symptoms: Cough (Nonproductive) - Allergy/Home Medications Allergies/Adverse Reactions: Allergies Allergy/AdvReac Type Severity Reaction Status Date / Time No Known Allergies Allergy Verified 07/12/19 11:48 Home Medications: Home Medications Ondansetron TAB* [Zofran 4 MG Tab*] 4 mg PO .8X/DAY PRN 12/14/18 [History Confirmed 08/06/19] Aspirin TAB* [Aspirin 325 MG TAB*] 325 mg PO DAILY 12/25/18 [History Confirmed 08/06/19] Omeprazole (Nf) [Prilosec (NF)] 40 mg PO BID 05/17/19 [History Confirmed ] Prochlorperazine 10 mg TAB [Compazine 10 mg TAB] 10 mg PO QAM PRN 05/17/19 [ History Confirmed 08/06/19] Demeclocycline TAB* [Declomycin TAB*] 300 mg PO TID 07/12/19 [History Confirmed 08/06/19] Famotidine TAB* [Pepcid 20 MG TAB*] 20 mg PO DAILY 07/12/19 [History Confirmed 08/06/19] Sodium Chloride TAB* 1 gm PO TID 07/12/19 [History Confirmed 08/06/19] Albuterol HFA INHALER* [Ventolin HFA Inhaler*] 2 puff INH Q4H PRN 08/05/19 [ History Confirmed 08/06/19] Atorvastatin* [Lipitor*] 80 mg PO DAILY 08/05/19 [History Confirmed 08/06/19] Cyclobenzaprine TAB* [Flexeril 10 MG TAB*] 10 mg PO TID PRN 08/05/19 [History Confirmed 08/06/19] Docusate Sodium [Stool Softener] 300 mg PO DAILY 08/05/19 [History Confirmed ] HydroCODONE/Acetamin 10/325 NF [[place] 10/325 (NF)] 1 tab PO Q4H PRN 08/05/19 [ History Confirmed 08/06/19] predniSONE 20 mg TAB [Deltasone 20 MG TAB*] 40 mg PO DAILY #8 tab 08/05/19 [Rx Confirmed 08/06/19] traZODone TAB* [Desyrel TAB*] 150 mg PO BEDTIME PRN 08/05/19 [History Confirmed 08/06/19] PMH/Surg Hx/FS Hx/Imm Hx Endocrine/Hematology History: Denies: Hx Anticoagulant Therapy, Hx Blood Transfusions, Hx Diabetes, Hx Thyroid Disease, Hx Anemia Cardiovascular History: Reports: Hx Aneurysm - repaired with graft, Hx Hypercholesterolemia, Hx Peripheral Vascular Disease - Clogged artery LLE, Other Cardiovascular Problems/Disorders - clogged artery right groin, Denies: Hx Congenital Heart Disease, Hx Congestive Heart Failure, Hx Deep Vein Thrombosis, Hx Embolism, Hx Hypertension, Hx Rheumatic Fever Respiratory History: Reports: Hx Chronic Obstructive Pulmonary Disease (COPD), Hx Lung Cancer, Hx Seasonal Allergies, Other Respiratory Problems/Disorders - LUNG CA Denies: Hx Asthma, Hx Sleep Apnea GI History: Reports: Hx Diverticulosis - Per Pt seen on colonoscopy Denies: Hx Gall Bladder Disease, Hx Gastroesophageal Reflux Disease, Hx Gastrointestinal Bleed, Hx Hiatal Hernia, Hx Irritable Bowel, Hx Obstructive Bowel, Hx Ulcer History: Denies: Hx Benign Prostatic Hyperplasia, Hx Dialysis, Hx Kidney Infection, Hx Kidney Stones, Hx Renal Disease Musculoskeletal History: Reports: Hx Arthritis, Hx Back Problems, Hx Tendonitis - RIGHT ELBOW, Other Musculoskeletal History - BILATERAL CARPAL TUNNEL SYNDROME , surgically repaired Denies: Hx Fibromyalgia, Hx Gout, Hx Orthopedic Injury, Hx Osteoporosis Sensory History: Denies: Hx Contacts or Glasses, Hx Hearing Aid, Other Sensory Impairments Opthamlomology History: Denies: Hx Contacts or Glasses, Other Sensory Impairments Neurological History: Reports: Hx Migraine - OCCASIONAL Psychiatric History: Reports: Hx Substance Abuse Denies: Hx Eating Disorder, Hx Post Traumatic Stress Disorder, Hx of Violent Episodes Against Others - Cancer History Cancer Type, Location and Year: small cell lung, brain Hx Chemotherapy: Yes Hx Radiation Therapy: No - Surgical History Surgical History: Yes Surgery Procedure, Year, and Place: 2001 SUSPENSION MICROLARYNGOSCOPY, RIGID EGD , [facility] [place]. 2004 ARTHROSCOPIC SURGERY LEFT KNEE, [facility] [place]. 05/29/2006 RIGHT KNEE ARTHROSCOPY, REPAIR TORN MENISCUS, ACL DEBRIDEMENT, [facility] [place]. 06/08/2006 RIGHT KNEE ARTHROSCOPY, [facility] [place]. LEFT ELBOW SURGERY, [facility] [place]. 2014 RIGHT GROIN ANEURYSM REPAIR, [place] Hx Anesthesia Reactions: No Infectious Disease History: No Infectious Disease History: Reports: Hx of Known/Suspected MRSA Denies: Hx Clostridium Difficile, Hx Hepatitis, Hx Human Immunodeficiency Virus (HIV), Hx Shingles, Hx Tuberculosis, Hx Known/Suspected VRE, Hx Known/ Suspected VRSA, History Other Infectious Disease, Traveled Outside the in Last 30 Days - Family History Known Family History: Positive: Hypertension, Diabetes, Other - cancer Negative: Cardiac Disease, Renal Disease, Respiratory Disease, Seizure Disorder, Blood Disorder - Social History Alcohol Use: Weekly Alcohol Amount: 6-8 beers, 2-3 x/week Hx Substance Use: Yes Substance Use Type: Reports: Marijuana Substance Use Comment - Amount & Last Used: once in a while per pt Hx Tobacco Use: Yes Smoking Status (MU): Heavy Every Day Tobacco Smoker Type: Cigarettes Amount Used/How Often: 1ppd Length of Time of Smoking/Using Tobacco: 30 YEARS Have You Smoked in the Last Year: Yes Review of Systems Negative: Fever, Chills Positive: Shortness Of Breath, Cough - dry All Other Systems Reviewed And Are Negative: Yes Physical Exam - Summary Physical Exam Summary: Constitutional: Well-developed, Well-nourished, Alert. Appears weak/fatigued. (- ) Distressed Skin: Warm, Dry HENT: Normocephalic; Atraumatic Eyes: Conjunctiva normal Neck: Musculoskeletal ROM normal neck. (-) JVD, (-) Stridor, (-) Tracheal deviation Cardio: Rhythm regular, rate normal, Heart sounds normal; Intact distal pulses; The pedal pulses are 2+ and symmetric. Radial pulses are 2+ and symmetric. (-) Murmur Pulmonary/Chest wall: Effort normal. Coarse b/l breath sounds. (-) Respiratory distress, (-) Wheezes, (-) Rales Abd: Soft, (-) tenderness, (-) Distension, (-) Guarding, (-) Rebound Musculoskeletal: (-) Edema Lymph: (-) Cervical adenopathy Neuro: Alert, Oriented x3 Psych: Mood and affect Normal Triage Information Reviewed: Yes Vital Signs On Initial Exam: Initial Vitals Temp Pulse Resp BP Pulse Ox 97.9 F 78 16 126/89 95 08/06/19 11:36 08/06/19 11:36 08/06/19 11:36 08/06/19 11:36 08/06/19 11:36 Vital Signs Reviewed: Yes Procedures - Sedation Patient Received Moderate/Deep Sedation with Procedure: No Diagnostics - Vital Signs Vital Signs Temp Pulse Resp BP Pulse Ox 08/06/19 11:36 97.9 F 78 16 126/89 95 - Laboratory Result Diagrams: 08/06/19 12:03 08/06/19 12:03 Lab Statement: Any lab studies that have been ordered have been reviewed, and results considered in the medical decision making process. - Radiology CXR Radiology Interpretation Completed By: Radiologist Summary of Radiographic Findings: Impression: No active cardiopulmonary disease. Dr. Rosario has reviewed this report. Course/Dx - Course Course Of Treatment: Patient is a 53 y/o M with COPD/small cell lung cancer presenting for SOB worsening for the last few days accompanied by chest congestion, dry cough. No fevers/chills. Heavy smoker. Patient was seen here yesterday for similar symptoms with COPD exacerbation workup and plan for outpatient oncology follow up with Dr. Robles and Davian Mendoza. Improvement with Solu-Medrol yesterday, Rx for Prednisone. Patient appears weak/fatigued. Coarse breath sounds b/l. IV access obtained. Patient received fluids. Blood work reveals WBCs 11.3, RBCs 4.11, hemoglobin 12.5, hematocrit 37, absolute neutrophils 10.4, sodium 133, BUN 27, creatinine 0.62. Influenza A and B are negative. COVID-19 tests ordered, pending results. CXR is negative. Dr. Palomino from oncology consulted for possible admission. He accepts for admission. Patient and agreeable with plan. - Diagnoses Provider Diagnoses: Bronchitis - Physician Notifications Discussed Care of Patient With: Sundar Palomino - oncology Time Discussed With Above Provider: 12:20 Instructed by Provider To: Other - I discussed the patient's case with Dr. Palomino , and he will consult for the patient. Patient accepted for admission. Discharge ED - Sign-Out/Discharge Documenting (check all that apply): Patient Departure - Patient accepted for admission by Dr. Palomino. - Discharge Plan Condition: Stable Disposition: ADMITTED TO [facility] - Billing Disposition and Condition Condition: STABLE Disposition: Admitted to [facility] - Attestation Statements Document Initiated by Anthony: Yes Documenting Scribe: Lalita Frank Provider For Whom Anthony is Documenting (Include Credential): DO Anthony Godinez Attestation: Lalita Piña, scribed for Madhav Rosario DO on 08/06/19 at 1508. Scribe Documentation Reviewed: Yes Provider Attestation: The documentation as recorded by the Lalita valladares accurately reflects the service I personally performed and the decisions made by me, Madhav Rosario DO Status of Scribe Document: Viewed
[2019-08-06 12:14] LABS: Hematocrit 37 % (42-52); Hemoglobin 12.5 g/dL (14.0-18.0); Mean Corpuscular HGB Conc 34 g/dL (31-36); Mean Corpuscular Hemoglobin 30 pg (27-31); Mean Corpuscular Volume 90 fL (80-94); Mean Platelet Volume 6.3 fL (7.4-10.4); Platelet Count 300 10^3/uL (150-450); Red Blood Count 4.11 10^6 /uL (4.18-5.48); Red Cell Distribution Width 19 % (10-15); White Blood Count 11.3 10^3/uL (3.5-10.8)
[2019-08-06 12:35] LABS: BUN/Creatinine Ratio 43.5 (8-20); Calcium 9.2 mg/dL (8.6-10.3); EGFR African American 164.8 (>60); EGFR Non-African American 136.2 (>60); Potassium 4.3 mmol/L (3.5-5.0)
[2019-08-06 12:40] LABS: ABS Lymphocytes 0.4 10^3/ul (1.0-4.8); ABS Monocytes 0.5 10^3/ul (0-0.8); ABS Neutrophils 10.4 10^3/ul (1.5-7.7); Lymphocyte % 3.3 %
[2019-08-06 13:11] LABS: Influenza A Molecular Negative (Negative); Influenza B Molecular Negative (Negative)
[2019-08-06] MEDS ORDERED: NS 0.9% 1000 ML** 1,000 ML IV ONE (13:14)
[2019-08-06] MEDS ORDERED: Ondansetron INJ* 2 MG/ML VIAL IV PRN (13:33)
[2019-08-06] MEDS ORDERED: Acetaminophen TAB* 325 MG PO PRN (13:33)
[2019-08-06] MEDS ORDERED: traZODone TAB* 100 MG PO PRN (13:38)
[2019-08-06] MEDS ORDERED: Cyclobenzaprine TAB* 10 MG PO PRN (13:38)
[2019-08-06] MEDS ORDERED: NS 0.9% 1000 ML** 1,000 ML IV SCH (13:45)
[2019-08-06] MEDS ORDERED: LORazepam TAB(*) 0.5 MG PO PRN (13:50)
[2019-08-06] MEDS ORDERED: Albuterol/Ipratropium NEB.SOL* Albuterol 2.5 MG/Ipratropium 0.5 MG 3 ML INH SCH (14:00)
[2019-08-06] MEDS ORDERED: Albuterol/Ipratropium NEB.SOL* Albuterol 2.5 MG/Ipratropium 0.5 MG 3 ML ONE (14:02)
[2019-08-06] MEDS: Sodium Chloride TAB* 1 GM PO SCH ×2 (16:36→20:18)
[2019-08-06] MEDS: Azithromycin 500 mg/250 ml NS 500 MG/250 ML BAG IVPB SCH (16:36)
[2019-08-06] MEDS ORDERED: Albuterol/Ipratropium NEB.SOL* Albuterol 2.5 MG/Ipratropium 0.5 MG 3 ML INH PRN (17:58)
[2019-08-06] MEDS ORDERED: Enoxaparin(*) 40 MG/0.4 ML SYR SUBCUT SCH (18:00)
--- NOTE | 2019-08-06 19:21 | HP ---
CC: Dr. Palomino* ADMISSION HISTORY AND PHYSICAL: DATE OF ADMISSION: 08/06/19 PRIMARY ONCOLOGIST: Dr. Sundar Palomino. ATTENDING PHYSICIAN: Dr. Sundar Palomino* (dictated by LUIS Sharif). ADMITTING PROVIDER: LUIS Sharif CHIEF COMPLAINT: Shortness of breath. HISTORY OF PRESENT ILLNESS: This is a 53-year-old gentleman well known to the oncology service with extensive stage small cell lung carcinoma with recent progression on Taxol therapy with new [employer] metastasis, now status post whole brain radiation, who presented to the emergency department yesterday and again today with complaints of shortness of breath. The patient reported yesterday that he had unfortunately ran out of his Spiriva and Combivent approximately 3 days prior to his ER visit. He has had a lapse of insurance pending Medicaid activation any day now but has had a difficult time keeping all of his medications filled during this period of time. Approximately 1 day after finishing his supply of Spiriva and Combivent, he began getting quite short of breath. He was initially hypoxic when he presented yesterday with coarse lung sounds. He tested negative for the flu. The chest x-ray was unremarkable and a CTA was done which was negative for a PE or occult infiltrate. He recently received some palliative radiation to mediastinal and hilar adenopathy associated with small cell lung cancer, which appeared relatively stable on CT but certainly is causing some bronchial and vascular compression on the left side. The patient was given Solu-Medrol in the emergency department and symptoms improved and he was not hypoxic on repeat evaluation including with ambulation. He was discharged to home. He had plans to fill his inhalers by paying out of pocket and getting reimbursed when his Medicaid became active. He reports that he felt slightly better after getting home, but the results did not last and he became increasingly short of breath again overnight and into this morning which brought him back to the emergency department with similar symptoms. He has an associated dry cough, but no fever. Influenza testing was repeated and again negative. Requiring 2 L via nasal cannula to maintain oxygen saturations in the low 90s. PAST MEDICAL HISTORY: 1. Extensive stage small cell lung carcinoma with [employer] metastasis, status post whole brain radiation and palliative radiation to left hilar and mediastinal regions. 2. COPD. 3. Hypertension. 4. Hyperlipidemia. 5. 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 PAST SURGICAL HISTORY: Prior elbow and knee surgery. HOME MEDICATIONS: 1. Albuterol inhaler 2 puffs inhaled q.4 hours as needed for shortness of breath. 2. Aspirin 325 mg p.o. daily. 3. Atorvastatin 80 mg p.o. daily. 4. Flexeril 10 mg p.o. 3 times daily as needed. 5. Docusate 300 mg p.o. daily. 6. Pepcid 20 mg p.o. daily. 7. Hydrocodone/acetomorphine 10/325 one tablet p.o. q.4 hours as needed for pain. 8. Omeprazole 40 mg p.o. twice daily. 9. Zofran 4 mg p.o. q.4 hours as needed for nausea and vomiting. 10. Compazine 10 mg p.o. q.6 hours as needed for nausea and vomiting. 11. Sodium chloride tablets 1 g p.o. 3 times daily. 12. Trazodone 150 mg p.o. at bedtime. 13. Prednisone 40 mg p.o. daily x4 days, prescribed by the emergency department yesterday. FAMILY HISTORY: The patient's father had history of lung cancer. SOCIAL HISTORY: The patient lives at home with his . He continues to smoke currently about a pack a day with a significant pack year history. Occasional alcohol consumption. REVIEW OF SYSTEMS: Full review of systems completed as noted in HPI, all other systems are negative. PHYSICAL EXAMINATION GENERAL: This is an ill-appearing 53-year-old male, in no acute distress. INITIAL VITALS: Temperature 97.9 degrees Fahrenheit, pulse 78 beats per minute , respiratory rate 16, oxygen saturation 95%, blood pressure 126/89 mmHg. HEENT: Head is normocephalic, atraumatic. Mucous membranes are pink and moist. RESPIRATORY: There is coarse rhonchi and an occasional wheeze throughout all lung leiva. CARDIOVASCULAR: Heart has a regular rate and rhythm without murmurs, rubs, or gallops. ABDOMEN: Soft and nontender to palpation. EXTREMITIES: No edema. PSYCH: The patient is alert and appropriately oriented. SKIN: No concerning rashes. IMAGING: Chest x-ray 08/06/19 shows no acute disease. LABORATORY EVALUATION: 1. CBC shows a white blood cell count of 11,300, hemoglobin of 12.5, platelet count of 300,000. 2. Metabolic panel shows sodium of 133, potassium 4.3, BUN of 27, creatinine 0.62. 3. Influenza testing negative. ASSESSMENT AND PLAN: This is a 53-year-old male with extensive stage small cell lung carcinoma with recent treatment for brain metastasis with whole brain radiation and palliative radiation to left mediastinal and hilar lymphadenopathy , with plans to start third line chemotherapy with recent progression on Taxol, who presents with complaints of acute shortness of breath after recently running out of his maintenance inhalers. Symptoms and evaluation appear consistent with chronic obstructive pulmonary disease exacerbation. No evidence for a bacterial pneumonia. He is negative for influenza. The patient has been appropriately tested for COVID- 19 virus and results are pending at the time of evaluation. Recommend hospitalization for management of his chronic obstructive pulmonary disease exacerbation as he has unfortunately failed outpatient management. 1. Chronic obstructive pulmonary disease exacerbation - continue treatment with IV Solu-Medrol and regular DuoNeb. Start azithromycin. COVID-19 testing is pending. 2. Extensive stage small cell lung carcinoma - plan to start topotecan after recovery from this acute illness and recent completion of whole brain radiation and palliative RT to mediastinal and hilar adenopathy. 2. SIADH - associated with the small cell lung carcinoma. He is only mildly hyponatremic at this time, on sodium chloride tabs. We will continue tablets, limit IV fluids, and continue to monitor sodium daily. 3. Code status: The patient remains full code. 4. DVT prophylaxis, 40 mg of Lovenox subcu daily. 5. Disposition: The patient is being admitted to inpatient status with expected length of stay to be greater than 2 midnights. LUIS SHARIF [id number]/CPS #: [id number] HENNY
[2019-08-06] MEDS: Pantoprazole TAB * 40 MG TAB PO SCH (20:18)
[2019-08-06] MEDS: methylPREDNISolone SOD 40 MG* 1 ML VIAL IV SCH (20:19)
[2019-08-06] MEDS: guaiFENesin ER TAB 600 MG PO PRN (23:48)
[2019-08-07] MEDS: Hydrocodone/Acetamin 10/325 MG 1 TAB PO PRN ×3 (00:14→08:33)
[2019-08-07 05:40] LABS: Hematocrit 34 % (42-52); Hemoglobin 11.5 g/dL (14.0-18.0); Mean Corpuscular HGB Conc 34 g/dL (31-36); Mean Corpuscular Hemoglobin 31 pg (27-31); Mean Corpuscular Volume 89 fL (80-94); Mean Platelet Volume 6.1 fL (7.4-10.4); Platelet Count 282 10^3/uL (150-450); Red Blood Count 3.75 10^6 /uL (4.18-5.48); Red Cell Distribution Width 19 % (10-15); White Blood Count 10.1 10^3/uL (3.5-10.8)
[2019-08-07 05:56] LABS: Albumin 3.2 g/dL (3.2-5.2); Albumin/Globulin Ratio 1.6 (1-3); BUN/Creatinine Ratio 46.9 (8-20); Calcium 8.4 mg/dL (8.6-10.3); EGFR African American 216.3 (>60); EGFR Non-African American 178.7 (>60); Total Bilirubin 0.3 mg/dL (0.2-1.0); Total Protein 5.2 g/dL (6.4-8.9)
[2019-08-07 06:18] LABS: ABS Lymphocytes 0.4 10^3/ul (1.0-4.8); ABS Monocytes 0.4 10^3/ul (0-0.8); ABS Neutrophils 9.3 10^3/ul (1.5-7.7); Lymphocyte % 3.7 %
[2019-08-07] MEDS: methylPREDNISolone SOD 40 MG* 1 ML VIAL IV SCH (08:33)
[2019-08-07] MEDS: guaiFENesin ER TAB 600 MG PO PRN (08:33)
[2019-08-07] MEDS: Pantoprazole TAB * 40 MG TAB PO SCH (08:33)
[2019-08-07] MEDS: Sodium Chloride TAB* 1 GM PO SCH (08:34)
[2019-08-07] MEDS ORDERED: Docusate CAP* 100 MG PO SCH (09:00)
[2019-08-07] MEDS ORDERED: Famotidine TAB* 20 MG PO SCH (09:00)
[2019-08-07] MEDS ORDERED: Atorvastatin* 80 MG TAB PO SCH (09:00)
[2019-08-07] MEDS ORDERED: Aspirin TAB* 325 MG PO SCH (09:00)
[2019-08-07] MEDS: Azithromycin 500 mg/250 ml NS 500 MG/250 ML BAG IVPB SCH (10:47)
--- NOTE | 2019-08-07 12:22 | DS ---
- Discharge Summary Date of Admission: 08/06/2019 Date of Discharge: 08/07/2019 Discharge Diagnoses: 1. COPD with acute exacerbation -Azithromycin 500mg given today for total course of 1g over 24 hours. -Continue DuoNeb every 4 hours as needed -Continue Spiriva 18mcg daily -Continue Guaifenesin 600mg daily as needed -Prednisone taper: 40mg daily x 7 days, 30mg daily x 7 days, 20mg daily x 7 days , 10mg daily x 7 days, 5mg daily x 7 days then stop. -COVID-19 pending 2. Extensive stage small cell lung cancer -Start Topotecan after recovery of acute illness and recent completion of WBRT and palliative RT to mediastinal and hilar adenopathy. 3. SIADH - Sodium today 130. Continue Sodium Chloride tablets 1gm TID. Medication List: Ondansetron TAB* [Zofran 4 MG Tab*] 4 mg PO .8X/DAY PRN 12/14/18 [History Confirmed 08/06/19] Aspirin TAB* [Aspirin 325 MG TAB*] 325 mg PO DAILY 12/25/18 [History Confirmed 08/06/19] Omeprazole (Nf) [Prilosec (NF)] 40 mg PO BID 05/17/19 [History Confirmed ] Prochlorperazine 10 mg TAB [Compazine 10 mg TAB] 10 mg PO QAM PRN 05/17/19 [ History Confirmed 08/06/19] Famotidine TAB* [Pepcid 20 MG TAB*] 20 mg PO DAILY 07/12/19 [History Confirmed 08/06/19] Sodium Chloride TAB* 1 gm PO TID 07/12/19 [History Confirmed 08/06/19] Atorvastatin* [Lipitor 80 MG*] 80 mg PO DAILY 08/05/19 [History Confirmed ] Cyclobenzaprine TAB* [Flexeril 10 MG TAB*] 10 mg PO TID PRN 08/05/19 [History Confirmed 08/06/19] Docusate Sodium [Stool Softener] 300 mg PO DAILY 08/05/19 [History Confirmed ] HydroCODONE/Acetamin 10/325 NF [[place] 10/325 (NF)] 1 tab PO Q4H PRN 08/05/19 [ History Confirmed 08/06/19] traZODone TAB* [Desyrel TAB*] 150 mg PO BEDTIME PRN 08/05/19 [History Confirmed 08/06/19] Tiotropium CAPSULE (NF) [Spiriva CAPSULE (NF)] 18 mcg INH DAILY 08/06/19 [ History Confirmed 08/06/19] Acetaminophen TAB* [Tylenol TAB*] 650 mg PO Q4H PRN tab 08/07/19 [Rx] Albuterol/Ipratropium NEB.PHILIP* [Duoneb (Albuterol 2.5 MG/Ipratropium 0.5 MG)] 1 neb INH Q4H PRN #60 neb.soln 08/07/19 [Rx] LORazepam TAB(*) [Ativan 0.5 MG TAB (*)] 0.5 mg PO Q4H PRN #30 tab MDD 6 tabs [Rx] guaiFENesin ER TAB [Mucinex*] 600 mg PO DAILY PRN tab.er 08/07/19 [Rx] predniSONE [Prednisone 5 MG TAB] 5 mg PO SEE INSTRUCTIONS #147 tablet 08/07/19 [ Rx] Hospital Course: 53 year old male known to oncology with extensive stage small cell lung cancer admitted to inpatient on 08/06/2019 for persistent shortness of breath. CXR in ED on 08/06/2019 reviewed and showed no cardiopulmonary disease; he was ultimately diagnosed with acute COPD exacerbation and treated with DuoNeb every 4 hours as needed as well as methylprednisolone 40mg IV BID. His influenza A and B tests were negative, COVID-19 results pending. Most recent labs: Laboratory Results - last 24 hr 08/06/19 08/06/19 08/06/19 12:03 12:03 12:47 WBC 11.3 H RBC 4.11 L Hgb 12.5 L Hct 37 L MCV 90 MCH 30 MCHC 34 RDW 19 H Plt Count 300 MPV 6.3 L Neut % (Auto) 91.8 Lymph % (Auto) 3.3 Lares % (Auto) 4.7 Eos % (Auto) 0.0 Baso % (Auto) 0.2 Absolute Neuts (auto) 10.4 H Absolute Lymphs (auto) 0.4 L Absolute Monos (auto) 0.5 Absolute Eos (auto) 0.0 Absolute Basos (auto) 0.0 Absolute Nucleated RBC 0.0 Immature Gran % 2.0 Neutrophils % 88.0 Lymphocytes % 2.0 Monocytes % 8.0 Metamyelocytes % 1.0 Myelocytes % 1.0 Nucleated RBC % 0.0 Normal RBC Morphology Normal Sodium 133 L Potassium 4.3 Chloride 98 L Carbon Dioxide 27 Anion Gap 8 BUN 27 H Creatinine 0.62 L Est GFR ( Amer) 164.8 Est GFR (Non-Af Amer) 136.2 BUN/Creatinine Ratio 43.5 H Glucose 112 H Calcium 9.2 Total Bilirubin AST ALT Alkaline Phosphatase Total Protein Albumin Globulin Albumin/Globulin Ratio Influenza A (Rapid) Negative Influenza B (Rapid) Negative 08/07/19 08/07/19 05:23 05:23 WBC 10.1 RBC 3.75 L Hgb 11.5 L Hct 34 L MCV 89 MCH 31 MCHC 34 RDW 19 H Plt Count 282 MPV 6.1 L Neut % (Auto) 92.2 Lymph % (Auto) 3.7 Lares % (Auto) 4.0 Eos % (Auto) 0.0 Baso % (Auto) 0.1 Absolute Neuts (auto) 9.3 H Absolute Lymphs (auto) 0.4 L Absolute Monos (auto) 0.4 Absolute Eos (auto) 0.0 Absolute Basos (auto) 0.0 Absolute Nucleated RBC 0.0 Immature Gran % Neutrophils % Lymphocytes % Monocytes % Metamyelocytes % Myelocytes % Nucleated RBC % 0.0 Normal RBC Morphology Sodium 130 L Potassium 4.0 Chloride 97 L Carbon Dioxide 25 Anion Gap 8 BUN 23 Creatinine 0.49 L Est GFR ( Amer) 216.3 Est GFR (Non-Af Amer) 178.7 BUN/Creatinine Ratio 46.9 H Glucose 121 H Calcium 8.4 L Total Bilirubin 0.30 AST 24 ALT 41 Alkaline Phosphatase 132 H Total Protein 5.2 L Albumin 3.2 Globulin 2.0 Albumin/Globulin Ratio 1.6 Influenza A (Rapid) Influenza B (Rapid) Disposition: Home Diet: As tolerated Activity: self-quarantine for at least 4 days while awaiting COVID-19 testing, this includes close family contacts. If positive test, quarantine required for additional 2 weeks, if negative test social isolation and limit visitors for next 2-4 weeks. Follow-Up plans: to be arranged with Hematology/Oncology clinic. Outpatient tests: COVID-19 pending, [facility] informed by nursing staff. will continue to monitor electrolytes.
[2019-08-07 13:04] VITALS: BP 130/77
== END 2019-08-07 12:30 | disposition home or self-care (01) ==
LOC: ED 11:26 → INTOOBSV 13:33 → MED 13:33
PROVIDERS: ADMIT Internal Medicine Hematology & Oncology; ATTEND Internal Medicine Hematology & Oncology
DX: J44.1 Chronic obstructive pulmonary disease with (acute) exacerbation (principal); C34.90 Malignant neoplasm of unspecified part of unspecified bronchus or lung; E22.2 Syndrome of inappropriate secretion of antidiuretic hormone; I10 Essential (primary) hypertension; E78.5 Hyperlipidemia, unspecified; E78.00 Pure hypercholesterolemia, unspecified; F17.210 Nicotine dependence, cigarettes, uncomplicated; I73.9 Peripheral vascular disease, unspecified; Z79.82 Long term (current) use of aspirin; Z20.828 Contact with and (suspected) exposure to other viral communicable diseases; Z79.899 Other long term (current) drug therapy; Z86.14 Personal history of Methicillin resistant Staphylococcus aureus infection
CPT/HCPCS: 36415; 71045; 80048; 80053; 85025; 94640; 96361; 96365; 96372; 96375; 99217; 99219; 99284; A9270-GY; G0378; J0456; J1650; J2920; U0002

== ENCOUNTER 2019-08-23 11:22 | Inpatient (IN) | payer MEDICAID ==
[~2019-08-23 11:22] MED LIST: Dexamethasone IV* 8 MG in PREMIX* 0 ML IV SCH; NS 0.9% IVPB SCH; Ondansetron INJ* 2 MG/ML VIAL IV SCH; TOPOTECAN IVPB SCH
[2019-08-23 11:42] LABS: ABS Lymphocytes 0.3 10^3/ul (1.0-4.8); ABS Neutrophils 5.5 10^3/ul (1.5-7.7); Eosinophil % 0.1 %; Hematocrit 32 % (42-52); Hemoglobin 11.3 g/dL (14.0-18.0); Lymphocyte % 5.4 %; Mean Corpuscular HGB Conc 35 g/dL (31-36); Mean Corpuscular Hemoglobin 31 pg (27-31); Mean Corpuscular Volume 87 fL (80-94); Mean Platelet Volume 6.7 fL (7.4-10.4); Platelet Count 238 10^3/uL (150-450); Red Blood Count 3.69 10^6 /uL (4.18-5.48); Red Cell Distribution Width 18 % (10-15); White Blood Count 5.9 10^3/uL (3.5-10.8)
[2019-08-23] MEDS ORDERED: Morphine INJ* 2 MG/ML 1 ML SYRINGE (TWO MG - NEW SYRINGE VERSION) ONE ×2 (11:46→13:40)
[2019-08-23] MEDS ORDERED: Ondansetron INJ* 2 MG/ML VIAL ONE (11:55)
[2019-08-23 12:01] LABS: Albumin 3.1 g/dL (3.2-5.2); BUN/Creatinine Ratio 54.3 (8-20); Calcium 8.6 mg/dL (8.6-10.3); EGFR African American 318.9 (>60); EGFR Non-African American 263.5 (>60); Globulin 3.2 g/dL (2-4); Potassium 4.3 mmol/L (3.5-5.0); Total Bilirubin 0.5 mg/dL (0.2-1.0); Total Protein 6.3 g/dL (6.4-8.9)
[2019-08-23] MEDS ORDERED: Albuterol/Ipratropium NEB.SOL* Albuterol 2.5 MG/Ipratropium 0.5 MG 3 ML INH PRN (12:26)
[2019-08-23] MEDS ORDERED: traZODone TAB* 100 MG PO PRN ×2 (13:07→13:52)
[2019-08-23] MEDS ORDERED: Iohexol 350* (CONTRAST) 500 ML MDV IV ONE (13:39)
[2019-08-23] MEDS ORDERED: Dexamethasone IV* 4 MG/ML 1 ML (4 MG) IV SLOW PU ONE (13:53)
[2019-08-23] MEDS: Sodium Chloride TAB* 1 GM PO SCH ×2 (14:30→20:46)
[2019-08-23] MEDS: Enoxaparin(*) 40 MG/0.4 ML SYR SUBCUT SCH (14:30)
[2019-08-23] MEDS: NS 0.9% 1000 ML** 1,000 ML IV SCH (14:48)
[2019-08-23] MEDS: FILGRASTIM-SNDZ* 480 MCG/0.8 ML SYRINGE SUBCUT SCH (14:56)
[2019-08-23] MEDS ORDERED: Piperacillin/Tazobac ADVAN(*) 3.375 GM in NS 0.9% 100 ML* 100 ML IVPB ONE (16:37)
--- NOTE | 2019-08-23 16:40 | PN ---
Progress Note - Progress Note Date of Service: 08/23/19 SOAP: H&P addendum: personally reviewed CTA. No large PE appreciated. There is a pleural based lesion in the LLL with either air pockets or central cavitation concerning for abscess. This is new when compared to prior imaging. Previous lung abscess grew Pseudomonas and Neisseria species. Will empirically treat with Zosyn. Final radiology read is pending.
[2019-08-23] MEDS ORDERED: Zosyn per Pharmacy* NOTE FOLLOW UP SCH (17:00)
[2019-08-23] MEDS: Morphine INJ* 4 MG/ML 1 ML SYRINGE (NEW SYRINGE VERSION) IV PRN ×3 (17:07→23:42)
[2019-08-23] MEDS: Morphine TAB Extended Release (*) 15 MG TAB.ER PO SCH (20:45)
[2019-08-23] MEDS: Pantoprazole TAB * 40 MG TAB PO SCH (20:46)
[2019-08-23] MEDS: ZOSYN 3.375 GM Q8H per EXTENDED INFUSION IVPB SCH ×2 (20:46)
[2019-08-23] MEDS: Ondansetron INJ* 2 MG/ML VIAL IV PRN (23:48)
[2019-08-24] MEDS: Morphine INJ* 4 MG/ML 1 ML SYRINGE (NEW SYRINGE VERSION) IV PRN ×10 (01:37→23:38)
[2019-08-24] MEDS: ZOSYN 3.375 GM Q8H per EXTENDED INFUSION IVPB SCH ×6 (04:43→21:02)
[2019-08-24 05:04] LABS: ABS Lymphocytes 0.2 10^3/ul (1.0-4.8); ABS Neutrophils 2.3 10^3/ul (1.5-7.7); Eosinophil % 0.1 %; Hematocrit 25 % (42-52); Hemoglobin 9.1 g/dL (14.0-18.0); Lymphocyte % 9.2 %; Mean Corpuscular HGB Conc 36 g/dL (31-36); Mean Corpuscular Hemoglobin 31 pg (27-31); Mean Corpuscular Volume 88 fL (80-94); Mean Platelet Volume 6.6 fL (7.4-10.4); Platelet Count 164 10^3/uL (150-450); Red Cell Distribution Width 18 % (10-15); White Blood Count 2.6 10^3/uL (3.5-10.8)
[2019-08-24 05:18] LABS: ALT 57 U/L (7-52); AST 64 U/L (13-39); Albumin 2.5 g/dL (3.2-5.2); Albumin/Globulin Ratio 0.9 (1-3); Alkaline Phosphatase 396 U/L (34-104); Anion Gap 6 mmol/L (2-11); Blood Urea Nitrogen 13 mg/dL (6-24); CO2 Carbon Dioxide 25 mmol/L (22-32); Chloride 96 mmol/L (101-111); EGFR Non-African American 314.9 (>60); Globulin 2.7 g/dL (2-4); Glucose 116 mg/dL (70-100); Potassium 4.1 mmol/L (3.5-5.0); Sodium 127 mmol/L (135-145); Total Protein 5.2 g/dL (6.4-8.9)
[2019-08-24] MEDS: Pantoprazole TAB * 40 MG TAB PO SCH ×2 (07:52→21:01)
[2019-08-24] MEDS: Sodium Chloride TAB* 1 GM PO SCH ×3 (07:52→21:01)
[2019-08-24] MEDS: Morphine TAB Extended Release (*) 15 MG TAB.ER PO SCH ×2 (07:53→21:01)
[2019-08-24] MEDS: Aspirin TAB* 325 MG PO SCH (07:53)
[2019-08-24] MEDS: NS 0.9% 1000 ML** 1,000 ML IV SCH ×2 (07:56→21:02)
--- NOTE | 2019-08-24 09:37 | PN ---
Progress Note - Progress Note Date of Service: 08/24/19 SOAP: Subjective: []Pain overnight and has not been able to sleep. Breathing stable but compromised, cough continues. No nausea from chemotherapy. Pain anterior right chest. Albuterol/Ipratropium (Duoneb (Albuterol 2.5 Mg/Ipratropium 0.5 Mg)) 1 neb INH Q4H PRN PRN Reason: SOB/WHEEZING Aspirin (Aspirin Tab*) 325 mg PO DAILY [facility] Last Admin: 08/24/19 07:53 Dose: 325 mg Enoxaparin Sodium (Lovenox(*)) 40 mg SUBCUT Q24H [facility] Last Admin: 08/23/19 14:30 Dose: 40 mg Filgrastim-Sndz (Zarxio*) 480 mcg SUBCUT DAILY [facility] Last Admin: 08/23/19 14:56 Dose: 480 mcg Sodium Chloride (Ns 0.9% 1000 Ml) 1,000 mls @ 100 mls/hr IV PER RATE [facility] Last Admin: 08/24/19 07:56 Dose: 100 mls/hr Piperacillin Sod/Tazobactam (Sod 3.375 gm/ Sodium Chloride) 100 mls @ 25 mls/ hr IVPB Q8H [facility] Last Admin: 08/24/19 04:43 Dose: 25 mls/hr Morphine Sulfate (Ms Contin(*)) 15 mg PO BID [facility] Last Admin: 08/24/19 07:53 Dose: 15 mg Morphine Sulfate (Morphine Inj (Syringe)*) 4 mg IV Q90M PRN PRN Reason: PAIN - MODERATE Last Admin: 08/24/19 07:59 Dose: 4 mg Ondansetron HCl (Zofran Inj*) 4 mg IV Q4H PRN PRN Reason: NAUSEA/VOMITING Last Admin: 08/23/19 23:48 Dose: 4 mg Pantoprazole Sodium (Protonix Tab*) 40 mg PO BID [facility] Last Admin: 08/24/19 07:52 Dose: 40 mg Pharmacy Consult (Zosyn Per Pharmacy*) 1 note FOLLOW UP .ZOSYN PER PHARMACY [facility] Prochlorperazine (Compazine 10 Mg Tab) 10 mg PO QAM PRN PRN Reason: NAUSEA Sodium Chloride (Sodium Chloride Tab*) 1 gm PO TID [facility] Last Admin: 08/24/19 07:52 Dose: 1 gm Trazodone HCl (Desyrel Tab*) 100 mg PO BEDTIME PRN PRN Reason: INSOMNIA Last Admin: 08/23/19 17:08 Dose: 100 mg Objective: [] Vital Signs Temp Pulse Resp BP Pulse Ox 97.6 F 71 18 117/68 95 08/24/19 03:34 08/24/19 03:34 08/24/19 07:59 08/24/19 03:34 08/24/19 03:34 HEENT pale, OM dry and no thrush. Dec BS, no wheezing, no crackles +BS NT ND Ext warm, no edema. CT scan. Net stable disease from mid July CT scan. There is increased cancer right anterior mediastinum that may correlate to pain. Small LLL infiltrate, COPD, bone disease and supraclavicular and medistinum LAD. 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 Pain has not been controlled overnight. Plan: []1. Pain. - Morphine ER to 30 mg po bid - IV morphine to q 1 hr 2. Breathing. Stable and follow - Continue ABx for time being, low suspicion from pneumonia. 3. FEN. Hyponatremia - Continue IVF and check Mg in am. 4. Continue Neupogen.
[2019-08-24] MEDS: Ondansetron INJ* 2 MG/ML VIAL IV PRN ×3 (10:03→21:12)
[2019-08-24] MEDS: FILGRASTIM-SNDZ* 480 MCG/0.8 ML SYRINGE SUBCUT SCH (11:39)
[2019-08-24] MEDS: Enoxaparin(*) 40 MG/0.4 ML SYR SUBCUT SCH (14:49)
[2019-08-25] MEDS: Morphine INJ* 4 MG/ML 1 ML SYRINGE (NEW SYRINGE VERSION) IV PRN ×5 (00:39→07:51)
[2019-08-25] MEDS: ZOSYN 3.375 GM Q8H per EXTENDED INFUSION IVPB SCH ×2 (06:09)
[2019-08-25 06:35] LABS: Hematocrit 25 % (42-52); Hemoglobin 8.8 g/dL (14.0-18.0); Mean Corpuscular HGB Conc 35 g/dL (31-36); Mean Corpuscular Hemoglobin 31 pg (27-31); Mean Corpuscular Volume 87 fL (80-94); Mean Platelet Volume 6.3 fL (7.4-10.4); Platelet Count 105 10^3/uL (150-450); Red Blood Count 2.89 10^6 /uL (4.18-5.48); Red Cell Distribution Width 18 % (10-15); White Blood Count 0.8 10^3/uL (3.5-10.8)
[2019-08-25 06:51] LABS: ALT 57 U/L (7-52); AST 49 U/L (13-39); Albumin 2.5 g/dL (3.2-5.2); Alkaline Phosphatase 380 U/L (34-104); Anion Gap 6 mmol/L (2-11); Blood Urea Nitrogen 10 mg/dL (6-24); CO2 Carbon Dioxide 25 mmol/L (22-32); Calcium 7.8 mg/dL (8.6-10.3); Chloride 94 mmol/L (101-111); EGFR Non-African American 314.9 (>60); Globulin 2.6 g/dL (2-4); Glucose 81 mg/dL (70-100); Magnesium 1.6 mg/dL (1.9-2.7); Potassium 3.8 mmol/L (3.5-5.0); Sodium 125 mmol/L (135-145); Total Protein 5.1 g/dL (6.4-8.9)
[2019-08-25 07:18] LABS: ABS Lymphocytes 0.4 10^3/ul (1.0-4.8); ABS Neutrophils 0.4 10^3/ul (1.5-7.7); Eosinophil % 0.2 %; Lymphocyte % 45.6 %
[2019-08-25] MEDS: Morphine TAB Extended Release (*) 15 MG TAB.ER PO SCH (07:52)
[2019-08-25] MEDS: Aspirin TAB* 325 MG PO SCH (07:52)
[2019-08-25] MEDS: Sodium Chloride TAB* 1 GM PO SCH (07:53)
[2019-08-25] MEDS: Pantoprazole TAB * 40 MG TAB PO SCH (07:53)
[2019-08-25] MEDS: FILGRASTIM-SNDZ* 480 MCG/0.8 ML SYRINGE SUBCUT SCH (07:53)
[2019-08-25] MEDS ORDERED: NS 0.9% 1000 ML** 1,000 ML IV SCH (09:00)
[2019-08-25] MEDS ORDERED: Magnesium Oxide TAB* 400 MG PO SCH (09:00)
[2019-08-25] MEDS ORDERED: Morphine TAB Extended Release (*) 30 MG TAB.ER PO ONE (09:36)
[2019-08-25] MEDS ORDERED: Morphine 10 MG/ML VIAL (1 ml) IV PRN (09:37)
[2019-08-25] MEDS ORDERED: Morphine TAB Extended Release (*) 30 MG TAB.ER PO SCH ×2 (10:00→21:00)
[2019-08-25 11:31] VITALS: BP 107/50
[2019-08-25] MEDS ORDERED: Morphine INJ* 4 MG/ML 1 ML SYRINGE (NEW SYRINGE VERSION) IV ONE (13:00)
--- NOTE | 2019-08-25 14:40 | DS ---
CC: Dr. Palomino; Dr. Robles * DISCHARGE SUMMARY: DATE OF ADMISSION: 08/23/19 DATE OF DISCHARGE: 08/25/19 PRIMARY CARE PROVIDER: Dr. Palomino. DISPOSITION AT DISCHARGE: Home. CONDITION ON DISCHARGE: Stable. DISCHARGE DIAGNOSES: 1. Pneumonia. 2. Exacerbation of chronic pain. 3. Neutropenia status post chemotherapy. SECONDARY DIAGNOSES: 1. Metastatic small cell lung cancer, the patient is status post infusion of topotecan, currently neutropenic. 2. The patient is being discharged with mild hyponatremia, likely related to syndrome of inappropriate antidiuretic hormone secretion that he has history of. 3. History of syndrome of inappropriate antidiuretic hormone secretion. 4. Chronic obstructive pulmonary disease . 5. Colonic polyps. 6. Dyslipidemia. 7. Hypertension. 8. Insomnia. 9. Tobacco use. 10. History of aneurysm of right iliac artery. 11. History of knee surgery in the past. MEDICATIONS AT DISCHARGE: Include: Please note that the patient's narcotic doses were changed. 1. His MS Contin was changed to 30 mg 3 times a day, which is a marked increase but he needed it. Please note that the patient was prescribed by Jossy Vigil on 08/14/19, a total of 60 tablets of 15 mg of Ms Contin and he is instructed to continue the tablets that he has at 2 tablets 3 times a day until he runs out. 2. Levaquin 500 mg daily for total of 5 days. 3. Trazodone 100 mg at bedtime. 4. Sodium chloride tablets 1 g 3 times a day. 5. Compazine on a p.r.n. basis. 6. Zofran on a p.r.n. basis. 7. Prilosec 40 mg b.i.d. 8. Hydrocodone with acetaminophen 10/325 mg 1 tablet every 4 hours p.r.n. 9. Colace 300 mg daily. 10. Lipitor 80 mg daily. 11. Aspirin 325 mg daily. LABORATORY DATA AND STUDIES PERFORMED DURING THE HOSPITAL STAY: Included: On 08/25/19, white blood cell count of 0.8, hemoglobin of 8.8, hematocrit of 25, and platelets of 105. Absolute neutrophil count was 0.4. Basic metabolic panel on the day of discharge was sodium 125, potassium 3.8, chloride 94, carbon dioxide 25, BUN 10, creatinine below 0.3. A CT angiogram of the chest obtained on admission, impression: "No definite pulmonary embolus or aortic dissection. Extensive right neck mediastinal adenopathy unchanged from previous exam. There appears to be wedge-shaped infiltrate in the periphery of the left upper lobe. Cavitary lesion is noted in the pleural space, in the lingula which is new since prior exam. Bony metastasis unchanged from previous exam. HOSPITALIZATION COURSE: Angelica Mason is an unfortunate 53-year-old male with history of lung cancer with metastasis who was brought in from his appointment with oncologist to be admitted for pneumonia. The patient also had severe exacerbation of his bony metastasis pain. He was placed on intravenous morphine. His MS Contin was increased. He was also on Zosyn throughout his hospital stay for his pneumonia. On 08/25/19, he actually became more hyponatremia that he has a history of SIADH. He also continues to have severe pain. Nevertheless, he requested to be discharged and he wanted to be with his . He knows that his prognosis is very poor and he wishes to continue from now on with hospice. He was in contact with hospice already and he is awaiting their phone call tomorrow. I discussed it briefly with Dr. Robles. At this time , we are going to send the patient with MS Contin at 30 mg 3 times a day. The patient is to continue his pills from home. He is to follow up with his primary oncologist, Dr. Palomino, after discharge within the next week. He is also to discuss his pain management with hospice. PHYSICAL EXAM AT THE TIME OF DISCHARGE: Blood pressure of 107/50, heart rate of 86 and regular, respiratory rate 18, oxygen saturation 96% on room air, temperature of 98.5. General: The patient is a very pleasant 53-year-old male who is of thin body habitus. The patient is in no acute distress. He is alert and oriented x3. HEENT: Head: Atraumatic, normocephalic. Eyes: Pupils are equal, reactive to light and accommodation. Oropharynx is clear. Mucosa moist. Neck: Supple. No JVD. No bruits bilaterally. Cardiovascular: Regular rate and rhythm. No murmur. Respiratory: Course rhonchi on bilateral auscultation. Abdomen: Soft, nontender. Bowel sounds are present in all 4 quadrants. Extremities: There is no edema. Pulses are +2 bilaterally. No clubbing or cyanosis. Neuro Evaluation: Speech is clear. Cranial Nerves II through XII grossly intact. Motor strength is 5/5 bilaterally. Please note that this is a short summary of the patient's hospitalization. Please refer to further medical records for details. TIME SPENT: Approximately 40 minutes was spent on the patient's discharge. [id number]/[facility] #: [id number] MTDD
== END 2019-08-25 13:10 | disposition home or self-care (01) | DRG 139 ==
LOC: CHOA 11:22 → MEDTELE 12:15
PROVIDERS: ADMIT Internal Medicine Hematology & Oncology; ATTEND Internal Medicine Hematology & Oncology
DX: J18.9 Pneumonia, unspecified organism (principal); E22.2 Syndrome of inappropriate secretion of antidiuretic hormone; C34.90 Malignant neoplasm of unspecified part of unspecified bronchus or lung; C78.1 Secondary malignant neoplasm of mediastinum; C79.51 Secondary malignant neoplasm of bone; D70.1 Agranulocytosis secondary to cancer chemotherapy; J44.9 Chronic obstructive pulmonary disease, unspecified; G89.3 Neoplasm related pain (acute) (chronic); K63.5 Polyp of colon; E78.5 Hyperlipidemia, unspecified; Z66 Do not resuscitate; I10 Essential (primary) hypertension; G47.00 Insomnia, unspecified; F17.210 Nicotine dependence, cigarettes, uncomplicated; J30.9 Allergic rhinitis, unspecified; Z79.82 Long term (current) use of aspirin; Z79.891 Long term (current) use of opiate analgesic; Z79.52 Long term (current) use of systemic steroids; Z79.899 Other long term (current) drug therapy; Z80.1 Family history of malignant neoplasm of trachea, bronchus and lung
CPT/HCPCS: 36415; 71275; 80053; 83735; 85025; 96374; 96375; 99215; 99223; A9270-GY; G0463; J1100; J1642; J1650; J2270; J2405; J2543; J9351; Q0164; Q5101; Q9967